=== PATIENT | female | born 1940 | race Caucasian/White ===

== ENCOUNTER → 2018-06-23 15:29 | Outpatient (POV) | payer MEDICARE, OTHER, SELFPAY | PROVIDERS: Visit Provider Dermatology | DX: Z00.00 Encounter for general adult medical examination without abnormal findings (principal) ==

== ENCOUNTER → 2019-01-14 13:49 | Outpatient (CLI) | payer MEDICARE, OTHER, SELFPAY ==
--- NOTE | 2019-01-14 13:57 | XR_ITS ---
PROCEDURE: XR HIP RT 2-3V W/PELVIS CLINICAL INDICATION: RT HIP PAIN COMPARISON: No exams were available for comparison FINDINGS: Mild osteoarthritic change of the right hip and SI joint. No fracture or dislocation. No lytic or blastic change IMPRESSION: Mild osteoarthritis otherwise negative Dictated by: Bethel Marie MD 01/14/2019 17:07 Signed by: <Electronically signed by Bethel Marie MD in [place]> 01/14/2019 17:07
== END ==
PROVIDERS: PCP Family Medicine; Visit Provider Nurse Practitioner Family
DX: M25.551 Pain in right hip (principal)
CPT/HCPCS: 73502

== ENCOUNTER → 2019-01-26 15:15 | Outpatient (CLI) | payer MEDICARE, OTHER, SELFPAY | PROVIDERS: PCP Family Medicine; Visit Provider Nurse Practitioner Family | DX: R10.30 Lower abdominal pain, unspecified (principal) ==

== ENCOUNTER → 2019-01-27 13:04 | Outpatient (CLI) | payer MEDICARE, OTHER, SELFPAY ==
--- NOTE | 2019-01-27 | CT_ITS ---
Procedure: CT ANGIO ABDOMEN CLINICAL HISTORY: Abdominal aortic aneurysm COMPARISON: CT ABDOMEN PELVIS W CON from 01/24/2019 TECHNIQUE: IV Contrast: 100ml Optiray 350 Axial images obtained with sagittal and coronal reformats. All CT scans at the facility use one or more dose reduction, viz: automated exposure control, ma/kV adjustment per patient size (including targeted exams where dose is matched to indication, i.e. head), or iterative reconstruction technique. FINDINGS: There is aneurysmal dilatation of the lower thoracic aorta and upper abdominal aorta measuring up to 3.8 cm transverse and 3.8 cm AP at the aortic hiatus. The aorta tapers to 2.8 by 3 cm at the level of the renal arteries and measures up to 2.2 by 2.4 cm distally proximal to the bifurcation. The proximal common iliac on the right measures up to 1.8 cm. The left common iliac is unremarkable. No significant stenosis of the celiac or SMA. The YOSSI is patent. There is a single renal artery to each kidney with no significant stenosis. The liver, adrenal glands, and pancreas have an unremarkable appearance. There is mild splenomegaly at 14 cm. There is mild cortical scarring of both kidneys slightly greater on the right. No hydronephrosis. No renal or ureteral calculi. There is a duplicated left renal collecting system. The ureters appear to join in the lower aspect. There is diffuse diverticulosis of the sigmoid colon. No evidence of diverticulitis. There has been a prior hysterectomy. The. 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 The rectum has an unremarkable appearance. No acute bony findings are evident. IMPRESSION: 1. There is mild aneurysmal dilatation of the junction of the descending thoracic aorta with the abdominal aorta measuring up to 3.8 x 3.8 cm. The aorta tapers distal to this region. No evidence of aortic dissection 2. Colonic diverticulosis with postsurgical changes. No acute finding. The the Dictated by: Bethel Marie MD 01/27/2019 16:53 Signed by: <Electronically signed by Bethel Marie MD in [place]> 01/27/2019 16:53
--- NOTE | 2019-01-27 13:19 | CT_ITS ---
PROCEDURE: CT ANGIO CHEST CLINCIAL INDICATION: THORACIC ANEURYSM Follow-up thoracic aortic aneurysm COMPARISON: [facility] CT CHEST W/O CONTRAST from 05/03/2014 TECHNIQUE: IV Contrast: 70ML OPTIRAY 350 Axial images obtained with sagittal and coronal reformats. All CT scans at the facility use one or more dose reduction, viz: automated exposure control, ma/kV adjustment per patient size (including targeted exams where dose is matched to indication, i.e. head), or iterative reconstruction technique. FINDINGS: There has been a prior CABG. There are diffuse coronary artery calcifications. Coronary artery stents are also present. There is normal heart size. Atheromatous changes involve the thoracic aorta. There is mild dilatation of the ascending aorta measuring 4 cm in AP dimension. Previously this measured 3.8 cm. The aorta at the level of the subclavian artery on the left measures 2.5 cm. The aorta thin becomes dilated in the descending portion measuring up to 4 cm AP in the proximal descending thoracic aorta, 4.7 cm in the mid descending thoracic aorta and 3.6 cm at the aortic hiatus. There is a moderate amount of mural thrombus along the posterior aspect of the descending thoracic aorta. A definite dissection however is not identified. The aorta has enlarged in caliber. Previously the descending thoracic aorta only measured up to approximately 3.6 cm in the proximal descending thoracic aorta now measuring 4.7 cm. There is a trace right-sided pleural effusion. There are mild atelectatic changes in the left lower lobe and trace left-sided effusion. No mediastinal or hilar mass. No suspicious pulmonary nodules. No infiltrates. No acute bony findings. IMPRESSION: 1. Descending thoracic aortic aneurysm measuring up to 4.7 cm with a moderate amount of intramural thrombus as described above which is increased in size compared to the previous exam 2. Small bilateral pleural effusions. Dictated by: Bethel Marie MD 01/27/2019 16:28 Signed by: <Electronically signed by Bethel Marie MD in [place]> 01/27/2019 16:28
== END ==
PROVIDERS: PCP Nurse Practitioner Family; Visit Provider Nurse Practitioner Family
DX: I71.2 Thoracic aortic aneurysm, without rupture (principal); R10.30 Lower abdominal pain, unspecified; R50.9 Fever, unspecified
CPT/HCPCS: 71275; 74175; Q9967

== ENCOUNTER → 2019-03-16 14:45 | Outpatient (CLI) | payer MEDICARE, OTHER, SELFPAY ==
--- NOTE | 2019-03-16 14:51 | XR_ITS ---
PROCEDURE: XR CHEST 2V CLINICAL HISTORY: right rib pain Right-sided chest pain following injury COMPARISON: CXR1 CHEST-PORTABLE from 01/04/2013 CXR CHEST(2 VIEWS-NOT PORTABLE) from 05/17/2014 CT ANGIO CHEST from 01/27/2019 FINDINGS: Prior median sternotomy. There is tortuosity/ectasia of the descending thoracic aorta which appears more prominent than when compared to 05/17/2014. The patient has a known descending thoracic aortic aneurysm as seen on 01/27/2019. Normal heart size. The lungs are clear without infiltrates, suspicious nodules, or pleural effusions. No acute bony abnormalities. IMPRESSION: Descending thoracic aortic aneurysm probably unchanged since 01/27/2019 otherwise negative Dictated by: Bethel Marie MD 03/16/2019 18:06 Electronically signed by Bethel Marie MD in [place] 03/16/2019 18:06
== END ==
PROVIDERS: PCP Family Medicine; Visit Provider Internal Medicine
DX: R07.81 Pleurodynia (principal); Z91.81 History of falling
CPT/HCPCS: 71046

== ENCOUNTER → 2019-05-18 14:53 | Outpatient (POV) | payer MEDICARE, OTHER, SELFPAY | PROVIDERS: Visit Provider Dermatology | DX: Z00.00 Encounter for general adult medical examination without abnormal findings (principal) ==

== ENCOUNTER → 2019-12-07 14:55 | Outpatient (POV) | payer MEDICARE, OTHER, SELFPAY | PROVIDERS: Visit Provider Dermatology | DX: Z00.00 Encounter for general adult medical examination without abnormal findings (principal) ==

== ENCOUNTER → 2019-12-27 10:30 | Outpatient (CLI) | payer MEDICARE, OTHER, SELFPAY ==
[2019-12-27 11:10] LABS: Basophils # 0.1 K/mm3 (0-0.2); Eosinophils # 0.2 K/mm3 (0.0-0.4); Eosinophils % 3.6 % (0.1-12.0); Hematocrit 43.4 % (37.0-47.0); Hemoglobin 14.9 g/dL (12.2-16.2); Lymphocytes # 1.8 K/mm3 (0.7-4.5); Lymphocytes % 27.5 % (10-50); Mean Corpuscular HGB Conc 34.3 g/dL (31.8-35.4); Mean Corpuscular Hemoglobin 32.1 pg (27.0-31.2); Mean Corpuscular Volume 93.5 fl (81-99); Monocytes # 0.3 K/mm3 (0.1-1.0); Monocytes % 4.7 % (1.7-9.3); Neutrophils # 4.1 K/mm3 (1.8-7.8); Neutrophils % 63.3 % (37.0-80.0); Platelet Count 196 K/mm3 (142-424); Red Blood Count 4.64 M/mm3 (4.20-5.40); Red Cell Distribution Width 13.6 % (11.5-17.5); White Blood Count 6.5 K/mm3 (4.8-10.8)
[2019-12-27 11:30] LABS: Microscopic, Urine URINE MICROSCOPIC (MICROSCOPIC)
[2019-12-27 11:33] LABS: Appearance,Urine SL CLOUDY (Clear); Bilirubin,Urine Negative (Negative); Blood, Urine Negative (Negative); Color,Urine YELLOW (Yellow); Glucose,Urine (UA) Negative (Negative); Ketones,Urine Negative (Negative); Leukocyte Esterase,Urine 2+ (Negative); Nitrate,Urine Negative (Negative); PH,Urine 5.5 (5.0-8.5); Protein,Urine Negative (Negative); Urobilinogen,Urine 0.2 EU/dl (0.2)
[2019-12-27 11:54] LABS: Bacteria,Urine 1+ /lpf
[2019-12-27 11:59] LABS: Chloride 94 mmol/L (98-107); Potassium 3.8 mmoL/L (3.5-5.1); Sodium 136 mmol/L (136-145)
[2019-12-27 12:01] LABS: Bilirubin,Unconjugated 0.5 mg/dL (0.0-1.1); Blood Urea Nitrogen 15 mg/dl (7-17); Estimated Glomerular Filt Rate 39 ml/min (>60); GFR (African American) 48 ML/MIN (>60)
[2019-12-27 12:02] LABS: Alanine Aminotransferase 11 U/L (12-78); Albumin Level 3.7 g/dl (3.5-5.0); Alkaline Phosphatase 80 U/L (38-126); Anion Gap 10.8 mEq/L (5-15); Aspartate Amino Transferase 25 U/L (14-36); Bilirubin,Direct 0.1 mg/dl (0.0-0.4); Bilirubin,Indirect 0.5 mg/dL (0.0-0.9); Bilirubin,Total 0.6 mg/dl (0.2-1.3); Calcium 9.2 mg/dl (8.4-10.2); Carbon Dioxide 35 mmol/L (22.0-30.0); Cholesterol 205 mg/dl (140-200); Glucose 113 mg/dl (74-100); HDL Cholesterol 68 mg/dl (40-60); Total Protein,Serum 6.6 g/dl (6.3-8.2); Triglycerides 184 mg/dl (30-150); VLDL Cholesterol 37 mg/dL (0-40)
[2019-12-27 12:13] LABS: Direct LDL Cholesterol 101.98 mg/dL (100-129)
[2019-12-27 12:19] LABS: Free T4 (Free Thyroxine) 1.19 ng/dl (0.78-2.19)
[2019-12-27 12:33] LABS: Thyroid Stimulating Hormone 0.59 uIU/mL (0.465-4.68)
== END ==
PROVIDERS: Visit Provider Physician Assistant
DX: I11.9 Hypertensive heart disease without heart failure; I25.10 Atherosclerotic heart disease of native coronary artery without angina pectoris; I45.10 Unspecified right bundle-branch block; R42 Dizziness and giddiness; R94.31 Abnormal electrocardiogram [ECG] [EKG]; R53.83 Other fatigue; E78.49 Other hyperlipidemia
CPT/HCPCS: 36415; 80048; 80061; 80076; 81001; 84439; 84443; 85025; 87086

== ENCOUNTER → 2019-12-31 07:06 | Outpatient (CLI) | payer MEDICARE, OTHER, SELFPAY ==
[2019-12-31 07:31] LABS: Blood Urea Nitrogen 15 mg/dl (7-17); Estimated Glomerular Filt Rate 48 ml/min (>60); GFR (African American) 58 ML/MIN (>60)
--- NOTE | 2019-12-31 07:57 | CT_ITS ---
PROCEDURE: CT ANGIO CHEST CLINCIAL INDICATION: thoracic aortic aneurysm Follow-up aortic aneurysm COMPARISON: CT ANGIO CHEST from 01/27/2019 TECHNIQUE: IV Contrast: 70ML OPTIRAY 350 Axial images obtained with sagittal and coronal reformats. All CT scans at the facility use one or more dose reduction, viz: automated exposure control, ma/kV adjustment per patient size (including targeted exams where dose is matched to indication, i.e. head), or iterative reconstruction technique. FINDINGS: Atheromatous changes are present involving the thoracic aorta with mild dilatation the distal ascending thoracic aorta measuring to 3.5 cm. There is ectasia also of the great vessels with diffuse atheromatous changes of the descending thoracic aorta with mural thrombus noted. The descending aorta measures 5 cm transverse and 4.7 cm AP and may be slightly larger compared to the previous exam at 4.7 x 4.6 cm. There is a moderate amount of intramural thrombus along the posterior aspect of the descending thoracic aorta. There is some increased density within the mural thrombus which has developed since the previous exam which could be related to some calcification or some enhancement of the mural thrombus which could be seen with a small dissection. Consider repeat exam without contrast to determine if this is calcification or contrast enhancement. There has been a prior median sternotomy. There is evidence of old granulomatous disease. There is minimal pleural thickening in the right midlung laterally. IMPRESSION: 1. Descending thoracic aortic aneurysm measuring up to 5 x 4.7 cm slightly larger compared to the previous exam with mural thrombus. There is some increased density within the mural thrombus which could be related to calcification or enhancement. Cannot exclude an early dissection. Consider follow-up exam without contrast to determine if the increased density within the thrombus is calcification or enhancement. 2. Prior median sternotomy with atheromatous changes of the thoracic aorta Dictated by: Bethel Marie MD 01/03/2020 09:24 Electronically signed by Bethel Marie MD in [place] 01/03/2020 09:24
== END ==
PROVIDERS: PCP Family Medicine; Visit Provider Physician Assistant
DX: E78.5 Hyperlipidemia, unspecified (principal); I11.9 Hypertensive heart disease without heart failure; I25.10 Atherosclerotic heart disease of native coronary artery without angina pectoris; I45.10 Unspecified right bundle-branch block; I71.2 Thoracic aortic aneurysm, without rupture; R42 Dizziness and giddiness; R53.83 Other fatigue; R94.31 Abnormal electrocardiogram [ECG] [EKG]
CPT/HCPCS: 36415; 71275; 82565; 84520; Q9967

== ENCOUNTER 2020-01-12 19:26 | Observation (INO) | payer MEDICARE, OTHER, SELFPAY ==
[2020-01-12 19:41] VITALS: BP 97/50; PULSE 110; RESP 18; TEMP 36.6; O2SAT 88; BMI 30.4
--- NOTE | 2020-01-12 19:55 | XR_ITS ---
PROCEDURE: XR CHEST 2V CLINICAL HISTORY: SOA Shortness of air weakness fever COMPARISON: CR CXR1 CHEST-PORTABLE from 01/04/2013 CR CXR CHEST(2 VIEWS-NOT PORTABLE) from 05/17/2014 CR XR CHEST 2V from 03/16/[address] ANGIO CHEST from 12/31/2019 FINDINGS: There has been a prior median sternotomy. There is normal heart size. There is prominence of the superior mediastinum unchanged. The lungs are clear without infiltrates, suspicious nodules, or pleural effusions. Surgical clips are present in the left upper quadrant. No acute bony finding. IMPRESSION: No change no acute finding Dictated b Bethel Marie MD 01/13/2020 06:19 Bethel Marie MD in [place] 01/13/2020 06:19
--- NOTE | 2020-01-12 19:55 | CT_ITS ---
PROCEDURE: CT ABDOMEN PELVIS W CON CLINICAL INDICATION: Urine retention Fever, UTI, history of rectal tumor, chills, weakness COMPARISON: CT CT ANGIO ABDOMEN from 01/27/[address] ANGIO CHEST from 12/31/2019 TECHNIQUE: IV Contrast: 75ML OPTIRAY 350 Oral Contrast None Axial images obtained with sagittal and coronal reformats. All CT scans at the facility use one or more dose reduction, viz: automated exposure control, ma/kV adjustment per patient size (including targeted exams where dose is matched to indication, i.e. head), or iterative reconstruction technique. FINDINGS: LOWER THORAX: There is trace bilateral effusions. There is aneurysmal dilatation of the distal descending thoracic aorta and upper abdominal aorta. The distal descending thoracic aorta measures to 4.9 x 4.9 cm not significantly changed. There is a mild amount mural thrombus. Atelectatic changes are present around the aorta in the left lower lobe. ABDOMEN & PELVIS: Prior cholecystectomy. The liver, adrenal glands, and pancreas have an unremarkable appearance. There is mild splenomegaly at 14 cm. No renal or ureteral calculi. There is mild prominence of the renal pelves on both sides. There is questionable minimal enhancement of the left renal pelvis and proximal ureter. No evidence of pyelonephritis or abscess. 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 There are few small nodes in the retroperitoneum anterior to the left psoas muscle.. There is mild dilatation of the abdominal aorta at 2.6 cm. No intestinal obstruction or free air. No evidence of appendicitis or diverticulitis. There is colonic diverticulosis. There is a small umbilical hernia containing fat. No acute bony anomalies. The the IMPRESSION: 1. Mild prominence of the renal pelves bilaterally with questionable minimal enhancement of the proximal left ureter and renal pelvis raising the question of urinary tract infection. 2. Aneurysmal dilatation of the distal descending thoracic aorta not significantly changed from 12/31/2019 with minimal dilatation of the mid abdominal aorta not significantly changed. 3. Trace bilateral effusions 4. Other nonacute findings as detailed above Dictated b Bethel Marie MD 01/13/2020 08:42 Bethel Marie MD in [place] 01/13/2020 08:42
[2020-01-12 20:19] LABS: Microscopic, Urine URINE MICROSCOPIC (MICROSCOPIC)
[2020-01-12 20:25] LABS: Appearance,Urine CLEAR (Clear); Bilirubin,Urine Negative (Negative); Blood, Urine TRACE-I (Negative); Color,Urine YELLOW (Yellow); Glucose,Urine (UA) Negative (Negative); Ketones,Urine Negative (Negative); Leukocyte Esterase,Urine Negative (Negative); Nitrate,Urine Negative (Negative); Protein,Urine TRACE (Negative)
[2020-01-12 20:26] LABS: Chloride 94 mmol/L (98-107)
[2020-01-12 20:27] LABS: Basophils % 0.2 % (0.1-2.0); Eosinophils # 0.1 K/mm3 (0.0-0.4); Eosinophils % 0.5 % (0.1-12.0); Hematocrit 40.8 % (37.0-47.0); Lymphocytes # 0.4 K/mm3 (0.7-4.5); Lymphocytes % 2.5 % (10-50); Mean Corpuscular HGB Conc 34.4 g/dL (31.8-35.4); Mean Corpuscular Hemoglobin 31.2 pg (27.0-31.2); Mean Corpuscular Volume 90.9 fl (81-99); Mean Platelet Volume 7.8 fl (7.4-10.4); Monocytes # 0.4 K/mm3 (0.1-1.0); Monocytes % 2.6 % (1.7-9.3); Neutrophils # 13.3 K/mm3 (1.8-7.8); Neutrophils % 94.2 % (37.0-80.0); Platelet Count 168 K/mm3 (142-424); Potassium 3.6 mmoL/L (3.5-5.1); Red Blood Count 4.49 M/mm3 (4.20-5.40); Sodium 132 mmol/L (136-145); White Blood Count 14.1 K/mm3 (4.8-10.8)
[2020-01-12 20:29] VITALS: BP 100/47; PULSE 102; RESP 18; O2SAT 96
[2020-01-12 20:29] LABS: Alanine Aminotransferase 16 U/L (12-78); Albumin Level 3.6 g/dl (3.5-5.0); Alkaline Phosphatase 74 U/L (38-126); Anion Gap 10.6 mEq/L (5-15); Aspartate Amino Transferase 27 U/L (14-36); Bilirubin,Total 1.2 mg/dl (0.2-1.3); Blood Urea Nitrogen 16 mg/dl (7-17); Carbon Dioxide 31 mmol/L (22.0-30.0); Creatinine Clearance Estimated 46 mL/min (50-200); Estimated Glomerular Filt Rate 36 ml/min (>60); GFR (African American) 44 ML/MIN (>60); Lactic Acid 1.6 mmol/L (0.7-2.1)
[2020-01-12 20:30] LABS: Albumin/Globulin Ratio 1.2 (1.1-1.8); Calcium 8.9 mg/dl (8.4-10.2); Glucose 152 mg/dl (74-100); Total Protein,Serum 6.6 g/dl (6.3-8.2)
[2020-01-12 20:33] LABS: MANUAL DIFFERENTIAL MANUAL DIFFERENTIAL (MANUAL DIFF)
--- NOTE | 2020-01-12 20:38 | HMH.EDUROGF ---
ED Disposition Clinical Impression: SIRS (systemic inflammatory response syndrome), Elevated brain natriuretic peptide (BNP) level, Renal insufficiency UTI (urinary tract infection) Qualifiers: Urinary tract infection type: site unspecified Hematuria presence: without hematuria Qualified Code(s): N39.0 - Urinary tract infection, site not specified Thoracic aortic aneurysm Qualifiers: Presence of rupture: without rupture Qualified Code(s): I71.2 - Thoracic aortic aneurysm, without rupture Disposition: Admitted as Observation Condition on Discharge: Fair Referrals: Dinesh Hernández MD [Primary Care Provider] - - Critical Care Critical Care Time: No Attestation: On 01/12/20, the high probability of a clinically significant, sudden or life threatening deterioration of the following system(s) required my full and direct attention, intervention and personal management. The time I documented below is in addition to time spent performing reported procedures but includes the following listed in this critical care notation. Medical Decision Making - Medical Records Medical records reviewed: Yes: I reviewed the patient's medical records. - Harry Inquiry Pt receiving controlled substance: No Vital Signs: 01/12/20 19:41 01/12/20 20:29 Temperature 97.9 F Temperature Source Oral Pulse Rate [Left] 110 H 102 H Respiratory Rate 18 18 Blood Pressure [Right Arm] 97/50 L 100/47 L Blood Pressure Mean [Right Arm] 65 64 Blood Pressure Source [Right Arm] Automatic Cuff Blood Pressure Position [Right Arm] Supine 02 Sat by Pulse Oximetry 88 L 96 Oxygen Delivery Method Room Air - Lab Data Lab results reviewed: Yes: I reviewed the patient's lab results. Lab Results 01/12/20 20:10: Urine Color Yellow, Urine Appearance Clear, Urine pH 6.0, Ur Specific [place] 1.020, Urine Protein Trace, Urine Glucose (UA) Negative, Urine Ketones Negative, Urine Blood Trace-i, Urine Nitrate Negative, Urine Bilirubin Negative, Urine Urobilinogen 2.0, Ur Leukocyte Esterase Negative, Urine RBC Occasional, Ur Squamous Epith Cells Occasional, Urine Bacteria Trace 01/12/20 20:10: WBC 14.1 H, RBC 4.49, Hgb 14.0, Hct 40.8, MCV 90.9, MCH 31.2, MCHC 34.4, RDW 14.0, Plt Count 168, MPV 7.8, Neut % (Auto) 94.2 H, Lymph % (Auto) 2.5 L, [place] % (Auto) 2.6, Eos % (Auto) 0.5, Baso % (Auto) 0.2, Neut # (Auto) 13.3 H, Lymph # (Auto) 0.4 L, [place] # (Auto) 0.4, Eos # (Auto) 0.1, Baso # (Auto) 0.0, Total Counted 100, Neutrophils % (Manual) 94 H, Lymphocytes % (Manual) 3 L, Monocytes % (Manual) 3, Platelet Estimate Normal, Stomatocytes 1+ 01/12/20 20:10: Sodium 132 L, Potassium 3.6, Chloride 94 L, Carbon Dioxide 31 H, Anion Gap 10.6, BUN 16, Creatinine 1.40 H, Estimated Creat Clear 46, Estimated GFR 36 L, Est GFR ( Amer) 44 L, Glucose 152 H, Calcium 8.9, Total Bilirubin 1.2, AST 27, ALT 16, Alkaline Phosphatase 74, NT-Pro-B Natriuret Pep 1120 H, Total Protein 6.6, Albumin 3.6, Globulin 3.0, Albumin/Globulin Ratio 1.2 01/12/20 20:10: Lactate 1.6 01/12/20 20:10: Troponin I 0.03 Result diagrams: 01/12/20 20:10 01/12/20 20:10 Orders (Tests/Meds): ED MEDICATIONS Generic Name Dose Route Start Last Admin Trade Name Freq PRN Reason Stop Dose Admin Sodium Chloride 1,000 mls @ 999 mls/hr 01/12/20 20:00 01/12/20 20:20 Sod Chlor 0.9% 1000ml Bag IV 01/12/20 21:00 999 mls/hr .[id number] SCOTT Administration Discontinued Medications Generic Name Dose Route Start Last Admin Trade Name Freq PRN Reason Stop Dose Admin Ioversol 75 ml 01/12/20 21:16 01/12/20 21:17 Rad-Optiray 350 100ml Vial IV 01/12/20 21:17 75 ml ONCE ONE Administration Protocol Methylprednisolone Sodium Succinate 125 mg 01/12/20 19:55 01/12/20 20:20 Solu-Medrol 125mg/2ml Vial IV 01/12/20 19:56 125 mg ONCE ONE Administration Sodium Chloride 10 ml 01/12/20 21:16 01/12/20 21:17 Rad-Saline Flush 10ml Syringe IV 01/12/20 21:17 10 ml ONCE ONE Administration ORDERS
[2020-01-12 20:39] LABS: NT Pro Brain Natriuretic Pep. 1120 pg/mL (0-450)
[2020-01-12 20:56] LABS: Adenovirus,PCR Not Detected (NotDetected); Bordetella Pertussis Not Detected (NotDetected); Chlamydophila Pneumoniae, PCR Not Detected (NotDetected); Coronavirus 19, PCR Not Detected (NotDetected); Coronavirus 229E Not Detected (NotDetected); Coronavirus NL63 Not Detected (NotDetected); Coronavirus OC43 Not Detected (NotDetected); Coronovirus HKU1,PCR Not Detected (NotDetected); Human Metapneumovirus Not Detected (NotDetected); Influenza A, PCR Not Detected (NotDetected); Influenza AH1, 2009 Not Detected (NotDetected); Influenza AH1, PCR Not Detected (NotDetected); Influenza AH3,PCR Not Detected (NotDetected); Influenza B, PCR Not Detected (NotDetected); Mycoplasma Pneumoniae, PCR Not Detected (NotDetected); Parainfluenza 1, PCR Not Detected (NotDetected); Parainfluenza 2, PCR Not Detected (NotDetected); Parainfluenza 3, PCR Not Detected (NotDetected); Parainfluenza 4, PCR Not Detected (NotDetected); Respiratory Syncytial Virus Not Detected (NotDetected); Rhinovirus/Enterovirus Not Detected (NotDetected)
--- NOTE | 2020-01-12 20:57 | PC.NURSE ---
to xray via stretcher
[2020-01-12 21:06] LABS: Lymphocytes % 3 % (10-50); Monocytes % 3 % (2-9); Neutrophils % 94 % (42-76); Total Cells Counted 100
[2020-01-12 21:07] LABS: Platelet Estimate Normal; Stomatocytes 1+
[2020-01-12 21:08] LABS: Troponin I 0.03 ng/ml (0.00-0.034)
[2020-01-12 21:24] LABS: Bacteria,Urine Trace /lpf; RBC,Urine Occasional #/hpf (0-3); Squamous Epithelial Cell,Urine Occasional #/hpf (0-5)
[2020-01-12 22:21] LABS: Amylase 67 U/L (30-110); Lipase 68 U/L (23-300)
[2020-01-12 22:59] VITALS: BP 121/63; PULSE 103; RESP 18; TEMP 36.6; O2SAT 97
[2020-01-12 23:15] VITALS: BP 121/63; PULSE 103; RESP 18; O2SAT 97
[2020-01-12 23:43] VITALS: BP 114/67; PULSE 108; RESP 18; TEMP 36.7; O2SAT 90; BMI 33.1
--- NOTE | 2020-01-12 23:43 | PC.NURSE ---
PT ARRIVED TO THE FLOOR VIA W/C FROM ED AT 1351
[2020-01-12 23:47] LABS: Troponin I 0.03 ng/ml (0.00-0.034)
[2020-01-13 00:06] VITALS: PULSE 100
[2020-01-13 03:07] LABS: Troponin I 0.03 ng/ml (0.00-0.034)
--- NOTE | 2020-01-13 03:19 | PC.NURSE ---
Addendum entered by Rhonda Singh RN 01/13/20 03:24: PULSES +2. CAP REFILL < 3 SEC. NSR NOTED PER TAPER MACHINE. Original Note: A&OX3. 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 LUNGS NOTED CLEAR T/O AUSCULTATION. TOLERATED 2LNC WELL. WILL ATTEMPT TO OBTAIN A RA OXYGEN SATURATION ON 0400 VS ROUND. ABDOMEN NONDISTENDED, ACTIVE BOWEL SOUNDS, SOFT AND NOTED WITH MILD TENDERNESS PER PALPATION. NO COMPLAINTS STATED SO FAR SINCE ADMISSION. VSS. WILL CONTINUE TO MONITOR.
[2020-01-13 04:00] VITALS: BP 114/55; PULSE 60; PULSE 62; RESP 18; TEMP 36.4; O2SAT 97
[2020-01-13 05:00] VITALS: O2SAT 97
[2020-01-13 06:06] LABS: Basophils % 0.1 % (0.1-2.0); Eosinophils % 0.4 % (0.1-12.0); Hematocrit 38.4 % (37.0-47.0); Hemoglobin 13.1 g/dL (12.2-16.2); Lymphocytes # 0.5 K/mm3 (0.7-4.5); Lymphocytes % 4.7 % (10-50); Mean Corpuscular HGB Conc 34.2 g/dL (31.8-35.4); Mean Corpuscular Volume 93.6 fl (81-99); Mean Platelet Volume 8.1 fl (7.4-10.4); Monocytes # 0.1 K/mm3 (0.1-1.0); Monocytes % 1.1 % (1.7-9.3); Neutrophils # 10.4 K/mm3 (1.8-7.8); Neutrophils % 93.8 % (37.0-80.0); Platelet Count 140 K/mm3 (142-424); White Blood Count 11.1 K/mm3 (4.8-10.8)
[2020-01-13 06:09] LABS: Chloride 99 mmol/L (98-107); Sodium 135 mmol/L (136-145)
[2020-01-13 06:10] LABS: MANUAL DIFFERENTIAL MANUAL DIFFERENTIAL (MANUAL DIFF); Potassium 4.1 mmoL/L (3.5-5.1)
[2020-01-13 06:13] LABS: Anion Gap 9.1 mEq/L (5-15); Blood Urea Nitrogen 18 mg/dl (7-17); Calcium 8.3 mg/dl (8.4-10.2); Carbon Dioxide 31 mmol/L (22.0-30.0); Creatinine Clearance Estimated 53 mL/min (50-200); Estimated Glomerular Filt Rate 43 ml/min (>60); GFR (African American) 52 ML/MIN (>60); Glucose 172 mg/dl (74-100)
[2020-01-13 06:48] VITALS: BMI 33.5
--- NOTE | 2020-01-13 07:24 | HMH.HP ---
*Admission Date: 01/12/20 *Chief complaint: Fever *History of present illness: 79-year-old female with hypertension, hypothyroidism, known thoracic aortic aneurysm presented to the hospital with complaints of fever, chills, weakness. Patient reports on January 10 she went to her local primary care physician and was diagnosed with a urinary tract infection. Patient symptom at that time was inability to urinate. She denies dysuria, urinary frequency or urgency. She denies back pain. Patient was diagnosed with a UTI and started on an oral antibiotic. Yesterday afternoon she developed a fever to 102 degrees along with associated chills and weakness. She felt so poorly she presented to the emergency department. She denies shortness of breath and cough. She denies chest pain over the last 24 hours. Patient's work-up in the emergency department was significant for an elevated white blood cell count along with mild elevation in her creatinine. Patient was started on IV fluids and IV antibiotics and admitted for observation. This morning she reports feeling better. She feels so well she thinks she can be discharged home. [facility] History I have reviewed the patient's past medical history: Yes Medical History: Reports:: Aneurysm, Coronary Artery Disease, Depression, Gastroesophageal Reflux Disease(GERD), Hiatal Hernia, Hyperlipidemia, Hypertension, Osteoporosis Denies:: Diabetes Mellitus Type 1, Diabetes Mellitus Type 2 *Have you ever received a pneumonia vaccine?: No *Have you received a flu vaccine this season?: Yes Other Medical History: Reports: Hypothyroidism, Osteoporosis, Thyroid Disease Laterality Cases: Bilateral: Other Other Surgeries: Yes: Angioplasty, CABG, Cardiac Catheterization, Cholecystectomy, Hernia Repair (HIATAL HERNIA REPAIR), Hysterectomy-Total, Thyroidectomy, Tubal Ligation, Other - *Social History Last grade of school completed: GED Smoking Status: Never smoker Alcohol Intake: never Alcohol Intake Frequency:: holidays/special occasions only Substance Use Type: denies use *Occupational Status:: retired Household Members: spouse *Travel in the last 8 weeks: None - Psychiatric History Pschychiatric History:: Reports:: Depression Family Hx:: Anemia, Cancer, Coronary Artery Disease, Hyperlipidemia, Thyroid Disorder, Substance abuse, Alcoholism Review of Systems - Constitutional Reports chills, Reports fatigue, Reports fever(s), Denies anorexia, Denies body ache(s), Denies daytime sleepiness, Denies excessive sweating, Denies headache(s), Denies lack of energy, Denies malaise - ENT Denies abnormal hearing - *Cardiovascular Reports shortness of breath with activity (Chronic), Reports lightheadedness, Denies chest pain, Denies chest pain at rest, Denies chest pain with activity - *Respiratory Denies change in phlegm color, Denies chest congestion, Denies cough - *Gastrointestinal Reports abdominal pain (Chronic), Denies belching, Denies bloating, Denies change in bowel habits - *Musculoskeletal Denies abnormal walking, Denies joint pain, Denies decreased muscle mass, Denies limited joint movement - Integumentary/Breasts Denies hair loss, Denies dry skin - *Neurologic Denies localized weakness, Denies seizure-like activity - Psychiatric Reports abnormal sleep pattern (Chronic) Meds Home Medications Medication Instructions Recorded Confirmed Type aspirin 81 mg tablet,delayed 81 mg PO DAILY tab 08/18/17 01/13/20 History release escitalopram oxalate 20 mg tablet 20 mg PO DAILY tab 08/18/17 01/13/20 History nitroglycerin 0.4 mg sublingual 0.4 mg SUBLINGUAL Q5M PRN 08/18/17 01/12/20 History tablet dicyclomine 20 mg tablet 20 mg PO DAILY PRN tab 06/15/19 01/13/20 History zolpidem 5 mg tablet 10 mg PO HS tab 12/14/19 01/13/20 History Ergocalciferol (Vitamin D2) 50,000 unit PO QWEEK 01/12/20 01/13/20 History [Drisdol] Isosorbide Mononitrate [Imdur 30mg 30 mg PO DAILY 01/12/20 01/13/20 History ER tablet
[2020-01-13 07:28] VITALS: BP 109/70; PULSE 67; RESP 20; TEMP 36.6; O2SAT 95
--- NOTE | 2020-01-13 07:37 | P.CONPHA_ITS ---
[facility] Pharmacy VTE Monitoring - Patient Demographics Admission date: 01/13/20 Report Date: 01/13/20 Time: 07:37 Allergies/Adverse Reactions: Patient Allergies codeine [CODEINE] Allergy (Unknown, Verified 12/14/19 13:52) guaifenesin [GUAIFENESIN] Allergy (Unknown, Verified 12/14/19 13:52) penicillin G [PENICILLIN G] Allergy (Unknown, Verified 12/14/19 13:52) ciprofloxacin [From Cipro] Allergy (Verified 12/14/19 13:52) Rash Height: 1.65 m Weight: 91.342 kg Patient Problems: Current Active Problems UTI (urinary tract infection) (Acute) SIRS (systemic inflammatory response syndrome) (Acute) Elevated brain natriuretic peptide (BNP) level (Acute) Renal insufficiency (Acute) Thoracic aortic aneurysm (Chronic) - VTE Risk Labs: VTE Related Lab Results Hgb 13.1 g/dL (12.2-16.2) 01/13/20 05:57 Hct 38.4 % (37.0-47.0) 01/13/20 05:57 Plt Count 140 K/mm3 (142-424) L 01/13/20 05:57 BUN 18 mg/dl (7-17) H 01/13/20 05:57 Creatinine 1.20 mg/dl (0.52-1.04) H 01/13/20 05:57 Estimated Creat Clear 53 mL/min (50-200) 01/13/20 05:57 Was VTE Risk Assessment Performed: Yes VTE Score: 4 VTE Risk Level: Low Risk Clinical Trial Participant: No - Prophylaxis VTE Prophylaxis Ordered?: Yes Types of VTE Prophylaxis: TEDS Knee High
[2020-01-13 08:09] LABS: Lymphocytes % 2 % (10-50); Neutrophils % 98 % (42-76); Total Cells Counted 100
[2020-01-13 08:10] LABS: Platelet Estimate Normal; RBC Morphology Normal
--- NOTE | 2020-01-13 08:59 | HMH.PHAINT ---
HOME MEDICATION RECONCILIATION COMPLETED USING LIST FROM PHARMACY AND CARDIOLOGY OFFICE.
--- NOTE | 2020-01-13 10:41 | PC.NURSE ---
pt weight 202.1. bed scale #[id number]
[2020-01-13 11:05] VITALS: BP 118/54; PULSE 60; RESP 20; TEMP 36.6; O2SAT 95
--- NOTE | 2020-01-13 15:20 | PC.NURSE ---
RN reassessment completed at this time. Pt has remained afebrile this shift and is hopeful that she will be discharged by MD this evening. VSS. Lung sounds CTA. Abd soft and nontender with BS active in all quads. Pt denies any pain/discomfort this shift. Pt denies any difficulty with urination. has been at the bedside throughout the day. Bed locked and in lowest position, side rails up x2, call light within reach, will continue to monitor.
[2020-01-13 15:29] VITALS: BP 122/69; PULSE 68; RESP 20; TEMP 36.6; O2SAT 95
--- NOTE | 2020-01-13 16:45 | HMH.DCSUM ---
General - General Admission date:: 01/12/20 Discharge date: 01/13/20 HPI HPI: 79-year-old female with hypertension, hypothyroidism, known thoracic aortic aneurysm presented to the hospital with complaints of fever, chills, weakness. Patient reports on January 10 she went to her local primary care physician and was diagnosed with a urinary tract infection. Patient symptom at that time was inability to urinate. She denies dysuria, urinary frequency or urgency. She denies back pain. Patient was diagnosed with a UTI and started on an oral antibiotic. Yesterday afternoon she developed a fever to 102 degrees along with associated chills and weakness. She felt so poorly she presented to the emergency department. She denies shortness of breath and cough. She denies chest pain over the last 24 hours. Patient's work-up in the emergency department was significant for an elevated white blood cell count along with mild elevation in her creatinine. Patient was started on IV fluids and IV antibiotics and admitted for observation. This morning she reports feeling better. She feels so well she thinks she can be discharged home. Hospital Course Hospital Course: Patient was admitted for observation. She had no fevers during her hospitalization. By the following morning on January 12 patient felt like she had returned to baseline. She denied any active UTI symptoms. Patient was discharged home. Due to her borderline renal function her home antibiotic of nitrofurantoin will be changed to cefuroxime axetil at discharge. Patient will follow-up in the office next week with Dr. Hernández Objective Vital signs: Temp Pulse Resp BP Pulse Ox 97.8 F 68 20 122/69 95 01/13/20 15:29 01/13/20 15:29 01/13/20 15:29 01/13/20 15:29 01/13/20 15:29 Results Labs on day of discharge: Labs from last 24 hours 01/13/20 01/13/20 01/13/20 05:57 05:57 02:40 WBC 11.1 H RBC 4.10 L Hgb 13.1 Hct 38.4 MCV 93.6 MCH 32.0 H MCHC 34.2 RDW 14.0 Plt Count 140 L MPV 8.1 Neut % (Auto) 93.8 H Lymph % (Auto) 4.7 L Moca % (Auto) 1.1 L Eos % (Auto) 0.4 Baso % (Auto) 0.1 Neut # (Auto) 10.4 H Lymph # (Auto) 0.5 L Moca # (Auto) 0.1 Eos # (Auto) 0.0 Baso # (Auto) 0.0 Total Counted 100 Neutrophils % (Manual) 98 H Lymphocytes % (Manual) 2 L Monocytes % (Manual) Platelet Estimate Normal RBC Morphology Normal Stomatocytes Sodium 135 L Potassium 4.1 Chloride 99 Carbon Dioxide 31 H Anion Gap 9.1 BUN 18 H Creatinine 1.20 H Estimated Creat Clear 53 Estimated GFR 43 L Est GFR ( Amer) 52 L Glucose 172 H Lactate Calcium 8.3 L Total Bilirubin AST ALT Alkaline Phosphatase Troponin I 0.03 NT-Pro-B Natriuret Pep Total Protein Albumin Globulin Albumin/Globulin Ratio Amylase Lipase Urine Color Urine Appearance Urine pH Ur Specific Bo[place] Urine Protein Urine Glucose (UA) Urine Ketones Urine Blood Urine Nitrate Urine Bilirubin Urine Urobilinogen Ur Leukocyte Esterase Urine RBC Ur Squamous Epith Cells Urine Bacteria Chlamy pneumoniae PCR Adenovirus (PCR) B. pertussis DNA (PCR) Coronavirus OC43 (PCR) Coronavirus HKU1 (PCR) Coronavirus 229E (PCR) COVID-19 PCR Coronavirus NL63 (PCR) Human Metapneumovir PCR Influenza A (H1) PCR Influ A (H1N1/09) PCR Influenza A (H3) PCR Influenza Type A (PCR) Influenza Type B (PCR) M. pneumoniae (PCR) Parainfluenza 1 (PCR) Parainfluenza 2 (PCR) Parainfluenza 3 (PCR) Parainfluenza 4 (PCR) RSV (PCR) Entero/Rhino (PCR) 01/12/20 01/12/20 01/12/20 23:21 20:50 20:10 WBC RBC Hgb Hct MCV MCH MCHC RDW Plt Count MPV Neut % (Auto) Lymph % (Auto) Moca % (Auto) Eos % (Auto) Baso
== END 2020-01-13 17:22 | disposition home or self-care (01) ==
LOC: ER 22:04 → 2ND 01-13 00:58
PROVIDERS: Emergency Medicine; Admitting Provider Internal Medicine Adolescent Medicine; Emergency Provider Emergency Medicine; PCP Family Medicine; Visit Provider Family Medicine
DX: N39.0 Urinary tract infection, site not specified (principal); Z95.0 Presence of cardiac pacemaker; I71.2 Thoracic aortic aneurysm, without rupture; I25.10 Atherosclerotic heart disease of native coronary artery without angina pectoris; E03.9 Hypothyroidism, unspecified; I11.9 Hypertensive heart disease without heart failure; Z79.899 Other long term (current) drug therapy; Z88.1 Allergy status to other antibiotic agents; Z88.5 Allergy status to narcotic agent; Z88.8 Allergy status to other drugs, medicaments and biological substances; R06.9 Unspecified abnormalities of breathing
CPT/HCPCS: 36415; 71046; 74177; 80048; 80053; 81001; 82150; 83605; 83690; 83880; 84484; 85007; 85025; 87040; 87581; 87633; 87798; 96365; 96367; 96374; 96375; 99285; G0378; Q9967

== ENCOUNTER 2020-08-05 12:31 | Emergency (ER) | payer MEDICARE, OTHER, SELFPAY ==
[2020-08-05 12:40] VITALS: BP 125/68; PULSE 72; RESP 20; TEMP 36.1; O2SAT 100; BMI 31.1
--- NOTE | 2020-08-05 13:02 | HMH.EDUTC ---
[facility] [place] Impression: URI (upper respiratory infection) Qualifiers: URI type: unspecified URI Qualified Code(s): J06.9 - Acute upper respiratory infection, unspecified Disposition: Home, Self-Care Condition on Discharge: Good Instructions: Sore Throat, DI for Ear Pain-Adult, Cefuroxime Additional Instructions: *Monitor Temp, Over the counter Motrin or Tylenol as directed/as needed Tylenol every 4 hours and Motrin every 6 hours (as long as your family doctor has told you that you can take it) for fever or pain. and straight to ER if unable to lower temp less than 101.0 after medication given *Warm salt water gargles may help to soothe the throat *Throat Lozenges *Warm fluids like tea with honey may help to soothe the throat *Sleep elevated *Humidifier/Vaporizer Your throat swab was sent for culture. Those results are typically sent to your primary care. Be sure to follow up in 2-3 days with your family doctor/primary care physician if no improvement so they can review those result and treat if necessary. If you don?t have a primary care doctor, I recommend you get one but in the mean time, you will have to return to a walk in clinic Follow up IMMEDIATELY for new or worsening symptoms or no Noticeable improvement over the next 48-72 hours. 911 for difficulty breathing or swallowing Prescriptions: cefUROXime axetiL [Ceftin 250mg Tablet] 250 mg PO BID #20 tab Transmission Status: Received by [facility] Referrals: Dinesh Hernández MD [Primary Care Provider] - As needed Time of Disposition: 13:14 Medical Decision Making - Harry Inquiry Pt receiving controlled substance: No Harry was queried for this patient: No Vital Signs: 08/05/20 12:40 08/05/20 13:28 Temperature 97.0 F L 97.0 F L Temperature Source Oral Pulse Rate 72 Pulse Rate [Right Brachial] 72 Respiratory Rate 20 20 Blood Pressure 125/68 Blood Pressure [Right Arm] 125/68 Blood Pressure Mean [Right Arm] 87 Blood Pressure Source [Right Arm] Automatic Cuff Blood Pressure Position [Right Arm] Sitting 02 Sat by Pulse Oximetry 100 Oxygen Delivery Method Room Air - Lab Data Lab results reviewed: Yes: I reviewed the patient's lab results. Lab Results 08/05/20 12:49: Strep Scn Rapid Clinic Negative Orders (Tests/Meds): ORDERS Category Date Time Status Strep Screen Confirmation Stat Micro 08/05/20 12:49 Received Medical Decision Narrative: Patient states that she is allergic to PCN but has taken Ceftin in the past without reactions or complications [facility] [place] - General Stated complaint: Sore Throat ears stopped up Time Seen by Provider: 08/05/20 13:02 Mode of Arrival: Ambulatory Source of Information: Patient Limitations: No Limitations Description of Symptoms (Recalled from Triage Doc. by RN): PATIENT C/O SORE THROAT AND EAR PAIN HEENT Symptoms (Recalled from RN notes): Yes Resp Symptoms (Recalled from RN notes): No Skin Symptoms (Recalled from RN notes): No MS Symptoms (Recalled from RN notes): No Functional Status (Recalled from RN notes): WNL - History of Present Illness Provider Complaint: Patient states that she has been having sore throat for several days and cant hear anything out of her right ear State that she feels like it is stopped up States that her throat irritation and pain has continued to get worse so she came in to get it checked worried that she may have strep throat - Related Data Home Medications Medication Instructions Recorded Confirmed aspirin 81 mg tablet,delayed 81 mg PO DAILY tab 08/18/17 01/13/20 release escitalopram oxalate 20 mg tablet 20 mg PO DAILY tab 08/18/17 01/13/20 nitroglycerin 0.4 mg sublingual 0.4 mg SUBLINGUAL Q5M PRN 08/18/17 01/12/20 tablet dicyclomine 20 mg tablet 20 mg PO DAILY PRN tab 06/15/19 01/13/20 Ergocalciferol (Vitamin D2) 50,000 unit PO WEEKLY 01/12/20 01/13/20 [Drisdol] Isosorbide Mononitrate [Imdur 30mg 30 mg PO DAILY
[2020-08-05 13:15] LABS: UTC Strep Screen (Rapid) Negative (Negative)
[2020-08-05 13:28] VITALS: BP 125/68; PULSE 72; RESP 20; TEMP 36.1; O2SAT 100
== END 2020-08-05 13:30 | disposition home or self-care (01) ==
PROVIDERS: Emergency Provider Nurse Practitioner; PCP Family Medicine
DX: J06.9 Acute upper respiratory infection, unspecified (principal); I10 Essential (primary) hypertension; H61.21 Impacted cerumen, right ear; E78.5 Hyperlipidemia, unspecified; M81.0 Age-related osteoporosis without current pathological fracture; I25.10 Atherosclerotic heart disease of native coronary artery without angina pectoris; K21.9 Gastro-esophageal reflux disease without esophagitis; E03.9 Hypothyroidism, unspecified; Z88.0 Allergy status to penicillin; Z88.5 Allergy status to narcotic agent; Z79.899 Other long term (current) drug therapy
CPT/HCPCS: G0463; 87880; 99202

== ENCOUNTER → 2020-08-31 13:50 | Outpatient (CLI) | payer MEDICARE, OTHER, SELFPAY ==
[2020-08-31 16:32] LABS: Blood Urea Nitrogen 12 mg/dl (7-17); Estimated Glomerular Filt Rate 48 ml/min (>60); GFR (African American) 58 ML/MIN (>60)
== END ==
PROVIDERS: Visit Provider Thoracic Surgery (Cardiothoracic Vascular Surgery)
DX: I71.2 Thoracic aortic aneurysm, without rupture (principal)
CPT/HCPCS: 36415; 82565; 84520

== ENCOUNTER → 2020-09-04 13:23 | Outpatient (CLI) | payer MEDICARE, OTHER, SELFPAY ==
--- NOTE | 2020-09-04 13:28 | CT_ITS ---
PROCEDURE: CT ANGIO CHEST CLINCIAL INDICATION: AAA, follow-up thoracic aortic aneurysm Taa follow up graph See outside study and report Check for patency Extravasation? COMPARISON: CT CT CHEST W WO CONTRAST from 05/12/2020 TECHNIQUE: IV Contrast: 70ML Isovue 370 Axial images obtained with sagittal and coronal reformats. All CT scans at the facility use one or more dose reduction, viz: automated exposure control, ma/kV adjustment per patient size (including targeted exams where dose is matched to indication, i.e. head), or iterative reconstruction technique. FINDINGS: Prior stent graft placement for thoracic aortic aneurysm. The graft is in the aortic arch and descending thoracic aorta. There is mural thrombus within the [place] aorta. Hyperdensity is noted in this thrombus posteriorly in the mid descending thoracic aorta consistent with mural calcification as opposed to extravasation. This was present on a previous unenhanced exam of 05/12/2020 and does not appear significantly changed on today's study. No evidence of endo graft leak. The stent extends to the level just proximal to the celiac artery. There is mild dilatation of the aorta measuring up to 4.7 cm in the lower descending thoracic aorta at the region of the mural thrombus not significantly changed from the previous exam. The ascending aorta has an unremarkable appearance. There has been a prior CABG with coronary artery stents and or calcifications also noted. Surgical clips are present in the upper abdomen to the left of the stomach and medial to the spleen. There is biapical scarring and evidence of old granulomatous disease IMPRESSION: 1. Status post endovascular stent repair of descending thoracic aortic aneurysm. No evidence of endovascular leak. No change in the mural wall thrombus and no change in the size of the [place] aneurysm. 2. Other nonacute findings as described above. Dictated by: Bethel Marie MD 09/05/2020 10:14 Bethel Marie MD in OV 09/05/2020 10:14
== END ==
PROVIDERS: PCP Family Medicine; Visit Provider Thoracic Surgery (Cardiothoracic Vascular Surgery)
DX: I71.2 Thoracic aortic aneurysm, without rupture (principal)
CPT/HCPCS: 71275; Q9967

== ENCOUNTER 2020-10-12 19:21 | Emergency (ER) | payer MEDICARE, OTHER, SELFPAY ==
[2020-10-12 19:25] VITALS: BP 198/80; PULSE 71; RESP 21; TEMP 36.7; O2SAT 99; BMI 31.3
--- NOTE | 2020-10-12 19:56 | HMH.EDUTC ---
[facility] [place] Clinical Impression: Allergic reaction Qualifiers: Encounter type: initial encounter Qualified Code(s): T78.40XA - Allergy, unspecified, initial encounter Disposition: Home, Self-Care Condition on Discharge: Good Instructions: DI for General Allergic Reactions Additional Instructions: Avoid contact with the offending substance. Don't start the oral steroids until tomorrow. Don't put the topical steroids (triamcinolone) on your face or your groin. Follow up with your regular doctor. GO TO THE ER FOR ANY WORSENING SYMPTOMS OR CONCERNS Prescriptions: methylPREDNISolone [Medrol] 4 mg PO DIRECTED 6 Days #21 tab.ds.pk Transmission Status: Received by [facility] Triamcinolone Acetonide 1 applicatio TP TIDP PRN 7 Days #1 tube PRN Reason: Itching Transmission Status: Received by [facility] Referrals: Dinesh Hernández MD [Primary Care Provider] - Time of Disposition: 20:18 Medical Decision Making - Medical Records Medical records reviewed: No: I reviewed the patient's medical records. - Harry Inquiry Pt receiving controlled substance: No Vital Signs: 10/12/20 19:25 10/12/20 20:18 Temperature 98.0 F 98.0 F Temperature Source Oral Pulse Rate 71 Pulse Rate [Right Brachial] 71 Respiratory Rate 21 21 Blood Pressure 198/80 H Blood Pressure [Right Arm] 198/80 H Blood Pressure Mean [Right Arm] 119 Blood Pressure Source [Right Arm] Automatic Cuff Blood Pressure Position [Right Arm] Sitting 02 Sat by Pulse Oximetry 99 Oxygen Delivery Method Room Air Orders (Tests/Meds): ED MEDICATIONS Discontinued Medications Generic Name Dose Route Start Last Admin Trade Name Freq PRN Reason Stop Dose Admin Methylprednisolone Sodium Succinate 125 mg 10/12/20 20:00 10/12/20 20:05 Methylprednisolone Sod Succ 125mg Vial IM 10/12/20 20:01 125 mg ONCE ONE Administration [facility] [place] HPI - General Stated complaint: rash on torso Time Seen by Provider: 10/12/20 19:56 Mode of Arrival: Ambulatory Source of Information: Patient Limitations: No Limitations Description of Symptoms (Recalled from Triage Doc. by RN): PATIENT C/O RED, RAISED RASH UNDER BILATERAL ARMS AND LOWER BACK/ABDOMEN THAT SHE NOTICED THIS MORNING. STATES THE RASH IS ITCHY AND BURNING HEENT Symptoms (Recalled from RN notes): No Resp Symptoms (Recalled from RN notes): No Skin Symptoms (Recalled from RN notes): Yes MS Symptoms (Recalled from RN notes): No Functional Status (Recalled from RN notes): WNL - History of Present Illness Provider Complaint: She states that since this morning, she has had a rash on her right side and her back. She states that the only other time that she has felt like this she was havign a reaction to cipro, but she is not on any new medications at this time. - Related Data Home Medications Medication Instructions Recorded Confirmed aspirin 81 mg tablet,delayed 81 mg PO DAILY tab 08/18/17 01/13/20 release escitalopram oxalate 20 mg tablet 20 mg PO DAILY tab 08/18/17 01/13/20 dicyclomine 20 mg tablet 20 mg PO DAILY PRN tab 06/15/19 01/13/20 Isosorbide Mononitrate [Imdur 30mg 30 mg PO DAILY 01/12/20 01/13/20 ER tablet] Levothyroxine Sodium 112 mcg PO DAILY 01/12/20 01/13/20 [Levothyroxine 112mcg (0.112mg) Tab] Nitrofurantoin Monohyd/M-Cryst 100 mg PO BID 01/12/20 01/13/20 [Macrobid 100 mg Capsule] bisoproloL fumarate [Bisoprolol 2.5 mg PO DAILY 01/12/20 01/13/20 Fumarate] hydroCHLOROthiazide 12.5 mg PO DAILY 01/12/20 01/13/20 [Hydrochlorothiazide 12.5mg Tab] Zolpidem Tartrate [Ambien 10mg 10 mg PO HS 01/13/20 01/13/20 tablet] Previous Rx's Medication Instructions Recorded cefUROXime axetiL [Ceftin 500mg 500 mg PO BID #14 tab 01/13/20 Tab (GEQ)] cefUROXime axetiL [Ceftin 250mg 250 mg PO BID #20 tab 08/05/20 Tablet] nitroglycerin 0.4 mg sublingual 0.4 mg SUBLINGUAL Q5M PRN #20 tab 08/31/20 tablet pravastatin
[2020-10-12 20:18] VITALS: BP 198/80; PULSE 71; RESP 21; TEMP 36.7; O2SAT 99
== END 2020-10-12 20:20 | disposition home or self-care (01) ==
PROVIDERS: Emergency Provider Nurse Practitioner Family; PCP Family Medicine
DX: T78.40XA Allergy, unspecified, initial encounter (principal); I25.10 Atherosclerotic heart disease of native coronary artery without angina pectoris; E03.9 Hypothyroidism, unspecified; K21.9 Gastro-esophageal reflux disease without esophagitis; E78.5 Hyperlipidemia, unspecified; I10 Essential (primary) hypertension; M81.0 Age-related osteoporosis without current pathological fracture; Z79.899 Other long term (current) drug therapy
CPT/HCPCS: G0463; 96372; 99202

== ENCOUNTER → 2020-12-23 10:58 | Outpatient (CLI) | payer MEDICARE, OTHER, SELFPAY ==
[2020-12-23 11:14] LABS: Basophils # 0.1 K/mm3 (0-0.2); Basophils % 1.1 % (0.1-2.0); Eosinophils # 0.2 K/mm3 (0.0-0.4); Eosinophils % 2.5 % (0.1-12.0); Hematocrit 43.4 % (37.0-47.0); Hemoglobin 14.4 g/dL (12.2-16.2); Lymphocytes # 2.3 K/mm3 (0.7-4.5); Lymphocytes % 31.7 % (10-50); Mean Corpuscular HGB Conc 33.1 g/dL (31.8-35.4); Mean Corpuscular Hemoglobin 30.2 pg (27.0-31.2); Mean Corpuscular Volume 91.4 fl (81-99); Monocytes # 0.4 K/mm3 (0.1-1.0); Monocytes % 4.9 % (1.7-9.3); Neutrophils # 4.4 K/mm3 (1.8-7.8); Neutrophils % 59.8 % (37.0-80.0); Platelet Count 196 K/mm3 (142-424); Red Blood Count 4.75 M/mm3 (4.20-5.40); Red Cell Distribution Width 14.5 % (11.5-17.5); White Blood Count 7.3 K/mm3 (4.8-10.8)
[2020-12-23 11:36] LABS: Anion Gap 12.2 mEq/L (5-15); Blood Urea Nitrogen 17 mg/dl (7-17); Calcium 8.7 mg/dl (8.4-10.2); Carbon Dioxide 33 mmol/L (22.0-30.0); Chloride 96 mmol/L (98-107); Estimated Glomerular Filt Rate 43 ml/min (>60); GFR (African American) 52 ML/MIN (>60); Glucose 136 mg/dl (74-100); Potassium 4.2 mmoL/L (3.5-5.1); Sodium 137 mmol/L (136-145)
== END ==
PROVIDERS: Visit Provider Urology
DX: R53.83 Other fatigue (principal); I11.9 Hypertensive heart disease without heart failure; I25.10 Atherosclerotic heart disease of native coronary artery without angina pectoris; R07.89 Other chest pain; R94.31 Abnormal electrocardiogram [ECG] [EKG]; Z01.812 Encounter for preprocedural laboratory examination; Z20.822 Contact with and (suspected) exposure to COVID-19
CPT/HCPCS: 80048; 85025; U0003

== ENCOUNTER 2020-12-26 08:11 | Day surgery (SDC) | payer MEDICARE, OTHER, SELFPAY ==
[2020-12-26] VITALS (11 sets, daily range): BP systolic 101–153; BP diastolic 36–85; PULSE 50–92; RESP 16–18; TEMP 36.6; O2SAT 91–96; BMI 31.6
--- NOTE | 2020-12-26 07:07 | IR_ITS ---
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 COMPLICATIONS None Estimated Blood Loss: Less than 10 mls TECHNIQUE One percent lidocaine used to anesthetize the right groin. The right femoral artery was accessed via the Seldinger technique and a 5 Lao sheath was placed in the right femoral artery. A JL 4, JR4 catheter were used to perform left heart catheterization, left ventriculogram selective coronary angiography as well as selective selective engagement of the left internal mammary artery as well as the saphenous vein graft supplying the left coronary artery. Because of patient's hypertension history of thoracic aortic dissection bilateral renal angiography was performed to make sure there was no damage to the renal arteries or dissection involvement into the renal arteries. The JR4 was used to selectively intubate each renal artery and perform selective angiography. At the end of the procedure the apparatus was moved the groin was reprepped closure changed sheath was removed and hemostasis was achieved using Perclose device patient was transferred to the postop holding area stable condition ANGIOGRAPHIC RESULTS The left main artery Is normal The left anterior descending artery Has a stent in the proximal segment which extends into a large first diagonal artery. The stent is widely patent free of in-stent restenosis with excellent proximal distal transitioning. Distal to the first diagonal artery the LAD is then subtotally occluded The circumflex artery Is nondominant giving rise to large obtuse marginal artery which is widely patent and free of disease The right coronary artery Is a large dominant vessel and has mild proximal mid vessel distal atheromatous plaque nothing greater than 10 to 20% The NUNEZ ventriculogram reveals Normal 65% The left ventricular end-diastolic pressure 10 mmHg The left internal mammary artery is widely patent to the LAD Saphenous vein graft to the circumflex artery is ostially occluded Right renal artery singular normal Left renal artery singular normal IMPRESSION Coronary disease as described above Normal ejection fraction Normal left ventricular end-diastolic pressure Widely patent stent supplying a large first diagonal artery as described above Normal renal arteries Patent GIORDANO to the LAD PLAN 1. Continue medical management 2. Patient has relative tachycardia with hypertension. She would benefit from higher doses of beta-blockers 3. Ongoing risk factor modification goal LDL less than 55 Electronically signed by : Robert Holt, 12/26/2020 13:27:21
--- NOTE | 2020-12-26 08:23 | CA_ITS ---
APPROVED REPORT EXAM: Comprehensive 2D, Doppler, and color-flow Echocardiogram Dry Boss: Jessica Meyers CRT Ht: 5 ft 6 in Wt: 196lbs BSA: 1.98 BP: 128/59 mmHg Indications: Abnormal ECG, CAD, Hypertension/HDD, thoracic AO aneurysm, cabg 2D Dimensions LVOT 1.55 cm (M/F) 1.5-2.5 LA Volume 56.40 mL LA Volume Index 28.50 mL/m2 (M/F) 16-34 M-Mode Dimensions RVDd 3.33 cm (0.9-2.6) LA Diam 4.05 cm (1.9-4.0) LVDd 3.22 cm (3.5-5.7) Ao Diam 3.81 cm (2.0-3.7) LVDs 2.18 cm (3.5-5.7) IVSd 2.29 cm (0.6-1.1) PWd 1.18 cm (0.6-1.1) EF (Teich) 62.00% FS 32.30% EDV (Teich) 41.60 mL TAPSE 0.88 (<1.7) ESV (Teich) 15.80 mL LV Diastology E Decel Time 350.00 (160-240 msec) E/A Ratio 0.54 MED E' 6.90 (< 7 cm/sec) MED A' 7.80 cm/s E'/MED E' Ratio 6.12 (>14) LAT E' 5.60 (<10 cm/sec) LAT A' 8.90 cm/s E/LAT E' Ratio 7.54 (>14) Aortic Valve AI PHT 546.00 ms AO Peak GR. 5.20 mmHg Mitral Valve MV A Velocity 78.00 (40-130 cm/s) E/A Ratio 0.54 MV Decel. Time 350.00 (160-240 ms) Pulmonary Valve PV Peak Velocity 77.00 (50-150 cm/s) Tricuspid Valve TR P. Velocity 231.00 cm/s RAP Estimate 10.00 mmHg RVSP 31.40 mmHg Left Ventricle Left atrium is mildly enlarged, left ventricle is normal size, mild concentric left ventricular hypertrophy, visually estimated ejection fraction 55% with no regional wall motion abnormality, grade 1 diastolic dysfunction seen without tissue Doppler evidence of raise left atrial pressure. Right Ventricle Right atrium and right ventricle moderately enlarged, contractility of right ventricle is mildly reduced. Aortic Valve Aortic valve is minimally thickened and calcified, there is no aortic stenosis, there is mild aortic insufficiency. Mitral Valve Mitral valve leaflets are minimally thickened, there is mild mitral regurgitation. Tricuspid Valve Tricuspid grossly normal, there is mild tricuspid regurgitation, calculated right ventricular systolic pressure is 32 mmHg. Pulmonic Valve Pulmonic valve is poorly visualized. Great Vessels Aortic root is normal size, ascending aorta is not well visualized. Pericardium No significant pericardial effusion noted. Conclusion 1. Biatrial enlargement, normal left ventricular size, mild concentric left ventricular hypertrophy, visually estimated ejection fraction 55% with no regional wall motion abnormality, grade 1 diastolic dysfunction seen without tissue Doppler evidence of raise left atrial pressure. 2. Moderately enlarged right ventricle with mild reduced contractility. 3. Mild aortic, mild mitral and tricuspid regurgitation, calculated right ventricular systolic pressure 32 mmHg. 4. No significant pericardial effusion noted. Electronically signed by : Da Yates, 12/26/2020 19:01:54
== END 2020-12-26 16:04 | disposition home or self-care (01) ==
LOC: CATHLAB 08:15
PROVIDERS: PCP Family Medicine; Visit Provider Internal Medicine
DX: I25.118 Atherosclerotic heart disease of native coronary artery with other forms of angina pectoris; I10 Essential (primary) hypertension; E78.5 Hyperlipidemia, unspecified; I71.2 Thoracic aortic aneurysm, without rupture; Z95.5 Presence of coronary angioplasty implant and graft; Z95.1 Presence of aortocoronary bypass graft
CPT/HCPCS: 93225; 93306; 93459; 99152; C1725; C1760; C1769; C1894; J1644; Q9967

== ENCOUNTER 2021-05-17 14:13 | Emergency (ER) | payer MEDICARE, OTHER, SELFPAY ==
[2021-05-17] VITALS (10 sets, daily range): BP systolic 121–178; BP diastolic 61–78; PULSE 64–103; RESP 15–17; TEMP 36.8–36.9; O2SAT 94–100; BMI 30.7
--- NOTE | 2021-05-17 14:33 | HMH.EDGENADL ---
ED Disposition Clinical Impression: Rectal pain, Rectal inflammation Disposition: Home, Self-Care Condition on Discharge: Fair Additional Instructions: [place] as needed for pain. Docusate/senna 2 every night. MiraLAX twice a day. Call Dr. Vargas tomorrow to make arrangements for colonoscopy. Return to the emergency department if worsening pain, fever, vomiting. Additional instructions for CONTROLLED SUBSTANCES: You have been prescribed a medication that is a controlled substance. Controlled substances include pain medications known as opiates and sedative nerve medications known as benzodiazepines. Tramadol, fioricet, and gabapentin are also controlled substances. Some common opiates include: Codeine (such as Tylenol #3) Hydrocodone (Vicodin, Lortab, Lorcet, [place]) Oxycodone (Percocet, Percodan, Oxycodone, Oxy IR) Some common benzodiazepines include: Diazepam (Valium) Lorazepam (Ativan) Alprazolam (Xanax) Clonazepam (Klonopin) Oxazepam (Serax) All of these controlled substances are highly addictive and frequently abused. Misuse can and frequently does lead to addiction as well as overdose and . Medication should be stored in a locked cabinet or other secure storage unit. Do not store the medication in a motor vehicle. Short term supplies, 3 days or less, are prescribed because of the highly addictive nature of the medication. Any of the controlled substance medication NOT taken should be disposed of properly and NOT SAVED. The recommended method of disposing of unused medications is: Place the medicines in a sealable plastic bag. If the medicine is a solid, crush it or add water to dissolve it. Add something undesirable (cat litter, coffee grounds, etc.) Dispose of sealed bag in household trash Do not flush or pour unused medicines down a sink or drain. Controlled substances should not be shared, given away or sold. Because of the addictive nature and frequent abuse, these medications are sometimes stolen. These medications should be kept in a safe place where they cannot be stolen. Do not keep them in your car or purse. Lost or stolen prescriptions for controlled substances WILL NOT BE REFILLED in this emergency department, regardless of whether a police report was filed. Prescriptions: Hydrocod/Acet 5/325 mg [[place] 5/325mg tablet] 1 tab PO Q6HP PRN #10 tab PRN Reason: Pain Transmission Status: Sent to [facility] Sennosides/Docusate Sodium [Docusate Sodium-Senna Tablet] 2 tab PO HS #12 tab Transmission Status: Pending to [facility] polyethylene glycoL 3350 [Miralax 17gm Packet] 17 gm PO BID #30 packet Transmission Status: Pending to [facility] Referrals: Uriah Vargas MD [Primary Care Provider] - - Critical Care Critical Care Time: No Attestation: On 05/17/21, the high probability of a clinically significant, sudden or life threatening deterioration of the following system(s) required my full and direct attention, intervention and personal management. The time I documented below is in addition to time spent performing reported procedures but includes the following listed in this critical care notation. Medical Decision Making - Harry Inquiry Pt receiving controlled substance: No Vital Signs: 05/17/21 14:14 05/17/21 15:00 05/17/21 15:30 Temperature 98.5 F Temperature Source Oral Pulse Rate 97 H 101 H Pulse Rate [Right] 98 H Respiratory Rate 16 17 Blood Pressure 146/71 H 157/78 H Blood Pressure [Right Arm] 142/74 H Blood Pressure Mean 96 105 Blood Pressure Mean [Right Arm] 96 Blood Pressure Source [Right Arm] Automatic Cuff Blood Pressure Position [Right Arm] Sitting 02 Sat by Pulse Oximetry 100 95 95 Oxygen Delivery Method Room Air 05/17/21 16:00 05/17/21 16:30 Temperature Temperature Source Pulse Rate 103 H 100 H Pulse Rate [Right] Respiratory Rate 16 Blood Pressure 164/76 H 173/70 H Bl
--- NOTE | 2021-05-17 14:35 | CT_ITS ---
PROCEDURE: CT ABDOMEN PELVIS W CON CLINICAL INDICATION: lower abd pain COMPARISON: CT CT ABDOMEN PELVIS W CON from 01/12/2020 TECHNIQUE: IV Contrast: 75ML Isovue 370 Oral Contrast None Axial images obtained with sagittal and coronal reformats. All CT scans at the facility use one or more dose reduction, viz: automated exposure control, ma/kV adjustment per patient size (including targeted exams where dose is matched to indication, i.e. head), or iterative reconstruction technique. FINDINGS: LOWER THORAX: Thickening is noted in the periaortic region along the descending thoracic aorta similar to the previous exam. There has been interval aortic stent placed for the descending thoracic aortic aneurysm. There is a small amount of mural thrombus. The aneurysm measures 4.7 by 4.6 cm. There has been a prior median sternotomy ABDOMEN & PELVIS: The liver has an unremarkable appearance. There has been a prior cholecystectomy. There is mild splenomegaly at 13 cm. The adrenal glands and pancreas are unremarkable. There are few small periportal lymph nodes. There is mild prominence of the right renal pelvis. Prominence also noted of the proximal aspect of the left ureter. 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 No ureteral calculi. There is a moderate amount of retained colonic feces within the colon greater in the cecum and ascending colon. No evidence of small-bowel obstruction. There is concentric thickening of the lower rectum and anal area with minimal haziness of the perirectal and perianal fat. This has developed since 01/12/2020. Neoplasm or proctitis is considered. There has been a prior hysterectomy. There is colonic diverticulosis but no evidence of diverticulitis. There is tortuosity and mild ectasia of the abdominal aorta. The infrarenal abdominal aorta measures 2.8 cm previously 2.6 cm. The lower abdominal aorta measures 2.4 cm. This is not significantly changed. Mild dilatation of the proximal right common iliac at 1.6 cm.. No acute bony findings IMPRESSION: Concentric thickening of the lower rectum and anal area with mild haziness of the perirectal and perianal fat. Differential diagnosis would include neoplasm versus proctitis. Please correlate with clinical parameters and physical exam. Moderate amount of retained colonic feces. Other nonacute findings as described above. Dictated by: Bethel Marie MD 05/17/2021 15:45 Bethel Marie MD in OV 05/17/2021 15:45
--- NOTE | 2021-05-17 14:40 | PC.NURSE ---
at bedside performing rectal exam. Wang at bedside with
[2021-05-17 14:43] LABS: Basophils # 0.1 K/mm3 (0-0.2); Basophils % 0.8 % (0.1-2.0); Eosinophils # 0.2 K/mm3 (0.0-0.4); Eosinophils % 1.8 % (0.1-12.0); Hematocrit 39.8 % (37.0-47.0); Hemoglobin 13.8 g/dL (12.2-16.2); Lymphocytes # 1.4 K/mm3 (0.7-4.5); Lymphocytes % 16.2 % (10-50); Mean Corpuscular HGB Conc 34.7 g/dL (31.8-35.4); Mean Corpuscular Volume 89.3 fl (81-99); Monocytes # 0.4 K/mm3 (0.1-1.0); Monocytes % 4.1 % (1.7-9.3); Neutrophils # 6.7 K/mm3 (1.8-7.8); Neutrophils % 77.1 % (37.0-80.0); Platelet Count 175 K/mm3 (142-424); Red Blood Count 4.46 M/mm3 (4.20-5.40); White Blood Count 8.7 K/mm3 (4.8-10.8)
[2021-05-17 14:50] LABS: Chloride 100 mmol/L (98-107); Sodium 137 mmol/L (136-145)
[2021-05-17 14:51] LABS: Potassium 4.1 mmoL/L (3.5-5.1)
[2021-05-17 14:53] LABS: Alanine Aminotransferase 14 U/L (12-78); Alkaline Phosphatase 80 U/L (38-126); Amylase 89 U/L (30-110); Anion Gap 9.1 mEq/L (5-15); Aspartate Amino Transferase 29 U/L (14-36); Bilirubin,Total 0.5 mg/dl (0.2-1.3); Blood Urea Nitrogen 11 mg/dl (7-17); Calcium 9.2 mg/dl (8.4-10.2); Carbon Dioxide 32 mmol/L (22.0-30.0); Creatinine Clearance Estimated 60 mL/min (50-200); Estimated Glomerular Filt Rate 53 ml/min (>60); GFR (African American) 64 ML/MIN (>60); Glucose 127 mg/dl (74-100); Lipase 145 U/L (23-300)
[2021-05-17 14:54] LABS: Albumin Level 3.9 g/dl (3.5-5.0); Albumin/Globulin Ratio 1.3 (1.1-1.8); Globulin 2.9 g/dL (1.3-3.2); Total Protein,Serum 6.8 g/dl (6.3-8.2)
[2021-05-17 15:08] LABS: Troponin I < 0.01 ng/ml (0.00-0.034)
--- NOTE | 2021-05-17 15:13 | PC.NURSE ---
pt in ct
[2021-05-17 15:16] LABS: Occult Blood,Stool Positive (Negative)
[2021-05-17 15:32] LABS: Microscopic, Urine URINE MICROSCOPIC (MICROSCOPIC)
[2021-05-17 15:39] LABS: Appearance,Urine CLEAR (Clear); Bilirubin,Urine Negative (Negative); Blood, Urine 1+ (Negative); Color,Urine YELLOW (Yellow); Glucose,Urine (UA) Negative (Negative); Ketones,Urine Negative (Negative); Leukocyte Esterase,Urine 1+ (Negative); Nitrate,Urine Negative (Negative); Protein,Urine Negative (Negative); Urobilinogen,Urine 0.2 EU/dl (0.2)
[2021-05-17 15:46] LABS: RBC,Urine Occasional #/hpf (0-3)
--- NOTE | 2021-05-17 16:19 | PC.NURSE ---
MD speaking with pt and daughter
--- NOTE | 2021-05-17 16:21 | PC.NURSE ---
Dr. Davis zazueta
--- NOTE | 2021-05-17 16:56 | PC.NURSE ---
speaking with Dr. Cannon
--- NOTE | 2021-05-17 17:00 | PC.NURSE ---
pt ambulated to the bathroom and had small bowel movement she states her abdominal pain has improved after that
--- NOTE | 2021-05-17 17:12 | PC.NURSE ---
Dr. Justice paged
--- NOTE | 2021-05-17 17:15 | PC.NURSE ---
speaking with Dr. Justice
== END 2021-05-17 19:04 | disposition home or self-care (01) ==
PROVIDERS: Emergency Provider Emergency Medicine; PCP Family Medicine
DX: K62.89 Other specified diseases of anus and rectum (principal); R10.31 Right lower quadrant pain; R10.32 Left lower quadrant pain; E03.9 Hypothyroidism, unspecified; M81.0 Age-related osteoporosis without current pathological fracture; I10 Essential (primary) hypertension; I25.10 Atherosclerotic heart disease of native coronary artery without angina pectoris; K21.9 Gastro-esophageal reflux disease without esophagitis; E78.5 Hyperlipidemia, unspecified; Z79.899 Other long term (current) drug therapy
CPT/HCPCS: 74177; 80053; 81001; 82150; 82272; 83690; 84484; 85025; 87086; 96374; 99283; G0328; Q9967

== ENCOUNTER → 2021-05-21 11:03 | Outpatient (CLI) | payer MEDICARE, OTHER, SELFPAY | PROVIDERS: Visit Provider Internal Medicine Gastroenterology | DX: Z01.812 Encounter for preprocedural laboratory examination (principal); Z11.52 Encounter for screening for COVID-19; Z12.11 Encounter for screening for malignant neoplasm of colon; Z85.038 Personal history of other malignant neoplasm of large intestine | CPT/HCPCS: C9803; U0003; U0005 ==

== ENCOUNTER → 2022-03-11 15:26 | Outpatient (CLI) | payer MEDICARE, OTHER, SELFPAY | PROVIDERS: PCP Family Medicine; Visit Provider Nurse Practitioner Family | DX: K58.2 Mixed irritable bowel syndrome (principal) ==

== ENCOUNTER → 2022-03-12 10:54 | Outpatient (CLI) | payer MEDICARE, OTHER, SELFPAY | PROVIDERS: PCP Family Medicine; Visit Provider Nurse Practitioner Family | DX: K58.2 Mixed irritable bowel syndrome (principal) | CPT/HCPCS: 87045; 87177 ==

== ENCOUNTER → 2022-08-01 11:13 | Outpatient (CLI) | payer MEDICARE, OTHER, SELFPAY ==
[2022-08-01 11:22] LABS: Microscopic, Urine URINE MICROSCOPIC (MICROSCOPIC)
[2022-08-01 12:11] LABS: Basophils # 0.1 K/mm3 (0-0.2); Basophils % 0.7 % (0.1-2.0); Eosinophils # 0.1 K/mm3 (0.0-0.4); Eosinophils % 1.6 % (0.1-12.0); Hematocrit 41.8 % (37.0-47.0); Hemoglobin 13.2 g/dL (12.2-16.2); Lymphocytes # 1.8 K/mm3 (0.7-4.5); Lymphocytes % 24.9 % (10-50); Mean Corpuscular HGB Conc 31.6 g/dL (31.8-35.4); Mean Corpuscular Hemoglobin 29.6 pg (27.0-31.2); Mean Corpuscular Volume 93.6 fl (81-99); Mean Platelet Volume 8.6 fl (7.4-10.4); Monocytes # 0.3 K/mm3 (0.1-1.0); Monocytes % 4.5 % (1.7-9.3); Neutrophils # 4.8 K/mm3 (1.8-7.8); Neutrophils % 68.3 % (37.0-80.0); Platelet Count 198 K/mm3 (142-424); Red Blood Count 4.47 M/mm3 (4.20-5.40); Red Cell Distribution Width 14.2 % (11.5-17.5); White Blood Count 7.1 K/mm3 (4.8-10.8)
[2022-08-01 12:21] LABS: Appearance,Urine CLEAR (Clear); Bilirubin,Urine Negative (Negative); Blood, Urine 1+ (Negative); Color,Urine YELLOW (Yellow); Glucose,Urine (UA) Negative (Negative); Ketones,Urine Negative (Negative); Leukocyte Esterase,Urine 1+ (Negative); Nitrate,Urine Negative (Negative); PH,Urine 5.5 (5.0-8.5); Protein,Urine Negative (Negative); Urobilinogen,Urine 0.2 EU/dl (0.2)
[2022-08-01 12:30] LABS: Bacteria,Urine Trace /lpf; Squamous Epithelial Cell,Urine Occasional #/hpf (0-5)
[2022-08-01 12:35] LABS: Alanine Aminotransferase 11 U/L (12-78); Albumin/Globulin Ratio 1.5 (1.1-1.8); Alkaline Phosphatase 75 U/L (38-126); Anion Gap 6.9 mEq/L (5-15); Aspartate Amino Transferase 24 U/L (14-36); Bilirubin,Total 0.5 mg/dl (0.2-1.3); Blood Urea Nitrogen 10 mg/dl (7-17); Calcium 8.5 mg/dl (8.4-10.2); Carbon Dioxide 33 mmol/L (22.0-30.0); Chloride 101 mmol/L (98-107); Chol/HDL Ratio 3.6 (1-3.5); Cholesterol 172 mg/dl (140-200); Estimated Glomerular Filt Rate 47 ml/min (>60); GFR (African American) 57 ML/MIN (>60); Globulin 2.6 g/dL (1.3-3.2); Glucose 105 mg/dl (74-100); HDL Cholesterol 48 mg/dl (40-60); Potassium 3.9 mmoL/L (3.5-5.1); Sodium 137 mmol/L (136-145); Total Protein,Serum 6.6 g/dl (6.3-8.2); Triglycerides 204 mg/dl (30-150); VLDL Cholesterol 41 mg/dL (0-40)
[2022-08-01 12:50] LABS: 25-OH Vitamin D, Total 91.3 ng/mL (30-100)
[2022-08-01 13:04] LABS: Thyroid Stimulating Hormone 1.07 uIU/mL (0.465-4.68)
== END ==
PROVIDERS: PCP Family Medicine; Visit Provider Family Medicine
DX: E03.9 Hypothyroidism, unspecified (principal); E78.5 Hyperlipidemia, unspecified; I25.10 Atherosclerotic heart disease of native coronary artery without angina pectoris; E55.9 Vitamin D deficiency, unspecified; R82.90 Unspecified abnormal findings in urine
CPT/HCPCS: 36415; 80053; 80061; 81001; 82306; 84443; 85025; 87086

== ENCOUNTER → 2022-10-22 14:20 | Outpatient (POV) | payer MEDICARE, OTHER, SELFPAY | PROVIDERS: Visit Provider Dermatology | DX: Z00.00 Encounter for general adult medical examination without abnormal findings (principal) ==

== ENCOUNTER 2023-05-22 18:15 | Emergency (ER) | payer MEDICARE, OTHER, SELFPAY ==
[2023-05-22 18:20] VITALS: BP 123/74; PULSE 92; RESP 23; TEMP 37.6; O2SAT 92; BMI 29.5
--- NOTE | 2023-05-22 18:23 | EXP.UTC ---
Discharge Plan Disposition Patient Disposition: Home, Self-Care Condition: Good Prescriptions Prescriptions: New benzonatate [benzonatate] 100 mg capsule 100 mg PO TIDP PRN (Reason: Cough) Qty: 30 0RF cefdinir 300 mg capsule 300 mg PO BID Qty: 20 0RF prednisone 10 mg tablet 10 mg PO BID 5 Days Qty: 10 0RF No Action isosorbide mononitrate 30 mg tablet extended release 24 hr 30 mg PO DAILY Patient Comments: TAKE 1/2 (ONE-HALF) TABLET BY MOUTH ONCE DAILY bisoprolol fumarate 5 mg tablet 5 mg PO DAILY Patient Comments: TAKE 1/2 (ONE-HALF) TABLET BY MOUTH ONCE DAILY FOR HIGH BLOOD PRESSURE levothyroxine 100 mcg tablet 100 mcg PO DAILY trazodone 100 mg tablet 100 mg PO DAILY Patient Comments: TAKE 1 TABLET BY MOUTH AT BEDTIME NIGHTLY escitalopram oxalate 20 mg tablet 20 mg PO DAILY Patient Comments: TAKE 1 TABLET BY MOUTH ONCE DAILY rosuvastatin 20 mg tablet 20 mg PO DAILY Patient Comments: TAKE 1 TABLET BY MOUTH ONCE DAILY Referrals Follow up/Referrals: Robert Milner DO [Primary Care Provider] - See instructions Activity Restrictions/Add. Instructions Additional Instructions/Restrictions: Drink plenty of fluids. Take tylenol or ibuprofen for pain or fever. Take the medications as directed. Follow up with your regular doctor. GO TO THE ER FOR ANY WORSENING SYMPTOMS Clinical Impressions Clinical Impression: Sinusitis Discharge ED Provider: Jeremy Vinson [facility] [place] HPI General Stated complaint: cough,david,weak,sore throat Time Seen by Provider: 05/22/23 18:23 History of Present Illness Provider Complaint: She states that for the past 2 days she has had sinus congestion, ear pain, and a cough. She started to run a low grade fever last night. Related Data Home Medications Medication Instructions Recorded Confirmed bisoprolol fumarate 5 mg tablet 5 mg PO DAILY 05/22/23 05/22/23 escitalopram oxalate 20 mg tablet 20 mg PO DAILY 05/22/23 05/22/23 isosorbide mononitrate 30 mg 30 mg PO DAILY 05/22/23 05/22/23 tablet,extended release 24 hr levothyroxine 100 mcg tablet 100 mcg PO DAILY 05/22/23 05/22/23 rosuvastatin 20 mg tablet 20 mg PO DAILY 05/22/23 05/22/23 trazodone 100 mg tablet 100 mg PO DAILY 05/22/23 05/22/23 Previous Rx's Medication Instructions Recorded benzonatate 100 mg capsule 100 mg PO TIDP PRN Cough #30 caps 05/22/23 cefdinir 300 mg capsule 300 mg PO BID #20 caps 05/22/23 prednisone 10 mg tablet 10 mg PO BID 5 days #10 tabs 05/22/23 Allergies Allergy/AdvReac Type Severity Reaction Status Date / Time codeine [CODEINE] Allergy Unknown Verified 02/05/23 13:11 guaifenesin [GUAIFENESIN] Allergy Unknown Verified 02/05/23 13:11 penicillin G [PENICILLIN G] Allergy Unknown Verified 02/05/23 13:11 ciprofloxacin [From Cipro] Allergy Rash Verified 02/05/23 13:11 Sulfa (Sulfonamide Allergy Rash Verified 02/05/23 13:11 Antibiotics) [facility] Disclaimer: The information contained in this section may have been updated after the patient was seen, as this information can be updated by other users. Medical History Aneurysm of descending aorta Ascending aortic aneurysm CAD (coronary artery disease) History of left heart catheterization (LHC) Rectal inflammation Rectal pain Rectal tumor Surgical History H/O heart artery stent H/O tubal ligation History of cholecystectomy History of hysterectomy History of Augusto fundoplication History of repair of hiatal hernia History of thyroid surgery Hx of CABG Hx of cataract removal with insertion of prosthetic lens Family History Son Cancer pancreatic Social History Smoking Status: Never smoker alcohol intake: former
--- NOTE | 2023-05-22 18:24 | XR_ITS ---
PROCEDURE INFORMATION: Exam: XR Chest Exam date and time: 05/22/2023 6:22 PM Age: 82 years old Clinical indication: Cough TECHNIQUE: Imaging protocol: Radiologic exam of the chest. Views: 2 views. COMPARISON: CT ANGIO CHEST 09/04/2020 1:45 PM FINDINGS: Lungs: Unremarkable. No consolidation. Pleural spaces: Unremarkable. No pleural effusion. No pneumothorax. Heart/Mediastinum: Unremarkable. No cardiomegaly. Vasculature: Thoracic aortic stent remains in place. Bones/joints: Sternotomy wires remain in place. IMPRESSION: No acute disease
[2023-05-22 18:41] LABS: UTC Strep Screen (Rapid) Negative (Negative)
[2023-05-22 18:42] LABS: UTC Influenza A Antigen Negative (Negative); UTC Influenza B Antigen Negative (Negative)
[2023-05-22 18:50] VITALS: BP 123/74; PULSE 92; RESP 23; TEMP 37.6; O2SAT 92
[2023-05-22 20:07] LABS: Adenovirus,PCR Not Detected (NotDetected); Coronavirus 19, PCR Not Detected (NotDetected); Coronavirus 229E Not Detected (NotDetected); Coronavirus NL63 Not Detected (NotDetected); Coronovirus HKU1,PCR Not Detected (NotDetected); Human Metapneumovirus Not Detected (NotDetected); Influenza A, PCR Not Detected (NotDetected); Influenza AH1, 2009 Not Detected (NotDetected); Influenza AH1, PCR Not Detected (NotDetected); Influenza AH3,PCR Not Detected (NotDetected); Influenza B, PCR Not Detected (NotDetected); Parainfluenza 1, PCR Not Detected (NotDetected); Parainfluenza 2, PCR Not Detected (NotDetected); Parainfluenza 3, PCR Not Detected (NotDetected); Parainfluenza 4, PCR Not Detected (NotDetected); Respiratory Syncytial Virus Not Detected (NotDetected); Rhinovirus/Enterovirus Not Detected (NotDetected)
[2023-05-22 22:42] LABS: Coronavirus OC43 Detected (NotDetected)
== END 2023-05-22 19:00 | disposition home or self-care (01) ==
PROVIDERS: Emergency Provider Nurse Practitioner Family; PCP Internal Medicine
DX: J01.90 Acute sinusitis, unspecified (principal); B34.2 Coronavirus infection, unspecified; R09.81 Nasal congestion; R05.9 Cough, unspecified; H92.09 Otalgia, unspecified ear; R50.9 Fever, unspecified; R09.89 Other specified symptoms and signs involving the circulatory and respiratory systems; Z95.1 Presence of aortocoronary bypass graft
CPT/HCPCS: 71046; 87632; 87635; 87804; 87880; 99212; 99214; G0463

== ENCOUNTER 2023-07-29 10:21 | Outpatient (CLI) | payer MEDICARE, OTHER, SELFPAY ==
[2023-07-29 11:07] LABS: Basophils % 0.3 % (0.1-2.0); Eosinophils # 0.1 K/mm3 (0.0-0.4); Eosinophils % 1.8 % (0.1-12.0); Hematocrit 42.2 % (37.0-47.0); Hemoglobin 13.6 g/dL (12.2-16.2); Lymphocytes # 1.5 K/mm3 (0.7-4.5); Lymphocytes % 26.2 % (10-50); Mean Corpuscular HGB Conc 32.1 g/dL (31.8-35.4); Mean Corpuscular Hemoglobin 30.6 pg (27.0-31.2); Mean Corpuscular Volume 95.4 fl (81-99); Mean Platelet Volume 8.6 fl (7.4-10.4); Monocytes # 0.3 K/mm3 (0.1-1.0); Monocytes % 5.2 % (1.7-9.3); Neutrophils # 3.9 K/mm3 (1.8-7.8); Neutrophils % 66.6 % (37.0-80.0); Platelet Count 173 K/mm3 (142-424); Red Blood Count 4.43 M/mm3 (4.20-5.40); Red Cell Distribution Width 14.1 % (11.5-17.5); White Blood Count 5.8 K/mm3 (4.8-10.8)
[2023-07-29 11:27] LABS: Alanine Aminotransferase 12 U/L (12-78); Albumin Level 3.9 g/dl (3.5-5.0); Alkaline Phosphatase 66 U/L (38-126); Anion Gap 9.1 mEq/L (5-15); Aspartate Amino Transferase 24 U/L (14-36); Bilirubin,Direct 0.1 mg/dl (0.0-0.4); Bilirubin,Indirect 0.4 mg/dL (0.0-0.9); Bilirubin,Total 0.5 mg/dl (0.2-1.3); Bilirubin,Unconjugated 0.4 mg/dL (0.0-1.1); Blood Urea Nitrogen 10 mg/dl (7-17); Calcium 9.1 mg/dl (8.4-10.2); Carbon Dioxide 32 mmol/L (22.0-30.0); Chloride 102 mmol/L (98-107); Chol/HDL Ratio 3.8 (1-3.5); Cholesterol 183 mg/dl (140-200); Estimated Glomerular Filt Rate 47 ml/min (>60); GFR (African American) 57 ML/MIN (>60); Glucose 97 mg/dl (74-100); HDL Cholesterol 48 mg/dl (40-60); Magnesium 2.2 mg/dl (1.6-2.3); Potassium 4.1 mmoL/L (3.5-5.1); Sodium 139 mmol/L (136-145); Total Protein,Serum 6.2 g/dl (6.3-8.2); Triglycerides 175 mg/dl (30-150); VLDL Cholesterol 35 mg/dL (0-40)
[2023-07-29 11:39] LABS: Direct LDL Cholesterol 84.11 mg/dL (100-129)
[2023-07-29 11:58] LABS: Thyroid Stimulating Hormone 1.29 uIU/mL (0.465-4.68)
== END 2023-07-29 23:59 ==
LOC: LAB 10:22
PROVIDERS: PCP Internal Medicine; Visit Provider Physician Assistant
DX: I25.10 Atherosclerotic heart disease of native coronary artery without angina pectoris; I45.10 Unspecified right bundle-branch block; I71.21 Aneurysm of the ascending aorta, without rupture; I11.9 Hypertensive heart disease without heart failure; E78.5 Hyperlipidemia, unspecified; Z86.79 Personal history of other diseases of the circulatory system; Z98.890 Other specified postprocedural states
CPT/HCPCS: 36415; 80048; 80061; 80076; 83735; 84439; 84443; 85025

== ENCOUNTER 2023-07-30 12:28 | Outpatient (CLI) | payer MEDICARE, OTHER, SELFPAY ==
--- NOTE | 2023-07-30 12:29 | CT_ITS ---
FINAL REPORT CLINICAL HISTORY: hx of aaa repair/right lower back pain. COMPARISON: None FINDINGS: CTA CHEST, ABDOMEN, AND PELVIS: Thin section axial CT images of the chest through the pubic symphysis were obtained with contrast. 3D reformatted images were also obtained. This study was performed with techniques to keep radiation doses as low as reasonably achievable (ALARA). Individualized dose reduction techniques using automated exposure control or adjustment of mA and/or kV according to the patient's size were employed. There is an endoluminal graft within the aortic arch and descending thoracic aorta. Maximum diameter of the [place] descending thoracic aorta is 4.7 cm. The graft is patent. There is no dissection. The greater vessels are patent. The heart is normal in size. At the aortic hiatus the aorta measures 4.6 cm. In the abdomen there is no aortic aneurysm or dissection. Major branch vessels are patent without significant stenosis. The common iliac vessels are patent and the external iliac vessels are patent. The left internal iliac artery may be partially occluded in the pelvis. There is no axillary, mediastinal, or hilar lymphadenopathy. There are no pleural or pericardial effusions. There are no suspicious nodules or masses in the lungs. There are no consolidations. Solid abdominal organs are without acute abnormality. The gallbladder is absent. The GI tract is without acute abnormality. There is diverticulosis without evidence of diverticulitis. The appendix is normal. There is no lymphadenopathy or ascites. IMPRESSION: Endoluminal graft within the thoracic aorta with dimensions as above. No dissection. No abdominal aortic aneurysm or dissection. No acute abnormality in the chest, abdomen, or pelvis. Reviewed, Interpreted and Dictated by Senait Garsia MD Transcribed by Donna Fong Authenticated and . [facility]
--- NOTE | 2023-07-30 12:29 | CT_ITS ---
FINAL REPORT CLINICAL HISTORY: thoracic aortic aneurysm repair COMPARISON: None FINDINGS: CTA CHEST, ABDOMEN, AND PELVIS: Thin section axial CT images of the chest through the pubic symphysis were obtained with contrast. 3D reformatted images were also obtained. This study was performed with techniques to keep radiation doses as low as reasonably achievable (ALARA). Individualized dose reduction techniques using automated exposure control or adjustment of mA and/or kV according to the patient's size were employed. There is an endoluminal graft within the aortic arch and descending thoracic aorta. Maximum diameter of the [place] descending thoracic aorta is 4.7 cm. The graft is patent. There is no dissection. The greater vessels are patent. The heart is normal in size. At the aortic hiatus the aorta measures 4.6 cm. In the abdomen there is no aortic aneurysm or dissection. Major branch vessels are patent without significant stenosis. The common iliac vessels are patent and the external iliac vessels are patent. The left internal iliac artery may be partially occluded in the pelvis. There is no axillary, mediastinal, or hilar lymphadenopathy. There are no pleural or pericardial effusions. There are no suspicious nodules or masses in the lungs. There are no consolidations. Solid abdominal organs are without acute abnormality. The gallbladder is absent. The GI tract is without acute abnormality. There is diverticulosis without evidence of diverticulitis. The appendix is normal. There is no lymphadenopathy or ascites. IMPRESSION: Endoluminal graft within the thoracic aorta with dimensions as above. No dissection. No abdominal aortic aneurysm or dissection. No acute abnormality in the chest, abdomen, or pelvis. Reviewed, Interpreted and Dictated by Senait Garsia MD Transcribed by Donna Fong Authenticated and . [facility]
--- NOTE | 2023-07-30 12:56 | CA_ITS ---
APPROVED REPORT EXAM: Comprehensive 2D, Doppler, and color-flow Echocardiogram [employer] Operations Manager: Jessica Meyers CRT Ht: 5 ft 6 in Wt: 179lbs BSA: 1.91 BP: 165/70 mmHg Indications: Abnormal ECG, Chest Pain, Shortness of Breath, Fatigue, Peripheral Edema, Hyperlipidemia, Hypertension/HDD, CABG, RBBB, AO aneurysm repair 2D Dimensions Left Atrium 2.83 cm LVEF (Vargas's) 54.80 % LVOT 1.96 cm (M/F) 1.5-2.5 LV Volume 66.00 mL LA Volume 32.80 mL LA Volume Index 17.20 mL/m2 (M/F) 16-34 EF AP4 56.50 % EF AP2 41.6 % EF BP 54.8 % GL Strain -10.1 % M-Mode Dimensions RVDd 4.46 cm (0.9-2.6) LVDd 3.96 cm (3.5-5.7) Ao Diam 3.95 cm (2.0-3.7) LVDs 2.53 cm (3.5-5.7) IVSd 1.96 cm (0.6-1.1) PWd 1.07 cm (0.6-1.1) EF (Teich) 66.30% FS 36.10% EDV (Teich) 68.30 mL TAPSE 1.11 (<1.7) ESV (Teich) 23.00 mL LV Diastology MED E' 8.0 (>= 7 cm/sec) MED A' 10.50 cm/s LAT E' 10.0 (>= 10 cm/sec) LAT A' 8.20 cm/s Aortic Valve AoV Peak Fabian. 101.0 (50-130 cm/s) AI PHT 438.00 ms AO Peak GR. 4.10 mmHg Tricuspid Valve TR P. Velocity 273.00 cm/s RAP Estimate 10.00 mmHg RVSP 39.80 mmHg Left Ventricle The left ventricle is normal size. The left ventricular systolic function is normal. The left ventricular ejection fraction is within the normal range. Proximal septal thickening is noted. There is normal LV segmental wall motion. The left ventricular diastolic function is normal. LVEF is 55%. Right Ventricle The right ventricle is mildly dilated. The right ventricular systolic function is normal. Atria The left atrium size is normal. The right atrium size is normal. The interatrial septum is not well-visualized. Aortic Valve Aortic valve is mildly thickened. There is no aortic valvular stenosis. Mild aortic regurgitation. Mitral Valve The mitral valve is normal in structure. No evidence of mitral valve stenosis. There is no mitral valve regurgitation noted. Tricuspid Valve The tricuspid valve leaflets are thin and pliable. Mild tricuspid regurgitation. RVSP is 30-35 mmHg. Pulmonic Valve The pulmonary valve is normal in structure. Mild pulmonic regurgitation. Great Vessels The aortic root is normal in size. The ascending aorta is normal in size. The IVC is not well-visualized. Pericardium There is no pericardial effusion. Other Information Study Quality: Fair Conclusion Normal biventricular systolic function. Mild RV dilation. Mild TR, mild AI, mild MN. RVSP 30-35 mmHg. Electronically signed by : Nelsy Zaidi MD 08/03/2023 23:09:05
[2023-07-30] MEDS: 0.9 % SODIUM CHLORIDE 50 ML VIAL IV (13:10)
[2023-07-30] MEDS: SODIUM CHLORIDE 0.9% 10ML SYR (RAD ONLY) 10 ML IV (13:10)
[2023-07-30] MEDS: IOPAMIDOL-370 (76%);100ML BOTTLE 100 ML IV (13:10)
== END 2023-07-30 23:59 ==
LOC: RAD 12:29
PROVIDERS: PCP Internal Medicine; Visit Provider Physician Assistant
DX: E78.5 Hyperlipidemia, unspecified (principal); I11.9 Hypertensive heart disease without heart failure; I25.10 Atherosclerotic heart disease of native coronary artery without angina pectoris; I45.10 Unspecified right bundle-branch block; Z86.79 Personal history of other diseases of the circulatory system; Z98.890 Other specified postprocedural states; I73.9 Peripheral vascular disease, unspecified; I71.21 Aneurysm of the ascending aorta, without rupture; I71.20 Thoracic aortic aneurysm, without rupture, unspecified; R94.31 Abnormal electrocardiogram [ECG] [EKG]
CPT/HCPCS: 71275; 74174; 93306; Q9967

== ENCOUNTER 2023-08-13 12:56 | Outpatient (CLI) | payer MEDICARE, OTHER, SELFPAY ==
--- NOTE | 2023-08-13 13:01 | XR_ITS ---
FINAL REPORT CLINICAL HISTORY: back pain, MID THORACIC PAIN ON RIGHT SIDE. COMPARISON: None FINDINGS: Two views of the thoracic spine were obtained. Aortic stent graft obscures some of the detail. There is no fracture present. There is no malalignment. There is moderate degenerative change of the thoracic spine. IMPRESSION: Moderate degenerative change without acute process. Reviewed, Interpreted and Dictated by Yoni Younger III, MD Transcribed by Donna Fong Authenticated and [facility]
--- NOTE | 2023-08-13 13:01 | XR_ITS ---
FINAL REPORT CLINICAL HISTORY: back pain, MID THORACIC PAIN ON RIGHT SIDE COMPARISON: None FINDINGS: 2 views of the lumbar spine were obtained. There is no evidence of fracture or dislocation. The vertebral alignment is normal. There is mild and moderate degenerative change. Mild rightward curvature of the lumbar spine is noted. There are vascular calcifications. No paraspinous soft tissue abnormalities identified. IMPRESSION: Mild and moderate degenerative changes without acute bony abnormality. Reviewed, Interpreted and Dictated by Yoni Younger III, MD Transcribed by Donna Fong Authenticated and [facility]
== END 2023-08-13 23:59 ==
LOC: RAD 12:57
PROVIDERS: PCP Internal Medicine; Visit Provider Internal Medicine
DX: M54.9 Dorsalgia, unspecified (principal); M54.6 Pain in thoracic spine; M54.50 Low back pain, unspecified
CPT/HCPCS: 72070; 72100

== ENCOUNTER 2023-11-13 14:00 | Outpatient (RCR) | payer MEDICARE, OTHER, SELFPAY ==
--- NOTE | 2023-10-02 12:33 | HMH.PTOPEV ---
PT Outpatient Evaluation Rehab PT Outpatient Evaluation Start: 10/02/23 11:06 Freq: Status: Active Protocol: Document 10/02/23 11:06 CARROLL (Rec: 10/02/23 12:33 CARROLL [id number]) E-signed By Rupa Robles, PT Outpatient Therapy Subjective History Subjective History Pt is an 83 y/o female who reports gradual onset of neck, mid back and low back pain overtime. Pt reports worsening of symptoms within the last 6 months due to transferring her ill for 2 weeks prior to his passing. Pt had thoracic and lumbar spine radiographs performed on with impressions of Mild and moderate degenerative changes without acute bony abnormality. Pt reports main complaint of right-sided neck and mid back pain. Pt reports low back pain as well although it is not her main concern. Pt denies distal symptoms or paresthesia. Pt denies headaches. No cervical spine radiogarphs were noted for review this date. Pt reports she was prescribed muscle relaxers which she states helps with pain but does not abolish it. Pt reports pain is worse with increased movement and activity. Pt reports pain is aggravated by prolonged sitting/standing/walking, bending, reaching, and lifting . Pt denies swelling, fevers, n/v or night sweats. Medical History: Claudication, History of left heart catheterization (LHC), Aneurysm of descending aorta, Ascending aortic aneurysm, hx of AAA repair, Rectal tumor, CAD (coronary artery disease), hx of CABG, Rectal inflammation, Rectal pain New diagnosis of cancer in past 12 No months? Chief Complaint Pain,Stiff Symptom Type Ache,Dull Symptoms Relieved By Rest/Positioning Symptoms Aggravated By Bending/Stooping,Physical Activity,Walking,Lifting Prior Functional Limitations None Current Functional Limitations Reaching,Lifting,Housework, Sleeping,Standing,Walking, Bending/Stooping Symptom Description Constant but Variable Level of pain today (0-10) 6 Pain scale - at its best (0-10) 2 Pain scale - at its worst (0-10) 8 Cervical Eval Palpation Cervical Muscles R Cervical Paraspinal,L Cervical Paraspinal,R Suboccipital,R CT Junction,L CT Junction,R Upper Trapezius, L Upper Trapezius,R Thoracic Paraspinals,L Thoracic Paraspinals Cervical/Thoracic Palpation Findings Tenderness Posture Head/C-Spine Posture Sitting Position C-Spine Flattened Head/C-Spine Posture Standing Position C-Spine Flattened Flexibility Deficits Upper Trapezius Muscle Length (R) Moderate Tightness,(L) Moderate Tightness Levaetor Scapulae Muscle Length (R) Moderate Tightness,(L) Moderate Tightness Passive Joint Mobility Cervical PIVM Dec: R C4/5 L C4/5 R C5/6 L C5/6 R C6/7 L C6/7 R C7/T1 L C7/T1 AROM Cervical Spine Extension Active Range of 10 Motion (degrees) Cervical Spine Flexion Active Range of 45 Motion (degrees) Cervical Spine Right Lateral Flexion 20 Active Range of Motion (degrees) Cervical Spine Left Lateral Flexion 25 Active Range of Motion (degrees) Cervical Spine Right Rotation Active 45 Range of Motion (degrees) Cervical Spine Left Rotation Active 55 Range of Motion (degrees) Altered Sensation Bilateral Comment equal and intact to light touch sensation bilaterally Special Test C-spine Verterbral Accessory Movements Central P/A [place],Right P/A that Elicit Symptoms [place] Shoulder/Elbow Eval Shoulder Objective Measurements Shoulder MMT Bilateral Lower Trapezius Strength Grade 3 Fair Middle Trapezius Strength Grade 3+ Fair+ Rhomboids Strength Grade 3+ Fair+ Upper Trapezius/Levator Scapulae 4- Good- Elbow Objective Measurements Lumbopelvic Eval Posture Thoracic Spine Posture Standing Position Increased Kyphosis Lumbar Spine Posture Standing Position Decreased Lordosis Palapation tenderness bilateral thoracic spinal tenderness Yes lumbar spinal tenderness Yes paraspinal tenderness Yes buttock tenderness Yes Lumbar/Sacral Palpation Findings Tenderness Lumbar/Sacral Palpation Overall Comment 3/4 TTP, R>L Range of Motion Lumbar Spine Active Flexion Range of 50 Motion (degrees) Lumbar Spine Active Extension Range of 10 Motion (degrees) Left Lumbar Spine Lateral Flexion Active 10 Range of Motion (degrees) Right Lumbar Spine Lateral Flexion 5 Active Range of Motion (degrees) Manual Muscle Test Bilateral Knee Extension Strength Grade 4 Good Knee Flexion Strength Grade 4 Good Hip Flexion Strength Grade 4- Good- Hip Abduction Strength Grade 3+ Fair+ Hip Adduction Strength Grade 4- Good- Hip Extension Strength Grade 3+ Fair+ Ankle Dorsiflexion Strength Grade 5 Normal Altered Sensation Comment equal and intact to light touch sensation bilaterally Oswestry Index Section 1 Pain Intensity The pain comes and goes and is moderate Section 2 Personal Care (Washing,Dresing) my way of washing or dressing even though it causes some pain Section 3 Lifting I can only lift very light weights at most Section 4 Walking I cannot walk at all without increasing pain Section 5 Sitting I can sit in my favorite chair for as long as I like Section 6 Standing I cannot stand more than 1/2 hour without increasing pain Section 7 Sleeping I get pain in bed, but it does not prevent me from sleeping well Section 8 Social Life Pain has restricted my social life to my home Section 9 Traveling Pain restricts all forms of travel Section 10 Changing Degreee of Pain My pain is gradually getting worse Score and Risk Level Oswestry Sc 31 Oswestry Risk Level Severe Disability Neck Disability Index Neck Disability Index Section 1: Pain Intensity The pain is fairly severe at the moment Section 2: Personal Care (washing, I can look after myself dressing, etc.) normally but it causes extra pain Section 3: Lifting I can only lift very light weights Section 4: Reading I can't read as much as I want because of moderate pain in my neck Section 5: Headaches I have no headaches at all Section 6: Concentration I have a fair degree of difficulty in concentrating when I want to Section 7: Work I can hardly do any work at all Section 8: Driving I can drive my car as long as I want with slight pain in my neck Section 9: Sleeping I have no trouble sleeping Section 10: Recreation I can hardly do any recreation activities because of pain in my neck NDI Score 22 Outpatient Therapy Assessment Impairments Problems/Impairmments Palpation Tenderness,Impaired Range of Motion,Impaired Strength,Impaired Walking, Impaired Standing,Impaired Sitting,Impaired Lifting, Impaired Household Care, Impaired Bending,Impaired Desk /Computer Activities, Subjective C/O Pain,Impaired Self Care/Self Management Prognosis Rehab Potential Fair Comment Barriers to progress include chronic pain and limited exercise tolerance with dyspnea on exertion due to extensive cardiac history. Clinical Impression Consistent with Diagnosis Yes Consistent with also cervicalgia Short Term Goals Number of Weeks 3 Improve Ability For Household Care Yes Decrease Subjective C/O Pain Yes: Improve pain at worst to 6/10 to improve overall QOL Improve Self Care/Self Management Yes Patient to be Ind w/ HEP Yes Halfway Goals Number of Weeks 6 Decreased Palpation Tenderness Yes Increase Range of Motion Yes: cerivcal AROM ext to 20, LF to 35-40, rot 50-60 & lumbar AROM flex to 70-80 Increase Strength Yes: scapular & hip strength to 4-4+/5 grossly to assist w posture/function Improve Oswestry Score Yes: Improve score to 25 or less to improve overall QOL Improve Neck Disability Index Score Yes: Improve score to 17 or less to improve overall QOL Decrease Subjective C/O Pain Yes: Improve pain at worst to 4/10 to improve overall QOL Patient to be Ind w/ Advanced HEP Yes Outpatient Therapy Plan of Care Treatment Plan May Include Therapeutic Exercise Including Home Yes Exercise Program Manual Therapy Techniques Yes Neuromuscular Re-education Yes Therapeutic Activities to Return to Yes Previous Functional/Work Level ADL/Self Care Education Yes Mechanical Traction Yes Dry Needling Yes Thermal Modalities Yes Electrical Stimulation Yes Ultrasound/Phonophoresis Yes Iontophoresis Yes Massage Yes Group Therapy for Medicare Yes Eval/Re-Eval Yes Frequency Times per week 2 Duration Number of Weeks 4-6 Addendums This patient is a candidate for social No or vocational rehab? Patient/Guardian verbally acknowledges Yes understanding of treatment program and consents to further treatment? Patient/Guardian verbally acknowledges Yes understanding of diagnosis, prognosis and goals for treatment? Eval Complexity PT Charges 80348 - Moderate Complexity PHYSICIAN CERTIFICATION: I certify the specified therapy services for Dione Zapata are required, authorized, and reviewed every 30 days.
--- NOTE | 2023-10-29 15:35 | HMH.RHREAS ---
Rehab Reassessment Rehab OP Re-assessment Start: 10/02/23 11:06 Freq: Status: Active Protocol: Document 10/29/23 14:40 ANGISHANTELL (Rec: 10/29/23 15:31 CARROLL [id number]) E-signed By Rupa Robles PT Neck Disability Index Neck Disability Index Section 1: Pain Intensity The pain is moderate at the moment Section 2: Personal Care (washing, It is painful to look after dressing, etc.) myself and I am slow and careful Section 3: Lifting I can only lift very light weights Section 4: Reading I can't read as much as I want because of moderate pain in my neck Section 5: Headaches I have no headaches at all Section 6: Concentration I have a fair degree of difficulty in concentrating when I want to Section 7: Work I can only do my usual work, but no more Section 8: Driving I can't drive my car as long as I want because of moderate pain in my Section 9: Sleeping I have no trouble sleeping Section 10: Recreation I can hardly do any recreation activities because of pain in my neck NDI Score 21 Oswestry Index Section 1 Pain Intensity The pain comes and goes and is moderate Section 2 Personal Care (Washing,Dresing) increase the pain and I find it necessary to change my way of doing it Section 3 Lifting I can only lift very light weights at most Section 4 Walking I cannot walk at all without increasing pain Section 5 Sitting I can sit in my favorite chair for as long as I like Section 6 Standing I cannot stand more than 10 minutes without increasing pain Section 7 Sleeping I get pain in bed, but it does not prevent me from sleeping well Section 8 Social Life Pain has restricted my social life and I do not go out often Section 9 Traveling Pain restricts me to short necessary journeys under 30 minutes Section 10 Changing Degreee of Pain My pain seems to be getting better, but improvement is slow Score and Risk Level Oswestry Sc 30 Oswestry Risk Level Severe Disability Rehab Re-assessment Subjective Subjective Pt reports continued neck, mid and low back pain. Pt reports pain at worst as 6/10 on VAS. Pt reports neck pain is aggaravated by prolonged looking down such as with working a puzzle and looking over her shoulder such as with driving. Pt reports mid to low back pain is aggravated by housework, standing and walking. Pt reports she has been unable to attend PT for 2 weeks due to scheduling issues although states she is compliant with her HEP. Objective Objective Notes Observation: increased thoracic kyphosis and forward head posture Palpation: 2/4 TTP of cervical mm Cervical AROM: flex 50, ext 25 , RLF 22, LLF 45, Rrot 50, Lrot 55 Lumbar AROM: flex 55, ext 10, LLF 10, RLF 7 Assessment Assessment Notes Pt has attended only 4 PT visits since her initial evaluation on 10/02/23. Pt demonstrated slight improvement in cervical and lumbar mobility, subjective report of pain and functional outcome measures this date. Pt continues to report moderate neck and back pain with cervical flexion, rotation and household care. Overall, the pt would continue to benefit from skilled PT to further improve subjective report of pain, cervical/lumbar mobility , strength, posture and functional activity tolerance to improve overall QOL. Patient goals met ST/4 Goals Not Met household care, LTG Revised Goals n/a Plan Plan Continue initial POC Frequency of Therapy 2x/week Duration of therapy 4 more weeks Time and Billing Re-Eval Time 12 Re-Eval Billing Units 1 PHYSICIAN CERTIFICATION: I certify the specified therapy services for Dione Zapata are required, authorized, and reviewed every 30 days.
== END 2023-11-13 14:05 | disposition home or self-care (01) ==
LOC: PT 14:00
PROVIDERS: Visit Provider Internal Medicine
DX: M54.9 Dorsalgia, unspecified (principal)
CPT/HCPCS: 97010; 97014; 97110; 97140; 97163; 97164; G0283

== ENCOUNTER 2024-05-14 14:06 | Outpatient (CLI) | payer MEDICARE, OTHER, SELFPAY ==
--- NOTE | 2024-05-14 14:10 | XR_ITS ---
FINAL REPORT CLINICAL HISTORY: Neck Pain, pt states she felt a pop on lt syed of neck COMPARISON: None FINDINGS: CERVICAL SPINE 5 views of the cervical spine were obtained. There is no acute fracture. There is mild retrolisthesis of C4 on C5. Moderate degenerative changes are noted. There is bilateral C4-5 and C5-6 moderate neuroforaminal narrowing. IMPRESSION: Degenerative changes without acute process. Reviewed, Interpreted and Dictated by Yoni Younger III, MD Transcribed by Briseida Luna Authenticated and [facility]
== END 2024-05-14 23:59 | disposition home or self-care (01) ==
LOC: RAD 14:08
PROVIDERS: PCP Internal Medicine; Visit Provider Internal Medicine
DX: M54.2 Cervicalgia (principal)
CPT/HCPCS: 72050

== ENCOUNTER 2024-08-26 16:00 | Outpatient (RCR) | payer MEDICARE, OTHER, SELFPAY ==
--- NOTE | 2024-08-10 18:07 | HMH.PTOPEV ---
PT Outpatient Evaluation Rehab PT Outpatient Evaluation Start: 08/10/24 17:58 Freq: Status: Active Protocol: Document 08/10/24 17:58 GAVINO (Rec: 08/10/24 18:07 GAVINO [id number]) E-signed By Reuben Espinosa, PT Outpatient Therapy Subjective History Subjective History Pt is an 84 yof who is referred to [facility] outpatient PT with complaints of neck pain. She reports that she on May 02, 2024, she felt a pop in her neck and has had pain in the right side of her neck and into her shoulder blade since. She reports that she has tried stretches from her PT in the past but they have not helped. Reports Tylenol takes away the pain somewhat. New diagnosis of cancer in past 12 No months? Chief Complaint Pain,Stiff Symptom Type Ache Symptoms Relieved By Heat,Ice,OTC Meds Symptoms Aggravated By Twisting,Lifting Prior Functional Limitations None Current Functional Limitations Reaching,Lifting,Housework, Dressing,Driving Symptom Description Constant and Continuous Level of pain today (0-10) 3 Pain scale - at its best (0-10) 3 Pain scale - at its worst (0-10) 3 Cervical Eval Palpation Cervical Muscles R Cervical Paraspinal,L Cervical Paraspinal,R Upper Trapezius,L Upper Trapezius,R Thoracic Paraspinals,L Thoracic Paraspinals Cervical/Thoracic Palpation Findings Tenderness Posture Head/C-Spine Posture Sitting Position Flexed Flexibility Deficits Upper Trapezius Muscle Length (R) Moderate Tightness,(L) Moderate Tightness Pectoralis Minor Muscle Length (R) Moderate Tightness,(L) Moderate Tightness Passive Joint Mobility Cervical PIVM Dec: R C5/6 L C5/6 R C6/7 L C6/7 R C7/T1 L C7/T1 AROM Cervical Spine Extension Active Range of 10 Motion (degrees) Cervical Spine Flexion Active Range of 40 Motion (degrees) Cervical Spine Right Lateral Flexion 15 Active Range of Motion (degrees) Cervical Spine Left Lateral Flexion 15 Active Range of Motion (degrees) Cervical Spine Right Rotation Active 10 Range of Motion (degrees) Cervical Spine Left Rotation Active 20 Range of Motion (degrees) MMT Right Deltoid (C5) 2+ Poor+ Biceps Brachii Strength Grade 5 Normal Wrist Extension Strength Grade 5 Normal Triceps Brachii Strength Grade 5 Normal Wrist Flexion Strength Grade 5 Normal Extensor Pollicis Longus Strength Grade 5 Normal Finger Abduction Strength Grade 5 Normal DTR Rt Biceps 2+ Lt Biceps 2+ Rt Brachioradialis 2+ Lt Brachioradialis 2+ Rt Triceps 2+ Lt Triceps 2+ Special Test C-Spine Foraminal Compression ([place]) Negative Left,Negative Right Test C-spine Verterbral Accessory Movements Central P/A [place],Right P/A that Elicit Symptoms [place] C-Spine Foraminal Distraction Test Negative Neck Disability Index Neck Disability Index Section 1: Pain Intensity The pain is moderate at the moment Section 2: Personal Care (washing, It is painful to look after dressing, etc.) myself and I am slow and careful Section 3: Lifting I cannot lift or carry anything Section 4: Reading I can read as much as I want with moderate pain in my neck Section 5: Headaches I have no headaches at all Section 6: Concentration I can concentrate fully when I want to with slight difficulty Section 7: Work I cannot do my usual work Section 8: Driving I can drive my car as long as I want with moderate pain in my neck Section 9: Sleeping My sleep is midly disturbed (1 -2 hrs sleepless) Section 10: Recreation I am able to engage in a few of my usual recreation activities because NDI Score 22 Outpatient Therapy Assessment Impairments Problems/Impairmments Palpation Tenderness,Impaired Range of Motion,Impaired Strength,Impaired Household Care,Subjective C/O Pain Prognosis Rehab Potential Good Clinical Impression Consistent with Diagnosis Yes Consistent with Neck pain with mobility deficits Short Term Goals Number of Weeks 4 Decreased Palpation Tenderness Yes: 0-1/4 to R C spine Increase Range of Motion Yes: 50-75% WNL CROM Increase Strength Yes: 4/5 to R shoulder Improve Ability For Household Care Yes: Light cleaning without increasing pain Improve Neck Disability Index Score Yes: to 17 Decrease Subjective C/O Pain Yes: 2/10 with above assessment Patient to be Ind w/ HEP Yes Social Media Content Manager Goals Number of Weeks 8 Decreased Palpation Tenderness Yes: 0-1/4 to TTP assessemnt Increase Range of Motion Yes: 75-100% CROM Increase Strength Yes: 4+/5 R Shoulder Increase Ability to Drive/Ride in Car Yes: Drive without increasing pain Improve Neck Disability Index Score Yes: to 12 Decrease Subjective C/O Pain Yes: 0/10 with above assessment Patient to be Ind w/ Advanced HEP Yes Outpatient Therapy Plan of Care Treatment Plan May Include Therapeutic Exercise Including Home Yes Exercise Program Manual Therapy Techniques Yes Neuromuscular Re-education Yes Therapeutic Activities to Return to Yes Previous Functional/Work Level ADL/Self Care Education Yes Mechanical Traction Yes Thermal Modalities Yes Electrical Stimulation Yes Manual Lymphatic Drainage Yes Eval/Re-Eval Yes Frequency Times per week 2 Duration Number of Weeks 8 Addendums This patient is a candidate for social No or vocational rehab? Patient/Guardian verbally acknowledges Yes understanding of treatment program and consents to further treatment? Patient/Guardian verbally acknowledges Yes understanding of diagnosis, prognosis and goals for treatment? Eval Complexity PT Charges 45934 - Moderate Complexity Shoulder/Elbow Eval Shoulder Objective Measurements Elbow Objective Measurements PHYSICIAN CERTIFICATION: I certify the specified therapy services for Dione Zapata are required, authorized, and reviewed every 30 days.
== END 2024-08-26 23:59 | disposition home or self-care (01) ==
LOC: PT 16:00
PROVIDERS: PCP Internal Medicine; Visit Provider Internal Medicine
DX: M54.2 Cervicalgia (principal)
CPT/HCPCS: 97014; 97035; 97110; 97140; 97163; G0283

== ENCOUNTER 2024-09-10 16:00 | Outpatient (CLI) | payer MEDICARE, OTHER, SELFPAY ==
[2024-09-10 18:11] LABS: Basophils % 0.4 % (0.1-2.0); Eosinophils # 0.1 K/mm3 (0.0-0.4); Eosinophils % 0.8 % (0.1-12.0); Hematocrit 39.1 % (37.0-47.0); Hemoglobin 12.9 g/dL (12.2-16.2); Lymphocytes # 1.9 K/mm3 (0.7-4.5); Mean Corpuscular Hemoglobin 30.9 pg (27.0-31.2); Mean Corpuscular Volume 93.5 fl (81-99); Mean Platelet Volume 10.6 fl (7.4-10.4); Monocytes # 0.6 K/mm3 (0.1-1.0); Monocytes % 7.7 % (1.7-9.3); Neutrophils # 4.7 K/mm3 (1.8-7.8); Neutrophils % 64.8 % (37.0-80.0); Nucleated Red Blood Cells # 0 10^3/uL; Nucleated Red Blood Cells % 0 %; Platelet Count 168 K/mm3 (142-424); Red Blood Count 4.18 M/mm3 (4.20-5.40); Red Cell Distribution Width 12.6 % (11.5-17.5); Red Cell Distribution Width-SD 43.3 fL; White Blood Count 7.2 K/mm3 (4.8-10.8)
[2024-09-10 19:02] LABS: Alanine Aminotransferase 10 U/L (12-78); Albumin/Globulin Ratio 1.5 (1.1-1.8); Alkaline Phosphatase 68 U/L (38-126); Anion Gap 11.5 mEq/L (5-15); Aspartate Amino Transferase 23 U/L (14-36); Bilirubin,Total 0.5 mg/dl (0.2-1.3); Blood Urea Nitrogen 10 mg/dl (7-17); Carbon Dioxide 31 mmol/L (22.0-30.0); Chloride 99 mmol/L (98-107); Estimated Glomerular Filt Rate 53 ml/min (>60); GFR (African American) 64 ML/MIN (>60); Globulin 2.7 g/dL (1.3-3.2); Glucose 101 mg/dl (74-100); Potassium 3.5 mmoL/L (3.5-5.1); Sodium 138 mmol/L (136-145); Total Protein,Serum 6.7 g/dl (6.3-8.2)
--- OUTSIDE RECORDS SUMMARY | 2024-09-15 09:44 | XMS_ITS ---
Author Organization Unknown TREATMENT PLAN [facility] Start Date Provider Encounter for Check-up [id number] DEONDRE Hernández
== END 2024-09-10 23:59 | disposition home or self-care (01) ==
LOC: LAB.DROPOF 09-15 09:42
PROVIDERS: PCP Family Medicine; Visit Provider Family Medicine
DX: N39.0 Urinary tract infection, site not specified (principal); R10.9 Unspecified abdominal pain; R19.7 Diarrhea, unspecified
CPT/HCPCS: 80053; 85025; 87086

== ENCOUNTER 2024-09-11 00:18 | Outpatient (CLI) | payer MEDICARE, OTHER, SELFPAY | END 2024-09-11 23:59 | disposition home or self-care (01) | LOC: LAB.DROPOF 00:21 | PROVIDERS: PCP Family Medicine; Visit Provider Family Medicine | DX: R19.7 Diarrhea, unspecified (principal); N39.0 Urinary tract infection, site not specified | CPT/HCPCS: 80053; 85025; 87045; 87086 ==

== ENCOUNTER 2024-09-11 23:59 | Observation (INO) | payer MEDICARE, OTHER, SELFPAY ==
[2024-09-12] VITALS (12 sets, daily range): BP systolic 115–142; BP diastolic 56–67; PULSE 80–95; RESP 16–20; TEMP 36.7–37.3; O2SAT 91–95; BMI 25.8; BMI 25.2
--- NOTE | 2024-09-12 00:09 | HMH.EDGENADL ---
Discharge Plan Disposition Patient Disposition: Admitted Clinical Impressions Clinical Impression: Colitis, Acute dehydration, Acute hypokalemia, Hypophosphatemia, Acute UTI Discharge ED Provider: Kiran Mercado General Adult HPI General Chief complaint: Nausea/Vomiting/Diarrhea Stated complaint: diarrhea, weakness, abd pain Time Seen by Provider: 09/12/24 00:00 History of Present Illness HPI narrative: 84-year-old female with history of AAA repair, coronary artery disease, hypothyroidism presents for multiple complaints. She reports she has been having profuse watery diarrhea for the last 8 days and has been getting worse today. She reports she feels weak at home generally ill. She reports lower abdominal pain that is worsening. She was seen yesterday and had a dipstick urine which appeared positive for UTI, she was placed on Macrobid. She submitted a stool sample but the laboratory results are not interpretable. Related Data Home Medications ?Medication ?Instructions ?Recorded ?Confirmed cholecalciferol (vitamin D3) 25 25 mcg PO DAILY 09/10/24 09/10/24 mcg (1,000 unit) capsule melatonin 5 mg capsule mg PO DAILY 09/10/24 09/10/24 Previous Rx's ?Medication ?Instructions ?Recorded diclofenac sodium 1 % topical gel 2 g topical QID #100 grams 08/19/23 (Arthritis Pain (diclofenac)) bisoprolol fumarate 5 mg tablet See Rx Instructions .Route 04/05/24 .COMPLEX #45 tabs isosorbide mononitrate 30 mg See Rx Instructions .Route 04/05/24 tablet,extended release 24 hr .COMPLEX #45 tabs rosuvastatin 20 mg tablet See Rx Instructions .Route 04/05/24 .COMPLEX #90 tabs escitalopram oxalate 20 mg tablet See Rx Instructions .Route 06/22/24 .COMPLEX #90 tabs trazodone 100 mg tablet See Rx Instructions .Route 07/21/24 .COMPLEX #90 tabs dicyclomine 20 mg tablet See Rx Instructions .Route 08/16/24 .COMPLEX #60 tabs levothyroxine 100 mcg tablet See Rx Instructions .Route 09/06/24 .COMPLEX #90 tabs nitrofurantoin 100 mg PO BID 5 days #10 caps 09/10/24 monohydrate/macrocrystals 100 mg capsule (Macrobid) Allergies Allergy/AdvReac Type Severity Reaction Status Date / Time codeine (CODEINE) Allergy Unknown Verified 09/10/24 15:02 guaifenesin (GUAIFENESIN) Allergy Unknown Verified 09/10/24 15:02 penicillin G (PENICILLIN G) Allergy Unknown Verified 09/10/24 15:02 ciprofloxacin (From Cipro) Allergy Rash Verified 09/10/24 15:02 Sulfa (Sulfonamide Allergy Rash Verified 09/10/24 15:02 Antibiotics) [facility] Disclaimer: The information contained in this section may have been updated after the patient was seen, as this information can be updated by other users. Medical History Claudication (~05/21/24) History of left heart catheterization (LHC) Aneurysm of descending aorta Ascending aortic aneurysm Rectal tumor CAD (coronary artery disease) Rectal inflammation Rectal pain Surgical History S/P AAA repair History of thyroid surgery History of Augusto fundoplication History of repair of hiatal hernia Hx of cataract removal with insertion of prosthetic lens History of cholecystectomy History of hysterectomy H/O tubal ligation H/O heart artery stent Hx of CABG Family History Son Cancer pancreatic Social History Smoking Status: Never smoker alcohol intake: former substance use type: denies use current occupational status: retired Travel in the last 8 weeks: Inside the [place] household members: spouse housing: house marital status: current occupational exposures/hazards: No caffeine: Yes Have you lived/traveled outside [place] in past 30 days?: No Contact w/someone who lives/traveled outside [place] past 30 days?: No Exposure to someone with infectious disease in past 14 days?: No Do you have a fever (greater than 100.4 F or 38 C)?: No Have you tested positive for COVID-19: No Exposed to someone with COVID-19 in past 14 days?: No Do you have a sore throat?: No Do you have a cough?: No Do you have any weakness?: Yes Do you have any diarrhea?: Yes Are you experiencing any unusual bleeding?: No Do you have any muscle aches/pain?: No Do you have any abdominal pain?: Yes Are you experiencing loss of taste or smell?: No Other Medical History Have you received the Flu Vaccine for this season: Yes Have you received the Pneumonia Vaccine: No ROS Obtained: Yes All systems reviewed & no additional complaints except as documented Physical Exam General General appearance: alert and in no apparent distress Head Head exam: atraumatic and normocephalic Eye Eye exam: Present normal appearance, PERRL and EOMI ENT ENT exam: Present normal oropharynx and normal external ear exam Neck Neck exam: Present normal inspection and full ROM Chest Chest inspection: Present normal inspection and symmetric chest wall rise; Absent tenderness Respiratory Respiratory exam: Present normal lung sounds bilaterally; Absent respiratory distress Cardiovascular Cardiovascular exam: Present regular rate and normal rhythm Abdominal Exam Abdominal exam: Present soft and tenderness (Mild, bilateral lower quadrant); Absent distention or guarding Extremities Exam Extremities exam: Present normal inspection; Absent edema or joint swelling Back Exam Back exam: Present normal inspection; Absent tenderness Neurological Exam Neurological exam: Present alert and oriented X3; Absent motor sensory deficit Psychiatric Psychiatric exam: Present normal affect and normal mood Skin Skin exam: Present warm, dry and normal color Lymphatic Lymphatic Findings: no adenopathy Medical Decision Making Medical Records Medical records reviewed: Yes I reviewed the patient's medical records. Screening: Per USPSTF and CDC recommendations, given the prevalence of disease in our region, it is our hospital?s policy to screen for HIV and viral Hepatitis for all patients aged 18 and over and those with ongoing risk factors. Harry Inquiry Pt receiving controlled substance: No Harry was queried for this patient: No Vital Signs: 09/12/24 00:10 Temperature 98.8 F Temperature Source Oral Pulse Rate [Radial] 95 H Respiratory Rate 16 Blood Pressure [Right Arm] 118/63 Blood Pressure Mean [Right Arm] 81 Blood Pressure Position [Right Arm] Sitting 02 Sat by Pulse Oximetry 93 L Oxygen Delivery Method Room Air Lab Data Lab results reviewed: Yes I reviewed the patient's lab results. Lab Results 09/12/24 00:14: WBC 9.1 D, RBC 4.14 L, Hgb 12.8, Hct 37.7, MCV 91.1, MCH 30.9, MCHC 34.0, RDW 12.4, Plt Count 174, MPV 10.1, Neut % (Auto) 86.5 H, Lymph % (Auto) 7.2 L, [place] % (Auto) 5.0, Eos % (Auto) 0.7, Baso % (Auto) 0.2, Neut # (Auto) 7.9 H, Lymph # (Auto) 0.7, [place] # (Auto) 0.5, Eos # (Auto) 0.1, Baso # (Auto) 0.0, Sodium 136, Potassium 2.7 L* D, Chloride 99, Carbon Dioxide 30, Anion Gap 9.7, BUN 8, Creatinine 1.00, Estimated Creat Clear 47, Estimated GFR 53 L, Est GFR ( Amer) 64, Glucose 128 H, Calcium 8.5, Phosphorus 1.9 L, Magnesium 1.7, Total Bilirubin 0.6, AST 23, ALT 13 D, Alkaline Phosphatase 74, Total Protein 6.6, Albumin 3.6, Globulin 3.0, Albumin/Globulin Ratio 1.2, Lipase 132 09/12/24 00:23: Urine Color Dark yellow, Urine Appearance Slightly cloudy, Urine pH 5.5, Ur Specific [place] >= 1.030, Urine Protein 1+ A, Urine Glucose (UA) Negative, Urine Ketones Trace, Urine Blood 2+ A, Urine Nitrate Positive A, Urine Bilirubin 2+ A, Urine Urobilinogen 0.2, Ur Leukocyte Esterase 2+ A, Urine RBC 10-20, Urine WBC 10-20, Ur Squamous Epith Cells 3-5, Urine Bacteria 1+, Urine Mucus 1+ 09/12/24 00:14 09/12/24 00:14 Orders (Tests/Meds): ED MEDICATIONS Generic Name Dose Route Start Last Admin Trade Name Dimitryq PRN Reason Stop Dose Admin Potassium Chloride/Water 100 mls @ 100 mls/hr 09/12/24 01:15 09/12/24 01:31 Potassium Chloride 10meq/100ml Ivpb IV 09/12/24 04:14 100 mls/hr Q1H SCOTT Administration Ceftriaxone Sodium 1 gm/ 50 mls @ 100 mls/hr 09/12/24 01:44 09/12/24 01:56 Sodium Chloride IV 09/12/24 02:13 100 mls/hr ONCE ONE Administration Sodium Chloride 10 ml 09/12/24 00:42 09/12/24 00:42 Sodium Chloride 0.9% 10ml Syr (Rad Only) IV 10/12/24 00:41 10 ml NEEDED PRN Administration Maintain IV Site Discontinued Medications Generic Name Dose Route Start Last Admin Trade Name Khoi PRN Reason Stop Dose Admin Acetaminophen 1,000 mg 09/12/24 01:44 09/12/24 01:50 Acetaminophen 500mg Tab PO 09/12/24 01:45 Not Given ONCE ONE Azithromycin 500 mg 09/12/24 01:44 09/12/24 01:57 Azithromycin 250mg Tablet PO 09/12/24 01:45 500 mg ONCE ONE Administration Lactated Ringer's 1,000 mls @ 999 mls/hr 09/12/24 00:15 09/12/24 00:17 Lactated Ringer's 1000 Ml Bag IV 09/12/24 01:15 999 mls/hr .Q1H1M SCOTT Administration Magnesium Sulfate 2 gm in 50 mls @ 150 mls/hr 09/12/24 01:13 09/12/24 01:30 Magnesium Sulfate 2gm/50ml Premix IV 09/12/24 01:32 150 mls/hr ONCE ONE Administration Iopamidol 75 ml 09/12/24 00:42 09/12/24 00:42 Iopamidol-370 (76%);100ml Bottle IV 09/12/24 00:43 75 ml ONCE ONE Administration Ketorolac Tromethamine 15 mg 09/12/24 01:44 09/12/24 01:57 Ketorolac 30mg/Ml Vial IV 09/12/24 01:45 15 mg ONCE ONE Administration Potassium Chloride 40 meq 09/12/24 01:13 09/12/24 01:31 Potassium Chloride 20meq Tab PO 09/12/24 01:14 40 meq ONCE ONE Administration Potassium Phosphate 250 mg 09/12/24 01:42 09/12/24 01:57 K-Phos Neutral 250mg Tablet PO 09/12/24 01:43 250 mg ONCE ONE Administration ORDERS Category Date Time Status CT abdomen pelvis w con Stat Cat Scan 09/12/24 00:11 Completed CBC w/Auto Diff [Complete Blood Count Auto Diff] Stat Lab 09/12/24 00:14 Completed CMP [Comprehensive Metabolic Panel] Stat Lab 09/12/24 00:14 Completed Diarrhea 23 Panel, PCR Stat Lab 09/12/24 00:10 Ordered HIV Combo Stat Lab 09/12/24 00:14 Received Hepatitis C Ab Qual. W/ RFX Stat Lab 09/12/24 00:14 Received Lipase Stat Lab 09/12/24 00:14 Completed Magnesium Stat Lab 09/12/24 00:14 Completed Phosphorous Stat Lab 09/12/24 00:14 Completed UA [Urinalysis and Microscopic] Stat Lab 09/12/24 00:23 Completed Blood Culture Stat Micro 09/12/24 01:40 Received Ova + Parasite Exam Stat Micro 09/12/24 00:10 Ordered Urine Culture Stat Micro 09/12/24 00:23 Received Medical Decision Narrative: 84-year-old female with history of AAA, hypothyroidism presents for 8 days of diarrhea, today had worsening including lower abdominal pain and generalized weakness. History was obtained via interactive discussion with patient, family, chart review. On arrival, patient is [afebrile, hemodynamically stable, satting appropriately, alert, oriented x4, GCS 15], moving all extremities spontaneously. Full physical exam performed and significant for mild lower abdominal pain Differential includes but is not limited to colitis, diverticulitis, dehydration, UTI, electrolyte derangement, appendicitis, cholecystitis. Patient was given Tylenol, Toradol, IV fluids for symptomatic management and correction of underlying abnormalities. Workup initiated including CBC CMP mag Phos CT abdomen pelvis with IV contrast urinalysis stool PCR On re-evaluation, patient [remains afebrile, HD stable.] Laboratory workup independently interpreted by me and significant for hypokalemia with potassium 2.7, borderline low magnesium, hypophosphatemia, no significant leukocytosis. Urinalysis is consistent with urinary tract infection. Stool results not yet back Imaging independently interpreted by me and significant for pancolitis. There is an abnormality noted within the stomach, it is likely from her surgical repair of hiatal hernia. See radiology read for full review of final results. Given patient history, exam and workup, patient's presentation most likely represents urinary tract infection, colitis, profuse diarrhea producing dehydration and multiple significant electrolyte derangements. Patient was initiated on ceftriaxone for UTI, azithromycin for colitis, magnesium, potassium and phosphorus repletion. After discussion was had with the hospitalist on-call for admission. Procedures Risk/Benefits of Procedure(s) Were Explained: Yes Critical Care Critical Care Time Critical Care Time: Yes Attestation: On 09/11/24, the high probability of a clinically significant, sudden or life threatening deterioration of the following system(s) required my full and direct attention, intervention and personal management. The time I documented below is in addition to time spent performing reported procedures but includes the following listed in this critical care notation. Total Time Total Critical Care Time: 35
--- NOTE | 2024-09-12 00:11 | CT_ITS ---
PROCEDURE INFORMATION: Exam: CT Abdomen And Pelvis With Contrast Exam date and time: 09/12/2024 12:34 AM Age: 84 years old Clinical indication: Other: Diarrhea; Abdominal pain; Additional info: Diarrhea, abd pain TECHNIQUE: Imaging protocol: Computed tomography of the abdomen and pelvis with contrast. Total images: 306 Radiation optimization: All CT scans at this facility use at least one of these dose optimization techniques: automated exposure control; mA and/or kV adjustment per patient size (includes targeted exams where dose is matched to clinical indication); or iterative reconstruction. Contrast material: ISOVUE; Contrast volume: 75 ml; Contrast route: IV; COMPARISON: CT ANGIO ABDOMEN PELVIS 07/30/2023 12:34 PM FINDINGS: Tubes, catheters and devices: Dilated descending thoracic aorta containing stable endograft. Lungs: Left lower lobe scarring. No airspace consolidation. Heart: Normal heart size. Coronary arteries: Coronary artery calcifications. Diaphragm: Tiny hiatal hernia. Liver: Slight decreased liver attenuation from phase of contrast versus steatosis. Otherwise, unremarkable liver. Gallbladder and biliary ducts: Status post cholecystectomy. No bile duct dilatation. Pancreas: Normal. No ductal dilation. Spleen: Normal. No splenomegaly. Adrenal glands: Normal. No mass. Kidneys and ureters: No hydronephrosis, nephrolithiasis, or renal mass. Lower pole right renal cortical thinning/scarring. No ureteral stones. Stomach and bowel: Mass versus ingested material in the gastric fundus, axial image 22. Unremarkable duodenum. No ileus or bowel obstruction. Small bowel appears within normal limits. Unremarkable terminal ileum. Generalized mild colonic wall thickening implying acute pancolitis. Sigmoid diverticulosis without focal diverticulitis. Mild rectal wall thickening. No pericolonic abscess or extraluminal free air. Appendix: Normal appendix. Intraperitoneal space: No ascites. No free air. Vasculature: Moderate atherosclerotic vascular disease. Diffusely ectatic abdominal aorta without focal aneurysm or dissection. Major abdominal vessels enhance appropriately. Numerous pelvic phleboliths. Lymph nodes: Unremarkable. No enlarged lymph nodes. Urinary bladder: Collapsed bladder. Reproductive: Status post hysterectomy. No pelvic mass. Bones/joints: Status post median sternotomy. Osteopenia. Mild degenerative changes of the thoracolumbar spine. Mild degenerative changes bilateral hips and SI joints. Soft tissues: Small fat containing umbilical hernia. IMPRESSION: 1. Mild acute pancolitis. No complicating features. 2. Gastric fundal mass versus ingested content. Follow-up nonemergent direct visualization or upper GI. 3. Stable chronic abnormalities of the thoracoabdominal aorta. 4. Additional chronic and incidental findings.
[2024-09-12] MEDS: LACTATED RINGERS 1000ML 1,000 ML 999 ML IV (00:17)
[2024-09-12 00:28] LABS: Microscopic, Urine URINE MICROSCOPIC (MICROSCOPIC)
[2024-09-12 00:30] LABS: Alanine Aminotransferase 13 U/L (12-78); Albumin Level 3.6 g/dl (3.5-5.0); Albumin/Globulin Ratio 1.2 (1.1-1.8); Alkaline Phosphatase 74 U/L (38-126); Anion Gap 9.7 mEq/L (5-15); Aspartate Amino Transferase 23 U/L (14-36); Bilirubin,Total 0.6 mg/dl (0.2-1.3); Blood Urea Nitrogen 8 mg/dl (7-17); Calcium 8.5 mg/dl (8.4-10.2); Carbon Dioxide 30 mmol/L (22.0-30.0); Chloride 99 mmol/L (98-107); Creatinine Clearance Estimated 47 mL/min (50-200); Estimated Glomerular Filt Rate 53 ml/min (>60); GFR (African American) 64 ML/MIN (>60); Glucose 128 mg/dl (74-100); Lipase 132 U/L (23-300); Magnesium 1.7 mg/dl (1.6-2.3); Sodium 136 mmol/L (136-145); Total Protein,Serum 6.6 g/dl (6.3-8.2)
[2024-09-12 00:31] LABS: Phosphorous 1.9 mg/dl (2.5-4.5)
--- NOTE | 2024-09-12 00:31 | PC.NURSE ---
notified Dr Mercado of critial K+ 2.7 and phos 1.9
[2024-09-12 00:32] LABS: Potassium 2.7 mmoL/L (3.5-5.1)
[2024-09-12 00:34] LABS: Basophils % 0.2 % (0.1-2.0); Eosinophils # 0.1 K/mm3 (0.0-0.4); Eosinophils % 0.7 % (0.1-12.0); Hematocrit 37.7 % (37.0-47.0); Hemoglobin 12.8 g/dL (12.2-16.2); Lymphocytes # 0.7 K/mm3 (0.7-4.5); Lymphocytes % 7.2 % (10-50); Mean Corpuscular Hemoglobin 30.9 pg (27.0-31.2); Mean Corpuscular Volume 91.1 fl (81-99); Mean Platelet Volume 10.1 fl (7.4-10.4); Monocytes # 0.5 K/mm3 (0.1-1.0); Neutrophils # 7.9 K/mm3 (1.8-7.8); Neutrophils % 86.5 % (37.0-80.0); Nucleated Red Blood Cells # 0 10^3/uL; Nucleated Red Blood Cells % 0 %; Platelet Count 174 K/mm3 (142-424); Red Blood Count 4.14 M/mm3 (4.20-5.40); Red Cell Distribution Width 12.4 % (11.5-17.5); Red Cell Distribution Width-SD 41.2 fL; White Blood Count 9.1 K/mm3 (4.8-10.8)
[2024-09-12 00:35] LABS: Appearance,Urine Slightly Cloudy (Clear); Blood, Urine 2+ (Negative); Color,Urine Dark Yellow (Yellow); Glucose,Urine (UA) Negative (Negative); Ketones,Urine TRACE (Negative); Leukocyte Esterase,Urine 2+ (Negative); Nitrate,Urine POSITIVE (Negative); PH,Urine 5.5 (5.0-8.5); Protein,Urine 1+ (Negative); Specific Gravity, Urine >= 1.030 (1.005-1.030); Urobilinogen,Urine 0.2 EU/dl (0.2)
[2024-09-12 00:41] LABS: Bilirubin,Urine 2+ (Negative)
[2024-09-12] MEDS: IOPAMIDOL-370 (76%);100ML BOTTLE 75 ML IV (00:42)
[2024-09-12] MEDS: SODIUM CHLORIDE 0.9% 10ML SYR (RAD ONLY) 10 ML IV (00:42)
[2024-09-12 00:48] LABS: Bacteria,Urine 1+ /lpf; Mucus,Urine 1+ /lpf
[2024-09-12] MEDS: MAGNESIUM SULFATE IN WATER 2 GM/50 ML PIGGYBACK IV (01:30)
[2024-09-12] MEDS: KCl 10mEq/100ml 100 ML 100 MEQ IV ×3 (01:31→05:21)
[2024-09-12] MEDS: POTASSIUM CHLORIDE 20MEQ TAB 40 MEQ PO (01:31)
--- NOTE | 2024-09-12 01:38 | PC.NURSE ---
pt ambulated to bathroom at this time. pt attempted to have BM but was unable.
--- NOTE | 2024-09-12 01:49 | PC.NURSE ---
MD Mercado spoke with hospitalist at this time. pt being admitted for colitis, UTI, and dehydration
[2024-09-12] MEDS: CEFTRIAXONE 1 GM 1 GM in 0.9 % SODIUM CHLORIDE 50 ML IV (01:56)
[2024-09-12] MEDS: AZITHROMYCIN 250MG TABLET 500 MG PO ×2 (01:57→09:14)
[2024-09-12] MEDS: KETOROLAC 30MG/ML VIAL 15 MG IV ×3 (01:57→10:08)
[2024-09-12] MEDS: K-PHOS NEUTRAL 250MG TABLET 250 MG PO (01:57)
--- NOTE | 2024-09-12 02:18 | PC.NURSE ---
report called to Mee BARRAZA at this time
--- NOTE | 2024-09-12 02:31 | PC.NURSE ---
Patient arrived to floor via wheelchair from ED at 02:29.
[2024-09-12] MEDS: 0.9 % SODIUM CHLORIDE 1000ML 1,000 ML 50 ML IV (02:51)
--- NOTE | 2024-09-12 04:08 | PC.NURSE ---
Pt recently arrived to unit. Pt c/o abdominal pain, rating it at 4. Administered IV toradol as ordered by provider. 20g LAC with NS running at 50mL/hr and K+ replacement at 10mEq/hr. Pt is AOx4, standby assist to bathroom. Respirations even and unlabored, resting in low, locked bed with call light in reach.
--- NOTE | 2024-09-12 04:57 | P.HP_ITS ---
<Statement entered by Monty Ornelas MD - 09/13/24 11:42> Personally evaluated patient and agree with the plan of care outlined by the [facility]PER[facility]. History of Present Illness *Admission Date: 09/12/24 *Reason for visit:: Diarrhea, weakness *History of present illness: An 84-year-old female with a history of abdominal aortic aneurysm (AAA) repair, coronary artery disease, hypothyroidism, and recent urinary tract infection (UTI) presents to the emergency department with multiple complaints, including profuse watery diarrhea for 8 days, worsening today, along with lower abdominal pain and generalized weakness. She reports feeling generally ill and weak at home. She was seen yesterday at an outpatient visit, where a dipstick urinalysis suggested a UTI, and she was started on nitrofurantoin (Macrobid). A stool sample was submitted, but results are not interpretable. The history was obtained through interactive discussion with the patient, family, and chart review, and the patient is deemed reliable. On examination, the patient is afebrile, hemodynamically stable, with appropriate oxygen saturation, alert, oriented x4, and has a [place] Coma Scale of 15. She is moving all extremities spontaneously. Physical exam is significant for mild lower abdominal tenderness, with no rebound, guarding, or distension. Lungs are clear, cardiac exam shows no murmurs, and there is no lower extremity edema. Diagnostic workup includes labs showing hypokalemia (potassium 2.7 mmol/L), borderline low magnesium (1.7 mg/dL), hypophosphatemia (phosphorus 1.9 mg/dL), and mildly elevated glucose (128 mg/dL). Complete blood count reveals no significant leukocytosis (WBC 9.1 x10?/?L) but shows neutrophilia (86.5%, absolute 7.9 x10?/?L) and mild anemia (RBC 4.14 x10?/?L). Renal function is stable (creatinine 1.00 mg/dL, GFR 53 mL/min/1.73m?). Urinalysis is consistent with UTI, showing positive nitrates, leukocyte esterase 2+, 10?20 WBCs, and 10?[address] abdomen/pelvis with IV contrast, independently interpreted, reveals pancolitis and a gastric abnormality likely related to prior hiatal hernia repair, with no evidence of appendicitis or cholecystitis. Stool PCR results are pending. Treatments implemented in the emergency department include acetaminophen (Tylen ol) and ketorolac (Toradol) for pain, intravenous fluids for dehydration, ceftriaxone for UTI, azithromycin for suspected colitis, and repletion of potassium, magnesium, and phosphorus for electrolyte derangements. On reevaluation, the patient remains afebrile and hemodynamically stable. The patient was accepted for admission by the hospitalist for further management of colitis, UTI, and electrolyte abnormalities. [facility] Disclaimer: The information contained in this section may have been updated after the patient was seen, as this information can be updated by other users. Medical History (Updated 09/12/24 @ 03:21 by Courtney Rivero RN) Atrial fibrillation Skin cancer Claudication (~05/21/24) History of left heart catheterization (LHC) Aneurysm of descending aorta Ascending aortic aneurysm Rectal tumor CAD (coronary artery disease) Rectal inflammation Rectal pain Surgical History S/P AAA repair History of thyroid surgery History of Augusto fundoplication History of repair of hiatal hernia Hx of cataract removal with insertion of prosthetic lens History of cholecystectomy History of hysterectomy H/O tubal ligation H/O heart artery stent Hx of CABG Family History Son Cancer pancreatic Social History (Updated 09/12/24 @ 03:21 by Courtney Rivero RN) Smoking Status: Never smoker alcohol intake: never substance use type: denies use current occupational status: retired Travel in the last 8 weeks: Inside the [place] household members: spouse housing: house marital status: current occupational exposures/hazards: No caffeine: Yes Have you lived/traveled outside [place] in past 30 days?: No Contact w/someone who lives/traveled outside [place] past 30 days?: No Exposure to someone with infectious disease in past 14 days?: No Do you have a fever (greater than 100.4 F or 38 C)?: No Have you tested positive for COVID-19: No Exposed to someone with COVID-19 in past 14 days?: No Do you have a sore throat?: No Do you have a cough?: No Do you have any weakness?: Yes Are you experiencing any nausea/vomitting?: Yes Do you have any diarrhea?: Yes Are you experiencing any unusual bleeding?: No Do you have any muscle aches/pain?: No Do you have any abdominal pain?: Yes Are you experiencing loss of taste or smell?: No Other Medical History Have you received the Flu Vaccine for this season: No Have you received the Pneumonia Vaccine: Yes Review of Systems Review of Systems Review of systems (narrative): 13 point review of systems negative except as listed in HPI Meds Home Medications and Allergies Home Medications ?Medication ?Instructions ?Recorded ?Confirmed ?Type diclofenac sodium 1 % topical gel 2 g topical QID #100 grams 08/19/23 09/12/24 Rx (Arthritis Pain (diclofenac)) cholecalciferol (vitamin D3) 25 25 mcg PO DAILY 09/10/24 09/12/24 History mcg (1,000 unit) capsule melatonin 5 mg capsule 10 mg PO DAILY 09/10/24 09/12/24 History nitrofurantoin 100 mg PO BID 5 days #10 caps 09/10/24 09/12/24 Rx monohydrate/macrocrystals 100 mg capsule (Macrobid) aspirin 81 mg tablet 81 mg PO DAILY 09/12/24 09/12/24 History bisoprolol fumarate 5 mg tablet 2.5 mg PO DAILY 09/12/24 09/12/24 History dicyclomine 20 mg tablet 20 mg PO BID 09/12/24 09/12/24 History escitalopram oxalate 20 mg tablet 20 mg PO DAILY 09/12/24 09/12/24 History isosorbide mononitrate 30 mg 15 mg PO DAILY 09/12/24 09/12/24 History tablet,extended release 24 hr levothyroxine 100 mcg tablet 100 mcg PO DAILY 09/12/24 09/12/24 History rosuvastatin 20 mg tablet 20 mg PO DAILY 09/12/24 09/12/24 History trazodone 100 mg tablet 100 mg PO HS 09/12/24 09/12/24 History New Prescriptions to Start Prescriptions: Allergies Allergy/AdvReac Type Severity Reaction Status Date / Time codeine (CODEINE) Allergy Unknown Verified 09/10/24 15:02 guaifenesin (GUAIFENESIN) Allergy Unknown Verified 09/10/24 15:02 penicillin G (PENICILLIN G) Allergy Unknown Verified 09/10/24 15:02 ciprofloxacin (From Cipro) Allergy Rash Verified 09/10/24 15:02 Sulfa (Sulfonamide Allergy Rash Verified 09/10/24 15:02 Antibiotics) Exam Data for Last 24 hours Vital signs and Labs for Last 24 Hours: Temp Pulse Resp BP Pulse Ox O2 Del Method 98.5 F 85 16 137/63 92 L Room Air 09/12/24 04:00 09/12/24 04:28 09/12/24 04:00 09/12/24 04:00 09/12/24 04:00 09/12/24 04:00 Laboratory Results - last 24 hr 09/12/24 00:14: WBC 9.1 D, RBC 4.14 L, Hgb 12.8, Hct 37.7, MCV 91.1, MCH 30.9, MCHC 34.0, RDW 12.4, Plt Count 174, MPV 10.1, Neut % (Auto) 86.5 H, Lymph % (Auto) 7.2 L, [place] % (Auto) 5.0, Eos % (Auto) 0.7, Baso % (Auto) 0.2, Neut # (Auto) 7.9 H, Lymph # (Auto) 0.7, Bound[place] # (Auto) 0.5, Eos # (Auto) 0.1, Baso # (Auto) 0.0, Sodium 136, Potassium 2.7 L* D, Chloride 99, Carbon Dioxide 30, Anion Gap 9.7, BUN 8, Creatinine 1.00, Estimated Creat Clear 47, Estimated GFR 53 L, Est GFR ( Amer) 64, Glucose 128 H, Calcium 8.5, Phosphorus 1.9 L, Magnesium 1.7, Total Bilirubin 0.6, AST 23, ALT 13 D, Alkaline Phosphatase 74, Total Protein 6.6, Albumin 3.6, Globulin 3.0, Albumin/Globulin Ratio 1.2, Lipase 132 09/12/24 00:23: Urine Color Dark yellow, Urine Appearance Slightly cloudy, Urine pH 5.5, Ur Specific [place] >= 1.030, Urine Protein 1+ A, Urine Glucose (UA) Negative, Urine Ketones Trace, Urine Blood 2+ A, Urine Nitrate Positive A, Urine Bilirubin 2+ A, Urine Urobilinogen 0.2, Ur Leukocyte Esterase 2+ A, Urine RBC 10-20, Urine WBC 10-20, Ur Squamous Epith Cells 3-5, Urine Bacteria 1+, Urine Mucus 1+ I & O for Last 24 hours: Intake & Output 09/09/24 09/10/24 09/11/24 09/12/24 23:59 23:59 23:59 23:59 Output Total 0 / 0 Balance 0 / 0 Weight 71.305 kg Constitutional Constitutional: no acute distress *Routine HEENT Exam Head: Present normocephalic Eye: Present EOMI and PERRL ENT: Present mucous membranes moist *Routine Neck Exam Neck: Present supple; Absent lymphadenopathy *Routine Respiratory Exam Respiratory: Present CTA bilaterally *Routine Cardiovascular Exam Cardiovascular: Present RRR *Routine Abdominal Exam Abdominal: Present soft, normoactive bowel sounds and tenderness *Routine Rectal Exam Rectal:: deferred *Routine Genitalia Exam Genitalia:: deferred *Routine Extremities Exam Extremities: Absent cyanosis, clubbing or edema *Routine Skin Exam Skin: Present warm; Absent rash *Routine Neurological Exam Neurological: Present alert and oriented X3 Assessment and Plan *Assessment and plan (1) Acute UTI: Status: Acute Category: Medical Code(s): N39.0 - Urinary tract infection, site not specified (2) Hypophosphatemia: Status: Acute Category: Medical Code(s): E83.39 - Other disorders of phosphorus metabolism (3) Acute hypokalemia: Status: Acute Category: Medical Code(s): E87.6 - Hypokalemia (4) Acute dehydration: Status: Acute Category: Medical Code(s): E86.0 - Dehydration (5) Colitis: Status: Acute Category: Medical Code(s): K52.9 - Noninfective gastroenteritis and colitis, unspecified Plan * Colitis (Likely Infectious): Profuse watery diarrhea for 8 days with worsening lower abdominal pain and CT abdomen/pelvis showing pancolitis, in an 84-year-old female with recent UTI, suggesting possible infectious etiology such as Clostridioides difficile or other pathogens. * Continue azithromycin 500 mg IV daily for empiric coverage of infectious colitis, pending stool PCR results. * Order stool Clostridioides difficile toxin assay and repeat stool PCR to identify specific pathogens. * Hold nitrofurantoin (Macrobid) to reduce risk of exacerbating diarrhea, as it may contribute to gastrointestinal upset. * Monitor stool frequency and consistency every 8 hours; consider loperamide 2 mg oral after each loose stool (maximum 8 mg/day) if diarrhea persists and C. difficile is ruled out. * Consult gastroenterology for inpatient evaluation and possible colonoscopy if no improvement within 48 hours. * Maintain contact precautions until infectious etiology is clarified. * Urinary Tract Infection (UTI): Urinalysis with positive nitrates, leukocyte esterase 2+, 10?20 WBCs, and 10?20 RBCs, consistent with UTI, started on nitrofurantoin yesterday but with ongoing symptoms. * Continue ceftriaxone 1 g IV daily for broader coverage, given age and comorbidities, pending urine culture results. * Obtain urine culture to guide antibiotic therapy; adjust based on sensitivities. * Monitor for fever, dysuria, or worsening pain every 8 hours. * Recheck urinalysis in 48 hours to confirm resolution. * Consult infectious disease if no improvement or if multidrug-resistant organism is identified. * Dehydration Secondary to Diarrhea: Generalized weakness and profuse diarrhea for 8 days, likely causing volume depletion, with stable renal function (creatinine 1.00 mg/dL) but electrolyte derangements. * Continue intravenous normal saline at 75 mL/hour, targeting 1?2 L over 24 hours, monitoring for signs of fluid overload given coronary artery disease history. * Encourage oral rehydration solution (500 mL twice daily) as tolerated to support volume status. * Monitor urine output every 4 hours, targeting >0.5 mL/kg/hour. * Recheck comprehensive metabolic panel in 12 hours to assess hydration and electrolyte trends. * Hypokalemia (Potassium 2.7 mmol/L): Critically low potassium, likely due to diarrhea, contributing to weakness and arrhythmia risk in a patient with coronary artery disease. * Initiate electrolyte replacement * Monitor EKG for hypokalemia changes (e.g., U waves, QT prolongation); obtain stat EKG if potassium remains <3.0 mmol/L. * Administer magnesium sulfate to support potassium repletion, given borderline low magnesium (1.7 mg/dL). * Hypomagnesemia (Magnesium 1.7 mg/dL): Borderline low magnesium, likely from diarrhea, potentially exacerbating hypokalemia and weakness. * Initiate hospital electrolyte replacement protocol * Recheck magnesium in 12 hours. * Hypophosphatemia (Phosphorus 1.9 mg/dL): Low phosphorus, likely due to malnutrition and diarrhea, contributing to weakness. * Electrolyte replacement protocol * Recheck phosphorus in 12 hours until >2.5 mg/dL. * Monitor for muscle weakness or respiratory compromise related to hypophosphatemia. * Lower Abdominal Pain: Mild tenderness on exam, likely related to colitis, with CT ruling out appendicitis, cholecystitis, or diverticulitis. * Continue acetaminophen 650 mg oral every 6 hours as needed for pain. * Monitor pain severity and location every 8 hours; repeat CT if pain worsens or localizes. * Administer ondansetron 4 mg IV every 8 hours as needed for nausea associated with pain or antibiotics. * Hypothyroidism: Known history, no acute symptoms reported, but at risk for exacerbation with systemic illness. * Verify home levothyroxine dose (not provided) and continue at same dose, ensuring administration with adequate time before meals. * Order TSH and free T4 to assess control, given recent illness and weakness. * Recheck thyroid function in 24?48 hours if clinically indicated. * Consult endocrinology if TSH is significantly elevated. * Coronary Artery Disease with Prior AAA Repair: No acute chest pain or ischemic changes, but at risk for cardiovascular stress from dehydration and electrolyte abnormalities. * Continue home anti-ischemic medications (e.g., aspirin, statin, beta- radu; verify with patient or records) unless contraindicated. * Monitor for chest pain or shortness of breath; repeat EKG if symptoms arise. * Avoid excessive fluid resuscitation to prevent heart failure exacerbation. * Consult cardiology if cardiovascular symptoms develop or hypokalemia persists. Additional Orders: * Admit to hospital medicine service for management of colitis, UTI, dehydration, and electrolyte derangements. * Initiate telemetry to monitor for arrhythmias given hypokalemia and coronary artery disease.
[2024-09-12] MEDS: ACETAMINOPHEN 325MG TAB 650 MG PO (05:25)
[2024-09-12 05:48] LABS: HIV Combo NEGATIVE (Negative)
[2024-09-12 05:56] LABS: Hepatitis C Ab Qual. W/ RFX NEGATIVE (Negative)
--- NOTE | 2024-09-12 07:39 | PC.NURSE ---
Pt did have a BM this am but was incontinent and a sample could not be obtained.
[2024-09-12 08:02] LABS: Basophils % 0.3 % (0.1-2.0); Eosinophils # 0.1 K/mm3 (0.0-0.4); Eosinophils % 0.8 % (0.1-12.0); Hematocrit 32.7 % (37.0-47.0); Lymphocytes # 0.2 K/mm3 (0.7-4.5); Mean Corpuscular HGB Conc 33.6 g/dL (31.8-35.4); Mean Corpuscular Hemoglobin 31.1 pg (27.0-31.2); Mean Corpuscular Volume 92.4 fl (81-99); Mean Platelet Volume 10.5 fl (7.4-10.4); Monocytes # 0.4 K/mm3 (0.1-1.0); Monocytes % 4.6 % (1.7-9.3); Neutrophils # 7.2 K/mm3 (1.8-7.8); Neutrophils % 90.9 % (37.0-80.0); Nucleated Red Blood Cells # 0 10^3/uL; Nucleated Red Blood Cells % 0 %; Platelet Count 124 K/mm3 (142-424); Red Blood Count 3.54 M/mm3 (4.20-5.40); Red Cell Distribution Width 12.4 % (11.5-17.5); Red Cell Distribution Width-SD 42.3 fL; White Blood Count 7.9 K/mm3 (4.8-10.8)
[2024-09-12 08:04] LABS: Chloride 102 mmol/L (98-107)
[2024-09-12 08:05] LABS: Potassium 3.8 mmoL/L (3.5-5.1); Sodium 136 mmol/L (136-145)
[2024-09-12 08:06] LABS: MANUAL DIFFERENTIAL MANUAL DIFFERENTIAL (MANUAL DIFF)
[2024-09-12 08:07] LABS: Blood Urea Nitrogen 7 mg/dl (7-17); Creatinine Clearance Estimated 46 mL/min (50-200); Estimated Glomerular Filt Rate 60 ml/min (>60); GFR (African American) 72 ML/MIN (>60)
[2024-09-12 08:08] LABS: Anion Gap 7.8 mEq/L (5-15); Calcium 7.8 mg/dl (8.4-10.2); Carbon Dioxide 30 mmol/L (22.0-30.0); Glucose 107 mg/dl (74-100); Magnesium 2.2 mg/dl (1.6-2.3)
--- NOTE | 2024-09-12 08:28 | [facility].PHAINT1 ---
Pharmacy Intervention Comments: MEDICATION RECONCILIATION COMPLETED ON PATIENT USING EXTERNAL FILL HISTORY FROM PHARMACY AND LIST FROM PCP OFFICE. -SHAWNEE COOK, DAD
[2024-09-12] MEDS: DICYCLOMINE 10MG CAPSULE 20 MG PO (09:14)
[2024-09-12] MEDS: ASPIRIN EC 81MG TABLET 81 MG PO (09:14)
[2024-09-12] MEDS: ONDANSETRON 4MG/2ML VIAL 4 MG IV (10:06)
[2024-09-12 10:36] LABS: Lymphocytes % 8 % (10-50); Monocytes % 2 % (2-9); Neutrophils % 86 % (42-76); Total Cells Counted 100
[2024-09-12 10:37] LABS: Platelet Estimate Normal; RBC Morphology Normal
[2024-09-12 11:42] LABS: Adenovirus F 40/41, stool Not Detected (NotDetected); Astrovirus Not Detected (NotDetected); Campylobacter Not Detected (NotDetected); Clostridium Difficile A/B, PCR Not Detected (NotDetected); Cryptosporidium Not Detected (NotDetected); Cyclospora Cayetanesis Not Detected (NotDetected); Entamoeba histolytica Not Detected (NotDetected); Enteroaggregative E coli Not Detected (NotDetected); Enteropathogenic E coli Not Detected (NotDetected); Enterotoxigenic E coli Not Detected (NotDetected); Giardia lamblia Not Detected (NotDetected); Norovirus Not Detected (NotDetected); Plesimonas Shigalloides, PCR Not Detected (NotDetected); Rotavirus A Not Detected (NotDetected); Salmonella, PCR Not Detected (NotDetected); Sapovirus Not Detected (NotDetected); Shiga-like toxin E coli Not Detected (NotDetected); Shigella Enterovasive E coli Not Detected (NotDetected); Vibrio Cholerae Not Detected (NotDetected); Vibrio, PCR Not Detected (NotDetected); Yersinia Entercolitica, PCR Not Detected (NotDetected)
[2024-09-12] MEDS: METRONIDAZ/SOD CHL 500 MG/100 ML PIGGYBACK 100 MG IV (12:24)
--- NOTE | 2024-09-12 13:39 | EXP.DC.SUM ---
General Admission date:: 09/12/24 HPI HPI HPI: An 84-year-old female with a history of abdominal aortic aneurysm (AAA) repair, coronary artery disease, hypothyroidism, and recent urinary tract infection (UTI) presents to the emergency department with multiple complaints, including profuse watery diarrhea for 8 days, worsening today, along with lower abdominal pain and generalized weakness. She reports feeling generally ill and weak at home. She was seen yesterday at an outpatient visit, where a dipstick urinalysis suggested a UTI, and she was started on nitrofurantoin (Macrobid). A stool sample was submitted, but results are not interpretable. The history was obtained through interactive discussion with the patient, family, and chart review, and the patient is deemed reliable. On examination, the patient is afebrile, hemodynamically stable, with appropriate oxygen saturation, alert, oriented x4, and has a [place] Coma Scale of 15. She is moving all extremities spontaneously. Physical exam is significant for mild lower abdominal tenderness, with no rebound, guarding, or distension. Lungs are clear, cardiac exam shows no murmurs, and there is no lower extremity edema. Diagnostic workup includes labs showing hypokalemia (potassium 2.7 mmol/L), borderline low magnesium (1.7 mg/dL), hypophosphatemia (phosphorus 1.9 mg/dL), and mildly elevated glucose (128 mg/dL). Complete blood count reveals no significant leukocytosis (WBC 9.1 x10?/?L) but shows neutrophilia (86.5%, absolute 7.9 x10?/?L) and mild anemia (RBC 4.14 x10?/?L). Renal function is stable (creatinine 1.00 mg/dL, GFR 53 mL/min/1.73m?). Urinalysis is consistent with UTI, showing positive nitrates, leukocyte esterase 2+, 10?20 WBCs, and 10?[address] abdomen/pelvis with IV contrast, independently interpreted, reveals pancolitis and a gastric abnormality likely related to prior hiatal hernia repair, with no evidence of appendicitis or cholecystitis. Stool PCR results are pending. Treatments implemented in the emergency department include acetaminophen (Tylenol) and ketorolac (Toradol) for pain, intravenous fluids for dehydration, ceftriaxone for UTI, azithromycin for suspected colitis, and repletion of potassium, magnesium, and phosphorus for electrolyte derangements. On reevaluation, the patient remains afebrile and hemodynamically stable. The patient was accepted for admission by the hospitalist for further management of colitis, UTI, and electrolyte abnormalities. Hospital Course Hospital Course Hospital Course: Dione Zapata is a 84-year-old female who presented with abdominal pain and was admitted for UTI, gastroenteritis/colitis. #UTI #Gastroenteritis/colitis ? Patient predominantly has lower abdominal pain, suspect acute cystitis. Also has mild pancolitis on CT, has had 8 days of diarrhea. ? Diarrhea panel normal, including C. difficile. UA grossly abnormal, urine culture pending. ? WBC normal, no signs of sepsis. ? Improved with ceftriaxone, metronidazole. No significant diarrhea during admission. ? Discharged with cefdinir for 5 more days. Will follow-up on urine culture. #Gastric fundal mass versus ingested food ? CT abdomen/pelvis revealed above. Recommend following up with the PCP for either repeat CT or referral to GI. #Hypertension ? Hold home bisoprolol in the setting of gastroenteritis, normal pressures. Continue Imdur. #Hypothyroidism ? TSH low 0.28. Reduced home levothyroxine from 100 mcg to 50 mcg. ? Advised patient and daughter to follow-up with her PCP within 2 weeks for further discussion. Needs repeat TFTs in 6 weeks. #Hyperlipidemia #PAD #AAA ? Continue aspirin, statin. Resume bisoprolol after diarrhea is resolved. Total time spent on discharge: 35 minutes on chart review, counseling, documentation, and direct care with patient. Exam Data for Last 24 hours Vital signs and Labs for Last 24 Hours: Temp Pulse Resp BP Pulse Ox O2 Del Method 98.1 F 90 16 128/67 93 L Room Air 09/12/24 08:00 09/12/24 12:00 09/12/24 08:00 09/12/24 08:00 09/12/24 08:00 09/12/24 11:00 Laboratory Results - last 24 hr 09/12/24 00:14: WBC 9.1 D, RBC 4.14 L, Hgb 12.8, Hct 37.7, MCV 91.1, MCH 30.9, MCHC 34.0, RDW 12.4, Plt Count 174, MPV 10.1, Neut % (Auto) 86.5 H, Lymph % (Auto) 7.2 L, Lamar % (Auto) 5.0, Eos % (Auto) 0.7, Baso % (Auto) 0.2, Neut # (Auto) 7.9 H, Lymph # (Auto) 0.7, Lamar # (Auto) 0.5, Eos # (Auto) 0.1, Baso # (Auto) 0.0, Sodium 136, Potassium 2.7 L* D, Chloride 99, Carbon Dioxide 30, Anion Gap 9.7, BUN 8, Creatinine 1.00, Estimated Creat Clear 47, Estimated GFR 53 L, Est GFR ( Amer) 64, Glucose 128 H, Calcium 8.5, Phosphorus 1.9 L, Magnesium 1.7, Total Bilirubin 0.6, AST 23, ALT 13 D, Alkaline Phosphatase 74, Total Protein 6.6, Albumin 3.6, Globulin 3.0, Albumin/Globulin Ratio 1.2, Lipase 132, HCV Ab FADY w/Rflx PCR Qn Negative, HIV Ag/Ab Combo Qual Negative 09/12/24 00:23: Urine Color Dark yellow, Urine Appearance Slightly cloudy, Urine pH 5.5, Ur Specific [place] >= 1.030, Urine Protein 1+ A, Urine Glucose (UA) Negative, Urine Ketones Trace, Urine Blood 2+ A, Urine Nitrate Positive A, Urine Bilirubin 2+ A, Urine Urobilinogen 0.2, Ur Leukocyte Esterase 2+ A, Urine RBC 10-20, Urine WBC 10-20, Ur Squamous Epith Cells 3-5, Urine Bacteria 1+, Urine Mucus 1+ 09/12/24 07:10: WBC 7.9, RBC 3.54 L, Hgb 11.0 L D, Hct 32.7 L, MCV 92.4, MCH 31.1, MCHC 33.6, RDW 12.4, Plt Count 124 L D, MPV 10.5 H, Neut % (Auto) 90.9 H, Lymph % (Auto) 3.0 L, Lamar % (Auto) 4.6, Eos % (Auto) 0.8, Baso % (Auto) 0.3, Neut # (Auto) 7.2, Lymph # (Auto) 0.2 L, Lamar # (Auto) 0.4, Eos # (Auto) 0.1, Baso # (Auto) 0.0, Total Counted 100, Neutrophils % (Manual) 86 H, Band Neutrophils % 4.0, Lymphocytes % (Manual) 8 L, Monocytes % (Manual) 2, Platelet Estimate Normal, RBC Morphology Normal, Sodium 136, Potassium 3.8 D, Chloride 102, Carbon Dioxide 30, Anion Gap 7.8, BUN 7, Creatinine 0.90, Estimated Creat Clear 46, Estimated GFR 60, Est GFR ( Amer) 72, Glucose 107 H, Calcium 7.8 L, Magnesium 2.2 D 09/12/24 09:23: Stl Aeromonas (PCR) Not detected, Stl C. cayetanensis PCR Not detected, Stool Rotavirus (PCR) Not detected, Stl Adenov F 40/41 PCR Not detected, Stool Astrovirus (PCR) Not detected, Stool Campylobacter PCR Not detected, Stl C.difficile Tox PCR Not detected, Stool Cryptosporidium PCR Not detected, Stl E.coli Shiga Tox PCR Not detected, Stool E coli O157 PCR Not detected, Stl Enterotoxigenic E PCR Not detected, Stool EPEC (PCR) Not detected, Stool EAEC (PCR) Not detected, Stl E. histolytica PCR Not detected, Stool Giardia Lamblia PCR Not detected, Stool Salmonella PCR Not detected, Stool Sapovirus (PCR) Not detected, Stl P. shigelloides PCR Not detected, Stl Shigella/EIEC PCR Not detected, St Y.enterocolitica PCR Not detected, Stool Vibrio (PCR) Not detected, Stl Vibrio cholerae PCR Not detected, Stl Norovirus GI/GII PCR Not detected I & O for Last 24 hours: Intake & Output 09/09/24 09/10/24 09/11/24 09/12/24 23:59 23:59 23:59 23:59 Intake Total 832 / 832 Output Total 600 / 600 Balance 232 / 232 Weight 71.305 kg Constitutional Constitutional: no acute distress *Routine HEENT Exam Head: Present normocephalic Eye: Present EOMI and PERRL ENT: Present mucous membranes moist *Routine Neck Exam Neck: Present supple; Absent lymphadenopathy *Routine Respiratory Exam Respiratory: Present CTA bilaterally *Routine Cardiovascular Exam Cardiovascular: Present RRR *Routine Abdominal Exam Abdominal: Present soft, normoactive bowel sounds and tenderness Comments: Lower mild abdominal tenderness to palpation. No peritoneal signs. *Routine Extremities Exam Extremities: Absent cyanosis, clubbing or edema *Routine Skin Exam Skin: Present warm; Absent rash *Routine Neurological Exam Neurological: Present alert and oriented X3 Results Data Completed and Pending Labs on day of discharge: Labs from last 24 hours 09/12/24 09/12/24 09/12/24 09:23 07:10 00:23 WBC 7.9 RBC 3.54 L Hgb 11.0 L D Hct 32.7 L MCV 92.4 MCH 31.1 MCHC 33.6 RDW 12.4 Plt Count 124 L D MPV 10.5 H Neut % (Auto) 90.9 H Lymph % (Auto) 3.0 L Lamar % (Auto) 4.6 Eos % (Auto) 0.8 Baso % (Auto) 0.3 Neut # (Auto) 7.2 Lymph # (Auto) 0.2 L Lamar # (Auto) 0.4 Eos # (Auto) 0.1 Baso # (Auto) 0.0 Total Counted 100 Neutrophils % (Manual) 86 H Band Neutrophils % 4.0 Lymphocytes % (Manual) 8 L Monocytes % (Manual) 2 Platelet Estimate Normal RBC Morphology Normal Sodium 136 Potassium 3.8 D Chloride 102 Carbon Dioxide 30 Anion Gap 7.8 BUN 7 Creatinine 0.90 Estimated Creat Clear 46 Estimated GFR 60 Est GFR ( Amer) 72 Glucose 107 H Calcium 7.8 L Phosphorus Magnesium 2.2 D Total Bilirubin AST ALT Alkaline Phosphatase Total Protein Albumin Globulin Albumin/Globulin Ratio Lipase Urine Color Dark yellow Urine Appearance Slightly cloudy Urine pH 5.5 Ur Specific [place] >= 1.030 Urine Protein 1+ A Urine Glucose (UA) Negative Urine Ketones Trace Urine Blood 2+ A Urine Nitrate Positive A Urine Bilirubin 2+ A Urine Urobilinogen 0.2 Ur Leukocyte Esterase 2+ A Urine RBC 10-20 Urine WBC 10-20 Ur Squamous Epith Cells 3-5 Urine Bacteria 1+ Urine Mucus 1+ Stl Aeromonas (PCR) Not detected Stl C. cayetanensis PCR Not detected Stool Rotavirus (PCR) Not detected Stl Adenov F 40/41 PCR Not detected Stool Astrovirus (PCR) Not detected Stool Campylobacter PCR Not detected Stl C.difficile Tox PCR Not detected Stool Cryptosporidium PCR Not detected Stl E.coli Shiga Tox PCR Not detected Stool E coli O157 PCR Not detected Stl Enterotoxigenic E PCR Not detected Stool EPEC (PCR) Not detected Stool EAEC (PCR) Not detected Stl E. histolytica PCR Not detected Stool Giardia Lamblia PCR Not detected Stool Salmonella PCR Not detected Stool Sapovirus (PCR) Not detected Stl P. shigelloides PCR Not detected Stl Shigella/EIEC PCR Not detected St Y.enterocolitica PCR Not detected Stool Vibrio (PCR) Not detected Stl Vibrio cholerae PCR Not detected Stl Norovirus GI/GII PCR Not detected HCV Ab FADY w/Rflx PCR Qn HIV Ag/Ab Combo Qual 09/12/24 00:14 WBC 9.1 D RBC 4.14 L Hgb 12.8 Hct 37.7 MCV 91.1 MCH 30.9 MCHC 34.0 RDW 12.4 Plt Count 174 MPV 10.1 Neut % (Auto) 86.5 H Lymph % (Auto) 7.2 L Lamar % (Auto) 5.0 Eos % (Auto) 0.7 Baso % (Auto) 0.2 Neut # (Auto) 7.9 H Lymph # (Auto) 0.7 Lamar # (Auto) 0.5 Eos # (Auto) 0.1 Baso # (Auto) 0.0 Total Counted Neutrophils % (Manual) Band Neutrophils % Lymphocytes % (Manual) Monocytes % (Manual) Platelet Estimate RBC Morphology Sodium 136 Potassium 2.7 L* D Chloride 99 Carbon Dioxide 30 Anion Gap 9.7 BUN 8 Creatinine 1.00 Estimated Creat Clear 47 Estimated GFR 53 L Est GFR ( Amer) 64 Glucose 128 H Calcium 8.5 Phosphorus 1.9 L Magnesium 1.7 Total Bilirubin 0.6 AST 23 ALT 13 D Alkaline Phosphatase 74 Total Protein 6.6 Albumin 3.6 Globulin 3.0 Albumin/Globulin Ratio 1.2 Lipase 132 Urine Color Urine Appearance Urine pH Ur Specific [place] Urine Protein Urine Glucose (UA) Urine Ketones Urine Blood Urine Nitrate Urine Bilirubin Urine Urobilinogen Ur Leukocyte Esterase Urine RBC Urine WBC Ur Squamous Epith Cells Urine Bacteria Urine Mucus Stl Aeromonas (PCR) Stl C. cayetanensis PCR Stool Rotavirus (PCR) Stl Adenov F 40/41 PCR Stool Astrovirus (PCR) Stool Campylobacter PCR Stl C.difficile Tox PCR Stool Cryptosporidium PCR Stl E.coli Shiga Tox PCR Stool E coli O157 PCR Stl Enterotoxigenic E PCR Stool EPEC (PCR) Stool EAEC (PCR) Stl E. histolytica PCR Stool Giardia Lamblia PCR Stool Salmonella PCR Stool Sapovirus (PCR) Stl P. shigelloides PCR Stl Shigella/EIEC PCR St Y.enterocolitica PCR Stool Vibrio (PCR) Stl Vibrio cholerae PCR Stl Norovirus GI/GII PCR HCV Ab FADY w/Rflx PCR Qn Negative HIV Ag/Ab Combo Qual Negative DS: Diagnosis Discharge Diagnosis (1) Acute UTI: Status: Acute Code(s): N39.0 - Urinary tract infection, site not specified (2) Hypophosphatemia: Status: Acute Code(s): E83.39 - Other disorders of phosphorus metabolism (3) Acute hypokalemia: Status: Acute Code(s): E87.6 - Hypokalemia (4) Acute dehydration: Status: Acute Code(s): E86.0 - Dehydration (5) Colitis: Status: Acute Code(s): K52.9 - Noninfective gastroenteritis and colitis, unspecified Meds Home Medications and Allergies Home Medications ?Medication ?Instructions ?Recorded ?Confirmed ?Type cholecalciferol (vitamin D3) 25 25 mcg PO DAILY 09/10/24 09/12/24 History mcg (1,000 unit) capsule melatonin 5 mg capsule 10 mg PO HS 09/10/24 09/12/24 History nitrofurantoin 100 mg PO BID 5 days #10 [facility] 09/10/24 09/12/24 Rx monohydrate/macrocrystals 100 mg capsule (Macrobid) aspirin 81 mg tablet,delayed 81 mg PO DAILY 09/12/24 09/12/24 History release bisoprolol fumarate 5 mg tablet 2.5 mg PO DAILY 09/12/24 09/12/24 History cefdinir 300 mg capsule 300 mg PO BID 5 days #10 [facility] 09/12/24 Rx dicyclomine 20 mg tablet 20 mg PO BID 09/12/24 09/12/24 History escitalopram oxalate 20 mg tablet 20 mg PO DAILY 09/12/24 09/12/24 History isosorbide mononitrate 30 mg 15 mg PO DAILY 09/12/24 09/12/24 History tablet,extended release 24 hr levothyroxine 100 mcg tablet 100 mcg PO DAILY 09/12/24 09/12/24 History levothyroxine 50 mcg capsule 50 mcg PO DAILY #30 [facility] 09/12/24 Rx rosuvastatin 20 mg tablet 20 mg PO DAILY 09/12/24 09/12/24 History trazodone 100 mg tablet 100 mg PO HS 09/12/24 09/12/24 History New Prescriptions to Start Prescriptions: cefdinir ChristianoMonty martinez levothyroxine Monty Ornelas Allergies Allergy/AdvReac Type Severity Reaction Status Date / Time codeine (CODEINE) Allergy Unknown Verified 09/10/24 15:02 guaifenesin (GUAIFENESIN) Allergy Unknown Verified 09/10/24 15:02 penicillin G (PENICILLIN G) Allergy Unknown Verified 09/10/24 15:02 ciprofloxacin (From Cipro) Allergy Rash Verified 09/10/24 15:02 Sulfa (Sulfonamide Allergy Rash Verified 09/10/24 15:02 Antibiotics) Discharge Plan Disposition Patient Disposition: Home, Self-Care Condition: Fair Follow up Plan Follow up with: Eliz Sandra APRN [Primary Care Provider] - Enter time for follow up (please call for appointment) Prescriptions/Medication Reconciliation: New cefdinir 300 mg capsule 300 mg PO BID 5 Days Qty: 10 0RF levothyroxine 50 mcg capsule 50 mcg PO DAILY Qty: 30 0RF Continued cholecalciferol (vitamin D3) 25 mcg (1,000 unit) capsule 25 mcg PO DAILY melatonin 5 mg capsule 10 mg PO HS nitrofurantoin monohyd/m-cryst [Macrobid] 100 mg capsule 100 mg PO BID 5 Days Qty: 10 0RF Rx Instructions: must administer with a meal/food isosorbide mononitrate 30 mg tablet extended release 24 hr 15 mg PO DAILY Rx Instructions: Take 1/2 (one-half) tablet by mouth once daily levothyroxine 100 mcg tablet 100 mcg PO DAILY trazodone 100 mg tablet 100 mg PO HS escitalopram oxalate 20 mg tablet 20 mg PO DAILY rosuvastatin 20 mg tablet 20 mg PO DAILY aspirin 81 mg Tablet,Delayed Release (Dr/Ec) 81 mg PO DAILY Held bisoprolol fumarate 5 mg tablet 2.5 mg PO DAILY Hold Instructions: Resume on 09/26/24. Your blood pressure was stable without this medication. Hold this medication until you follow-up with your PCP. dicyclomine 20 mg tablet 20 mg PO BID Hold Instructions: Resume on 09/19/24. Hold this medication until your diarrhea subsides. Problem Reconciliation Problems Reviewed?: Yes Patient Discharge Instructions Patient Instructions: Diarrhea, DI for Urinary Tract Infection (UTI), DI for Hypokalemia, DI for Colitis Print Language: Australian Providers Primary Care Provider: Eliz Sandra Admit Provider: Monty Ornelas Attending Provider: Monty Ornelas
[2024-09-12 14:24] LABS: Thyroid Stimulating Hormone 0.28 uIU/mL (0.465-4.68)
--- NOTE | 2024-09-13 10:15 | SW/DCPLANNER ---
Spoke with patient on the phone. Patient stated that she is aware of her upcoming appointment and that she hasnt called to schedule it yet but plans on it today. patient stated that she is doing well. Patient stated that she was able to get her new medicine picked up from [facility]. Patient stated that she has no concerns or questions at this time. Sheryl Everett
--- NOTE | 2024-09-15 08:27 | PC.NURSE ---
Urine micro results electronically forwarded to the hospitalist. Pt d/c home with an antibiotic that is susceptible to the bacteria found in her urine.
== END 2024-09-12 14:38 | disposition home or self-care (01) ==
LOC: ER 09-12 01:49 → 2ND 09-12 01:59
PROVIDERS: Nurse Practitioner Family; Admitting Provider Student in an Organized Health Care Education/Training Program; Emergency Provider Emergency Medicine; PCP Family Medicine; Visit Provider Student in an Organized Health Care Education/Training Program
DX: E86.0 Dehydration (principal); N39.0 Urinary tract infection, site not specified; K52.9 Noninfective gastroenteritis and colitis, unspecified; I25.10 Atherosclerotic heart disease of native coronary artery without angina pectoris; E83.39 Other disorders of phosphorus metabolism; E03.9 Hypothyroidism, unspecified; E87.6 Hypokalemia; Z95.5 Presence of coronary angioplasty implant and graft; Z88.0 Allergy status to penicillin; Z88.2 Allergy status to sulfonamides; Z88.1 Allergy status to other antibiotic agents; Z98.890 Other specified postprocedural states
CPT/HCPCS: 36415; 74177; 80048; 80053; 81001; 83690; 83735; 84100; 84443; 85007; 85025; 85027; 86803; 87040; 87045; 87086; 87088; 87177; 87186; 87389; 87507; 99291; G0378; J0696; J1885; J2405; J3475; J3480; J7030; J7120; Q9967

== ENCOUNTER 2024-09-23 13:28 | Outpatient (CLI) | payer MEDICARE, OTHER, SELFPAY ==
--- OUTSIDE RECORDS SUMMARY | 2024-09-23 13:31 | XMS_ITS ---
Laboratory report Created on: September 18, 2024 DAE IVAN : 1940 Sex: Female Author Organization Unknown PROBLEMS Problems List Code Description RESULTS Laboratory Orders Date Order Code Test 2024-09-12 [id number] OVA + PARASITE E XAM Laboratory Results Date LOINC Test Value Unit Reference Range Interpre tation 2024-09-12 673-4 OVA + PARASITE EXAM FINAL 2024-09-12 [id number] RESULT 1 NOCP1
--- OUTSIDE RECORDS SUMMARY | 2024-09-23 13:31 | XMS_ITS ---
Laboratory report Created on: September 17, 2024 DAE IVAN : 1940 Sex: Female Author Organization Unknown PROBLEMS Problems List Code Description RESULTS Laboratory Orders Date Order Code Test 2024-09-11 [id number] STOOL CULTURE Laboratory Results Date LOINC Test Value Unit Reference Range Interpre tation 2024-09-11 [id number] SALMONELLA/SHIGE LLA SCREEN FINAL 2024-09-11 6463-4 RESULT 1 NSS 2024-09-11 6331-3 CAMPYLOBACTER CULTURE FINAL 2024-09-11 6463-4 RESULT 1 NCI 2024-09-11 07407-0 E COLI SHIGA TOXIN EIA N NEGATI VE
--- OUTSIDE RECORDS SUMMARY | 2024-09-23 13:31 | XMS_ITS ---
Laboratory report Created on: September 21, 2024 DAE IVAN : 1940 Sex: Female Author Organization Unknown PROBLEMS Problems List Code Description RESULTS Laboratory Orders Date Order Code Test 2024-09-12 [id number] STOOL CULTURE Laboratory Results Date LOINC Test Value Unit Reference Range Interpre tation 2024-09-12 [id number] SALMONELLA/SHIGE LLA SCREEN FINAL 2024-09-12 6463-4 RESULT 1 NSS 2024-09-12 6331-3 CAMPYLOBACTER CULTURE FINAL 2024-09-12 6463-4 RESULT 1 NCI 2024-09-12 74866-3 E COLI SHIGA TOXIN EIA N NEGATI VE
[2024-09-23 13:52] LABS: Anion Gap 10.2 mEq/L (5-15); Blood Urea Nitrogen 4 mg/dl (7-17); Calcium 8.7 mg/dl (8.4-10.2); Carbon Dioxide 34 mmol/L (22.0-30.0); Chloride 98 mmol/L (98-107); Estimated Glomerular Filt Rate 60 ml/min (>60); GFR (African American) 72 ML/MIN (>60); Glucose 124 mg/dl (74-100); Potassium 3.2 mmoL/L (3.5-5.1); Sodium 139 mmol/L (136-145)
--- NOTE | 2024-09-23 14:15 | CT_ITS ---
FINAL REPORT TECHNIQUE: Pre-and postcontrast axial imaging of the abdomen and pelvis was obtained. Oral contrast was given. This study was performed with techniques to keep radiation doses as low as reasonably achievable, (ALARA). Individualized dose reduction technique using automated exposure control or adjustment of mA and/or kV according to the patient's size were employed. CLINICAL HISTORY: gastric fundal mass COMPARISON: 09/12/2024 FINDINGS: There is a new trace right pleural effusion. The liver is homogeneous. The gallbladder is absent. The spleen, adrenal glands, and pancreas are unremarkable. There is no hydronephrosis or solid renal mass. Again identified is an endoluminal graft within the aorta. On precontrast imaging, no renal stones are identified. No discrete mass is seen in the fundus of the stomach however there is incomplete distention. Wall thickening is likely related to incomplete distention. There is no evidence of small bowel obstruction. There is no lymphadenopathy or ascites. The appendix is not identified but there are no secondary findings to suggest appendicitis. The previously seen colitis has improved. There continues to be wall thickening of the distal colon. There is diverticulosis without evidence of diverticulitis. The uterus is absent. There is no lymphadenopathy or ascites. No acute osseous abnormalities identified. IMPRESSION: No discrete mass is seen in the fundus of the stomach with incomplete distention. As stated on prior report, recommend direct visualization with EGD as a better tool to evaluate for intraluminal gastric lesion. Reviewed, Interpreted and Dictated by Senait Garsia MD Transcribed by Radha Bryson Authenticated and [facility]
[2024-09-23] MEDS: SODIUM CHLORIDE 0.9% 10ML SYR (RAD ONLY) 10 ML IV (14:28)
[2024-09-23] MEDS: IOPAMIDOL-370 (76%);100ML BOTTLE 75 ML IV (14:28)
[2024-09-23] MEDS: BARIUM SULFATE(READI-CAT2);450ML BOTTLE 450 ML PO (14:28)
== END 2024-09-23 23:59 | disposition home or self-care (01) ==
LOC: RAD 13:29
PROVIDERS: PCP Nurse Practitioner Family; Visit Provider Nurse Practitioner Family
DX: K31.89 Other diseases of stomach and duodenum (principal); R19.7 Diarrhea, unspecified
CPT/HCPCS: 36415; 74178; 80048; Q9967

== ENCOUNTER 2024-09-29 14:44 | Outpatient (CLI) | payer MEDICARE, OTHER, SELFPAY ==
[2024-10-02 00:15] LABS: Pancreatic Elastase, Fecal 461 (>200)
== END 2024-09-29 23:59 | disposition home or self-care (01) ==
LOC: LAB 14:45
PROVIDERS: PCP Internal Medicine; Visit Provider Internal Medicine Gastroenterology
DX: R14.0 Abdominal distension (gaseous) (principal); R19.7 Diarrhea, unspecified
CPT/HCPCS: 82656

== ENCOUNTER 2024-10-28 14:15 | Outpatient (CLI) | payer MEDICARE, OTHER, SELFPAY ==
[2024-10-28 16:01] LABS: Free T4 (Free Thyroxine) 1.39 ng/dl (0.78-2.19)
[2024-10-28 16:17] LABS: Thyroid Stimulating Hormone 0.97 uIU/mL (0.465-4.68)
== END 2024-10-28 23:59 | disposition home or self-care (01) ==
LOC: LAB 14:16
PROVIDERS: PCP Internal Medicine; Visit Provider Internal Medicine
DX: E03.9 Hypothyroidism, unspecified (principal)
CPT/HCPCS: 36415; 84439; 84443

== ENCOUNTER 2024-11-03 10:14 | Day surgery (SDC) | payer MEDICARE, OTHER, SELFPAY ==
[2024-11-01 16:36] VITALS: BMI 24.2
[2024-11-03 10:39] VITALS: BP 155/83; PULSE 84; RESP 16; TEMP 36.3; O2SAT 98
--- NOTE | 2024-11-03 11:30 | P.PNANES_ITS ---
[facility] Disclaimer: The information contained in this section may have been updated after the patient was seen, as this information can be updated by other users. Medical History Preop cardiovascular exam Bloating Hospital discharge follow-up Acute UTI Atrial fibrillation Skin cancer Claudication (~05/21/24) History of left heart catheterization (LHC) Aneurysm of descending aorta Ascending aortic aneurysm Rectal tumor CAD (coronary artery disease) Rectal inflammation Rectal pain Surgical History S/P AAA repair History of thyroid surgery History of Augusto fundoplication History of repair of hiatal hernia Hx of cataract removal with insertion of prosthetic lens History of cholecystectomy History of hysterectomy H/O tubal ligation H/O heart artery stent Hx of CABG Family History Son Cancer pancreatic Social History Smoking Status: Never smoker alcohol intake: never substance use type: denies use current occupational status: retired Travel in the last 8 weeks?: Inside the [place] household members: spouse housing: house marital status: current occupational exposures/hazards: No caffeine: Yes Have you lived/traveled outside [place] in past 30 days?: No Contact w/someone who lives/traveled outside US past 30 days?: No Exposure to someone with infectious disease in past 14 days?: No Do you have a fever (greater than 100.4 F or 38 C)?: No Have you tested positive for COVID-19?: No Exposed to someone with COVID-19 in past 14 days?: No Do you have a sore throat?: No Do you have a cough?: No Do you have any weakness?: No Do you have any diarrhea?: No Are you experiencing any unusual bleeding?: No Do you have any muscle aches/pain?: No Do you have any abdominal pain?: No Are you experiencing loss of taste or smell?: No [facility] Anesthesia Checklist Patient Identification Patient Identification: Arm Band and Verbal (Name & ) Structural Data Admitted From: Home Planned Operative Procedure/s: EGD Consent for Planned Operative Procedure(s) Verified: Yes Verified Documents: Surgical Consent NPO Status Verified Time NPO: 00:00 Chart Verification Results Verified: ECG Additional verifications Patient : No Anesthesia Reactions: No Airway Assessment Mallampati Score:: Class II C-Spine Mobility Assessed: Yes TMJ Mobility Assessed: Yes Dentition: Partials Neurological Assessment Level of Consciousness: Awake, Alert and Appropriate Hx Seizures: No Numbness or tingling in extremities: No Anesthesia Plan Anesthesia Risk discussed: Yes Anesthesia Plan: Verified ASA Class: III Anesthesia Type: MAC
--- NOTE | 2024-11-03 11:33 | EXP.HP ---
History of Present Illness *Admission Date: 11/03/24 *History of present illness: Mrs. Zapata is an 84-year-old female with longstanding digestive difficulties. She had cholecystectomy more than 20 years ago. She did have hiatal hernia repair in 2012 (Robert Ventura MD?[facility]). More recently, the patient has had abdominal pain, bloating, gassiness and diarrhea. She usually has constipation but more recently has had darker and then bile yellow diarrhea with urgency and some frequency. She does state that foods move right through her. She did go to the ED on 09/12/2024. At that time she did have imaging and this did show a normal-appearing pancreas, liver (mild steatosis) and biliary tree. Within the stomach there was a mass versus ingested material in the gastric fundus. She had a repeat scan on 09/24 that showed no discrete mass seen in the fundus with incomplete distention. Her PCR panel was negative. She does report nausea at that time as well. She continues to have yellow diarrhea, gassiness, bloating and epigastric abdominal discomfort. She has had the new onset of some reflux and belching that she has not had since her hiatal hernia repair/fundoplication. She reports no incomplete defecation or excessive wiping. She has been on dicyclomine 20 mg twice daily without improvement of symptoms. [facility] Disclaimer: The information contained in this section may have been updated after the patient was seen, as this information can be updated by other users. Medical History Preop cardiovascular exam Bloating Hospital discharge follow-up Acute UTI Atrial fibrillation Skin cancer Claudication (~05/21/24) History of left heart catheterization (LHC) Aneurysm of descending aorta Ascending aortic aneurysm Rectal tumor CAD (coronary artery disease) Rectal inflammation Rectal pain Surgical History S/P AAA repair History of thyroid surgery History of Augusto fundoplication History of repair of hiatal hernia Hx of cataract removal with insertion of prosthetic lens History of cholecystectomy History of hysterectomy H/O tubal ligation H/O heart artery stent Hx of CABG Family History Son Cancer pancreatic Social History Smoking Status: Never smoker alcohol intake: never substance use type: denies use current occupational status: retired Travel in the last 8 weeks?: Inside the [place] household members: spouse housing: house marital status: current occupational exposures/hazards: No caffeine: Yes Have you lived/traveled outside [place] in past 30 days?: No Contact w/someone who lives/traveled outside US past 30 days?: No Exposure to someone with infectious disease in past 14 days?: No Do you have a fever (greater than 100.4 F or 38 C)?: No Have you tested positive for COVID-19?: No Exposed to someone with COVID-19 in past 14 days?: No Do you have a sore throat?: No Do you have a cough?: No Do you have any weakness?: No Do you have any diarrhea?: No Are you experiencing any unusual bleeding?: No Do you have any muscle aches/pain?: No Do you have any abdominal pain?: No Are you experiencing loss of taste or smell?: No Other Medical History Have you received the Flu Vaccine for this season: No Have you received the Pneumonia Vaccine: Yes Review of Systems Review of Systems Review of systems (narrative): Negative *Cardiovascular Comments: Negative *Gastrointestinal Comments: Negative *Genitourinary Comments: Negative *Musculoskeletal Comments: Negative *Neurologic Comments: Negative Meds Home Medications and Allergies Home Medications ?Medication ?Instructions ?Recorded ?Confirmed ?Type cholecalciferol (vitamin D3) 25 25 mcg PO DAILY 09/10/24 11/01/24 History mcg (1,000 unit) capsule melatonin 5 mg capsule 10 mg PO HS 09/10/24 11/01/24 History aspirin 81 mg tablet,delayed 81 mg PO DAILY 09/12/24 11/01/24 History release bisoprolol fumarate 5 mg tablet 2.5 mg PO DAILY 09/12/24 11/01/24 History Held on 09/12/24. Instructions: Resume on 09/26/24. Your blood pressure was stable without this medication. Hold this medication until you follow-up with your PCP. rosuvastatin 20 mg tablet 20 mg PO DAILY 09/12/24 11/01/24 History escitalopram oxalate 20 mg tablet 20 mg PO DAILY 09/29/24 11/01/24 History levothyroxine 100 mcg capsule 100 mcg PO DAILY #30 caps 10/14/24 11/01/24 Rx isosorbide mononitrate 30 mg 30 mg PO DAILY 11/01/24 11/01/24 History tablet,extended release 24 hr trazodone 100 mg tablet 100 mg PO HS #30 tabs 11/02/24 Rx New Prescriptions to Start Prescriptions: Allergies Allergy/AdvReac Type Severity Reaction Status Date / Time codeine (CODEINE) Allergy Unknown Verified 10/07/24 11:08 guaifenesin (GUAIFENESIN) Allergy Unknown Verified 10/07/24 11:08 penicillin G (PENICILLIN G) Allergy Unknown Verified 10/07/24 11:08 ciprofloxacin (From Cipro) Allergy Rash Verified 10/07/24 11:08 Sulfa (Sulfonamide Allergy Rash Verified 10/07/24 11:08 Antibiotics) Exam Data for Last 24 hours Vital signs and Labs for Last 24 Hours: Temp Pulse Resp BP Pulse Ox O2 Del Method 97.3 F L 84 16 155/83 H 98 Room Air 11/03/24 10:39 11/03/24 10:39 11/03/24 10:39 11/03/24 10:39 11/03/24 10:39 11/03/24 10:39 I & O for Last 24 hours: Intake & Output 10/31/24 11/01/24 11/02/24 11/03/24 23:59 23:59 23:59 23:59 Weight 150 lb *Routine HEENT Exam Head: Present normocephalic Eye: Present EOMI and PERRL ENT: Present mucous membranes moist *Routine Neck Exam Neck: Present supple *Routine Respiratory Exam Respiratory: Present CTA bilaterally *Routine Cardiovascular Exam Cardiovascular: Present RRR *Routine Abdominal Exam Abdominal: Present soft and normoactive bowel sounds; Absent tenderness *Routine Rectal Exam Rectal:: deferred *Routine Genitalia Exam Genitalia:: deferred *Routine Extremities Exam Extremities: Absent cyanosis, clubbing or edema *Routine Skin Exam Skin: Present warm; Absent rash *Routine Neurological Exam Neurological: Present alert and oriented X3 Assessment and Plan *Assessment and plan (1) Epigastric abdominal pain: Status: Acute Category: Medical Code(s): R10.13 - Epigastric pain (2) Dyspepsia: Status: Acute Category: Medical Code(s): R10.13 - Epigastric pain (3) Abnormal CT scan, stomach: Status: Acute Category: Medical Code(s): R93.3 - Abnormal findings on diagnostic imaging of other parts of digestive tract (4) GERD (gastroesophageal reflux disease): Status: Acute Category: Medical Code(s): K21.9 - Gastro-esophageal reflux disease without esophagitis (5) Bloating: Status: Acute Category: Medical Code(s): R14.0 - Abdominal distension (gaseous) (6) Gassiness: Status: Acute Category: Medical Code(s): R14.0 - Abdominal distension (gaseous) (7) Bile salt-induced diarrhea: Status: Acute Category: Medical Code(s): K90.89 - Other intestinal malabsorption Plan A/P: 1. Epigastric abdominal pain/dyspepsia with CAT scan showing a mass in the fundus of the stomach is the preprocedural diagnosis. She has had prior fundoplication. She does have a history of GERD, bloating, gassiness and bile acid diarrhea. The patient will be anesthetized/sedated using MAC sedation. The patient has been seen and examined. Cardiac and lung assessment prior to the examination is stable. Proceed with planned diagnostic EGD.
--- NOTE | 2024-11-03 11:45 | HMH.PROCNOTE ---
[facility] Procedure Note Date: 11/03/24 Time: 11:58 Procedure Note:: Upper Endoscopy Procedure Report: Esophagogastroduodenoscopy with cold biopsies Endoscopost: Lalito Weinberg II, MD Referring Physician: Robert Milner DO Date of Procedure: November 03, 2024 Equipment: Olympus GIF 190 standard upper endoscope Sedation: MAC sedation Indications: Mrs. Zapata is an 84-year-old female who is here for diagnostic upper endoscopy. She has had longstanding digestive difficulties. She had cholecystectomy more than 20 years ago. She did have hiatal hernia repair in 2012 (Robert Ventura MD?[facility]). More recently, the patient has had abdominal pain, bloating, gassiness and diarrhea. She usually has constipation but more recently has had darker and then bile yellow diarrhea with urgency and some frequency. She does state that foods move right through her. She did go to the ED on 09/12/2024. At that time she did have imaging and this did show a normal-appearing pancreas, liver (mild steatosis) and biliary tree. Within the stomach there was a mass versus ingested material in the gastric fundus. She had a repeat scan on 09/24 that showed no discrete mass seen in the fundus with incomplete distention. Her PCR panel was negative. She does report nausea at that time as well. She continues to have yellow diarrhea, gassiness, bloating and epigastric abdominal discomfort. She has had the new onset of some reflux and belching that she has not had since her hiatal hernia repair/fundoplication. She reports no incomplete defecation or excessive wiping. She has been on dicyclomine 20 mg twice daily without improvement of symptoms. Procedure: Prior to the procedure, a history and physical exam was performed, and patient's medications and allergies were reviewed. The risks, benefits and alternatives of the sedation and procedure were discussed with the patient. All questions were answered and informed consent was obtained. The patient was brought to the procedure room. Patient identification and proposed procedure were verified by the physician and the nurse. The patient was placed in a left lateral decubitus position and the scope was passed under direct vision. Throughout the procedure, the patient's blood pressure, pulse, and oxygen saturations were monitored continuously. The upper GI endoscopy was accomplished without difficulty. The patient tolerated the procedure well. Findings: The scope was passed directly into the upper esophagus and advanced to the fourth portion of duodenum and proximal jejunum. Cold biopsies were taken from the proximal jejunum x 2 for disaccharidase assay. The proximal jejunum, post bulbar duodenum and duodenal bulb were normal with normal mucosa and conniventes. The ampulla is mildly prominent. The scope was withdrawn through a normal duodenal bulb and pylorus into the stomach. There was bile reflux with mild antral gastropathy. There was mild atrophy of the body and fundus. A single cold biopsy was taken from the fundus. Upon retroflexion there was prominent redundant folds in the cardia related to the prior Augusto fundoplication wrap. The scope was then withdrawn into the esophagus. The squamocolumnar junction was 1 to 2 cm above the top of the gastric folds and biopsies were taken from this distal esophagus to rule out short segment Kemp's esophagus. There was no evidence of reflux esophagitis and the remainder of the esophageal mucosa was normal. Impression: 1. Prior Augusto fundoplication with prominent wrap and redundant folds in the cardia/fundus 2. Bile reflux with mild antral gastropathy and mild proximal gastric atrophy Plan: I will follow-up the biopsies and disaccharidase assay. I would recommend that she continue herbal Iberogast and diaphragmatic breathing. We will discuss additional treatment options.
[2024-11-03 11:58] VITALS: BP 163/76; PULSE 83; RESP 17; TEMP 36.4; O2SAT 92
[2024-11-03 12:08] VITALS: BP 128/62; PULSE 62; RESP 17; O2SAT 95
[2024-11-03 12:18] VITALS: BP 145/61; PULSE 62; RESP 17; O2SAT 95
[2024-11-03 12:28] VITALS: BP 143/66; PULSE 62; RESP 18; O2SAT 99
[2024-11-08 15:10] LABS: Disclaimer Notes (.); Interpretation Notes (.); Lactase 87.13 (>/= 14.0); Maltase 320.14 (>/= 110.0); Palatinase 27.77 (>/= 8.5); Reference Notes (.); Sucrase 120.96 (>/= 25.0)
== END 2024-11-03 12:40 | disposition home or self-care (01) ==
PROVIDERS: PCP Internal Medicine; Visit Provider Internal Medicine Gastroenterology
PROC: 0DJ08ZZ Inspection of Upper Intestinal Tract, Via Natural or Artificial Opening Endoscopic (ICD-10-PCS; CPT 43239; principal; 2024-11-03 12:00)
DX: K29.40 Chronic atrophic gastritis without bleeding (principal); K31.9 Disease of stomach and duodenum, unspecified; R10.13 Epigastric pain; R93.3 Abnormal findings on diagnostic imaging of other parts of digestive tract; K21.9 Gastro-esophageal reflux disease without esophagitis; R14.0 Abdominal distension (gaseous); K90.89 Other intestinal malabsorption; R19.7 Diarrhea, unspecified; Z90.49 Acquired absence of other specified parts of digestive tract; Z79.899 Other long term (current) drug therapy; Z79.82 Long term (current) use of aspirin; Z79.890 Hormone replacement therapy; Z88.5 Allergy status to narcotic agent; Z88.0 Allergy status to penicillin; Z88.1 Allergy status to other antibiotic agents; Z88.2 Allergy status to sulfonamides; Z88.8 Allergy status to other drugs, medicaments and biological substances; Z85.828 Personal history of other malignant neoplasm of skin
CPT/HCPCS: 43239; 82657; 88305

== ENCOUNTER 2025-03-31 09:18 | Outpatient (CLI) | payer MEDICARE, OTHER, SELFPAY ==
--- OUTSIDE RECORDS SUMMARY | 2025-04-04 09:23 | XMS_ITS | Encounter Summary ---
[facility] Address [address] [place] [address] Care Team Providers Care Set Designer Name Role Phone Goran Hernández MD Primary Care Provider [phone] Encounter Details Date Type Department Care Team (Late st Contact Info) Description 07/22/2013 Conversion Encounter [facility] [address] [place] [address] Interface, See Report Social History Tobacco Use Types Packs/Day Years Used Date Smoking Tobacco: Never Assessed Comments Unknown Sex and Gender Information Value Date Recorded Sex Assigned at Not on file Legal Sex Female 10:39 AM EDT Gender Identity Not on file Sexual Orientation Not on file documented as of this encounter Discharge Summaries * Interface, See Report - 07/22/2013 6:22 AM EST [place] [address] DISCHARGE SUMMARY PATIENT NAME: DIONE IVAN [address] [facility] NO: [id number] DATE OF : 1940 DATE OF ADMISSION: 07/22/2013 DATE OF DISCHARGE: 07/24/2013 ATTENDING PHYSICIAN: Genna Tristan MD VERMIN EXTERMINATOR: Jeremy Chand MD, Cardiology FINAL DIAGNOSES: 1. [...] Subsequent cardiac enzymes demonstrated no evidence of SD, and a cardiology consult was obtained with the patient's usual make up man, Dr. Chand, who concurred that this was likely sinus tachycardia reactive to recent operation. A Gastrografin swallow also confirmed no leak and she remained otherwise well. Her heart rate was controlled and she was transferred to the telemetry floor. Her pain was initially controlled on intravenous paced DIRECTOR OF FINANCIAL PLANNING and then transitioned to oral pain medication. She was begun on a postfundoplication diet and was instructed on dietary teaching by the digital media analyst. She continued to improve. [employer] was weaned off. Her heart rate remained [...] follow up with Dr. Chand in the [place] office in approximately 6 weeks. 6. She is to continue on her Bystolic 5 mg p.o. daily as well. 7. She understands and is willing to proceed. Genna Tristan MD* MDS/rxdrs Voice Rec. ID #[id number] Voice Original ID #[id number] Doc ID #[id number] Genna Tristan MD* Jeremy Chand MD* DO NOT TEXT EDIT THIS LINE :CDS:[id number]: Authenticated by GENNA TRISTAN MD On 07/29/2013 07:52:57 AM documented in this encounter OR Notes * Op Note - Interface, See Report - 07/22/2013 6:22 AM EST [place] [address] OPERATIVE REPORT PATIENT NAME: DIONE IVAN 8 HOSPITAL NO: [id number] DATE OF : 1940 DATE OF OPERATION: 07/22/2013 ADMITTING PHYSICIAN: Genna Tristan MD PREOPERATIVE DIAGNOSIS: Paraesophageal hernia. POSTOPERATIVE DIAGNOSIS: Same. PROCEDURE PERFORMED: Upper endoscopy with percutaneous gastrostomy tube placement. SURGEON: Betina Griffith MD SOCIAL WORK SUPERVISOR: Genna Tristan MD. Dr. Tristan also performed [...] Betina Griffith MD* RDB/rxcbp Voice Rec. ID #[id number] Original Voice Rec. ID #[id number] Doc ID #[id number] Revision Count: 0 cc: Betina Griffith MD* <start header> [place] [address] OPERATIVE REPORT PATIENT NAME: DIONE IVAN [address] [place] [address] NO: [id number] DATE OF : 1940 <end header> DO NOT TEXT EDIT THIS LINE :CHEMICAL DEPENDENCY NURSE:[id number]: Authenticated by Marbin GRIFFITH MD On 07/29/2013 12:12:33 PM * Op Note - Interface, See Report - 07/22/2013 6:22 AM EST [place] [address] OPERATIVE REPORT PATIENT NAME: DIONE IVAN [address] [place] [address] NO: [id number] DATE OF : 1940 DATE OF OPERATION: 07/22/2013 ADMITTING PHYSICIAN/SURGEON: Genna Tristan MD SOCIAL WORK SUPERVISOR: Juan Griffith MD PREOPERATIVE DIAGNOSIS: Type III paraesophageal hernia. POSTOPERATIVE DIAGNOSIS: Type III paraesophageal hernia. PROCEDURES PERFORMED: 1. Laparoscopic paraesophageal hernia repair with mesh, Augusto fundoplication. 2. Esophagogastroduodenoscopy with percutaneous endoscopic gastrostomy placement. SPECIMENS: Hernia sac. ANESTHESIA: General. SOCIAL WORK SUPERVISOR SURGEON'S RESPONSIBILITIES: Dr. Griffith assisted in retraction and visualization of structures, as well as performing the EGD/PEG. FINDINGS: 1. Type III paraesophageal hernia completely repaired and reduced. 2. Posterior hiatal cruraplasty was performed using interrupted pledgeted silk sutures and reinforced with Union BIO-A mesh cut in a U-shaped fashion and placed posteriorly. 3. 360' Augusto fundoplication around a 56 [place] bougie, performed with silk sutures. 4. A 20 [place] PEG tube was placed with the skin [...] carried over to the left side. A [place] was placed within it and used to [...] hiatus around the esophagus. A piece of Union BIO-A mesh was then cut in a U-shaped fashion and placed posteriorly and tacked to the diaphragm using silk sutures. The waitstaff advanced an orogastric tube into the mouth and through the esophagus and into the stomach. The inflatable bougie was inflated with saline to a 56-[place] size. A 360' Augusto fundoplication was performed [...] point, using the Ponsky pull technique, a 20-[place] PEG tube was brought through abdominal wall [...] Genna Tristan MD* TYSON/christiano Voice Rec. ID #[id number] Original Voice Rec. ID #[id number] Doc ID #[id number] Revision Count: 0 cc: Genna Tristan MD* <start header> [address] [address] OPERATIVE REPORT PATIENT NAME: DIONE IVAN0 8 [facility] NO: [id number] DATE OF : 1940 <end header> DO NOT TEXT EDIT THIS LINE :CHEMICAL DEPENDENCY NURSE:[id number]: Authenticated by GENNA TRITSAN MD On 07/29/2013 07:52:56 AM documented in [...] EST) Glucose 89 70 - 100 mg/dL [facility] BUN 9 6 - 20 mg/dL [facility] Creatinine 0.9 0.6 - 1.3 mg/dL [facility] Sodium 145 136 - 145 mmol/L [facility] Potassium 4.0 3.4 - 5.4 mmol/L [facility] Chloride 102 98 - 107 mmol/L [facility] CO2 34(H) 20 - 31 mmol/L [facility] Calcium 8.8 8.7 - 10.4 mg/dL [facility] eGFR Unable to Calculate ml/min/1. 732 [facility] Comment: DF by IF @ 07/24/2013 04:26 National Kidney Foundation Guidelines Stage Description GFR 1 Normal or High 90+ 2 Mild decrease 60-89 3 Moderate decrease 30-59 4 Severe decrease 15-29 5 Kidney failure <15 Anion Gap 9 3 - 11 mmol/L [facility] Blood specimen (specimen) 07/24/2013 3:00 AM EST [facility] - 07/24/2013 4:26 AM EST Specimen Type: Blood us Genna Tristan MD LAB BLOOD ORDERABLES Final Re sult Performing Organization Address [facility] de Phone Number [facility] [address] [place] [address], * CK (07/24/2013 3:00 AM EST) Creatine Kinase 88 26 - 174 Units/L [facility] Blood specimen (specimen) 07/24/2013 3:00 AM EST [facility] - 07/24/2013 4:26 AM EST Specimen Type: Blood us Genna Tristan MD LAB BLOOD ORDERABLES Final Re sult Performing Organization Address [facility] Co de Phone Number [facility] [address] [place] [address], * Troponin (07/24/2013 3:00 AM EST) Troponin I 0.06 0.00 - 0.60 ng/mL [facility] Blood specimen (specimen) 07/24/2013 3:00 AM EST [facility] - 07/24/2013 4:26 AM EST Specimen Type: Blood us Genna Tristan MD LAB BLOOD ORDERABLES Final Re sult Performing Organization Address City/[facility]/ZIP Co de Phone Number [facility] [address] [place] [address], * CK MB (07/24/2013 3:00 AM EST) CKMB 1.8 0.0 - 4.9 ng/mL [facility] Blood specimen (specimen) 07/24/2013 3:00 AM EST [facility] - 07/24/2013 4:26 AM EST Specimen Type: Blood Genna Tristan MD LAB BLOOD ORDERABLES Final Re sult Performing Organization Address City/[facility] [place] [address], * (ABNORMAL) CBC (No diff) (07/24/2013 3:00 AM EST) WBC 7.74 3.50 - 10.80 K/[facility] RBC 4.04 3.89 - 5.14 M/[facility] Hemoglobin 11.1(L) 11.5 - 15.5 g/dL [facility] Hematocrit 36.3 34.5 - 44.0 % [facility] MCV 89.9 80.0 - 99.0 fL [facility] MCH 27.5 27.0 - 31.0 pg [facility] MCHC 30.6(L) 32.0 - 36.0 g/dL [facility] RDW-CV 14.7(H) 11.3 - 14.5 % [facility] Platelets 244 150 - 450 K/[facility] Blood specimen (specimen) 07/24/2013 3:00 AM EST [facility] - 07/24/2013 3:51 AM EST Specimen Type: Blood Genna Tristan MD LAB BLOOD ORDERABLES Final Re sult Performing Organization Address [facility]/ZIP Co de Phone Number [facility] [address] [place] [address], * CK (07/23/2013 5:56 PM EST) Creatine Kinase 109 26 - 174 Units/L [facility] Blood specimen (specimen) 07/23/2013 5:56 PM EST [facility] - 07/23/2013 6:29 PM EST Specimen Type: Blood Genna Tristan MD LAB BLOOD ORDERABLES Final Re sult Performing Organization Address [facility] Co de Phone Number [facility] [address] [place] [address], * Troponin (07/23/2013 5:56 PM EST) Troponin I 0.06 0.00 - 0.60 ng/mL [facility] Blood specimen (specimen) 07/23/2013 5:56 PM EST [facility] - 07/23/2013 6:29 PM EST Specimen Type: Blood Genna Tristan MD LAB BLOOD ORDERABLES Final Re sult Performing Organization Address [facility] Co de Phone Number [facility] [address] [place] [address], * CK MB (07/23/2013 5:56 PM EST) CKMB 2.6 0.0 - 4.9 ng/mL [facility] Blood specimen (specimen) 07/23/2013 5:56 PM EST [facility] - 07/23/2013 6:29 PM EST Specimen Type: Blood Genna Tristan MD LAB BLOOD ORDERABLES Final Re sult Performing Organization Address [facility] Co de Phone Number [facility] [address] [place] [address], * CK (07/23/2013 9:40 AM EST) Creatine Kinase 101 26 - 174 Units/L [facility] Blood specimen (specimen) 07/23/2013 9:40 AM EST [facility] - 07/23/2013 10:36 AM EST Specimen Type: Blood Genna Tristan MD LAB BLOOD ORDERABLES Final Re sult Performing Organization Address [facility] de Phone Number [facility] [address] [place] [address], * Troponin (07/23/2013 9:40 AM EST) Troponin I 0.09 0.00 - 0.60 ng/mL [facility] Blood specimen (specimen) 07/23/2013 9:40 AM EST [facility] - 07/23/2013 10:36 AM EST Specimen Type: Blood Genna Tristan MD LAB BLOOD ORDERABLES Final Re sult Performing Organization Address [facility] de Phone Number [facility] [address] [place] [address], * CK MB (07/23/2013 9:40 AM EST) CKMB 3.1 0.0 - 4.9 ng/mL [facility] Blood specimen (specimen) 07/23/2013 9:40 AM EST [facility] - 07/23/2013 10:36 AM EST Specimen Type: Blood Genna Tristan MD LAB BLOOD ORDERABLES Final Re sult Performing Organization Address [facility]/ZIP Co de Phone Number [facility] [address] [place] [address], * (ABNORMAL) T3, uptake (07/23/2013 1:52 AM EST) T3 Uptake 44.1(H) 23.0 - 37.0 % [facility] Free Thyroxine Index 3.0 1.4 - 5.2 [facility] Blood specimen (specimen) 07/23/2013 1:52 AM EST [facility] - 07/23/2013 9:10 AM EST Specimen Type: Blood Historical Provider MD LAB BLOOD ORDERABLES Nancy l Result Performing Organization Address [facility]/[place] [address], * T4 (07/23/2013 1:52 AM EST) Pathologist [facility] T4, Total 6.9 4.7 - 11.4 mcg/dL [facility] Blood specimen (specimen) 07/23/2013 1:52 AM EST [facility] - 07/23/2013 9:10 AM EST Specimen Type: Blood Historical Provider MD LAB BLOOD ORDERABLES Nancy l Result Performing Organization Address City/[facility]/ZIP Co de Phone Number [facility] [address] [place] [address], * (ABNORMAL) TSH (07/23/2013 1:52 AM EST) TSH, High Sensitivity 0.124(L) 0.350 - 5.350 UIU/mL [facility] Blood specimen (specimen) 07/23/2013 1:52 AM EST [facility] - 07/23/2013 9:10 AM EST Specimen Type: Blood us Historical Provider LAB BLOOD ORDERABLES Nancy l Result [facility] [address] [place] [address], * (ABNORMAL) Basic metabolic panel (07/23/2013 1:52 AM EST) Glucose 110(H) 70 - 100 mg/dL [facility] BUN 10 6 - 20 mg/dL [facility] Creatinine 0.8 0.6 - 1.3 mg/dL [facility] Sodium 136 136 - 145 mmol/L [facility] Potassium 3.9 3.4 - 5.4 mmol/L [facility] Chloride 100 98 - 107 mmol/L [facility] CO2 28 20 - 31 mmol/L [facility] Calcium 8.6(L) 8.7 - 10.4 mg/dL [facility] eGFR Unable to Calculate ml/min/1. 732 [facility] Comment: DF by IF @ 07/23/2013 02:45 National Kidney Foundation Guidelines Stage Description GFR 1 Normal or High 90+ 2 Mild decrease 60-89 3 Moderate decrease 30-59 4 Severe decrease 15-29 5 Kidney failure <15 Anion Gap 8 3 - 11 mmol/L [facility] Blood specimen (specimen) 07/23/2013 1:52 AM EST Narrative [facility] - 07/23/2013 2:45 AM EST Specimen Type: Blood us Historical Provider LAB BLOOD ORDERABLES Nancy l Result [facility] [address] [place] [address], * (ABNORMAL) CBC (No diff) (07/23/2013 1:49 AM EST) WBC 9.74 3.50 - 10.80 K/[facility] RBC 3.81(L) 3.89 - 5.14 M/[facility] Hemoglobin 10.8(L) 11.5 - 15.5 g/dL [facility] Hematocrit 32.9(L) 34.5 - 44.0 % [facility] MCV 86.4 80.0 - 99.0 fL [facility] MCH 28.3 27.0 - 31.0 pg [facility] MCHC 32.8 32.0 - 36.0 g/dL [facility] RDW-CV 14.2 11.3 - 14.5 % [facility] Platelets 220 150 - 450 K/[facility] Blood specimen (specimen) 07/23/2013 1:49 AM EST [facility] - 07/23/2013 1:59 AM EST Specimen Type: Blood Collected Changed From 07/23/2013 06:00 To 07/23/2013 01:49 Genna Tristan MD LAB BLOOD ORDERABLES Final Re sult Performing Organization Address [facility] [place] [address], * CK (07/23/2013 1:40 AM EST) Creatine Kinase 106 26 - 174 Units/L [facility] Blood specimen (specimen) 07/23/2013 1:40 AM EST [facility] - 07/23/2013 2:45 AM EST Specimen Type: Blood Genna Tristan MD LAB BLOOD ORDERABLES Final Re sult Performing Organization Address [facility] [place] [address], * Troponin (07/23/2013 1:40 AM EST) Troponin I 0.07 0.00 - 0.60 ng/mL [facility] Blood specimen (specimen) 07/23/2013 1:40 AM EST [facility] - 07/23/2013 2:45 AM EST Specimen Type: Blood Genna Tristan MD LAB BLOOD ORDERABLES Final Re sult Performing Organization Address [facility]/ZIP Co de Phone Number [facility] [address] [place] [address], * CK MB (07/23/2013 1:40 AM EST) CKMB 3.3 0.0 - 4.9 ng/mL [facility] Blood specimen (specimen) 07/23/2013 1:40 AM EST [facility] - 07/23/2013 2:45 AM EST Specimen Type: Blood Genna Tristan MD LAB BLOOD ORDERABLES Final Re sult Performing Organization Address [facility] Co de Phone Number [facility] [address] [place] [address], [place] [phone] * CK (07/22/2013 6:23 PM EST) Creatine Kinase 101 26 - 174 Units/L [facility] Blood specimen (specimen) 07/22/2013 6:23 PM EST [facility] - 07/22/2013 7:30 PM EST Specimen Type: Blood Genna Tristan MD LAB BLOOD ORDERABLES Final Re sult Performing Organization Address [facility] Co de Phone Number [facility] [address] [place] [address], * Troponin (07/22/2013 6:23 PM EST) Troponin I <0.01 0.00 - 0.60 ng/mL [facility] Blood specimen (specimen) 07/22/2013 6:23 PM EST Narrative [facility] - 07/22/2013 7:30 PM EST Specimen Type: Blood us Genna Tristan MD LAB BLOOD ORDERABLES Final Re sult Performing Organization Address [facility] Co de Phone Number [facility] [address] [place] [address], * (ABNORMAL) CK MB (07/22/2013 6:23 PM EST) CKMB 4.0 0.0 - 4.9 ng/mL [facility] CK-MB Index 4.0(H) 0.0 - 2.5 [facility] Blood specimen (specimen) 07/22/2013 6:23 PM EST Narrative [facility] - 07/22/2013 7:30 PM EST Specimen Type: Blood Genna Tristan MD LAB BLOOD ORDERABLES Final Re sult Performing Organization Address [facility] de Phone Number [facility] [address] [place] [address], [place] [phone] * [place] ESOPHAGRAM COMPLETE (07/22/2013 3:49 PM EST) Anatomical Region Laterality Modality Head and Neck N/A Radiographic Sanjuana ging 07/22/2013 3:49 PM EST Narrative 07/22/2013 7:29 PM EST HISTORY: Para esophageal hernia repair, evaluate for leak. GASTROGRAFIN SWALLOW FINDINGS: Preliminary floor scrubber film shows multiple clips in the upper [...] evaluate for leak. GASTROGRAFIN SWALLOW FINDINGS: Preliminary floor scrubber film shows multiple clips in the upper [...] AM EST) 07/22/2013 6:22 AM EST Narrative [facility] - 07/23/2013 2:56 PM EST [facility] [address] [place] [address] SURGICAL PATHOLOGY REPORT Patient Name: DIONE IVAN MR#: [id number] : 1940 Gender: F Ordering Physician: GENNA TRISTAN Copy To: Location: [address] [place] [address] Collected: 07/22/2013 Received: 07/22/2013 Reported: 07/23/2013 Clinical Diagnosis and History The working history is GERD. Final Diagnosis SOFT TISSUE FROM PARAESOPHAGEAL REGION: Hernia sac. [facility] Amendments: Electronically Signed Out By Monty Del Real M.D. Specimen(s) Received: Hernia sac Gross Description Received in formalin labeled hernia sac consists of a 3.0x3.0x2.8 cm portion of ferreira/pink fibrofatty soft tissue from which a sales representative marine supplies section is submitted in one cassette. [facility] Microscopic Description Sections show focally mesothelium lined fibrovascular connective tissue with a benign lymphoid nodule. There is no evidence of neoplasm. J/mbc Procedures/Addenda us See Report Interface PATHOLOGY/CYTOLOGY ORDERABL ES Final Result [facility] [address] [place] [address], * SCANNED EKG (07/22/2013) [facility] Onbase ECG ORDERABLES Final Result [...] EST) Protime 11.4 9.6 - 11.5 Seconds [facility] INR 1.06 [facility] Comment: US by IF @ 07/21/2013 14:05 Therapeutic Ranges for INR: 2.0-3.0 (PT 20-30) 2.5-3.5 (PT 25-34) Blood specimen (specimen) 07/21/2013 1:44 PM EST Narrative [facility] - 07/21/2013 2:05 PM EST Specimen Type: Blood Genna Tristan MD LAB BLOOD ORDERABLES Final Re sult Performing Organization Address [facility] Co de Phone Number [facility] [address] [place] [address], * (ABNORMAL) Basic metabolic panel (07/21/2013 1:44 PM EST) Glucose 96 70 - 100 mg/dL [facility] BUN 12 6 - 20 mg/dL [facility] Creatinine 1.2 0.6 - 1.3 mg/dL [facility] Sodium 140 136 - 145 mmol/L [facility] Potassium 4.3 3.4 - 5.4 mmol/L [facility] Chloride 104 98 - 107 mmol/L [facility] CO2 30 20 - 31 mmol/L [facility] Calcium 8.6(L) 8.7 - 10.4 mg/dL [facility] eGFR Unable to Calculate ml/min/1. 732 [facility] Comment: DF by IF @ 07/21/2013 14:09 National Kidney Foundation Guidelines Stage Description GFR 1 Normal or High 90+ 2 Mild decrease 60-89 3 Moderate decrease 30-59 4 Severe decrease 15-29 5 Kidney failure <15 Anion Gap 6 3 - 11 mmol/L [facility] Blood specimen (specimen) 07/21/2013 1:44 PM EST Narrative [facility] - 07/21/2013 2:09 PM EST Specimen Type: Blood Genna Tristan MD LAB BLOOD ORDERABLES Final Re sult Performing Organization Address [facility]/ZIP Co de Phone Number [facility] [address] [place] [address], * (ABNORMAL) CBC (No diff) (07/21/2013 1:44 PM EST) WBC 6.48 3.50 - 10.80 K/[facility] RBC 4.37 3.89 - 5.14 M/[facility] Hemoglobin 12.2 11.5 - 15.5 g/dL [facility] Hematocrit 38.3 34.5 - 44.0 % [facility] MCV 87.6 80.0 - 99.0 fL [facility] MCH 27.9 27.0 - 31.0 pg [facility] MCHC 31.9(L) 32.0 - 36.0 g/dL [facility] RDW-CV 14.3 11.3 - 14.5 % [facility] Platelets 260 150 - 450 K/[facility] Blood specimen (specimen) 07/21/2013 1:44 PM EST Narrative [facility] - 07/21/2013 2:01 PM EST Specimen Type: Blood us Genna Tristan MD LAB BLOOD ORDERABLES Final Re sult Performing Organization Address City/State/[facility] [place] [address], documented in this encounter Visit Diagnoses Not on filedocumented in this encounter Additional Health Concerns Infection Onset Date Last Indicated Resolved Time COVID Screen (preop/placement) 03/19/2020 03/19/2020 03/20/2020 11:33 AM EDT documented as of this encounter Care Teams Set Designer Relationship Specialty Start Date End Date Goran Hernández MD [address] [place] [address] PCP - General 01/12/15 documented as of this encounter
--- OUTSIDE RECORDS SUMMARY | 2025-04-04 09:23 | XMS_ITS | Clinical Summary ---
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 Not on file Not on file Not [...] 07/14/2020, 06/14/2020 Medical Devices Implanted Type Area Manifest/Order Organizer Print Orders Device Identifier Shelf Expiration Date Model / Serial / Lot Stentgr Confrm Thor Goretag 22f [id number] 20cm - [id number] Implanted:Qty: 1 on 03/21/2020 by Dariel Toro MD at [facility] Implant [employer] [id number] 20 / / [id number] Stentgr Endoprsth Tag Confrm 22f [id number] 20cm - [id number] Implanted:Qty: 1 on 03/21/2020 by Dariel Toro MD at [facility] Implant [employer] 07/01/2022 [id number] / / [id number] Implant Description:bilat cataract, x3 stents, H/o cabg so sternal wire and possible clips Insurance [employer] MEDICARE A & B Advance Directives Documents on File Type Date Recorded Patient Bath Steward/Stewardess Expl anation POWER OF INFORMATION SERVICES ASSISTANT - SCAN 03/19/2020 1:16 PM LIVING WILL [...] Agents on File Name Relationship Healthcare Agent [facility] In[facility] J Marbin Zapata Spouse Power of Attorne y for Healthcare Care Teams Drug Enforcement Agent Relationship Specialty Start Date End Date Goran Hernández MD [address] [place] [address] PCP - General 01/12/15
--- OUTSIDE RECORDS SUMMARY | 2025-04-04 09:23 | XMS_ITS ---
Author Organization Unknown ENCOUNTERS Encounter Performer Location Date Diagnosis Diagnosis Status Inpatient [place] [id number] [facility] [address] [place] [address] [id number] [facility] [address] [facility] [address] [id number] Pre Admit [place] [id number] [facility] [address] [place] [address] [id number] Emergency [address] [place] [address] [id number] A Outpatient [address] [place] [address] [id number] [facility] Emergency [address] [place] [address] [id number] A Pre Admit [facility] [address] [facility] [address] [place] [address] [id number] Emergency [address] [place] [address] [id number] [facility] Pre Admit [address] [place] [address] [id number] Emergency Jeevan Stallworth [address] [place] [address] [id number] [facility] Emergency [place] [id number] [facility] [address] [place] [address] [id number] [facility] Emergency Cyndi Archer [address] [place] [address] [id number] [facility] *Note: Encounters from your own facility or health system may be excluded. Allergies, Adverse Reactions, Alerts Allergen Type Severity Identification Date Sulfa (Sulfonamide Antibiotics) drug allergy 1 [id number] codeine drug allergy 0 [id number] guaifenesin drug allergy 0 [id number] ciprofloxacin drug allergy 0 [id number] penicillin G drug allergy 0 [id number] Medications Name Date Quantity Days Supplied GPI Number
== END 2025-03-31 23:59 ==
LOC: LAB.DROPOF 04-04 09:19
PROVIDERS: PCP Internal Medicine; Visit Provider Internal Medicine
DX: N39.0 Urinary tract infection, site not specified (principal)
CPT/HCPCS: 87086

== ENCOUNTER 2025-04-01 15:08 | Inpatient (IN) | payer MEDICARE, OTHER, SELFPAY ==
[2025-04-01] VITALS (16 sets, daily range): BP systolic 73–144; BP diastolic 45–74; PULSE 90–113; RESP 12–20; TEMP 36.6–38.8; O2SAT 87–98; BMI 23.8
--- OUTSIDE RECORDS SUMMARY | 2025-04-01 15:25 | XMS_ITS ---
Author Organization Unknown ENCOUNTERS Encounter Performer Location Date Diagnosis Diagnosis Status Pre Admit Mee Mcnair [address] [place] [address] [id number] Emergency Mee Mcnair [address] [place] [address] [id number] Outpatient Monty Ornelas [address] [place] [address] [id number] [facility] [address] [place] [address] [id number] A Pre Admit [address] [place] [address] [id number] Emergency [address] [place] [address] [id number] [facility] Pre Admit [address] [place] [address] [id number] Emergency Jeevan Stallworth [address] [place] [address] [id number] [facility] [address] [place] [address] [id number] [facility] Cyndi Archer [address] [place] [address] [id number] [facility] *Note: Encounters from your own facility or health system may be excluded. Allergies, Adverse Reactions, Alerts Allergen Type Severity Identification Date Sulfa (Sulfonamide Antibiotics) drug allergy 1 [id number] codeine drug allergy 0 [id number] guaifenesin drug allergy 0 [id number] ciprofloxacin drug allergy 0 [id number] penicillin G drug allergy 0 [id number] Medications Name Date Quantity Days Supplied [facility] Number
--- OUTSIDE RECORDS SUMMARY | 2025-04-01 15:26 | XMS_ITS | Encounter Summary ---
Author Organization [employer] ([place], [place], [place], [place], [place]) Address [address] [place] [address] Care Team Providers Care Chiropractic Care Name Role Phone Unavailable Primary Care Provider Unavailabl e Encounter Details Date Type Department Care Team (Late st Contact Info) Description 05/22/2021 Transcribed Document [facility] Family Medicine [facility] [place] [address] ProviderRobert MD [address] [place] [address] Social History Tobacco Use Types Packs/Day Years Used Date Smoking Tobacco: Never Assessed Comments Unknown Sex and Gender Information Value Date Recorded Sex Assigned at Female 11/27/2021 9:00 PM CDT Legal Sex Female 9:00 PM CDT Gender Identity Female 11/27/2021 9:00 PM CDT Sexual Orientation Not on file documented as of this encounter Miscellaneous Notes * Cerner Conversion Note - Historical ProviderMD - 05/22/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 The colon is where water is absorbed and stool (feces) is formed. The pouches form when the inside layer of the colon pushes through weak spots in the outer layers of the colon. You may have a few pouches or many of them. The pouches usually do not cause problems unless they become inflamed or infected. When this happens, the condition is called diverticulitis. What are the causes? The cause of this condition is not known. What increases the risk? The following factors may make you more likely to develop this condition: ??? Being older than age 60. Your risk for this condition increases with age. Diverticulosis is rare among people younger than age 30. By age 80, many people have it. ??? Eating a low-fiber diet. ??? Having frequent constipation. ??? Being overweight. ??? Not getting enough exercise. ??? Smoking. ??? Taking abus-ftu-tckdtup pain medicines, like aspirin and ibuprofen. ??? Having a family history of diverticulosis. What are the signs or symptoms? In most people, there are no symptoms of this condition. If you do have symptoms, they may include: ??? Bloating. ??? Cramps in the abdomen. ??? Constipation or diarrhea. ??? Pain in the lower left side of the abdomen. How is this diagnosed? Because diverticulosis usually has no symptoms, it is most often diagnosed during an exam for other colon problems. The condition may be diagnosed by: ??? Using a flexible scope to examine the colon (colonoscopy). ??? Taking an X-ray of the colon after dye has been put into the colon (barium enema). ??? Having a CT scan. How is this treated? You may not need treatment for this condition. Your health care provider may recommend treatment to prevent problems. You may need treatment if you have symptoms or if you previously had diverticulitis. Treatment may include: ??? Eating a high-fiber diet. ??? Taking a fiber supplement. ??? Taking a live bacteria supplement (probiotic). ??? Taking medicine to relax your colon. Follow these instructions at home: Medicines ??? Take kmit-ewb-vjycbyg and prescription medicines only as told by your health care provider. ??? If told by your health care provider, take a fiber supplement or probiotic. Constipation prevention Your condition may cause constipation. To prevent or treat constipation, you may need to: ??? Drink enough fluid to keep your urine pale yellow. ??? Take tuvd-sng-ppynrmr or prescription medicines. ??? Eat foods that are high in fiber, such as beans, whole grains, and fresh fruits and vegetables. ??? Limit foods that are high in fat and processed sugars, such as fried or sweet foods. General instructions ??? Try not to strain when you have a bowel movement. ??? Keep all follow-up visits as told by your health care provider. This is important. Contact a health care provider if you: ??? Have pain in your abdomen. ??? Have bloating. ??? Have cramps. ??? Have not had a bowel movement in 3 days. Get help right away if: ??? Your pain gets worse. ??? Your bloating becomes very bad. ??? You have a fever or chills, and your symptoms suddenly get worse. ??? You vomit. ??? You have bowel movements that are bloody or black. ??? You have bleeding from your rectum. Summary ??? Diverticulosis is a condition that develops when small pouches (diverticula) form in the wall of the large intestine (colon). ??? You may have a few pouches or many of them. ??? This condition is most often diagnosed during an exam for other colon problems. ??? Treatment may include increasing the fiber in your diet, taking supplements, or taking medicines. This information is not intended to replace advice given to you by your health care provider. Make sure you discuss any questions you have with your health care provider. Document Revised: 12/16/2019 Document Reviewed: 12/16/2019 [employer] Patient Education ? 2020 [employer]. Oncology Colon Polyps Polyps are tissue growths inside the body. Polyps can grow in many places, including the large intestine (colon). A polyp may be a round bump or a mushroom-shaped growth. You could have one polyp or several. Most colon polyps are noncancerous (benign). However, some colon polyps can become cancerous over time. Finding and removing the polyps early can help prevent this. What are the causes? The exact cause of colon polyps is not known. What increases the risk? You are more likely to develop this condition if you: ??? Have a family history of colon cancer or colon polyps. ??? Are older than 50 or older than 45 if you are . ??? Have inflammatory bowel disease, such as ulcerative colitis or Crohn's disease. ??? Have certain hereditary conditions, such as: ? Familial adenomatous polyposis. ? Jaeger syndrome. ? Turcot syndrome. ? Peutz?Jeghers syndrome. ??? Are overweight. ??? Smoke cigarettes. ??? Do not get enough exercise. ??? Drink too much alcohol. ??? Eat a diet that is high in fat and red meat and low in fiber. ??? Had childhood cancer that was treated with abdominal radiation. What are the signs or symptoms? Most polyps do not cause symptoms. If you have symptoms, they may include: ??? Blood coming from your rectum when having a bowel movement. ??? Blood in your stool. The stool may look dark red or black. ??? Abdominal pain. ??? A change in bowel habits, such as constipation or diarrhea. How is this diagnosed? This condition is diagnosed with a colonoscopy. This is a procedure in which a lighted, flexible scope is inserted into the anus and then passed into the colon to examine the area. Polyps are sometimes found when a colonoscopy is done as part of routine cancer screening tests. How is this treated? Treatment for this condition involves removing any polyps that are found. Most polyps can be removed during a colonoscopy. Those polyps will then be tested for cancer. Additional treatment may be needed depending on the results of testing. Follow these instructions at home: Lifestyle ??? Maintain a healthy weight, or lose weight if recommended by your health care provider. ??? Exercise every day or as told by your health care provider. ??? Do not use any products that contain nicotine or tobacco, such as cigarettes and e-cigarettes. If you need help quitting, ask your health care provider. ??? If you drink alcohol, limit how much you have: ? 0?1 drink a day for women. ? 0?2 drinks a day for men. ??? Be aware of how much alcohol is in your drink. In the [place] one drink equals one 12 oz bottle of beer (355 mL), one 5 oz glass of wine (148 mL), or one 1? oz shot of hard liquor (44 mL). Eating and drinking ??? Eat foods that are high in fiber, such as fruits, vegetables, and whole grains. ??? Eat foods that are high in calcium and vitamin D, such as milk, cheese, yogurt, eggs, liver, fish, and broccoli. ??? Limit foods that are high in fat, such as fried foods and desserts. ??? Limit the amount of red meat and processed meat you eat, such as hot dogs, sausage, paulino, and lunch meats. General instructions ??? Keep all follow-up visits as told by your health care provider. This is important. ? This includes having regularly scheduled colonoscopies. ? Talk to your health care provider about when you need a colonoscopy. Contact a health care provider if: ??? You have new or worsening bleeding during a bowel movement. ??? You have new or increased blood in your stool. ??? You have a change in bowel habits. ??? You lose weight for no known reason. Summary ??? Polyps are tissue growths inside the body. Polyps can grow in many places, including the colon. ??? Most colon polyps are noncancerous (benign), but some can become cancerous over time. ??? This condition is diagnosed with a colonoscopy. ??? Treatment for this condition involves removing any polyps that are found. Most polyps can be removed during a colonoscopy. This information is not intended to replace advice given to you by your health care provider. Make sure you discuss any questions you have with your health care provider. Document Revised: 09/03/2018 Document Reviewed: 09/03/2018 [employer] Patient Education ? 2020 [employer]. Radiology Colonoscopy, Adult, Care After This sheet gives you information about how to care for yourself after your procedure. Your health care provider may also give you more specific instructions. If you have problems or questions, contact your health care provider. What can I expect after the procedure? After the procedure, it is common to have: ??? A small amount of blood in your stool for 24 hours after the procedure. ??? Some gas. ??? Mild cramping or bloating of your abdomen. Follow these instructions at home: Eating and drinking ??? Drink enough fluid to keep your urine pale yellow. ??? Follow instructions from your health care provider about eating or drinking restrictions. ??? Resume your normal diet as instructed by your health care provider. Avoid heavy or fried foods that are hard to digest. Activity ??? Rest as told by your health care provider. ??? Avoid sitting for a long time without moving. Get up to take short walks every 1?2 hours. This is important to improve blood flow and breathing. Ask for help if you feel weak or unsteady. ??? Return to your normal activities as told by your health care provider. Ask your health care provider what activities are safe for you. Managing cramping and bloating ??? Try walking around when you have cramps or feel bloated. ??? Apply heat to your abdomen as told by your health care provider. Use the heat source that your health care provider recommends, such as a moist heat pack or a heating pad. ? Place a towel between your skin and the heat source. ? Leave the heat on for 20?30 minutes. ? Remove the heat if your skin turns bright red. This is especially important if you are unable to feel pain, heat, or cold. You may have a greater risk of getting burned. General instructions ??? If you were given a sedative during the procedure, it can affect you for several hours. Do not drive or operate machinery until your health care provider says that it is safe. ??? For the first 24 hours after the procedure: ? Do not sign important documents. ? Do not drink alcohol. ? Do your regular daily activities at a slower pace than normal. ? Eat soft foods that are easy to digest. ??? Take lyax-srt-vxkskoe and prescription medicines only as told by your health care provider. ??? Keep all follow-up visits as told by your health care provider. This is important. Contact a health care provider if: ??? You have blood in your stool 2?3 days after the procedure. Get help right away if you have: ??? More than a small spotting of blood in your stool. ??? Large blood clots in your stool. ??? Swelling of your abdomen. ??? Nausea or vomiting. ??? A fever. ??? Increasing pain in your abdomen that is not relieved with medicine. Summary ??? After the procedure, it is common to have a small amount of blood in your stool. You may also have mild cramping and bloating of your abdomen. ??? If you were given a sedative during the procedure, it can affect you for several hours. Do not drive or operate machinery until your health care provider says that it is safe. ??? Get help right away if you have a lot of blood in your stool, nausea or vomiting, a fever, or increased pain in your abdomen. This information is not intended to replace advice given to you by your health care provider. Make sure you discuss any questions you have with your health care provider. Document Revised: 05/12/2020 Document Reviewed: 12/13/2019 [employer] Patient Education ? 2020 [employer] documented in this encounter Plan of Treatment Not on file documented as of this encounter Visit Diagnoses Not on filedocumented in this encounter
--- OUTSIDE RECORDS SUMMARY | 2025-04-01 15:26 | XMS_ITS | Encounter Summary ---
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 Adult Entered On: 05/22/2021 13:43 EST Performed On: 05/22/2021 13:39 EST by Amber Briscoe Rn Height and Weight, Clinical Dosing Height Source : Stated Height Entry Format : Evangeline Height, Feet : 5 ft(Converted to: 152 cm, 60 Inch) Height, Inches : 6 Inch(Converted to: 0 ft 6 Inch, 15.24 cm) Clinical Height : 167.64 cm Weight Source : Standing scale Weight Entry Format : Evangeline Clinical Dosing Weight : 86.82 kg Weight, Pounds : 191 lb Body Surface Area (BSA) : 1.96 m2 Body Mass Index : 30.9 kg/m2 (HI) [place] Body Weight : 59 kg Amber Briscoe Rn - 05/22/2021 13:39 EST Health Histories Smoking Status : Never (less than 100 in lifetime; none in last 30 days) Smokeless Tobacco Status : Never Amber Briscoe Rn - 05/22/2021 13:39 EST Social History (As Of: 05/22/2021 13:43:54 EST) Tobacco: Never (less than 100 in lifetime) Smoking Status. Never Smokeless Tobacco Status. (Last Updated: 05/22/2021 13:39:37 EST by Amber Briscoe Rn) Alcohol: Alcohol Use History No. (Last Updated: 05/22/2021 13:39:43 EST by Amber Briscoe Rn) Substance Abuse: Drug Use Hx: No. (Last Updated: 05/22/2021 13:39:48 EST by Amber Briscoe Rn) Infectious Disease History Does patient have symptoms of COVID-19? : No Has the Patient Been Tested for COVID-19 in the last 14 days? : Yes, Patient stated results Negative Does the Patient state known exposure to a COVID-19 positive case in the last 14 days? : No Patient Vaccinated for COVID-19 : Fully vaccinated Amber Briscoe Rn - 05/22/2021 13:39 EST Infectious Disease Risk Screening Grid Cough < 2 wks of unknown origin : NO Cough > 2 weeks : NO Blood in Sputum : NO Fever or self-reported Fever : NO Rash of unknown origin : NO Headache : NO Stiff neck : NO Night Sweats : NO Unexplained Weight Loss : NO Diarrhea (3 episode per day) : NO Amber Briscoe Rn - 05/22/2021 13:39 EST Physical contact outside [place] in the last 30 days : No Hospitalized in Foreign Country : No Infectious Disease History : Chicken pox/Shingles INF Disease TB Screening Calc : 0 INF Disease Recent Travel Calc : 0 Amber Briscoe Rn - 05/22/2021 13:39 EST COVID19 PreProcedure Screening Is this an Emergent or Add on Procedure? : No Date PreProcedure COVID-19 test known? : Yes Date of PreProcedure COVID-19 : 05/21/2021 EST Has patient been isolated since the test : Yes Exposed to COVID19 symptoms since test? : No Amber Briscoe Rn - 05/22/2021 13:39 EST Anesthesia/Transfusion History Family History of Anesthesia Reaction : No prior transfusion(s) Transfusion History : Prior anesthesia reaction Type of Anesthesia Reaction : Excessive somnolence Family History of Anesthesia Reaction : None Amber Briscoe Rn - 05/22/2021 13:39 EST Functional Assessment Living Situation : Home Current Home Treatments : None Amber Briscoe Rn - 05/22/2021 13:39 EST [place] Suicide Severity Rating Scale (C-SSRS) CSSRS Past Month Wish to be : No CSSRS Past Month Suicidal Thoughts : No CSSRS Lifetime Suicide Behavior : No Suicide Severity Rating Score : 0 Suicide Severity Rating : No Additional Care Required at this time Amebr Briscoe Rn - 05/22/2021 13:39 EST Psychosocial History Currently in Unsafe Situation : No Amber Briscoe Rn - 05/22/2021 13:39 EST Advance Directive Patient has Advance Directive *Q : Yes, Advance Directive with the patient Advance Directive Type : Living will Copy Advance Directive Verified/on Chart : Yes Amber Briscoe Rn - 05/22/2021 13:39 EST General Info Want Family/Rep/Phys Notified of Admit : Yes Name/Contact Info Fam/Rep Notified Adm : na Name/Contact Info Physician Notified Adm : Goran Hernández Emergency Contact #1 : Lizette Emergency Contact #1 Emergency Contact #1 Relationship : daughter Emergency Contact #2 : na Emergency Contact #2 Phone Number : na Emergency Contact #2 Relationship : na Primary Language : Turkmen Communication Barrier : None 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 Needed : No Amber Briscoe Rn - 05/22/2021 13:39 EST Sleep Apnea Risk Assmt Hx of Obstructive Sleep Apnea Diagnosis : No Snore Loudly : No Tired, Fatigued, or Sleepy During Day : No Observed Stopping Breathing During Sleep : No Have/Are Being Treated for Hypertension : Yes BMI Greater Than 35 kg/m2 : No Age over 50 Years Old : Yes Neck Circumference Greater Than 40 cm : No Gender Male : No STOP-BANG Sleep Apnea Risk Level Score : 2 Amber Briscoe Rn - 05/22/2021 13:39 EST Jah Scale Jah Sensory Perception : No impairment Jah Moisture : Rarely moist Jah Activity : Walks frequently Jah Mobility : No limitation Jah Nutrition : Adequate Jah Friction and Shear : No apparent problem Jah Score : 22 Amber Briscoe Rn - 05/22/2021 13:39 EST Fall Risk Scales ABCs Fall Injury Risk Identification : None CLARK Hx Falls Immediate/Within 3 Months : No Clark Secondary Diagnosis : No CLARK Use of Ambulatory Aid : None CLARK IV Therapy or IV Access : Yes Clark Gait/Transferring : Normal, bedrest, immobile Clark Mental Status : Oriented to own ability Clark Fall Risk Score : 20 CLARK Fall Scale Risk Level : 0-24 Low Risk Fertile Fall Interventions : Adequate lighting, Bed in low position, Call device within reach, Hourly comfort/safety rounds, Non-slip footwear, Personal items within reach, Room free of clutter/spills, Upper side-rails up, Wheels locked, Wires/Cords secured Amber Briscoe Rn - 05/22/2021 13:39 EST Valuables and Belongings Valuables and Belongings : Clothing, Personal devices Clothing : Common streetwear Clothing Disposition : Bedside Personal Device Disposition : Bedside Personal Devices : Dentures, partial plate Amber Briscoe Rn - 05/22/2021 13:39 EST documented in this encounter Plan of Treatment Not on file documented as of this encounter Visit Diagnoses Not on filedocumented in this encounter
--- OUTSIDE RECORDS SUMMARY | 2025-04-01 15:26 | XMS_ITS | Clinical Summary ---
[facility] Organization [facility] Address [address] [place] [address] Care Team Providers Care Biometric Screener Name Role Phone Goran Hernández MD Primary Care Provider [phone] Allergies Active Allergy Reactions Criticality Noted Date Comments Ciprofloxacin Hives,Rash Low 03/01/2019 Codeine Hallucinations 03/15/2016 Atorvastatin Myalgia 03/15/2016 Other Other (See Comments) 03/15/2016 Cardiolite stress testing-inaccurate; didn't work, had to reverse it real quick or something - lexiscan Penicillins Hives,Rash Low 03/15/2016 Medications isosorbide mononitrate (IMDUR) 30 MG 24 hr tablet Take 30 mg by mouth Every Night. 5 Active nebivolol (BYSTOLIC) 5 MG tablet Take 2.5 mg by mouth Every Night. 4 Active pravastatin (PRAVACHOL) 80 MG tablet Take 80 mg by mouth Daily. 5 Active zolpidem (AMBIEN) 10 MG tablet Take 10 mg by mouth At Night As Needed. 4 Active escitalopram (LEXAPRO) 20 MG tablet Take 20 mg by mouth Daily. Active nitroglycerin (NITROSTAT) 0.[address] 0.4 mg under the tongue Every 5 (Five) Minutes As Needed for Chest Pain. Take no more than 3 doses in 15 minutes. Active bisoprolol (ZEBeta) 5 MG tablet Take 2.5 mg by mouth Daily. Take 1/2 tablet once a day at night Active vitamin D (ERGOCALCIFEROL) 31061 units capsule capsule Take 50,000 Units by mouth 1 (One) Time Per Week. Friday Active aspirin 81 MG EC tablet Take 81 mg by mouth Daily. Active levothyroxine (SYNTHROID, LEVOTHROID) 112 MCG tablet Take 112 mcg by mouth Daily. Active dicyclomine (BENTYL) 20 MG tablet Take 20 mg by mouth Every 6 (Six) Hours. BEFORE MEALS Active Active Problems Problem Noted Date Diagnosed Date Thoracic aortic aneurysm without rupture 020 Abdominal aortic aneurysm (AAA) without rupture 02/28/2020 Thoracic aortic aneurysm, without rupture 2018 Overview (03/04/2022): 03/02 REGULATORY IMPORT REPLACEMENT Coronary artery disease Overview (03/15/2016): a. On 09/16/2012, ascending aortic repair with coronary artery bypass graft surgery x2 per Enrique Martinez MD, with GIORDANO to LAD, saphenous vein graft to diagonal. b. CT scan, April 2014, unchanged from August 2012; ascending aortic aneurysm of 3.7 cm. c. Recurrent angina, 12/21/2014. d. Cardiac catheterization, 01/05/2015, Kong Hammond MD, revealing a 90% diagonal stenosis, treated with a 2.5 x 20 mm Promus drug-eluting stent, left ventricular ejection fraction of 65%. Small vessel disease. e. Initiation of Imdur therapy at 30 mg daily. Ascending aortic aneurysm Paraesophageal hernia Overview (03/15/2016): July 2013, status post lap paraesophageal herniorrhaphy with Augusto fundoplication per Dr. Willi Ventura. Dyslipidemia Overview (03/15/2016): a. August 2012, total 195, triglycerides 179, HDL 51, LDL 128. b. Lipid profile, 01/05/2015, revealing cholesterol of 194, triglycerides of 189, HDL of 41, and LDL cholesterol of 133 with increase of pravastatin from 40 to 80 mg. Hypertension Hypothyroidism Madelyn's thyroiditis Overview (03/15/2016): Thyroidectomy per Dr. Diane, 2011 Chronic kidney disease Overview (03/15/2016): Serum creatinine 1.3. Family History Medical History Relation Name Comments Aneurysm Father Thoracic Aortic Aneurysm Colon cancer Mother Heart failure Mother Relation Name Status Comments Father Mother Social History Tobacco Use Types Packs/Day Years Used Date Smoking Tobacco: Never Smokeless Tobacco: Never Alcohol Use Standard Drinks/Week Comments No 0 (1 standard drink = 0.6 oz pur e alcohol) Abuse Screen Answer Date Recorded Unsafe at Home or Work/School Not on file Feels Threatened by Someone? Not on file 01/2023 Does Anyone Keep You from Co ntacting Others or Doint Things Outside the Home? Not on file 03/10/2023 Physical Sign of Abuse Present Not on file 1 Housing Stability Answer Date Recorded Current Living Arrangements Not on file 01/2023 Potentially Unsafe Housing Conditions Not on liza e 03/10/2023 Family and Community Support Answer Geo e Recorded Help with Day-to-Day Activities Not on file 03/10/2023 Lonely or Isolated Not on file 03/10/2023 Employment Answer Date Recorded Do you want help finding or keeping work or a fermín b? Not on file 03/10/2023 Disabilities Answer Date Recorded Concentrating, Remembering, or Making Decisions Difficulty Not on file 03/10/2023 Doing Errands Independently Difficulty Not on fi le 03/10/2023 Education Answer Date Recorded Help with school or training? 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 Not on file Not on file Not o n file Last Filed Vital Signs Vital Sign Reading Time Taken Comments Blood Pressure 110/51 05/29/2020 11:54 AM EST Pulse 92 05/29/2020 11:54 AM EST Temperature 36.5 C (97.7 F) 05/29/2020 11:54 AM EST Respiratory Rate 16 03/23/2020 8:00 AM EDT Oxygen Saturation 98% 05/29/2020 11:54 AM EST Inhaled Oxygen Concentration - - Weight 89.4 kg (197 lb 3.2 oz) 05/29/2020 11:54 AM EST Height 167.6 cm (5' 6 ) 05/29/2020 11:54 AM EST Body Mass Index 31.83 05/29/2020 11:54 AM EST Plan of Treatment Health Maintenance Due Date Last Done Comments DXA SCAN 1940 TDAP/TD VACCINES (1 - Tdap) 1958 Pneumococcal Vaccine 50+ (1 of 1 - PCV) 1989 ZOSTER VACCINE (1 of 2) 1989 RSV Vaccine - Adults (1 - 1- dose 75+ series) 2014 ANNUAL PHYSICAL 02/10/2019 INFLUENZA VACCINE 12/31/2024 05/14/2019, , 03/10/2017, Additional history exists COVID-19 Vaccine (2024-2 6 season) 2025 07/14/2020, 06/14/2020 Medical Devices Implanted Type Area Biomedical Specialist Device Identifier Shelf Expiration Date Model / Serial / Lot Stentgr Confrm Thor Goretag 22f [id number] 20cm - [id number] Implanted:Qty: 1 on 03/21/2020 by Dariel Toro MD at [facility] Implant [employer] [id number] 20 / / [id number] Stentgr Endoprsth Tag Confrm [id number] [id number] 20cm - [id number] Implanted:Qty: 1 on 03/21/2020 by Dariel Toro MD at [facility] Implant [employer] 07/01/2022 [id number] / / [id number] Implant Description:bilat cataract, x3 stents, H/o cabg so sternal wire and possible clips Insurance [employer] MEDICARE A & B Advance Directives Documents on File Type Date Recorded Patient Gas Dispatcher Expl anation POWER OF LABEL REMOVER - SCAN 03/19/2020 1:16 PM LIVING WILL - SCAN 03/19/2020 1:15 PM * CPR (Attempt to Resuscitate) (Latest Code Status on File) Date Activated Date Inactivated Comments 03/21/2020 4:21 PM 03/23/2020 2:25 PM Question Answer Comments Code Status (Patient has no pulse and is not breathing): CPR (Attempt to Resuscitate) Medical Interventions (Patie nt has pulse or is breathing): Full Healthcare Agents on File Name Relationship Healthcare [facility] J Marbin Zapata Spouse Power of Attorne y for Healthcare Care Teams Biometric Screener Relationship Specialty Start Date End Date Goran Hernández MD [address] [place] [address] PCP - General 01/12/15
--- OUTSIDE RECORDS SUMMARY | 2025-04-01 15:26 | XMS_ITS | Encounter Summary ---
Author Organization [employer] ([place], [place], [place], [place], [place]) Address [address] [place] [address] Care Team Providers Care Tandem Operator Name Role Phone Unavailable Primary Care Provider Unavailabl e Encounter Details Date Type Department Care Team (Late st Contact Info) Description 05/22/2021 Transcribed Document [facility] [place] Family Medicine [facility] [place] [address] ProviderRobert MD [facility] [place] [address] Social History Tobacco Use Types Packs/Day Years Used Date Smoking Tobacco: Never Assessed Comments Unknown Sex and Gender Information Value Date Recorded Sex Assigned at Female 11/27/2021 9:00 PM CDT Legal Sex Female 9:00 PM CDT Gender Identity Female 11/27/2021 9:00 PM CDT Sexual Orientation Not on file documented as of this encounter Miscellaneous Notes * Cerner Conversion Note - Robert ProviderMD - 05/22/2021 2:24 PM CASINO ASSISTANT MANAGER [facility] IntraOp Summary Primary Physician: CHUCHO JHA MD-GAE Finalized Date/Time: 05/22/21 14:40:16 Pt. Name: MONCHO DIONE C /Sex: 1940 Female Med Rec #: [id number] Physician: CHUCHO JHA MD-GAE Financial #: [id number] Pt. Type: E Room/Bed: [facility]/ Admit/Disch: 05/22/21 12:59:00 - Institution: [facility] Endo - Case Attendance Entry 1 Entry 2 Entry 3 Case Attendee CHUCHO JHA FLEMING, SCOTT, -ANS GILBERT, AL M, WALKING DRAGLINE OPERATOR, MD-GAE JAIL KEEPER-ANS Role Performed Surgeon/Proceduralist, Anesthesiologist of JAIL KEEPER/Nurse Casino Assistant Manager First Record Time In 05/22/21 14:14:00 05/22/21 14:16:00 05/22/21 14:16:00 Time Out 05/22/21 14:40:00 05/22/21 14:40:00 05/22/21 14:40:00 Procedure Colonoscopy, Colon Colonoscopy, Colon Colonoscopy, Colon Polypectomy, Colon Polypectomy, Colon Polypectomy, Colon Biopsy, Colonoscopy w Biopsy, Colonoscopy w Biopsy, Colonoscopy w Control Bleeding Control Bleeding Control Bleeding Other Attendee Superficial Wound Closed By: Last Modified By: Ashley Baeza Edmundson, Stephanie, Edmundson, Stephanie, RN 05/22/21 14:39:17 RN 05/22/21 14:39:17 RN 05/22/21 14:39:17 Entry 4 Entry 5 Case Attendee Ashley Baeza, Brian Childress, Mold Car Pusher Role Performed Field Examiner, First Scrub, First Time In 05/22/21 14:16:00 05/22/21 14:16:00 Time Out 05/22/21 14:40:00 05/22/21 14:40:00 Procedure Colonoscopy, Colon Colonoscopy, Colon Polypectomy, Colon Polypectomy, Colon Biopsy, Colonoscopy w Biopsy, Colonoscopy w Control Bleeding Control Bleeding Other Attendee Superficial Wound Closed By: Last Modified By: Ashley Baeza Edmundson, Stephanie, RN 05/22/21 14:39:17 RN 05/22/21 14:39:17 E Endo - Case Attendance Audit 05/22/21 14:39:17 Supportability Engineer: [id number] Modifier: [id number] 1 <+> Time Out 1 <*> Procedure Colonoscopy, Colon Polypectomy, Colon Biopsy, Colonoscopy w Control Bleeding 2 <+> Time Out 2 <*> Procedure Colonoscopy, Colon Polypectomy, Colon Biopsy, Colonoscopy w Control Bleeding 3 <+> Time Out 3 <*> Procedure Colonoscopy, Colon Polypectomy, Colon Biopsy, Colonoscopy w Control Bleeding 4 <+> Time Out 4 <*> Procedure Colonoscopy, Colon Polypectomy, Colon Biopsy, Colonoscopy w Control Bleeding 5 <+> Time Out 5 <*> Procedure Colonoscopy, Colon Polypectomy, Colon Biopsy, Colonoscopy w Control Bleeding 05/22/21 14:36:59 Supportability Engineer: [id number] Modifier: [id number] 1 <*> Procedure Colonoscopy, Colon Polypectomy, Colon Biopsy 2 <*> Procedure Colonoscopy, Colon Polypectomy, Colon Biopsy 3 <*> Procedure Colonoscopy, Colon Polypectomy, Colon Biopsy 4 <*> Procedure Colonoscopy, Colon Polypectomy, Colon Biopsy 5 <*> Procedure Colonoscopy, Colon Polypectomy, Colon Biopsy 05/22/21 14:36:04 Supportability Engineer: [id number] Modifier: [id number] 1 <*> Procedure Colonoscopy, Colon Polypectomy 2 <*> Procedure Colonoscopy, Colon Polypectomy 3 <*> Procedure Colonoscopy, Colon Polypectomy 4 <*> Procedure Colonoscopy, Colon Polypectomy 5 <*> Procedure Colonoscopy, Colon Polypectomy 05/22/21 14:33:35 Supportability Engineer: [id number] Modifier: [id number] 1 <*> Procedure Colonoscopy 2 <*> Procedure Colonoscopy 3 <*> Procedure Colonoscopy 4 <*> Procedure Colonoscopy 5 <*> Procedure Colonoscopy 05/22/21 14:32:43 Supportability Engineer: [id number] Modifier: [id number] 1 <*> Procedure Colonoscopy 2 <*> Procedure Colonoscopy 3 <*> Procedure Colonoscopy 4 <*> Procedure Colonoscopy 5 <*> Procedure Colonoscopy [facility] - Case Times Entry 1 Patient In Room Time 05/22/21 14:16:00 Out Room Time 05/22/21 14:40:00 Anesthesia Start Time 05/22/21 14:16:00 Stop Time 05/22/21 14:38:00 Anesthesia Ready 05/22/21 14:16:00 Surgery / Procedure Times Start Time 05/22/21 14:24:00 Stop Time 05/22/21 14:38:00 Last Modified By: Ashley Baeza RN 05/22/21 14:38:58 [facility] - Case Times Audit 05/22/21 14:38:58 Supportability Engineer: [id number] Modifier: [id number] <+> 1 Out Room Time <+> 1 Stop Time <+> 1 Stop Time 05/22/21 14:24:42 Supportability Engineer: [id number] Modifier: [id number] <+> 1 Start Time [facility] - Cautery Entry 1 ESU Identification Cautery Type Heater Probe ID Number Room 1 ID Type Hospital Number Cautery Settings ESU Grounding Pad Ground Pad Type Adult Grounding Pad Site Right thigh Grounding Pad Harpal, , Applied By Mold Car Pusher Grounding Pad Site Unchanged Skin Condition After Cautery Last Modified By: Ashley Baeza RN 05/22/21 14:37:25 [facility] - Cultures and Spec Summary Entry 1 Cultrures and Specimens Specimen Ordered: Yes Test(s) Routine/Path-Lab Requested/Final Disposition Last Modified By: Ashley Baeza RN 05/22/21 14:36:12 [facility] - Delays Entry 1 Delay Reason Other Duration 0 Minute(s) Comment NO DELAY Last Modified By: Ashley Baeza RN 05/22/21 14:18:41 [facility] - Departure from OR Entry 1 Integumentary Assessment Integumentary WDL Assessment WDL Transfer/Handoff Transfer to PACU Phase I Handoff Method Bedside/Face to face Post-op Transport Stretcher/Gurney Via Patient Transport Ashley Baeza, Accompanied by RN, AL MURO, WALKING DRAGLINE OPERATOR, JAIL KEEPER-ANS Last Modified By: Ashley Baeza RN 05/22/21 14:19:57 [facility] - Endoscopy Details Entry 1 Abdomen Procedure Soft, Non-Tender Assessment Procedure Abdomen 05/22/21 14:16:00 Assessment D/T Radio Frequency Ablation Abdominal Pressure Last Modified By: Ashley Baeza RN 05/22/21 14:20:08 [facility] - Fire Risk Assessment Entry 1 Fire Info Surgical Site or 0- No Incision Above the Xyphoid Open O2 Source 1- Yes (Mask or Cannula) Available Ignition 1- Yes (ESU, Laser, Light Source) Fire Risk 2 Assessment Score Fire Score Fire Risk Yes Assessment Complete Fire Risk Ashley Baeza RN Assessment Verified By Fire Risk 05/22/21 14:16:00 Assessment Verified Date/Time Fire Risk High Risk Protocol Yes Implemented Standard Fire Yes Safety Precautions Followed Last Modified By: Ashley Baeza RN 05/22/21 14:20:17 [facility] - General Case Manager Operations Research 1 Case Information OR Endo 01 [facility] Case Level 1 Room Verified Yes Wound Class 2 - Clean-Contaminated Specialty Gastroenterology Anesthesia Type MAC ASA Class 4 Diagnosis Preop Diagnosis Change in bowel habits Postop Diagnosis Descending colon polyp. Rectal lesion. Diverticulosis. Wound Class Definitions Last Modified By: Ashley Baeza RN 05/22/21 14:38:52 [facility] - General Case Data Audit 05/22/21 14:38:52 Supportability Engineer: [id number] Modifier: [id number] 1 <*> Postop Diagnosis Descending colon polyp. Rectal biopsy. 05/22/21 14:38:19 Supportability Engineer: [id number] Modifier: [id number] <+> 1 Postop Diagnosis [facility] - Intraoperative Assessment Entry 1 Handoff Method Bedside/Face to face Valid History / Yes Physical in Chart Preoperative Yes Checklist Reviewed/Evaluated Patient is Latex No Sensitive Isolation Not applicable Precautions Noted Level of WDL Consciousness (WDL = Alert, Oriented to Person, Place, and Time) Present Upon IVs, ECG monitored Arrival to OR Last Modified By: Ashley Baeza RN 05/22/21 14:21:11 [facility] - Intraoperative Equipment Entry 1 Type Scope Equipment Intraop Monitoring Antiembolic Devices Scopes Flexible Endoscopes Colonoscope, Peds Used Scope Serial [id number] Number/Identificatio n Number Photo/Video Documentation Last Modified By: Ashley Baeza RN 05/22/21 14:20:59 [facility] - Patient Positioning Entry 1 Procedure Colonoscopy, Colon Polypectomy, Colon Biopsy, Colonoscopy w Control Bleeding Body Position Lateral, right side up Left Arm Position Resting at side Right Arm Position Resting at side Left Leg Position Other Right Leg Position Other Position Comments Right leg over Left leg uncrossed Feet Uncrossed Yes Pressure Points Yes Checked Positioned By Ashley Baeza RN, Brian Rowan, Mold Car Pusher, AL MURO, WALKING DRAGLINE OPERATOR, JAIL KEEPER-ANS Position Verified Positioning Yes Verified by Surgeon Last Modified By: Ashley Baeza RN 05/22/21 14:37:01 [facility] - Patient Positioning Audit 05/22/21 14:37:01 Supportability Engineer: [id number] Modifier: [id number] 1 <*> Procedure Colonoscopy, Colon Polypectomy, Colon Biopsy 05/22/21 14:36:05 Supportability Engineer: [id number] Modifier: [id number] 1 <*> Procedure Colonoscopy, Colon Polypectomy 05/22/21 14:33:37 Supportability Engineer: [id number] Modifier: [id number] 1 <*> Procedure Colonoscopy 05/22/21 14:32:45 Supportability Engineer: [id number] Modifier: [id number] 1 <*> Procedure Colonoscopy [facility] - Sign In Entry 1 Patient, Site, Yes Procedure Identified Surgical Consent Yes Confirmed Relevant Surgical Yes Documents Available Surgical Site N/A Marked by person performing procedure Airway Hypothermia Risk No Warming Measures Yes Taken Last Modified By: Ashley Baeza RN 05/22/21 14:19:30 [facility] - Sign Out Entry 1 RN Confirmation Surgical Yes Procedure(s) Identified Instrument, Sponge N/A and Sharps Counts Correct/Documented Equipment Problems N/A Documented Specimen Labeled Yes Correctly Urinary Catheter N/A Documented in IView Wound Yes classification reviewed, verified and updated post case in both the General Case Data and Procedure segments Safety Checklist Yes Elements Complete? RN Sign Out Ashley Baeza RN Signature RN Sign Out 05/22/21 14:40:00 Signature Date/Time Plan of Care Outcome - Fire Risk OUTCOME STATEMENT: Goal met Patient is free from injury related to surgical fire Plan of Care Outcome - Pt Positioning OUTCOME STATEMENT: Goal met Absence of signs and symptoms of positioning injury. Plan of Care Outcome - Skin Prep OUTCOME STATEMENT: Goal met Intraoperative care is consistent with measures to prevent infection Plan of Care Outcome - Xray/Images OUTCOME STATEMENT: N/A Absence of observable signs or symptoms of radiation injury Plan of Care Outcome - Counts OUTCOME STATEMENT: N/A Absence of signs and symptoms of injury related to extraneous objects Last Modified By: Ashley Baeza RN 05/22/21 14:39:13 [facility] - Surgical Procedures Entry 1 Entry 2 Entry 3 Procedure Colonoscopy Colon Polypectomy Colon Biopsy Modifiers Additional descending rectal tissue Procedure Description Primary Procedure Yes No No Primary Surgeon CHUCHO JHA, CHUCHO JHA, CHUCHO JHA MD-GAE MD-GAE MD-GAE Start 05/22/21 14:24:00 05/22/21 14:24:00 05/22/21 14:24:00 Stop 05/22/21 14:38:00 05/22/21 14:38:00 05/22/21 14:38:00 Physician States 05/22/21 14:26:00 05/22/21 14:26:00 05/22/21 14:26:00 Cecum Reached Anesthesia Type MAC MAC MAC Specialty Gastroenterology Gastroenterology Gastroenterology Wound Class 2 - Clean-Contaminated 2 - Clean-Contaminated 2 - Clean-Contaminated Last Modified By: Ashley Baeza Edmundson, Stephanie, Edmundson, Stephanie, RN 05/22/21 14:39:22 RN 05/22/21 14:39:22 RN 05/22/21 14:39:22 Entry 4 Procedure Colonoscopy w Control Bleeding Modifiers Additional rectal Procedure Description Primary Procedure No Primary Surgeon CHUCHO JHA MD-GAE Start 05/22/21 14:24:00 Stop 05/22/21 14:38:00 Physician States 05/22/21 14:26:00 Cecum Reached Anesthesia Type MAC Specialty Gastroenterology Wound Class 2 - Clean-Contaminated Last Modified By: Ashley Baeza RN 05/22/21 14:39:22 [facility] - Surgical Procedures Audit 05/22/21 14:39:22 Supportability Engineer: [id number] Modifier: [id number] <+> 1 Stop <+> 2 Stop <+> 3 Stop <+> 4 Stop 05/22/21 14:36:56 Supportability Engineer: [id number] Modifier: [id number] <+> 4 Procedure <+> 4 Primary Procedure <+> 4 Primary Surgeon <+> 4 Specialty <+> 4 Start <+> 4 Wound Class <+> 4 Anesthesia Type <+> 4 Additional Procedure Description <+> 4 Physician States Cecum Reached 05/22/21 14:35:57 Supportability Engineer: [id number] Modifier: [id number] <+> 3 Procedure <+> 3 Primary Procedure <+> 3 Primary Surgeon <+> 3 Specialty <+> 3 Start <+> 3 Wound Class <+> 3 Anesthesia Type <+> 3 Additional Procedure Description <+> 3 Physician States Cecum Reached 05/22/21 14:33:32 Supportability Engineer: [id number] Modifier: [id number] 2 <*> Procedure Colon Biopsy 05/22/21 14:32:39 Supportability Engineer: [id number] Modifier: [id number] <+> 2 Procedure <+> 2 Primary Procedure <+> 2 Primary Surgeon <+> 2 Specialty <+> 2 Start <+> 2 Wound Class <+> 2 Anesthesia Type <+> 2 Additional Procedure Description <+> 2 Physician States Cecum Reached 05/22/21 14:27:13 Supportability Engineer: [id number] Modifier: [id number] 1 <*> Procedure Colonoscopy 1 <+> Specialty 1 <+> Start 1 <+> Wound Class 1 <+> Physician States Cecum Reached [facility] - Time Out Entry 1 Procedure to be Colonoscopy, Colon Performed Polypectomy, Colon Biopsy, Colonoscopy w Control Bleeding Time Out Time Out Pause Time 05/22/21 14:19:00 All activity Yes suspended (unless life threatening emergency) Team Verbally Correct patient Confirms Information identity, Consent form is present and accurate, Agreement on the procedure to be done, Correct patient position Antibiotic N/A Prophylaxis Administered Or In Progress Within the Last 60 Minutes Beta Jameson N/A Administered Venous N/A Thromboembolism Prophylaxis Required Anticipated Critical Events Surgeon None expected Last Modified By: Ashley Baeza RN 05/22/21 14:37:01 [facility] - Time Out Audit 05/22/21 14:37:01 Supportability Engineer: [id number] Modifier: [id number] 1 <*> Procedure to be Performed Colonoscopy, Colon Polypectomy, Colon Biopsy 05/22/21 14:36:05 Supportability Engineer: [id number] Modifier: [id number] 1 <*> Procedure to be Performed Colonoscopy, Colon Polypectomy 05/22/21 14:33:37 Supportability Engineer: [id number] Modifier: [id number] 1 <*> Procedure to be Performed Colonoscopy 05/22/21 14:32:46 Supportability Engineer: [id number] Modifier: [id number] 1 <*> Procedure to be Performed Colonoscopy Case Comments <None> Finalized By: Ashley Baeza RN Document Signatures Signed By: Ashley Baeza RN 05/22/21 14:40 documented in this encounter Plan of Treatment Not on file documented as of this encounter Visit Diagnoses Not on filedocumented in this encounter
--- OUTSIDE RECORDS SUMMARY | 2025-04-01 15:26 | XMS_ITS | Encounter Summary ---
Author Organization [employer] ([place], [place], [place], [place], [place]) Address [address] [place] [address] Care Team Providers Care Edge Burnisher Uppers Name Role Phone Unavailable Primary Care Provider Unavailabl e Encounter Details Date Type Department Care Team (Late st Contact Info) Description 05/22/2021 Transcribed Document [facility] Family Medicine [facility] [place] [address] ProviderRobert MD [address] [place] [address] Social History Tobacco Use Types [...] Conversion Note - Robert ProviderMD - 05/22/2021 2:00 PM WAX BALL MOLDER [facility] PreOp Summary Primary Physician: CHUCHO JHA MD-GAE Finalized Date/Time: 05/22/21 13:50:15 Pt. Name: DIONE IVAN D.O.B./Sex: 1940 Female Med Rec #: [id number] Physician: CHUCHO JHA MD-GAE Financial #: [id number] Pt. Type: E Room/Bed: N/3 Admit/Disch: 05/22/21 12:59:00 - Institution: [facility] PreOp Case Times Entry 1 In Preop 05/22/21 13:15:00 Ready for Holding 05/22/21 13:47:00 Room Patient Ready for 05/22/21 13:47:00 Surgery Patient Out of Preop 05/22/21 13:47:00 Patient Out of n/a Holding Room [facility] PreOp Case Times Audit 05/22/21 13:47:44 Air Sealing Technician: [id number] Modifier: [id number] <+> 1 Patient Out of Preop <+> 1 Patient Ready for Surgery <+> 1 Ready for Holding Room Finalized By: Amber Briscoe Rn Document Signatures Signed By: Amber Briscoe Rn 05/22/21 13:50 documented in this encounter Plan of Treatment Not on file documented as of this encounter Visit Diagnoses Not on filedocumented in this encounter
--- OUTSIDE RECORDS SUMMARY | 2025-04-01 15:26 | XMS_ITS | Encounter Summary ---
Author Organization [facility] Address [address] [place] [address] Care Team Providers Care Track Superintendent Name Role Phone Goran Hernández MD Primary Care Provider [phone] Encounter Details Date Type Department Care Team (Late st Contact Info) Description 07/22/2013 Conversion Encounter [facility] HISTORICAL CONV [address] [place] [address] Interface, See Report Social History Tobacco Use Types Packs/Day Years Used Date Smoking Tobacco: Never Assessed Comments Unknown Sex and Gender Information Value Date Recorded Sex Assigned at Not on file Legal Sex Female 10:39 AM EDT Gender Identity Not on file Sexual Orientation Not on file documented as of this encounter Discharge Summaries * Interface, See Report - 07/22/2013 6:22 AM EST [place] [address] DISCHARGE SUMMARY PATIENT NAME: DIONE IVAN [address] [facility] NO: [id number] DATE OF : 1940 DATE OF ADMISSION: 07/22/2013 DATE OF DISCHARGE: 07/24/2013 ATTENDING PHYSICIAN: Genna Tristan MD STORE ASSISTANT: Jeremy Chand MD, Cardiology FINAL DIAGNOSES: 1. Type III paraesophageal hernia. 2. 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 3. Hypertension. 4. Madelyn thyroiditis. OPERATIVE PROCEDURES: 1. Laparoscopic paraesophageal hernia repair with mesh. 2. Augusto fundoplication. 3. EGD with PEG placement. BRIEF HISTORY: The patient is well known to our service. She is a 73-year-old female with a history of a large type III paraesophageal hernia. With complete preoperative work up she was deemed an operative candidate. The risks and benefits of the operation were discussed at length with the patient and her family and they agreed to proceed. HOSPITAL COURSE: The patient came in as an outpatient and underwent the operative procedure, and was transferred to the floor postoperatively. She initially did well but had development of sinus tachycardia in the 120s to 130s. This was controlled with beta blockade. Subsequent cardiac enzymes demonstrated no evidence of VT, and a cardiology consult was obtained with the patient's usual women's health care nurse practitioner, Dr. Chand, who concurred that this was likely sinus tachycardia reactive to recent operation. A Gastrografin swallow also confirmed no leak and she remained otherwise well. Her heart rate was controlled and she was transferred to the telemetry floor. Her pain was initially controlled on intravenous paced WELL LOGGING OPERATOR MUD ANALYSIS and then transitioned to oral pain medication. She was begun on a postfundoplication diet and was instructed on dietary teaching by the dehydrogenation converter operator. She continued to improve. WELL LOGGING OPERATOR MUD ANALYSIS was weaned off. Her heart rate remained normal. She was ready for discharge home on 07/24/2013. At the time of discharge, the patient was tolerating a postfundoplication liquid diet without difficulty. She is having normal bowel and bladder function. Her incisions as well as her PEG tube remains clean, dry and intact. She is saturating approximately 87% on room air and so she has been started on home oxygen with 2 liters nasal cannula at all times. We anticipate this to be weaned off within the next month and is likely postoperative and expected. She is ambulating under her own power and otherwise doing well. Her laboratory exam was stable and normal. Her hemoglobin is normal as is the white count. She is no evidence of significant complication. DISCHARGE MEDICATIONS: 1. Roxicet elixir 5 to 10 mg p.o. q.4-6 h. as needed for pain. 2. Colace elixir 100 mg p.o. b.i.d. 3. Phenergan elixir 12.5 mg p.o. q.6 h. need for nausea. DISCHARGE INSTRUCTIONS: 1. Patient instructed to follow-up with Dr. Tristan in 4 weeks' time. 2. She is to refrain from lifting more than 15 or 20 pounds until return to clinic. 3. She is to flush her PEG twice daily with 16 mL of water to keep it patent. 4. If she has worsening nausea or vomiting uncontrolled with medication, she is to place her PEG tube to gravity for 30 minutes then reclamp it. She has been instructed on these factors both by the physician of record as well as the nursing staff. She and her voiced understanding of these instructions. 5. She is to follow up with Dr. Chand in the [place] office in approximately 6 weeks. 6. She is to continue on her Bystolic 5 mg p.o. daily as well. 7. She understands and is willing to proceed. Genna Tristan MD* MDS/rxdrs Voice Rec. ID #[id number] Voice Original ID #[id number] Doc ID #[id number] Genna Tristan MD* Jeremy Chand MD* DO NOT TEXT EDIT THIS LINE :CDS:[id number]: Authenticated by GENNA TRISTAN MD On 07/29/2013 07:52:57 AM documented in this encounter OR Notes * Op Note - Interface, See Report - 07/22/2013 6:22 AM EST [place] [address] OPERATIVE REPORT PATIENT NAME: DIONE IVAN 8 [facility] NO: [id number] DATE OF : 1940 DATE OF OPERATION: 07/22/2013 ADMITTING PHYSICIAN: Genna Tristan MD PREOPERATIVE DIAGNOSIS: Paraesophageal hernia. POSTOPERATIVE DIAGNOSIS: Same. PROCEDURE PERFORMED: Upper endoscopy with percutaneous gastrostomy tube placement. SURGEON: Betina Griffith MD ROLL EXAMINER: Genna Tristan MD. Dr. Tristan also performed a laparoscopic paraesophageal hernia repair with Augusto fundoplication. FLUIDS: Ongoing. ESTIMATED BLOOD LOSS: Minimal. INDICATIONS FOR PROCEDURE: The patient is a 73-year-old lady with a symptomatic paraesophageal hernia requiring repair and percutaneous gastrostomy tube placement. DESCRIPTION OF PROCEDURE: The patient was in the supine position asleep. I introduced our Olympus endoscope through the oropharynx into the esophagus under direct visualization. We traversed the esophagus down to the GE junction. The GE junction appeared intraluminally to be intact. The Z line appeared to be located within the Augusto fundoplication. This blew open nicely. We advanced the scope into the gastric lumen and retroflexed this. The wrap had a good intragastric appearance. At this point, the stomach was maximally insufflated. The snare was placed through the endoscope. The introducer needle was seen intragastrically and snared. Through this sheath, we placed our wire in order to place a pull PEG. The wire was then ensnared and brought out the patient's mouth. We attached our PEG in a pull fashion and this was placed intragastrically. We reintroduced the scope. There was no evidence of bleeding from an intragastric standpoint around the PEG. The gastric lumen was desufflated and the scope was withdrawn. The patient tolerated this portion of the procedure well. Betina Griffith MD* RDB/rxcbp Voice Rec. ID #[id number] Original Voice Rec. ID #[id number] Doc ID #[id number] Revision Count: 0 cc: Betina Griffith MD* <start header> [place] [address] OPERATIVE REPORT PATIENT NAME: DIONE IVAN [address] [place] [address] NO: [id number] DATE OF : 1940 <end header> DO NOT TEXT EDIT THIS LINE :MAINTENANCE DATA ANALYST:[id number]: Authenticated by Marbin GRIFFITH MD On 07/29/2013 12:12:33 PM * Op Note - Interface, See Report - 07/22/2013 6:22 AM EST [place] [address] OPERATIVE REPORT PATIENT NAME: DIONE IVAN [address] [place] [address] NO: [id number] DATE OF : 1940 DATE OF OPERATION: 07/22/2013 ADMITTING PHYSICIAN/SURGEON: Genna Tristan MD ROLL EXAMINER: Juan Griffith MD PREOPERATIVE DIAGNOSIS: Type III paraesophageal hernia. POSTOPERATIVE DIAGNOSIS: Type III paraesophageal hernia. PROCEDURES PERFORMED: 1. Laparoscopic paraesophageal hernia repair with mesh, Augusto fundoplication. 2. Esophagogastroduodenoscopy with percutaneous endoscopic gastrostomy placement. SPECIMENS: Hernia sac. ANESTHESIA: General. ROLL EXAMINER SURGEON'S RESPONSIBILITIES: Dr. Griffith assisted in retraction and visualization of structures, as well as performing the EGD/PEG. FINDINGS: 1. Type III paraesophageal hernia completely repaired and reduced. 2. Posterior hiatal cruraplasty was performed using interrupted pledgeted silk sutures and reinforced with Lily BIO-A mesh cut in a U-shaped fashion and placed posteriorly. 3. 360' Augusto fundoplication around a 56 Solomon Islander bougie, performed with silk sutures. 4. A 20 [place] Islander PEG tube was placed with the skin at the 5 cm level. INDICATIONS FOR PROCEDURE: The patient is a 73-year-old female with a history of type III paraesophageal hernia that is quite symptomatic. The risks and benefits of the operation were discussed at length with the patient and her family and, after an appropriate preoperative work-up, she agreed to proceed. DESCRIPTION OF PROCEDURE: After obtaining informed consent, the patient was taken to the operating room and placed in the supine position. After appropriate DVT and antibiotic prophylaxis, general anesthesia was induced. The abdomen was prepped and draped in standard sterile fashion. After infiltrating the skin with local anesthetic, a transverse 12 mm skin incision was made approximately 10 cm from the xiphoid process along the left costal margin. An optically-guided trocar was advanced without difficulty into the abdominal cavity. The abdomen was insufflated with carbon dioxide gas to a pressure of 15 mmHg. At this point, the laparoscope was advanced through the trocar and the abdominal contents inspected. There was no evidence of bowel, bladder, or visceral injury with entrance of the trocar. At this point, after infiltrating the appropriate areas with local anesthetic, a standard laparoscopic Augusto fundoplication port schema was followed. There were some adhesions of omentum to the falciform ligament taken down using ultrasonic dissection only. A liver retractor was brought into the field to retract the liver anteriorly. The greater curvature of the stomach was then mobilized using ultrasonic dissection, up to and including the left dre. The left dre was scored and from the 6 o'clock to the 12 o'clock position, blunt dissection was carried into the mediastinum. The left pleural space was identified and spared. The pars flaccida was then divided superior and inferior to the hepatic branch of the vagus nerve, which was spared throughout the procedure. The anterior surface of the right dre was then scored using blunt dissection and a retroesophageal window was carried over to the left side. A [place] was placed within it and used to encircle the GE junction. At this point, a 360' mobilization of the GE junction from the hiatus was performed using blunt, ultrasonic, and electrocautery dissection. It was carried into the mediastinum circumferentially. The anterior, posterior, and vagus nerves were identified and spared. The right and left pleural spaces were identified and spared. The dissection was carried up to the level of the aortic arch. The hernia sac was then completely reduced. The hernia sac was divided off of the stomach using ultrasonic dissection. A small injury to the serosa was made during this. It was clearly identified at the level of the GE junction. It was not full-thickness, and it was oversewn in Lembert fashion using a silk suture. The hernia sac was then passed off as specimen. A posterior hiatal crura plasty was performed using interrupted pledgeted 0 silk suture. This produced a snug, but not overly tight closure of the hiatus around the esophagus. A piece of Lily BIO-A mesh was then cut in a U-shaped fashion and placed posteriorly and tacked to the diaphragm using silk sutures. The humidifier maintenance worker advanced an orogastric tube into the mouth and through the esophagus and into the stomach. The inflatable bougie was inflated with saline to a 56-Sol[place] Islander size. A 360' Augusto fundoplication was performed posteriorly around the bougie at the level of the GE junction. This completely enveloped, incidentally, the previous serosal repair to add additional buttress. At the completion of the fundoplication, the bougie was deflated and removed from the patient's mouth, it was complete and discarded. The Arabella drain was then removed. Dr. Griffith advanced the endoscope through the mouth and through the esophagus without difficulty. It was advanced to the level of the GE junction. This was intact with no evidence of full thickness injury and the fundoplication was at the level of the GE junction. The scope was passed into the stomach and under maximal insufflation, a retroflexed view of the GE junction was obtained. This demonstrated an excellent stack of coins appearance with good apposition of the GE junction to the scope. There was no full thickness injury, no bleeding, and there was no air leak noted laparoscopically. At this point, an appropriate site for PEG placement was determined and, after infiltrating the skin with local anesthetic, a transverse 7 mm skin incision was made. A needle was advanced through this incision into the stomach under endoscopic guidance. A guidewire was placed through needle, grasped with the endoscope, and brought out through the mouth. At this point, using the Ponsky pull technique, a 20-Sol[place] Islander PEG tube was brought through abdominal wall in this location. The endoscope was then advanced back through the mouth and through the esophagus without difficulty. It was advanced to the stomach, where the PEG bumper could be seen abutting the anterior gastric wall in standard fashion without evidence of bleeding. The scope was used to desufflate the stomach and was removed from the patient's mouth without difficulty. The liver retractor was then removed and all trocars were removed under direct and laparoscopic visualization. The abdomen was desufflated. The wound was copiously irrigated with normal saline until clear and closed in each area using running subcuticular sutures. The PEG tube was secured with the skin at the 4.5 cm level and the bumper at the 5 cm level. It was sutured to the skin and dressed in standard sterile fashion and placed to gravity drainage. The incisions were dressed in standard sterile fashion and covered with a dry, sterile dressing. The patient recovered from anesthesia well, was extubated in the Operating Room, and transported to the PACU in stable condition. All sponge and needle counts were correct x2 at the completion of the case. Genna Tristan MD* TYSON/christiano Voice Rec. ID #[id number] Original Voice Rec. ID #[id number] Doc ID #[id number] Revision Count: 0 cc: Genna Tristan MD* <start header> [address] [address] OPERATIVE REPORT PATIENT NAME: DIONE IVAN0 [address] [facility] NO: [id number] DATE OF : 1940 <end header> DO NOT TEXT EDIT THIS LINE :MAINTENANCE DATA ANALYST:[id number]: Authenticated by GENNA TRISTAN MD On 07/29/2013 07:52:56 AM documented in this encounter Plan of Treatment Not on file documented as of this encounter Procedures Procedure Name Priority Date/Time Associated Diagnosis Comments CK MB Routine 07/24/2013 3:00 AM EST TROPONIN Routine 07/24/2013 3:00 AM EST CBC (NO DIFF) Routine 07/24/2013 3:00 AM EST CK Routine 07/24/2013 3:00 AM EST BASIC METABOLIC PANEL Routine 07/24/2013 3:00 AM EST CK MB Routine 07/23/2013 5:56 PM EST TROPONIN Routine 07/23/2013 5:56 PM EST CK Routine 07/23/2013 5:56 PM EST CK MB Routine 07/23/2013 9:40 AM EST TROPONIN Routine 07/23/2013 9:40 AM EST CK Routine 07/23/2013 9:40 AM EST T3, UPTAKE Routine 07/23/2013 1:52 AM EST TSH Routine 07/23/2013 1:52 AM EST T4 Routine 07/23/2013 1:52 AM EST BASIC METABOLIC PANEL Routine 07/23/2013 1:52 AM EST CBC (NO DIFF) Routine 07/23/2013 1:49 AM EST CK MB Routine 07/23/2013 1:40 AM EST TROPONIN Routine 07/23/2013 1:40 AM EST CK Routine 07/23/2013 1:40 AM EST CK MB Routine 07/22/2013 6:23 PM EST TROPONIN Routine 07/22/2013 6:23 PM EST CK Routine 07/22/2013 6:23 PM EST FL ESOPHAGRAM SINGLE CONTRAST Routine 07/22/2013 3:49 PM EST CONVERTED (HISTORICAL) SURGICAL PATHOLOGY Routine 07/22/2013 6:22 AM EST SCANNED EKG 07/22/2013 XR CHEST PA AND LATERAL Routine 07/21/2013 2:54 PM EST PROTIME-INR Routine 07/21/2013 1:44 PM EST CBC (NO DIFF) Routine 07/21/2013 1:44 PM EST BASIC METABOLIC PANEL Routine 07/21/2013 1:44 PM EST documented in this encounter Results * (ABNORMAL) Basic metabolic panel (07/24/2013 3:00 AM EST) Glucose 89 70 - 100 mg/dL [facility] BUN 9 6 - 20 mg/dL [facility] Creatinine 0.9 0.6 - 1.3 mg/dL [facility] Sodium 145 136 - 145 mmol/L [facility] Potassium 4.0 3.4 - 5.4 mmol/L [facility] Chloride 102 98 - 107 mmol/L [facility] CO2 34(H) 20 - 31 mmol/L [facility] Calcium 8.8 8.7 - 10.4 mg/dL [facility] eGFR Unable to Calculate ml/min/1. 732 [facility] Comment: DF by IF @ 07/24/2013 04:26 [employer] Guidelines Stage Description GFR 1 Normal or High 90+ 2 Mild decrease 60-89 3 Moderate decrease 30-59 4 Severe decrease 15-29 5 Kidney failure <15 Anion Gap 9 3 - 11 mmol/L [facility] Blood specimen (specimen) 07/24/2013 3:00 AM EST [facility] - 07/24/2013 4:26 AM EST Specimen Type: Blood us Genna Tristan MD LAB BLOOD ORDERABLES Final Re sult Performing Organization Address [facility] de Phone Number [facility] [address] [place] [address], * CK (07/24/2013 3:00 AM EST) Creatine Kinase 88 26 - 174 Units/L [facility] Blood specimen (specimen) 07/24/2013 3:00 AM EST [facility] - 07/24/2013 4:26 AM EST Specimen Type: Blood us Genna Tristan MD LAB BLOOD ORDERABLES Final Re sult Performing Organization Address [facility] Co de Phone Number [facility] [address] [place] [address], * Troponin (07/24/2013 3:00 AM EST) Troponin I 0.06 0.00 - 0.60 ng/mL [facility] Blood specimen (specimen) 07/24/2013 3:00 AM EST [facility] - 07/24/2013 4:26 AM EST Specimen Type: Blood us Genna Tristan MD LAB BLOOD ORDERABLES Final Re sult Performing Organization Address City/[facility]/ZIP Co de Phone Number [facility] [address] [place] [address], * CK MB (07/24/2013 3:00 AM EST) CKMB 1.8 0.0 - 4.9 ng/mL [facility] Blood specimen (specimen) 07/24/2013 3:00 AM EST [facility] - 07/24/2013 4:26 AM EST Specimen Type: Blood Genna Tristan MD LAB BLOOD ORDERABLES Final Re sult Performing Organization Address City/[facility] [place] [address], * (ABNORMAL) CBC (No diff) (07/24/2013 3:00 AM EST) WBC 7.74 3.50 - 10.80 K[facility] RBC 4.04 3.89 - 5.14 M/[facility] Hemoglobin 11.1(L) 11.5 - 15.5 g/dL [facility] Hematocrit 36.3 34.5 - 44.0 % [facility] MCV 89.9 80.0 - 99.0 fL [facility] MCH 27.5 27.0 - 31.0 pg [facility] MCHC 30.6(L) 32.0 - 36.0 g/dL [facility] RDW-CV 14.7(H) 11.3 - 14.5 % [facility] Platelets 244 150 - 450 [facility] Blood specimen (specimen) 07/24/2013 3:00 AM EST [facility] - 07/24/2013 3:51 AM EST Specimen Type: Blood Genna Tristan MD LAB BLOOD ORDERABLES Final Re sult Performing Organization Address [facility]/ZIP Co de Phone Number [facility] [address] [place] [address], * CK (07/23/2013 5:56 PM EST) Creatine Kinase 109 26 - 174 Units/L [facility] Blood specimen (specimen) 07/23/2013 5:56 PM EST [facility] - 07/23/2013 6:29 PM EST Specimen Type: Blood Genna Tristan MD LAB BLOOD ORDERABLES Final Re sult Performing Organization Address [facility] Co de Phone Number [facility] [address] [place] [address], * Troponin (07/23/2013 5:56 PM EST) Troponin I 0.06 0.00 - 0.60 ng/mL [facility] Blood specimen (specimen) 07/23/2013 5:56 PM EST [facility] - 07/23/2013 6:29 PM EST Specimen Type: Blood Genna Tristan MD LAB BLOOD ORDERABLES Final Re sult Performing Organization Address [facility] Co de Phone Number [facility] [address] [place] [address], * CK MB (07/23/2013 5:56 PM EST) CKMB 2.6 0.0 - 4.9 ng/mL [facility] Blood specimen (specimen) 07/23/2013 5:56 PM EST [facility] - 07/23/2013 6:29 PM EST Specimen Type: Blood Genna Tristan MD LAB BLOOD ORDERABLES Final Re sult Performing Organization Address [facility] Co de Phone Number [facility] [address] [place] [address], * CK (07/23/2013 9:40 AM EST) Creatine Kinase 101 26 - 174 Units/L [facility] Blood specimen (specimen) 07/23/2013 9:40 AM EST [facility] - 07/23/2013 10:36 AM EST Specimen Type: Blood Genna Tristan MD LAB BLOOD ORDERABLES Final Re sult Performing Organization Address [facility] de Phone Number [facility] [address] [place] [address], * Troponin (07/23/2013 9:40 AM EST) Troponin I 0.09 0.00 - 0.60 ng/mL [facility] Blood specimen (specimen) 07/23/2013 9:40 AM EST [facility] - 07/23/2013 10:36 AM EST Specimen Type: Blood Genna Tristan MD LAB BLOOD ORDERABLES Final Re sult Performing Organization Address [facility] de Phone Number [facility] [address] [place] [address], * CK MB (07/23/2013 9:40 AM EST) CKMB 3.1 0.0 - 4.9 ng/mL [facility] Blood specimen (specimen) 07/23/2013 9:40 AM EST [facility] - 07/23/2013 10:36 AM EST Specimen Type: Blood Genna Tristan MD LAB BLOOD ORDERABLES Final Re sult Performing Organization Address [facility]/ZIP Co de Phone Number [facility] [address] [place] [address], * (ABNORMAL) T3, uptake (07/23/2013 1:52 AM EST) T3 Uptake 44.1(H) 23.0 - 37.0 % [facility] Free Thyroxine Index 3.0 1.4 - 5.2 [facility] Blood specimen (specimen) 07/23/2013 1:52 AM EST [facility] - 07/23/2013 9:10 AM EST Specimen Type: Blood Historical Provider MD LAB BLOOD ORDERABLES Nancy l Result Performing Organization Address [facility]/[place] [address], * T4 (07/23/2013 1:52 AM EST) Pathologist [facility] T4, Total 6.9 4.7 - 11.4 mcg/dL [facility] Blood specimen (specimen) 07/23/2013 1:52 AM EST [facility] - 07/23/2013 9:10 AM EST Specimen Type: Blood Historical Provider MD LAB BLOOD ORDERABLES Nancy l Result Performing Organization Address City/[facility]/ZIP Co de Phone Number [facility] [address] [place] [address], * (ABNORMAL) TSH (07/23/2013 1:52 AM EST) TSH, High Sensitivity 0.124(L) 0.350 - 5.350 UIU/mL [facility] Blood specimen (specimen) 07/23/2013 1:52 AM EST [facility] LABORATORY - 07/23/2013 9:10 AM EST Specimen Type: Blood us Historical Provider LAB BLOOD ORDERABLES Nancy l Result [facility] [address] [place] [address], * (ABNORMAL) Basic metabolic panel (07/23/2013 1:52 AM EST) Glucose 110(H) 70 - 100 mg/dL [facility] BUN 10 6 - 20 mg/dL [facility] Creatinine 0.8 0.6 - 1.3 mg/dL [facility] Sodium 136 136 - 145 mmol/L [facility] Potassium 3.9 3.4 - 5.4 mmol/L [facility] Chloride 100 98 - 107 mmol/L [facility] CO2 28 20 - 31 mmol/L [facility] Calcium 8.6(L) 8.7 - 10.4 mg/dL [facility] eGFR Unable to Calculate ml/min/1. 732 [facility] Comment: DF by IF @ 07/23/2013 02:45 [employer] Guidelines Stage Description GFR 1 Normal or High 90+ 2 Mild decrease 60-89 3 Moderate decrease 30-59 4 Severe decrease 15-29 5 Kidney failure <15 Anion Gap 8 3 - 11 mmol/L [facility] Blood specimen (specimen) 07/23/2013 1:52 AM EST Narrative [facility] - 07/23/2013 2:45 AM EST Specimen Type: Blood us Historical Provider LAB BLOOD ORDERABLES Nancy l Result [facility] [address] [place] [address], * (ABNORMAL) CBC (No diff) (07/23/2013 1:49 AM EST) WBC 9.74 3.50 - 10.80 K/[facility] RBC 3.81(L) 3.89 - 5.14 M/[facility] Hemoglobin 10.8(L) 11.5 - 15.5 g/dL [facility] Hematocrit 32.9(L) 34.5 - 44.0 % [facility] MCV 86.4 80.0 - 99.0 fL [facility] MCH 28.3 27.0 - 31.0 pg [facility] MCHC 32.8 32.0 - 36.0 g/dL [facility] RDW-CV 14.2 11.3 - 14.5 % [facility] Platelets 220 150 - 450 K/[facility] Blood specimen (specimen) 07/23/2013 1:49 AM EST [facility] LABORATORY - 07/23/2013 1:59 AM EST Specimen Type: Blood Collected Changed From 07/23/2013 06:00 To 07/23/2013 01:49 Genna Tristan MD LAB BLOOD ORDERABLES Final Re sult Performing Organization Address [facility] [place] [address], * CK (07/23/2013 1:40 AM EST) Creatine Kinase 106 26 - 174 Units/L [facility] Blood specimen (specimen) 07/23/2013 1:40 AM EST [facility] LABORATORY - 07/23/2013 2:45 AM EST Specimen Type: Blood Genna Tristan MD LAB BLOOD ORDERABLES Final Re sult Performing Organization Address [facility] [place] [address], * Troponin (07/23/2013 1:40 AM EST) Troponin I 0.07 0.00 - 0.60 ng/mL [facility] Blood specimen (specimen) 07/23/2013 1:40 AM EST [facility]OR[facility] - 07/23/2013 2:45 AM EST Specimen Type: Blood Genna Tristan MD LAB BLOOD ORDERABLES Final Re sult Performing Organization Address [facility]/ZIP Co de Phone Number [facility] [address] [place] [address], * CK MB (07/23/2013 1:40 AM EST) CKMB 3.3 0.0 - 4.9 ng/mL [facility] Blood specimen (specimen) 07/23/2013 1:40 AM EST [facility] - 07/23/2013 2:45 AM EST Specimen Type: Blood Genna Tristan MD LAB BLOOD ORDERABLES Final Re sult Performing Organization Address [facility] Co de Phone Number [facility] [address] [place] [address], [place] [phone] * CK (07/22/2013 6:23 PM EST) Creatine Kinase 101 26 - 174 Units/L [facility] Blood specimen (specimen) 07/22/2013 6:23 PM EST [facility] - 07/22/2013 7:30 PM EST Specimen Type: Blood Genna Tristan MD LAB BLOOD ORDERABLES Final Re sult Performing Organization Address [facility] Co de Phone Number [facility] [address] [place] [address], * Troponin (07/22/2013 6:23 PM EST) Troponin I <0.01 0.00 - 0.60 ng/mL [facility] Blood specimen (specimen) 07/22/2013 6:23 PM EST Narrative [facility] - 07/22/2013 7:30 PM EST Specimen Type: Blood us Genna Tristan MD LAB BLOOD ORDERABLES Final Re sult Performing Organization Address [facility] Co de Phone Number [facility] [address] [place] [address], * (ABNORMAL) CK MB (07/22/2013 6:23 PM EST) CKMB 4.0 0.0 - 4.9 ng/mL [facility] CK-MB Index 4.0(H) 0.0 - 2.5 [facility] Blood specimen (specimen) 07/22/2013 6:23 PM EST Narrative [facility] - 07/22/2013 7:30 PM EST Specimen Type: Blood Genna Tristan MD LAB BLOOD ORDERABLES Final Re sult Performing Organization Address [facility] de Phone Number [facility] [address] [place] [address], [place] [phone] * FL ESOPHAGRAM COMPLETE (07/22/2013 3:49 PM EST) Anatomical Region Laterality Modality Head and Neck N/A Radiographic Sanjuana ging 07/22/2013 3:49 PM EST Narrative 07/22/2013 7:29 PM EST HISTORY: Para esophageal hernia repair, evaluate for leak. GASTROGRAFIN SWALLOW FINDINGS: Preliminary attendant coin operated laundry film shows multiple clips in the upper abdomen, and a percutaneous feeding tube. The bowel gas pattern is considered within normal limits. The patient is able to swallow a normal volume of contrast. The esophagus appears normal along its length. No mucosal irregularity is identified. There is expected smooth narrowing at the level of the esophageal repair. Minimal diameter of the channel is approximately 5 mm, margins of the repair are all smooth. No extravasation of contrast is seen. No significant delay in passage of contrast from the esophagus into the stomach is seen. The stomach is seen to empty normally into normal-appearing duodenum. 2 minutes and 33 seconds of fluoroscopy time was used for the study. IMPRESSION- Normal post-op Gastrografin swallow. No evidence of leak or significant obstruction. DICTATED: 07/22/13 EDITED: 07/22/13 Elva MCRAE Releasing Monse MCRAE Released Date Time07/22/132299 Procedure Note Mikael Jorge MD - 02/21/2015 HISTORY: Para esophageal hernia repair, evaluate for leak. GASTROGRAFIN SWALLOW FINDINGS: Preliminary attendant coin operated laundry film shows multiple clips in the upper abdomen, and a percutaneous feeding tube. The bowel gas pattern is considered within normal limits. The patient is able to swallow a normal volume of contrast. The esophagus appears normal along its length. No mucosal irregularity is identified. There is expected smooth narrowing at the level of the esophageal repair. Minimal diameter of the channel is approximately 5 mm, margins of the repair are all smooth. No extravasation of contrast is seen. No significant delay in passage of contrast from the esophagus into the stomach is seen. The stomach is seen to empty normally into normal-appearing duodenum. 2 minutes and 33 seconds of fluoroscopy time was used for the study. IMPRESSION- Normal post-op Gastrografin swallow. No evidence of leak or significant obstruction. DICTATED: 07/22/13 EDITED: 07/22/13 Elva MCRAE Releasing Monse MCRAE Released Date Time07/22/132299 Genna Tristan MD IMG FLUOROSCOPY ORDERABLES Fi nal Result * Converted Surgical Pathology (07/22/2013 6:22 AM EST) 07/22/2013 6:22 AM EST Narrative [facility] - 07/23/2013 2:56 PM EST [facility] [address] [place] [address] SURGICAL PATHOLOGY REPORT Patient Name: DIONE IVAN MR#: [id number] : 1940 Gender: F Ordering Physician: GENNA TRISTAN Copy To: Location: [address] [place] [address] Collected: 07/22/2013 Received: 07/22/2013 Reported: 07/23/2013 Clinical Diagnosis and History The working history is GERD. Final Diagnosis SOFT TISSUE FROM PARAESOPHAGEAL REGION: Hernia sac. [facility] [place] Amendments: Electronically Signed Out By Monty Del Real M.D. Specimen(s) Received: Hernia sac Gross Description Received in formalin labeled hernia sac consists of a 3.0x3.0x2.8 cm portion of ferreira/pink fibrofatty soft tissue from which a indirect sales representative section is submitted in one cassette. [facility] [place] Microscopic Description Sections show focally mesothelium lined fibrovascular connective tissue with a benign lymphoid nodule. There is no evidence of neoplasm. J/mbc Procedures/Addenda us See Report Interface PATHOLOGY/CYTOLOGY ORDERABL ES Final Result [facility] [address] [place] [address], * SCANNED EKG (07/22/2013) [facility] Onbase ECG ORDERABLES Final Result * X-RAY CHEST PA AND LATERAL (07/21/2013 2:54 PM EST) Anatomical Region Laterality Modality Body, Chest N/A Radiographic Sanjuana ging 07/21/2013 2:54 PM EST Narrative 07/21/2013 9:36 PM EST PA AND LATERAL CHEST INDICATION: Shortness of air, esophageal . FINDINGS: Wire sternal sutures are manifestations of bypass surgery. The heart size is normal. There is no pneumothorax or effusion. The osseous structures are normal. IMPRESSION- No acute cardiopulmonary disease. DICTATED: 07/21/13 EDITED: 07/21/13 Elva GOMEZ Releasing Monse GOMEZ Released Date Time- 07/22/13 0746 Procedure Note Cam Rojo MD - 02/21/2015 PA AND LATERAL CHEST INDICATION: Shortness of air, esophageal . FINDINGS: Wire sternal sutures are manifestations of bypass surgery. The heart size is normal. There is no pneumothorax or effusion. The osseous structures are normal. IMPRESSION- No acute cardiopulmonary disease. DICTATED: 07/21/13 EDITED: 07/21/13 Elva GOMEZ Releasing Monse GOMEZ Released Date Time- 07/22/13 0746 us Genna Tristan MD IMG DIAGNOSTIC IMAGING ORDERA BLES Final Result * Protime-INR (07/21/2013 1:44 PM EST) Protime 11.4 9.6 - 11.5 Seconds [facility] INR 1.06 [facility] Comment: US by IF @ 07/21/2013 14:05 Therapeutic Ranges for INR: 2.0-3.0 (PT 20-30) 2.5-3.5 (PT 25-34) Blood specimen (specimen) 07/21/2013 1:44 PM EST Narrative [facility] - 07/21/2013 2:05 PM EST Specimen Type: Blood Genna Tristan MD LAB BLOOD ORDERABLES Final Re sult Performing Organization Address [facility] Co de Phone Number [facility] [address] [place] [address], * (ABNORMAL) Basic metabolic panel (07/21/2013 1:44 PM EST) Glucose 96 70 - 100 mg/dL [facility] BUN 12 6 - 20 mg/dL [facility] Creatinine 1.2 0.6 - 1.3 mg/dL [facility] Sodium 140 136 - 145 mmol/L [facility] Potassium 4.3 3.4 - 5.4 mmol/L [facility] Chloride 104 98 - 107 mmol/L [facility] CO2 30 20 - 31 mmol/L [facility] Calcium 8.6(L) 8.7 - 10.4 mg/dL [facility] eGFR Unable to Calculate ml/min/1. 732 [facility] Comment: DF by IF @ 07/21/2013 14:09 National Kid[employer] Guidelines Stage Description GFR 1 Normal or High 90+ 2 Mild decrease 60-89 3 Moderate decrease 30-59 4 Severe decrease 15-29 5 Kidney failure <15 Anion Gap 6 3 - 11 mmol/L [facility] Blood specimen (specimen) 07/21/2013 1:44 PM EST Narrative [facility] - 07/21/2013 2:09 PM EST Specimen Type: Blood Genna Tristan MD LAB BLOOD ORDERABLES Final Re sult Performing Organization Address [facility]/ZIP Co de Phone Number [facility] [address] [place] [address], * (ABNORMAL) CBC (No diff) (07/21/2013 1:44 PM EST) WBC 6.48 3.50 - 10.80 K/[facility] RBC 4.37 3.89 - 5.14 M/[facility] Hemoglobin 12.2 11.5 - 15.5 g/dL [facility] Hematocrit 38.3 34.5 - 44.0 % [facility] MCV 87.6 80.0 - 99.0 fL [facility] MCH 27.9 27.0 - 31.0 pg [facility] MCHC 31.9(L) 32.0 - 36.0 g/dL [facility] RDW-CV 14.3 11.3 - 14.5 % [facility] Platelets 260 150 - 450 K/[facility] Blood specimen (specimen) 07/21/2013 1:44 PM EST Narrative [facility] - 07/21/2013 2:01 PM EST Specimen Type: Blood us Genna Tristan MD LAB BLOOD ORDERABLES Final Re sult Performing Organization Address City/State/[facility] [place] [address], documented in this encounter Visit Diagnoses Not on filedocumented in this encounter Additional Health Concerns Infection Onset Date Last Indicated Resolved Time COVID Screen (preop/placement) 03/19/2020 03/19/2020 03/20/2020 11:33 AM EDT documented as of this encounter Care Teams Track Superintendent Relationship Specialty Start Date End Date Goran Hernández MD [address] [place] [address] PCP - General 01/12/15 documented as of this encounter
--- OUTSIDE RECORDS SUMMARY | 2025-04-01 15:26 | XMS_ITS | Encounter Summary ---
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 Colonoscopy Procedure Report: Colonoscopy with cold snare polypectomy and APC ablation Endoscopist: Chucho Weinberg II, MD Referring physician: Brandin Hernández MD Date of Procedure: May 22, 2021 Equipment: Olympus PCF 190 variable stiffness pediatric colonoscope Sedation: MAC sedation Indication: Mrs. Ivan is an 80-year-old female with a recent change in bowel habits. The patient also was having some lower abdominal discomfort. She reported thin, small caliber stools. She also reported some rectal discomfort but no rectal bleeding. She was having incomplete bowel evacuation. The patient did have a CT scan of the abdomen and pelvis that showed concentric thickening of the lower rectum and anal area with mild haziness. There was a moderate amount of retained stool. The patient does state that her mother had colon cancer at the age of 68. The patient did have routine colonoscopies. She did have a more advanced larger rectal polyp in the past that was removed in piecemeal and over several colonoscopies by Dr. Monty Lee. Her last colonoscopy was in 2013 (Dr. Tao Love) at the time of her hiatal hernia repair (Dr. Robert Ventura) at [facility]. She reports no rectal bleeding or weight loss. Procedure: Prior to the procedure a history and physical examination was performed. The patient's medications and allergies were reviewed. The risks, benefits and alternatives of the sedation and procedure were discussed with the patient. All questions were answered and informed consent was obtained. The patient was brought to the procedure room. Patient identification and proposed procedure were verified by the physician and the nurse. The patient was placed in a left lateral decubitus position endoscope was passed under direct vision. Throughout the procedure the patient's blood pressure, pulse and oxygen saturation were monitored continually. The colonoscopy was accomplished without difficulty. The patient tolerated the procedure well and remained hemodynamically stable postprocedure. Findings: On digital rectal examination there was normal rectal tone. There were no external hemorrhoids. The colonoscope was then introduced through the anal canal into the rectum and advanced to the cecum. The ileocecal valve and appendiceal orifice were identified. The scope was advanced a short distance into the terminal ileum which appeared grossly normal. The scope was then withdrawn into the colon. The cecum, ascending and transverse colon were normal. There was a diminutive 3 to 4 mm polyp in the descending colon removed via cold snare polypectomy. There were scattered diverticuli throughout the distal descending and sigmoid colon. Within the rectum, the scope was retroflexed and there were grade 2 internal hemorrhoids. There was also some granulation tissue and NBI did not show significant adenomatous change. The snare was utilized to remove a section of the granulation tissue to rule out adenomatous change. The APC argon plasma wood calker was utilized to coagulate the site of removal. The preparation was excellent throughout and the Mansfield preparation score was Impression: 1. Diminutive descending colon polyp 2. Left-sided diverticulosis 3. Grade 2 internal hemorrhoids with rectal granulation tissue (from prior polyp removal) Plan: I will follow up the biopsies and polyp histology and I do not feel that the patient will require further surveillance. I do feel that she has obstipation/incomplete defecation and I will encourage her to initiate a gel forming fiber supplement (Metamucil (with or without MiraLAX)) on a long-term daily maintenance basis. I will discuss the findings with patient and family. Electronically signed by Lilliana Lopez Conversion Printing Sales Representative Cerner at 09/20/2022 8:04 PM CDT documented in this encounter Plan of Treatment Not on file documented as of this encounter Visit Diagnoses Not on filedocumented in this encounter
--- OUTSIDE RECORDS SUMMARY | 2025-04-01 15:26 | XMS_ITS | Encounter Summary ---
Author Organization [employer] ([place], [place], [place], [place], [place]) Address [address] [place] [address] Care Team Providers Care Mix Chemist Name Role Phone Unavailable Primary Care Provider Unavailabl e Encounter Details Date Type Department Care Team (Late st Contact Info) Description 05/22/2021 Transcribed Document [facility] [place] [facility] [place] [address] ProviderRobert MD [address] [place] [address] Social History Tobacco Use Types [...] Conversion Note - Robert ProviderMD - 05/22/2021 2:45 PM [facility] [address] [address] DIONE IVAN :1940 Visit Time:05/22/2021 What to do next Follow-Up Appointments Follow Up with CHUCHO JHA MD-OLEG When Comments Please call the office if you have any questions or concerns. Where: [facility] [address]- Medications What How Much When Instructions Next Dose aspirin 81 Milligram(s) bisoprolol (bisoprolol 5 mg oral tablet) 0.5 Tablet(s) Oral Every Day dicyclomine 20 Milligram(s) Oral Every Day escitalopram 20 Milligram(s) Oral Every Day isosorbide dinitrate (isosorbide dinitrate 10 mg oral tablet) 1.5 Tablet(s) Oral Two Times A Day levothyroxine 112 Microgram(s) Oral Every Day nitroglycerin (nitroglycerin 400 mcg sublingual powder) 1 Packet(s) SubLINgual One Time Order as needed for as needed for chest pain not to exceed 3 pkts/ 15 min- if pain persists, seek medical attention PRAVAstatin 80 Milligram(s) Oral Every Day Take your medications faithfully. Do NOT skip medication. Do NOT stop taking medications without the direction of a physician. Carry a list of your medications with you at all times, and take this medication list with you to your first follow up visit. Report any side effects. Avoid herbal remedies unless discussed with your physician. As part of your treatment plan, your physician may have prescribed a limited course of a controlled substance. This medication may be given to help people with moderate or severe pain or for other medical conditions, but there are risks involved with treatment. Common side effects may include nausea, constipation, drowsiness, sweating, itching, dry mouth, and rash. More serious side effects may include cognitive and motor impairment, like problems with thinking, concentrating, alertness, and movement (e.g. slowed reflexes), and driving and operating heavy machinery can be dangerous. It is important for you to talk to your physician if you have these side effects or questions. These controlled substances can produce physical dependence and be habit-forming if taken for an extended period of time, which means that the body has gotten used to them and may experience withdrawal symptoms if they are abruptly stopped. Withdrawal symptoms can include runny nose, sweating, goose bumps, diarrhea, abdominal cramping, rapid heartbeat, difficulty sleeping, and nervousness. Please dispose of unused and medications per pharmacy guidance. Education Materials Diverticulosis Diverticulosis is a condition that develops [...] getting enough exercise. ??? Smoking. ??? Taking megg-xxs-tljcvyg pain medicines, like aspirin and ibuprofen. ??? [...] these instructions at home: Medicines ??? Take zfna-sun-utcmopj and prescription medicines only as told by your health care provider. ??? If told by your health care provider, take a fiber supplement or probiotic. Constipation prevention Your condition may cause constipation. To prevent or treat constipation, you may need to: ??? Drink enough fluid to keep your urine pale yellow. ??? Take opbl-rjt-qqstdgb or prescription medicines. ??? Eat foods that [...] provider. Document Revised: 12/16/2019 Document Reviewed: 12/16/2019 [employer] Patient Education ?? 2020 [employer] Colon Polyps Polyps are tissue growths inside [...] ? Jaeger syndrome. ? Turcot syndrome. ? Peutz???Jeghers syndrome. ??? Are overweight. ??? Smoke cigarettes. [...] alcohol, limit how much you have: ? 0???1 drink a day for women. ? 0???2 drinks a day for men. ??? Be aware of how much alcohol is in your drink. In the [place] one drink equals one 12 oz bottle of beer (355 mL), one 5 oz glass of wine (148 mL), or one 1?? oz shot of hard liquor (44 mL). [...] provider. Document Revised: 09/03/2018 Document Reviewed: 09/03/2018 [employer] Patient Education ?? 202 [employer]. Colonoscopy, Adult, Care After This sheet gives [...] Get up to take short walks every 1???2 hours. This is important to improve blood [...] source. ? Leave the heat on for 20???30 minutes. ? Remove the heat if your [...] that are easy to digest. ??? Take ipnk-lrj-qwjzfbh and prescription medicines only as told by your health care provider. ??? Keep all follow-up visits as told by your health care provider. This is important. Contact a health care provider if: ??? You have blood in your stool 2???3 days after the procedure. Get help right [...] provider. Document Revised: 05/12/2020 Document Reviewed: 12/13/2019 [employer] Patient Education ?? 2020 [employer]. Emergency Awareness and Preventative Care STROKE is an EMERGENCY Every Minute Counts Act FAST and Check for these signs: FACE Does the face look uneven? ARM Does one arm drift down? SPEECH Does their speech sound strange? TIME Call at any sign of stroke Stroke Risk Factors Atrial Fibrillation (irregular heartbeat) Diabetes Family history of stroke Heart Disease Heavy alcohol use High Blood Pressure High Cholesterol Physical inactivity and obesity Smoking Cigarette Smoking The facts are clear, cigarette smoking will shorten your life. Smoking can cause many illnesses along the way. As a healthcare provider, we recommend that you stop smoking. Assistance with quitting is available by contacting 9-470-BDZPCiviQNOW. This is a free resource providing counseling, support, and referral. Or you may contact your personal physician. National Suicide Prevention Lifeline: The National Suicide Prevention Lifeline is a national network of local crisis centers that provides free and confidential emotional support to people in suicidal crisis or emotional distress 24 hours a day, 7 days a week. Don't Wait! Stop a Heart Attack Before it Starts What is a heart attack? A heart attack is damage or to a part of the heart from severely decreased or lack of blood flow to the heart. Over time, arteries can become narrow from the buildup of fat and cholesterol, which is called plaque. The plaque can rupture causing a blood clot to form. When the blood clot forms, the artery can become severely narrowed or completely blocked, causing a heart attack. Heart attack is the leading cause of in the [place]. 85% of muscle damage occurs within the first 2 hours. Delay in the recognition of heart attack symptoms increases the chances of . Know the early symptoms of a heart attack: Nausea Feeling of fullness in chest Jaw Pain Pain that travels down one or both arms Fatigue/being tired Anxiety Back Pain Chest pressure, squeezing, or discomfort Shortness of breath Sweating, or a cold sweat Feeling of impending doom There are unusual signs of a heart attack, too! Women, the elderly, and diabetics may present with atypical symptoms: Fainting/dizziness Weakness Confusion Risk Factors for a Heart Attack Some heart disease risk factors, such as age and family history, cannot be changed. Others, like smoking and lack of exercise, can be changed. Smoking High Cholesterol High Blood Pressure Family History Obesity Age Gender (Males are at higher risk) Lack of Exercise Diabetes Diet Stress Excessive Alcohol Intake If you or someone you know is experiencing the signs and symptoms of a heart attack, DON???T DELAY. Call immediately and seek help. If someone collapses, perform CPR! Do not attempt to drive if you are having symptoms of heart attack. Hands-Only CPR Why Hands-Only CPR? Hands-Only CPR has been shown to be as effective as conventional CPR for cardiac arrests that occur outside of a hospital. Survival depends on immediately receiving CPR from someone nearby. How do you perform Hands-Only CPR? There are two easy steps: Call if you see a teen or adult collapse Push hard and fast in the center of the chest at a beat of 100 beats per minute. Save a life! 4 WAYS TO GET AHEAD OF SEPSIS SEPSIS is a MEDICAL EMERGENCY. Time matters! Infections put you and your family at risk for a life-threatening condition called sepsis. Sepsis is the body's extreme response to an infection. It is life-threatening, and without timely treatment, sepsis can rapidly lead to tissue damage, organ failure, and . Sepsis happens when an infection you already have-in your skin, lungs, urinary tract or somewhere else-triggers a chain reaction throughout your body. 1 PREVENT INFECTIONS Take good care of chronic conditions. Talk to your doctor about getting the recommended vaccines. 2 PRACTICE GOOD HYGIENE Wash your hands frequently. Keep cuts or open sores clean and covered until they are healed. 3 KNOW THE SYMPTOMS Confusion or disorientation Shortness of breath High heart rate Fever, shivering, or feeling very cold Extreme pain or discomfort Clammy or sweaty skin 4 ACT FAST Get medical care IMMEDIATELY if you suspect sepsis or if you have an infection that is not getting better or is getting worse. To learn more about sepsis and how to prevent infections, visit www.cdc.gov/sepsis. Test Results Laboratory or Other Results This Visit (last charted value for your 05/22/2021 visit) No Laboratory or Other Results This Visit Patient Name:DIONE IVAN I have received this information and was given the opportunity to ask questions. Patient/Cherry Sorter Name: Patient/Cherry Sorter Signature: Relationship to Patient: Clinician/Hospital Cherry Sorter Signature: Date: documented in this encounter Plan of Treatment Not on file documented as of this encounter Visit Diagnoses Not on filedocumented in this encounter
--- OUTSIDE RECORDS SUMMARY | 2025-04-01 15:26 | XMS_ITS | Encounter Summary ---
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 Name: DIONE IVAN D.O.B./Sex: 1940 Female Med Rec #: [id number] Physician: CHUCHO JHA MD-GAE Financial #: [id number] Pt. Type: E [place] [facility] [place] Admit/Disch: 05/22/21 12:59:00 - Institution: [facility] PACU Case Times Entry 1 In PACU I 05/22/21 14:41:00 Ready for PACU 05/22/21 15:00:00 Discharge Discharge from PACU 05/22/21 15:04:00 Perla Flores PACU Case Times Audit 05/22/21 15:04:17 Mall Manager: [id number] Modifier: [id number] <+> 1 Ready for PACU Discharge <+> 1 Discharge from PACU I Finalized By: Sharri Spicer RN-PATIENT CARE BEDSIDE NON-EXEMPT Document Signatures Signed By: Sharri Spicer RN-PATIENT CARE BEDSIDE NON-EXEMPT 05/22/21 15:04 documented in this encounter Plan of Treatment Not on file documented as of this encounter Visit Diagnoses Not on filedocumented in this encounter
--- OUTSIDE RECORDS SUMMARY | 2025-04-01 15:26 | XMS_ITS | Referral Summary ---
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
--- OUTSIDE RECORDS SUMMARY | 2025-04-01 15:26 | XMS_ITS | Clinical Summary ---
Author Organization [employer] ([place], [place], [place], [place], [place]) Address [address] [place] [address] Care Team Providers Care Mediator Name Role Phone Unavailable Primary Care Provider [...]
--- NOTE | 2025-04-01 15:27 | HMH.EDGENADL ---
Discharge Plan Disposition Patient Disposition: Admitted Condition: Good Clinical Impressions Clinical Impression: Acute hypoxic respiratory failure, Sepsis Discharge ED Provider: Mee Mcnair General Adult HPI General Chief complaint: Abdominal Pain Stated complaint: fever, rt lower pelvic pain Time Seen by Provider: 04/01/25 15:24 Mode of Arrival: Ambulatory Source of Information: Patient Description of Symptoms (Recalled from ER Triage Doc. by RN): patient presents for right lower quardant pain that started last night. patient has been very nauseated but due to a recent hiatal hernia surgery, she cannot actual vomit. she stated she had a fever this morning of 101 and took some tylenol to reduce it which worked. She was also recently prescribed an antibiotic for a kidney infectiona and isoborbide for her heart, both prescribed by Dr Milner. History of Present Illness HPI narrative: Patient is an 84-year-old female with a past medical history of Niesen fundoplication, coronary artery disease presents to the emergency department with abdominal pain nausea and fevers as well as urinary symptoms. Patient states that she was seen yesterday by her primary care provider Dr. Milner and was prescribed an antibiotic for her urinary tract infection and given isosorbide for her heart. She states she took both of these medications last night and then at 4 AM she woke up with severe right lower quadrant abdominal pain. Patient is also reporting pain in her left flank. Patient has nausea but is unable to vomit secondary to her Niesen fundoplication. Patient is still having bowel movements. Patient reports fevers this morning it was 101. Patient states that she was unable to get out of bed today because she felt so weak. Patient also reports some pressure-like lower chest pain that is nonradiating and intermittent in nature but present since this morning. Related Data Home Medications ?Medication ?Instructions ?Recorded ?Confirmed cholecalciferol (vitamin D3) 25 25 mcg PO DAILY 09/10/24 03/31/25 mcg (1,000 unit) capsule melatonin 5 mg capsule 10 mg PO HS 09/10/24 03/31/25 aspirin 81 mg tablet,delayed 81 mg PO DAILY 09/12/24 03/31/25 release Previous Rx's ?Medication ?Instructions ?Recorded levothyroxine 100 mcg capsule 100 mcg PO DAILY #30 caps 10/14/24 rosuvastatin 20 mg tablet 20 mg PO DAILY #30 tabs 02/02/25 trazodone 100 mg tablet 100 mg PO HS #30 tabs 02/02/25 escitalopram oxalate 20 mg tablet See Rx Instructions .Route 02/09/25 .COMPLEX #90 tabs isosorbide dinitrate 10 mg tablet 10 mg PO BID #20 tabs 03/31/25 nitrofurantoin 100 mg PO Q12H 7 days #14 caps 03/31/25 monohydrate/macrocrystals 100 mg capsule (Macrobid) bisoprolol fumarate 5 mg tablet 2.5 mg (1/2 x 5 mg) PO DAILY #30 04/01/25 tabs Allergies Allergy/AdvReac Type Severity Reaction Status Date / Time codeine (CODEINE) Allergy Unknown Hives Verified 03/31/25 14:44 guaifenesin (GUAIFENESIN) Allergy Unknown stomach Verified 03/31/25 14:44 ache penicillin G (PENICILLIN G) Allergy Unknown Hives Verified 03/31/25 14:44 ciprofloxacin (From Cipro) Allergy Rash Verified 03/31/25 14:44 Sulfa (Sulfonamide Allergy Rash Verified 03/31/25 14:44 Antibiotics) [facility] Disclaimer: The information contained in this section may have been updated after the patient was seen, as this information can be updated by other users. Medical History Preop cardiovascular exam Bloating Hospital discharge follow-up Acute UTI Atrial fibrillation Skin cancer Claudication (~05/21/24) History of left heart catheterization (LHC) Aneurysm of descending aorta Ascending aortic aneurysm Rectal tumor CAD (coronary artery disease) Rectal inflammation Rectal pain Surgical History S/P AAA repair History of thyroid surgery History of Augusto fundoplication History of repair of hiatal hernia Hx of cataract removal with insertion of prosthetic lens History of cholecystectomy History of hysterectomy H/O tubal ligation H/O heart artery stent Hx of CABG Family History Son Cancer pancreatic Social History Smoking Status: Never smoker alcohol intake: never substance use type: denies use current occupational status: retired Travel in the last 8 weeks?: Inside the [place] household members: spouse housing: house marital status: current occupational exposures/hazards: No caffeine: Yes Have you lived/traveled outside [place] in past 30 days?: No Contact w/someone who lives/traveled outside [place] past 30 days?: No Exposure to someone with infectious disease in past 14 days?: No Do you have a fever (greater than 100.4 F or 38 C)?: No Have you tested positive for COVID-19?: No Exposed to someone with COVID-19 in past 14 days?: No Do you have a sore throat?: No Do you have a cough?: No Do you have any weakness?: No Do you have any diarrhea?: No Are you experiencing any unusual bleeding?: No Do you have any muscle aches/pain?: No Do you have any abdominal pain?: No Are you experiencing loss of taste or smell?: No Other Medical History Have you received the Flu Vaccine for this season: No Have you received the Pneumonia Vaccine: No ROS Obtained: Yes All systems reviewed & no additional complaints except as documented and Yes Systems reviewed as appropriate & no additional complaints except as documented Physical Exam General General appearance: alert and in no apparent distress Head Head exam: atraumatic, normocephalic and normal inspection Eye Eye exam: Present normal appearance, PERRL and EOMI; Absent scleral icterus ENT ENT exam: Present normal exam and normal external ear exam Neck Neck exam: Present normal inspection and full ROM Chest Chest inspection: Present normal inspection and symmetric chest wall rise Respiratory Respiratory exam: Present normal lung sounds bilaterally; Absent respiratory distress or wheezes Cardiovascular Cardiovascular exam: Present regular rate, normal rhythm and normal heart sounds Abdominal Exam Abdominal exam: Present soft, distention and tenderness (RLQ tenderness, L CVA tenderness); Absent guarding or rebound Extremities Exam Extremities exam: Present normal inspection and full ROM Back Exam Back exam: Present normal inspection and full ROM Neurological Exam Neurological exam: Present alert and oriented X3 Psychiatric Psychiatric exam: Present normal affect and normal mood Skin Skin exam: Present warm and dry Medical Decision Making Medical Records Medical records reviewed: Yes I reviewed the patient's medical records. Screening: Per USPSTF and CDC recommendations, given the prevalence of disease in our region, it is our hospital?s policy to screen for HIV and viral Hepatitis for all patients aged 18 and over and those with ongoing risk factors. Harry Inquiry Pt receiving controlled substance: No Vital Signs: 04/01/25 15:12 04/01/25 15:28 04/01/25 15:30 Temperature 98.5 F Temperature Source Oral Pulse Rate 113 H 111 H Pulse Rate [Right Radial] 112 H Respiratory Rate 20 19 20 Blood Pressure 133/74 137/66 Blood Pressure [Right Arm] 114/61 Blood Pressure Mean [Right Arm] 78 Blood Pressure Source [Right Arm] Automatic Cuff Blood Pressure Position [Right Arm] Sitting 02 Sat by Pulse Oximetry 98 90 L 91 L Oxygen Delivery Method Room Air Room Air Oxygen Flow Rate (LPM) 04/01/25 16:00 04/01/25 16:00 04/01/25 16:15 Temperature 101.8 F H Temperature Source Oral Pulse Rate 103 H 102 H Pulse Rate [Right Radial] Respiratory Rate 18 Blood Pressure 144/66 H Blood Pressure [Right Arm] Blood Pressure Mean [Right Arm] Blood Pressure Source [Right Arm] Blood Pressure Position [Right Arm] 02 Sat by Pulse Oximetry 87 L 98 Oxygen Delivery Method Nasal Cannula Oxygen Flow Rate (LPM) 2 04/01/25 16:55 04/01/25 17:00 04/01/25 17:30 Temperature Temperature Source Pulse Rate 101 H 101 H 99 H Pulse Rate [Right Radial] Respiratory Rate 18 Blood Pressure 119/56 L 123/58 L 115/54 L Blood Pressure [Right Arm] Blood Pressure Mean [Right Arm] Blood Pressure Source [Right Arm] Blood Pressure Position [Right Arm] 02 Sat by Pulse Oximetry 97 96 96 Oxygen Delivery Method Room Air Room Air Nasal Cannula Oxygen Flow Rate (LPM) 2 04/01/25 17:45 04/01/25 18:00 04/01/25 18:15 Temperature Temperature Source Pulse Rate 100 H 98 H 98 H Pulse Rate [Right Radial] Respiratory Rate 19 20 Blood Pressure 120/59 L Blood Pressure [Right Arm] Blood Pressure Mean [Right Arm] Blood Pressure Source [Right Arm] Blood Pressure Position [Right Arm] 02 Sat by Pulse Oximetry 92 L 92 L 90 L Oxygen Delivery Method Room Air Room Air Room Air Oxygen Flow Rate (LPM) Lab Data Lab results reviewed: Yes I reviewed the patient's lab results. Lab Results 04/01/25 15:41: WBC 14.5 H, RBC 4.31, Hgb 13.0, Hct 39.3, MCV 91.2, MCH 30.2, MCHC 33.1, RDW 12.9, Plt Count 125 L, MPV 10.7 H, Neut % (Auto) 93.8 H, Lymph % (Auto) 1.2 L, [place] % (Auto) 4.1, Eos % (Auto) 0.0 L, Baso % (Auto) 0.2, Neut # (Auto) 13.6 H, Lymph # (Auto) 0.2 L, [place] # (Auto) 0.6, Eos # (Auto) 0.0, Baso # (Auto) 0.0, Total Counted 100, Neutrophils % (Manual) 95 H, Lymphocytes % (Manual) 2 L, Monocytes % (Manual) 2, Basophils % (Manual) 1.0, Platelet Estimate Normal, Polychromasia 1+, Poikilocytosis 1+, Anisocytosis 1+, Microcytosis 1+, Macrocytosis 1+, Target Cells 1+, Tear Drop Cells 1+, Ovalocytes 1+, D-Dimer > 8.10 H, Sodium 134 L, Potassium 3.7, Chloride 99, Carbon Dioxide 29, Anion Gap 9.7, BUN 15, Creatinine 1.10 H, Estimated Creat Clear 38, Estimated GFR 47 L, Est GFR ( Amer) 57 L, Glucose 147 H, Calcium 9.0, Magnesium 1.6, Total Bilirubin 1.0, AST 100 H, ALT 56, Alkaline Phosphatase 82, Troponin I < 0.01, NT-Pro-B Natriuret Pep 1100 H, Total Protein 7.3, Albumin 3.5, Globulin 3.8 H, Albumin/Globulin Ratio 0.9 L, Lipase 97 04/01/25 16:15: Urine Color Yellow, Urine Appearance Clear, Urine pH 6.0, Ur Specific [place] 1.015, Urine Protein Trace, Urine Glucose (UA) Negative, Urine Ketones Negative, Urine Blood 2+ A, Urine Nitrate Negative, Urine Bilirubin Negative, Urine Urobilinogen 0.2, Ur Leukocyte Esterase Trace, Urine RBC 5-10, Urine WBC None, Ur Squamous Epith Cells 5-10, Urine Bacteria None 04/01/25 17:36: Lactate 0.9 04/01/25 18:28: Troponin I < 0.01 04/01/25 15:41 04/01/25 15:41 Orders (Tests/Meds): ED MEDICATIONS Generic Name Dose Route Start Last Admin Trade Name Freq PRN Reason Stop Dose Admin Vancomycin/PEG/NADA/Lysine/Water 1.25 gm in 250 mls @ 125 mls/hr 04/01/25 17:45 04/01/25 18:04 Vancomycin 1.25gm/250ml (Peg) Premix IV 04/01/25 19:44 125 mls/hr ONCE ONE Administration Miscellaneous 1 each 04/01/25 17:30 Vancomycin Consult Request NOTAPPLIC 05/01/25 17:29 CONSULT PHARMACY [facility] Sodium Chloride 10 ml 04/01/25 16:30 04/01/25 16:32 Sodium Chloride 0.9% 10ml Syr (Rad Only) IV 05/01/25 16:29 10 ml NEEDED PRN Administration Maintain IV Site Discontinued Medications Generic Name Dose Route Start Last Admin Trade Name Freq PRN Reason Stop Dose Admin Acetaminophen 1,000 mg 04/01/25 16:04 04/01/25 16:14 Acetaminophen 500mg Tab PO 04/01/25 16:05 1,000 mg ONCE ONE Administration Lactated Ringer's 1,000 mls @ 999 mls/hr 04/01/25 15:40 04/01/25 18:49 Lactated Ringer's 1000 Ml Bag IV 04/01/25 16:40 Infused .Q1H1M ONE Infusion Cefepime HCl 2 gm/ Sodium 100 mls @ 200 mls/hr 04/01/25 17:26 04/01/25 18:22 Chloride IV 04/01/25 17:55 Infused ONCE ONE Infusion Iopamidol 70 ml 04/01/25 16:30 04/01/25 16:31 Iopamidol-370 (76%);100ml Bottle IV 04/01/25 16:31 70 ml ONCE ONE Administration Ketorolac Tromethamine 30 mg 04/01/25 16:04 04/01/25 16:15 Ketorolac 30mg/Ml Vial IV 04/01/25 16:05 30 mg ONCE ONE Administration Ondansetron HCl 4 mg 04/01/25 15:40 04/01/25 16:12 Ondansetron 4mg/2ml Vial IV 04/01/25 15:41 4 mg ONCE ONE Administration Sodium Chloride 50 ml 04/01/25 16:30 04/01/25 16:31 0.9 % Sodium Chloride 50 Ml Vial IV 04/01/25 16:31 50 ml ONCE ONE Administration ORDERS Category Date Time Status CT abdomen pelvis w con Stat Cat Scan 04/01/25 15:[address] angio chest PE protocol Stat Cat Scan 04/01/25 16:04 Completed CXR --portable [XR chest portable] Stat Exams 04/01/25 15:40 Completed BNP [NT Pro Brain Natriuretic Pep.] Stat Lab 04/01/25 15:41 Completed CBC w/Auto Diff [Complete Blood Count Auto Diff] Stat Lab 04/01/25 15:41 Completed CMP [Comprehensive Metabolic Panel] Stat Lab 04/01/25 15:41 Completed D-Dimer Stat Lab 04/01/25 15:41 Completed Lactic Acid Stat Lab 04/01/25 17:36 Completed Lipase Stat Lab 04/01/25 15:41 Completed MAG [Magnesium] Stat Lab 04/01/25 15:41 Completed Mini Respiratory Panel Routine Lab 04/01/25 18:18 Received Trop I [Troponin I] Stat Lab 04/01/25 15:41 Completed Troponin I Q3H Lab 04/01/25 18:28 Completed Troponin I Q3H Lab 04/01/25 21:45 Ordered UA [Urinalysis and Microscopic] Stat Lab 04/01/25 16:15 Completed Blood Culture Stat Micro 04/01/25 15:56 Received Urine Culture Stat Micro 04/01/25 16:14 Received Medical Decision Narrative: Patient is an 84-year-old female with a past medical history of Niesen fundoplication and previous coronary artery disease who presented to the emergency department with acute onset abdominal pain nausea and chest pain. On arrival, patient was hemodynamically stable but tachycardic. Differential includes but not limited to: ACS/NC, pneumothorax, pleural effusion, appendicitis, intra-abdominal abscess, pyelonephritis, urinary tract infection, dehydration, amongst others. Patient's labs were reviewed and interpreted by myself: CBC showed mild leukocytosis of 14, D-dimer greater than 8, CMP with mild hyponatremia of 134, mildly elevated creatinine at 1.1 BNP elevated at 1100, initial troponin less than 0.01. Lipase normal. UA without bacteria no white blood cells trace leuk esterase. Second troponin less than 0.01. EKG was reviewed and interpreted by myself and showed sinus tachycardia without acute ST or T wave changes concerning for ischemia Chest x-ray was reviewed and interpreted by myself and showed no acute focal consolidation, pneumothorax, pleural effusion or other acute cardiopulmonary process CT chest and CT abdomen pelvis showed no acute intrathoracic or intra-abdominal pathology Patient was given Tylenol and ibuprofen as well as IV fluids in addition to Toradol for her symptoms on arrival. Patient did have significant improvement and patient did appear much better however patient was tachycardic febrile and with her leukocytosis, patient met sepsis criteria. Patient was initiated on broad-spectrum antibiotics with vancomycin and cefepime. Patient was saturating 89% on room air was placed on 2 L nasal cannula and when attempted to ambulate, patient dropped to 86-87%. Respiratory panel still pending. Blood cultures were obtained prior to antibiotics being started. At this time, I discussed the case with hospital medicine and patient was ultimately admitted to their service for further evaluation workup. Critical Care Critical Care Time Critical Care Time: No
--- NOTE | 2025-04-01 15:40 | CT_ITS ---
PROCEDURE INFORMATION: Exam: CT Abdomen And Pelvis With Contrast Exam date and time: 04/01/2025 4:33 PM Age: 84 years old Clinical indication: Abdominal pain; Additional info: L flank pain and rlq pain TECHNIQUE: Imaging protocol: Computed tomography of the abdomen and pelvis with contrast. 3D rendering (Not supervised by radiologist): MIP and/or 3D reconstructed images were created by the technologist. Radiation optimization: All CT scans at this facility use at least one of these dose optimization techniques: automated exposure control; mA and/or kV adjustment per patient size (includes targeted exams where dose is matched to clinical indication); or iterative reconstruction. Contrast material: ISOVUE; Contrast volume: 70 ml; Contrast route: IV; COMPARISON: CT ABD/PEL WO/W IV ORAL CON 09/23/2024 2:10 PM FINDINGS: Liver: Normal. No mass. Gallbladder and biliary ducts: Normal. No calcified stones. No ductal dilation. Pancreas: Normal. No ductal dilation. Spleen: Normal. No splenomegaly. Adrenal glands: Normal. No mass. Kidneys and ureters: Punctate right renal stone. No hydronephrosis. Stomach and bowel: Colonic diverticulosis. No bowel dilatation. Appendix: No evidence of appendicitis. Intraperitoneal space: Unremarkable. No free air. No significant fluid collection. Vasculature: The lower aspect of the thoracic aortic stent is visualized in the suprarenal region. There is persistent borderline aneurysmal dilatation of the suprarenal abdominal aorta just caudal to the stent. Considerable atherosclerotic changes seen within the aorta and branch vasculature. Circumaortic left renal vein. Lymph nodes: Unremarkable. No enlarged lymph nodes. Urinary bladder: Unremarkable as visualized. Reproductive: Hysterectomy. Bones/joints: Unremarkable. No acute fracture. Soft tissues: Unremarkable. IMPRESSION: 1. Punctate right renal stone. 2. Diverticulosis. 3. Incidental/nonacute findings as described.
--- NOTE | 2025-04-01 15:40 | XR_ITS ---
PROCEDURE INFORMATION: Exam: XR Chest Exam date and time: 04/01/2025 4:37 PM Age: 84 years old Clinical indication: Pain; Chest pressure; Additional info: Chest pain TECHNIQUE: Imaging protocol: Radiologic exam of the chest. Views: 1 view. COMPARISON: CT ANGIO CHEST PE PROTOCOL 04/01/2025 4:33 PM FINDINGS: Lungs: Unremarkable. No consolidation. Pleural spaces: Unremarkable. No pleural effusion. No pneumothorax. Heart/Mediastinum: Unremarkable. No cardiomegaly. Vasculature: Aortic stent is unchanged in position. Bones/joints: Median sternotomy. IMPRESSION: No acute findings.
--- NOTE | 2025-04-01 15:43 | ECG_ITS ---
APPROVED REPORT Exam: Resting ECG HR:106 bpm ECG Measurements Heart Rate 106 AXES IL 136 P 91 QRSd 133 QRS -40 QT 347 T 5 QTc 409 Conclusion Sinus tachycardia without acute ST or T wave changes concerning for ischemia Electronically signed by : Mee Mcnair, 04/01/2025 23:09:41
--- NOTE | 2025-04-01 16:04 | CT_ITS ---
PROCEDURE INFORMATION: Exam: CTA Chest With Contrast Exam date and time: 04/01/2025 4:33 PM Age: 84 years old Clinical indication: Shortness of breath TECHNIQUE: Imaging protocol: Computed tomographic angiography of the chest with contrast. Exam focused on the arteries. 3D rendering (Not supervised by radiologist): MIP and/or 3D reconstructed images were created by the technologist. Radiation optimization: All CT scans at this facility use at least one of these dose optimization techniques: automated exposure control; mA and/or kV adjustment per patient size (includes targeted exams where dose is matched to clinical indication); or iterative reconstruction. Contrast material: ISOVUE 370; Contrast volume: 70 ml; Contrast route: INTRAVENOUS (IV); COMPARISON: CT ANGIO CHEST 07/30/2023 12:34 PM FINDINGS: Pulmonary arteries: Normal. No pulmonary emboli. Aorta: Aortic graft is stable in appearance. No evidence of graft occlusion or leakage. No dissection. Lungs: Minor bibasilar atelectasis. 5 mm right upper lobe calcified granuloma. No airspace consolidation. Pleural spaces: Unremarkable. No pneumothorax. No pleural effusion. Heart: Unremarkable. No cardiomegaly. No pericardial effusion. Coronary arteries: Mild coronary artery calcification. Lymph nodes: Unremarkable. No enlarged lymph nodes. Bones/joints: Median sternotomy. Soft tissues: Unremarkable. IMPRESSION: No acute findings.
[2025-04-01 16:07] LABS: Hematocrit 39.3 % (37.0-47.0); Hemoglobin 13.0 g/dL (12.2-16.2); Immature Granulocytes % 0.7 %; Mean Corpuscular HGB Conc 33.1 g/dL (31.8-35.4); Mean Corpuscular Hemoglobin 30.2 pg (27.0-31.2); Mean Corpuscular Volume 91.2 fl (81-99); Nucleated Red Blood Cells % 0 %; Platelet Count 125 K/mm3 (142-424); Red Blood Count 4.31 M/mm3 (4.20-5.40); Red Cell Distribution Width-SD 43.2 fL; White Blood Count 14.5 K/mm3 (4.8-10.8)
[2025-04-01] MEDS: LACTATED RINGERS 1000ML 1,000 ML 999 ML IV (16:10)
[2025-04-01] MEDS: ONDANSETRON 4MG/2ML VIAL 4 MG IV (16:12)
[2025-04-01 16:14] LABS: Alanine Aminotransferase 56 U/L (12-78); Albumin Level 3.5 g/dl (3.5-5.0); Albumin/Globulin Ratio 0.9 (1.1-1.8); Alkaline Phosphatase 82 U/L (38-126); Anion Gap 9.7 mEq/L (5-15); Aspartate Amino Transferase 100 U/L (14-36); Bilirubin,Total 1.0 mg/dl (0.2-1.3); Blood Urea Nitrogen 15 mg/dl (7-17); Calcium 9.0 mg/dl (8.4-10.2); Carbon Dioxide 29 mmol/L (22.0-30.0); Chloride 99 mmol/L (98-107); Creatinine Clearance Estimated 38 mL/min (50-200); Creatinine,Serum 1.10 mg/dl (0.52-1.04); Estimated Glomerular Filt Rate 47 ml/min (>60); GFR (African American) 57 ML/MIN (>60); Globulin 3.8 g/dL (1.3-3.2); Glucose 147 mg/dl (74-100); Lipase 97 U/L (23-300); Magnesium 1.6 mg/dl (1.6-2.3); Potassium 3.7 mmoL/L (3.5-5.1); Sodium 134 mmol/L (136-145); Total Protein,Serum 7.3 g/dl (6.3-8.2)
[2025-04-01] MEDS: ACETAMINOPHEN 500MG TAB 1000 MG PO (16:14)
[2025-04-01] MEDS: KETOROLAC 30MG/ML VIAL 30 MG IV (16:15)
[2025-04-01 16:17] LABS: Microscopic, Urine URINE MICROSCOPIC (MICROSCOPIC)
[2025-04-01 16:18] LABS: D-Dimer > 8.10 ug/mL (0.0-0.5)
[2025-04-01 16:20] LABS: Bilirubin,Urine Negative (Negative); Color,Urine YELLOW (Yellow); Glucose,Urine (UA) Negative (Negative); Ketones,Urine Negative (Negative); Leukocyte Esterase,Urine TRACE (Negative); PH,Urine 6.0 (5.0-8.5); Protein,Urine TRACE (Negative); Specific Gravity, Urine 1.015 (1.005-1.030); Urobilinogen,Urine 0.2 EU/dl (0.2)
[2025-04-01 16:22] LABS: NT Pro Brain Natriuretic Pep. 1100 pg/mL (0-450)
[2025-04-01 16:27] LABS: Troponin I < 0.01 ng/ml (0.00-0.034)
[2025-04-01] MEDS: IOPAMIDOL-370 (76%);100ML BOTTLE 70 ML IV (16:31)
[2025-04-01] MEDS: 0.9 % SODIUM CHLORIDE 50 ML VIAL IV (16:31)
[2025-04-01] MEDS: SODIUM CHLORIDE 0.9% 10ML SYR (RAD ONLY) 10 ML IV (16:32)
[2025-04-01 17:08] LABS: Anisocytosis 1+; Total Cells Counted 100
[2025-04-01 17:09] LABS: Microcytosis 1+; Ovalocytes 1+; Poikilocytosis 1+; Tear Drop Cells 1+
[2025-04-01 17:10] LABS: Polychromasia 1+; Target Cells 1+
[2025-04-01 17:11] LABS: Macrocytosis 1+
--- NOTE | 2025-04-01 17:45 | INFXCTL.NOTE ---
provider took patient off oxygen at this time
[2025-04-01] MEDS: CEFEPIME HCL 2 GM in 0.9 % SODIUM CHLORIDE 100 ML IV (17:47)
[2025-04-01] MEDS: VANCOMYCIN/WATER FOR INJ (PEG) 1.25 GM/250 ML PIGGYBACK IV (18:04)
[2025-04-01 18:23] LABS: Coronavirus 19, PCR Not Detected (NotDetected); Influenza A, PCR Not Detected (NotDetected); Influenza B, PCR Not Detected (NotDetected)
--- NOTE | 2025-04-01 18:47 | PC.NURSE ---
patient ambulated o2 sat dropped to 87% provider notified
[2025-04-01 18:55] LABS: Troponin I < 0.01 ng/ml (0.00-0.034)
[2025-04-01] MEDS: VANCOMYCIN CONSULT REQUEST 1 EACH NOTAPPLIC (19:23)
--- NOTE | 2025-04-01 19:40 | PC.NURSE ---
assisted patient with changing her brief. Pt urinated x1
--- NOTE | 2025-04-01 20:29 | P.HP_ITS ---
<Statement entered by Jeremy Cannon MD - 04/02/25 09:05> Rounded on patient after nurse practitioner. Personally examined and interviewed patient. Agree with exam findings and care plan as documented. History of Present Illness *Admission Date: 04/01/25 *Reason for visit:: Fever and right flank pain *History of present illness: Patient is a 84-year-old female with a past medical history significant for Niesen fundoplication, hypertension, hyperlipidemia, coronary arteriosclerosis, arthrosclerosis of bypass, RBBB, thoracic aortic aneurysm, AAA repair, claudication, GERD, cardiac stent placement. Presents to the emergency department due to lower right suprapubic pain, urinary symptoms, nausea and fever. Evaluated by her PCP yesterday Dr. Valladares and was prescribed Macrobid for UTI. During this appointment she had complained of intermittent chest pain on exertion, pain radiating towards her back with associated shortness of breath. She also reported dizziness/lightheadedness. During her office visit she was found to have orthostatic hypotension. Dr. Valladares made note of discontinuing bisoprolol a few days prior. He also decreased isosorbide mononitrate ER from 15 mg to 10 mg twice a day d/t orthostatic hypotension in office. Noted he would like cardiology to evaluate prior to any further cardiac medication changes. Patient states she is an established patient of Dr. Holt with cardiology. On arrival to our emergency department she noted feeling weak with some pressure in her lower chest region, nonradiating intermittent that began in the morning. Patient was also noted to drop her oxygen saturations to 89% on room air, she was placed on 2 L nasal cannula in the emergency department. Noted when she attempted to ambulate her oxygen dropped to 86-87%. During my evaluation patient was without acute distress, denied chest pain or shortness of breath. Resting in bed comfortably on room air. Patient's daughter who works in the hospital accompanies her at bedside. Patient reports right lower suprapubic pain with urinary symptoms. Noted frequency and dysuria. Currently states pain has improved, 2 out of 10. Reports symptoms have been ongoing for about a week. Described as sharp stabbing pain early this morning (04/01). States taking her prescribed antibiotic (macrobid) per Dr. Valladares along with the new decreased dose of isoborbide, woke up early in the morning with severe right lower pain in her right lower abdominal/suprapubic region. Reported fever of 101 ?F with chills and fatigue. Denied vomiting as she is unable to d/t Niesen fundoplication. Patient states she was worried about recurrent episode of colitis, her abdominal pain was similar in nature. Denies any known alleviating or aggravating factors. Denies shortness of breath, contact with sick individuals, diarrhea. Initial ED workup included laboratory studies and imaging. Significant laboratory findings WBC 14.5, platelet count, D-dimer greater than 8.10, 134, creatinine 1.10, GFR 47, AST 100, BNP 1100, UA with 2+ blood. Imaging studies obtained and I personally reviewed; chest CTA and chest x-ray, without acute findings. CT abdomen and pelvis showing punctate right renal stone and diverticulosis. [facility] Disclaimer: The information contained in this section may have been updated after the patient was seen, as this information can be updated by other users. Medical History Preop cardiovascular exam [facility] discharge follow-up Acute UTI Atrial fibrillation Skin cancer Claudication (~05/21/24) History of left heart catheterization (LHC) Aneurysm of descending aorta Ascending aortic aneurysm Rectal tumor CAD (coronary artery disease) Rectal inflammation Rectal pain Surgical History S/P AAA repair History of thyroid surgery History of Augusto fundoplication History of repair of hiatal hernia Hx of cataract removal with insertion of prosthetic lens History of cholecystectomy History of hysterectomy H/O tubal ligation H/O heart artery stent Hx of CABG Family History Son Cancer Social History Smoking Status: Never smoker alcohol intake: never substance use type: denies use current occupational status: retired Travel in the last 8 weeks?: Inside the [place] household members: spouse housing: house marital status: current occupational exposures/hazards: No caffeine: Yes Have you lived/traveled outside [place] in past 30 days?: No Contact w/someone who lives/traveled outside [place] past 30 days?: No Exposure to someone with infectious disease in past 14 days?: No Do you have a fever (greater than 100.4 F or 38 C)?: No Have you tested positive for COVID-19?: No Exposed to someone with COVID-19 in past 14 days?: No Do you have a sore throat?: No Do you have a cough?: No Do you have any weakness?: No Do you have any diarrhea?: No Are you experiencing any unusual bleeding?: No Do you have any muscle aches/pain?: No Do you have any abdominal pain?: No Are you experiencing loss of taste or smell?: No Other Medical History Have you received the Flu Vaccine for this season: No Have you received the Pneumonia Vaccine: No Review of Systems Review of Systems Review of systems:: pertinent systems reviewed and negative unless documented below Constitutional Constitutional: Reports system reviewed and no additional complaints, except as documented, Reports as per HPI, Reports chills, Reports fatigue and Reports fever(s) Eyes Eyes: Reports system reviewed and no additional complaints, except as documented and Reports as per HPI ENT Ears, Nose, Mouth, and Throat: Reports system reviewed and no additional complaints, except as documented and Reports as per HPI *Cardiovascular Cardiovascular: Reports as per HPI, Reports chest pain with activity and Reports lightheadedness *Respiratory Respiratory: Reports as per HPI *Gastrointestinal Gastrointestinal: Reports as per HPI, Reports abdominal pain and Reports nausea *Genitourinary Genitourinary: Reports as per HPI, Reports dysuria and Reports urinary urgency *Musculoskeletal Musculoskeletal: Reports as per HPI Integumentary/Breasts Skin/Breast: Reports system reviewed and no additional complaints, except as documented *Neurologic Neurologic: Reports system reviewed and no additional complaints, except as documented Psychiatric Psychiatric: Reports system reviewed and no additional complaints, except as documented Endocrine Endocrine: Reports system reviewed and no additional complaints, except as documented and Reports fatigue Hematologic/Lymphatic Hematologic/Lymphatic: Reports system reviewed and no additional complaints, except as documented Allergic/Immunologic Allergic/Immunologic: Reports system reviewed and no additional complaints, except as documented Meds Home Medications and Allergies Home Medications ?Medication ?Instructions ?Recorded ?Confirmed ?Type cholecalciferol (vitamin D3) 25 25 mcg PO DAILY 04/01/25 History mcg (1,000 unit) capsule melatonin 5 mg capsule 10 mg PO HS 09/10/24 5 History aspirin 81 mg tablet,delayed 81 mg PO DAILY 09/12/24 1 History release levothyroxine 100 mcg capsule 100 mcg PO DAILY #30 cap s 10/14/24 04/01/25 Rx rosuvastatin 20 mg tablet 20 mg PO DAILY #30 tabs 08/2404/01/25 Rx trazodone 100 mg tablet 100 mg PO HS #30 tabs 04/01/25 Rx isosorbide dinitrate 10 mg tablet 10 mg PO BID #20 tab s 03/31/25 04/01/25 Rx nitrofurantoin 100 mg PO Q12H 7 days #14 ca ps 03/31/25 04/01/25 Rx monohydrate/macrocrystals 100 mg capsule (Macrobid) escitalopram oxalate 20 mg tablet 20 mg PO DAILY 04/0104/01/25 History New Prescriptions to Start Prescriptions: Allergies Allergy/AdvReac Type Severity Reaction Status Date / Time codeine (CODEINE) Allergy Unknown Hives Verified 03/31/25 14:44 guaifenesin (GUAIFENESIN) Allergy Unknown stomach Verified 03/31/25 14:44 ache penicillin G (PENICILLIN G) Allergy Unknown Hives Verified 03/31/25 14:44 ciprofloxacin (From Cipro) Allergy Rash Verified 03/31/25 14:44 Sulfa (Sulfonamide Allergy Rash Verified 03/31/25 14:44 Antibiotics) Exam Data for Last 24 hours Vital signs and Labs for Last 24 Hours: Temp Pulse Resp BP Pulse Ox O2 Del Method O2 Flow Rate 97.9 F 95 H 16 104/47 L 90 L Room Air 2 04/01/25 20:15 04/01/25 20:15 04/01/25 20:15 04/01/25 20:15 04/01/25 18:15 04/01/25 20:15 04/01/25 17:30 Laboratory Results - last 24 hr 04/01/25 15:41: WBC 14.5 H, RBC 4.31, Hgb 13.0, Hct 39.3, MCV 91.2, MCH 30.2, MCHC 33.1, RDW 12.9, Plt Count 125 L, MPV 10.7 H, Neut % (Auto) 93.8 H, Lymph % (Auto) 1.2 L, [place] % (Auto) 4.1, Eos % (Auto) 0.0 L, Baso % (Auto) 0.2, Neut # (Auto) 13.6 H, Lymph # (Auto) 0.2 L, [place] # (Auto) 0.6, Eos # (Auto) 0.0, Baso # (Auto) 0.0, Total Counted 100, Neutrophils % (Manual) 95 H, Lymphocytes % (Manual) 2 L, Monocytes % (Manual) 2, Basophils % (Manual) 1.0, Platelet Estimate Normal, Polychromasia 1+, Poikilocytosis 1+, Anisocytosis 1+, Microcytosis 1+, Macrocytosis 1+, Target Cells 1+, Tear Drop Cells 1+, Ovalocytes 1+, D-Dimer > 8.10 H, Sodium 134 L, Potassium 3.7, Chloride 99, Carbon Dioxide 29, Anion Gap 9.7, BUN 15, Creatinine 1.10 H, Estimated Creat Clear 38, Estimated GFR 47 L, Est GFR ( Amer) 57 L, Glucose 147 H, Calcium 9.0, Magnesium 1.6, Total Bilirubin 1.0, AST 100 H, ALT 56, Alkaline Phosphatase 82, Troponin I < 0.01, NT-Pro-B Natriuret Pep 1100 H, Total Protein 7.3, Albumin 3.5, Globulin 3.8 H, Albumin/Globulin Ratio 0.9 L, Lipase 97 04/01/25 16:15: Urine Color Yellow, Urine Appearance Clear, Urine pH 6.0, Ur Specific Campbell 1.015, Urine Protein Trace, Urine Glucose (UA) Negative, Urine Ketones Negative, Urine Blood 2+ A, Urine Nitrate Negative, Urine Bilirubin Negative, Urine Urobilinogen 0.2, Ur Leukocyte Esterase Trace, Urine RBC 5-10, Urine WBC None, Ur Squamous Epith Cells 5-10, Urine Bacteria None 04/01/25 17:36: Lactate 0.9 04/01/25 18:28: Troponin I < 0.01 I & O for Last 24 hours: Intake & Output 03/29/25 03/30/25 03/31/25 04/01/25 23:59 23:59 23:59 23:59 Intake Total 1350 / 1350 Balance 1350 / 1350 Weight 64.864 kg Constitutional Constitutional: no acute distress *Routine HEENT Exam Head: Present normocephalic Eye: Present EOMI, PERRL and normal accommodation ENT: Present mucous membranes moist *Routine Neck Exam Neck: Present supple and full ROM Routine Chest/Breast/Axilla Exam Chest wall: Present tenderness Breast: Present tenderness Comments: left lateral breast tenderness *Routine Respiratory Exam Respiratory: Present normal respiratory effort *Routine Cardiovascular Exam Cardiovascular: Present RRR, Normal S1 and Normal S2 *Routine Abdominal Exam Abdominal: Present soft, normoactive bowel sounds and tenderness Comments: Right lower abdominal/superapubic pain *Routine Rectal Exam Rectal:: deferred *Routine Genitalia Exam Genitalia:: deferred *Routine Extremities Exam Extremities: Present full ROM and pulses intact Routine Back/Spine/Pelvis Exam Back/Spine: Present full ROM *Routine Skin Exam Skin: Present intact *Routine Neurological Exam Neurological: Present alert, oriented X3 and CN II-XII intact Routine Psychiatric Exam Psychiatric: Present normal affect and normal thought process Assessment and Plan *Assessment and plan (1) Sepsis: Status: Acute Qualifiers: Acute respiratory failure type: with hypoxia Sepsis type: sepsis due to unspecified organism Severe sepsis acute organ dysfunction type: acute respiratory failure Severe sepsis shock status: without septic shock Category: Medical Code(s): A41.9 - Sepsis, unspecified organism (2) Right lower quadrant abdominal tenderness: Status: Acute Category: Medical Code(s): R10.813 - Right lower quadrant abdominal tenderness (3) Leucocytosis: Status: Acute Qualifiers: Leukocytosis type: unspecified Qualified Code(s): D72.829 - Elevated white blood cell count, unspecified Category: Medical Code(s): D72.829 - Elevated white blood cell count, unspecified (4) Fever and chills: Status: Acute Category: Medical Code(s): R50.9 - Fever, unspecified (5) FEDERICO (acute kidney injury): Status: Acute Category: Medical Code(s): N17.9 - Acute kidney failure, unspecified (6) Orthostatic hypotension: Status: Acute Category: Medical Code(s): I95.1 - Orthostatic hypotension (7) Chest pain: Status: Acute Qualifiers: Chest pain type: unspecified Qualified Code(s): R07.9 - Chest pain, unspecified Category: Medical Code(s): R07.9 - Chest pain, unspecified (8) Hypoxia: Status: Acute Category: Medical Code(s): R09.02 - Hypoxemia (9) GERD (gastroesophageal reflux disease): Status: Acute Qualifiers: Esophagitis bleeding: without hemorrhage Category: Medical Code(s): K21.9 - Gastro-esophageal reflux disease without esophagitis (10) Hypertensive heart disease without heart failure: Status: Chronic Category: Medical Code(s): I11.9 - Hypertensive heart disease without heart failure (11) Hyperlipidemia: Status: Chronic Qualifiers: Hyperlipidemia type: other hyperlipidemia Qualified Code(s): E78.4 - Other hyperlipidemia Category: Medical Code(s): E78.5 - Hyperlipidemia, unspecified (12) Hypothyroid: Status: Resolved Qualifiers: Hypothyroidism type: unspecified Qualified Code(s): E03.9 - Hypothyroidism, unspecified Category: Medical Code(s): E03.9 - Hypothyroidism, unspecified (13) Nausea: Status: Acute Category: Medical Code(s): R11.0 - Nausea Plan 1. Sepsis/suspected urinary tract infection/right lower quadrant abdominal tenderness/right renal stone: Fever of 101.8 ?F, sinus tachycardia, 14.5. Unclear etiology-prescribed Macrobid on 03/31 for urinary tract infection-UA obtained on the and today are unremarkable, with the exception of 2+ blood in urine today, remaining findings negative. Despite unremarkable UA findings patient has had symptoms for approximately 1 week with urgency and dysuria. CT abdomen pelvis revealing diverticulosis and puntate right renal stone. Patient's pain is in the right lower quadrant suprapubic region. Possible contributing factors/culprit of underlying infection. Blood cultures obtained, urine cultures obtained-pending. Broad-spectrum IV antibiotics initiated in the emergency department, received sepsis fluids-remarkable. Resume gentle IV fluids with IV antibiotic therapy, as needed Tylenol for fever. As noted above patient with RLQ abd/suprapubic pain-> CT abdomen and pelvis showing right renal stone and diverticulosis. Pain may be associated with the noted stone. Although considerably small, can cause ureteral spasms and inflammation when migrating. This may also be contributing to her urinary symptoms and unerlying infection as stones can harbor bacteria. Resume IV fluids, broad-spectrum antibiotics. Urine culture and blood cultures pending, as noted. Follow and adjust antibiotics as appropriate. Received 30 g IV Toradol in the emergency department, currently pain controlled. IV Zofran for nausea management. 2. FEDERICO: Very mild bump with creatinine baseline approximately 0.09, laboratory findings within the emergency department noted creatinine of 1.01-> resume IV fluids for hydration, avoid nephrotoxic medication. Follow-up with morning labs. 3. Orthostatic hypotension: Follow-up visit with PCP Dr. Valladares noted orthostatic hypotension, adjustment was made with blood pressure medications which included discontinuing bisoprolol a few days ago and decresed isosorbide mononitrate ER from 15 mg to 10 mg twice a day d/t orthostatic hypotension in office. Noted he would like cardiology to evaluate prior to any further cardiac medication changes. Orthostatics repeated today and noted to be positive. Of note patient is also on tramadol-> patient requested to resume. Holding medication as this can also contribute to orthostatic hypotension. Monitoring BP closely. High risk for fall, will need an initial assist when ambulating. 4. Chest pain: Patient reported chest pain described as, lower chest pain with pressure nonradiating, began early in the morning. Troponins obtained from the emergency department which were unremarkable. EKG reviewed, showed sinus tachycardia without acute ST or T wave changes concerning for ischemia. Upon evaluation patient denied any current chest pain. Continue to monitor on telemetry, trend troponin level. Established patient of Dr. Holt, consult for evaluation and input notable orthostatic and chest pain. 5. Hypoxia: It was noted while in the emergency department patient oxygen s aturations dropped to 89% on room air. Was placed on 2 L nasal cannula and noted while ambulating oxygen dropped once again. Patient is currently on room air with adequate saturations, no respiratory distress or discomfort/complaint of shortness of breath. Unsure if incidental isolated incidence continue to monitor resume with supplemental O2 if oxygen saturations drop below 92%. 6. GERD: Patient without complaint or symptoms, resume home PPI. 7. HTN/HLD: As above adjustments have been made to patient antihypertensive medication-will defer any further changes to daytime team/cardiology. 8. Hypothyroid: Receiving levothyroxine, resume home medication. TSH with morning labs. 9. DVT prophylaxis: SCDs DNR and DNI Healthy heart diet I personally discussed the management of this patient with the emergency department provider Dr. Mcnair. Patient will be admitted for further treatment of underlying sepsis, evaluation and treatment static hypotension and chest pain. Treatment w/ IV antibiotics, IV fluid, dose cardiac monitoring patient, cardiology evaluation.
[2025-04-01] MEDS: 0.9 % SODIUM CHLORIDE 1000ML 1,000 ML 75 ML IV (22:13)
[2025-04-01] MEDS: MAGNESIUM SULFATE IN WATER 2 GM/50 ML PIGGYBACK IV (23:48)
[2025-04-02] VITALS (7 sets, daily range): BP systolic 118–143; BP diastolic 54–64; PULSE 72–110; RESP 12–16; TEMP 36.7–37.1; O2SAT 91–95; BMI 23.8
[2025-04-02] MEDS: MAGNESIUM SULFATE IN WATER 2 GM/50 ML PIGGYBACK IV (01:28)
--- NOTE | 2025-04-02 01:41 | PC.NURSE ---
Patient arrived by stretcher at 08:25
--- NOTE | 2025-04-02 01:48 | PC.NURSE ---
Patient arrived at to the floor 07.55 by bobo
[2025-04-02] MEDS: ACETAMINOPHEN 325MG TAB 650 MG PO (04:03)
--- NOTE | 2025-04-02 05:18 | PC.NURSE ---
Pt. was admitted to med/surg from the ED last night. Pt. presented to the ED with c/o RLQ pain, suprapubic pain, fever, chills, fatigue and ,fever Pt. is alert and orientated x 4, Pt. is on room air. Pt. getting IV fluids and IV antibiotics. Per CT scan pt. has a kidney stone. Pt. states the pain is always there 3-4/10 but can be 7-8/10 on the pain scale. Pt. not sleeping well this shift. Pt. had othostatic VS when she arrived on the floor and they were positive. see VS documentation. Pt. states she has been getting dizzy and light headed the last week or so. She denies any syncope episodes. Pt. voiding per [facility]. Personal items and call corbin in reach. Bed in low and locked position. safety measures in place.
[2025-04-02] MEDS: CEFEPIME HCL 2 GM in 0.9 % SODIUM CHLORIDE 100 ML IV ×2 (05:55→19:20)
[2025-04-02 06:47] LABS: Hematocrit 31.8 % (37.0-47.0); Immature Granulocytes % 0.3 %; Mean Corpuscular HGB Conc 32.4 g/dL (31.8-35.4); Mean Corpuscular Hemoglobin 29.7 pg (27.0-31.2); Mean Corpuscular Volume 91.6 fl (81-99); Nucleated Red Blood Cells % 0 %; Platelet Count 100 K/mm3 (142-424); Red Blood Count 3.47 M/mm3 (4.20-5.40); Red Cell Distribution Width-SD 43.3 fL; White Blood Count 6.3 K/mm3 (4.8-10.8)
[2025-04-02 07:05] LABS: Alanine Aminotransferase 43 U/L (12-78); Albumin Level 2.5 g/dl (3.5-5.0); Albumin/Globulin Ratio 0.8 (1.1-1.8); Alkaline Phosphatase 64 U/L (38-126); Anion Gap 4.7 mEq/L (5-15); Aspartate Amino Transferase 62 U/L (14-36); Bilirubin,Total 0.6 mg/dl (0.2-1.3); Blood Urea Nitrogen 18 mg/dl (7-17); Calcium 7.8 mg/dl (8.4-10.2); Carbon Dioxide 27 mmol/L (22.0-30.0); Chloride 102 mmol/L (98-107); Creatinine Clearance Estimated 38 mL/min (50-200); Creatinine,Serum 1.10 mg/dl (0.52-1.04); Estimated Glomerular Filt Rate 47 ml/min (>60); GFR (African American) 57 ML/MIN (>60); Globulin 3.1 g/dL (1.3-3.2); Glucose 106 mg/dl (74-100); Potassium 3.7 mmoL/L (3.5-5.1); Sodium 130 mmol/L (136-145); Total Protein,Serum 5.6 g/dl (6.3-8.2)
[2025-04-02 07:24] LABS: Hemoglobin 10.5 g/dL (12.2-16.2)
--- NOTE | 2025-04-02 07:39 | EXP.ACUTE.PN ---
Subjective *Date: 04/02/25 *Time: 09:54 Interval history: Reports feeling little bit better today. Still having some suprapubic pain. No nausea or vomiting. No fever morning rounds. Medical Exam Vital signs and Labs for Last 24 Hours: Vital Signs Temp Pulse Pulse Pulse Pulse Pulse Resp 04/02/25 07:23 98.5 F 89 16 04/02/25 07:00 04/02/25 05:00 04/02/25 04:00 98.8 F 88 12 04/02/25 04:00 80 04/02/25 03:00 04/02/25 01:00 04/02/25 00:00 90 04/02/25 00:00 98.3 F 82 12 04/01/25 23:00 04/01/25 22:27 90 93 H 97 H 04/01/25 22:27 04/01/25 21:00 04/01/25 21:00 16 04/01/25 20:31 90 04/01/25 20:15 97.9 F 95 H 16 04/01/25 20:00 98.4 F 95 H 12 04/01/25 18:15 98 H 20 04/01/25 18:00 98 H 19 04/01/25 17:45 100 H 04/01/25 17:30 99 H 18 04/01/25 17:00 101 H 04/01/25 16:55 101 H 04/01/25 16:15 102 H 18 04/01/25 16:00 103 H 04/01/25 16:00 101.8 F H 04/01/25 15:30 111 H 20 04/01/25 15:28 113 H 19 04/01/25 15:12 98.5 F 112 H 20 BP BP BP BP BP Pulse Ox O2 Del Method 04/02/25 07:23 130/64 92 L Room Air 04/02/25 07:00 Room Air 04/02/25 05:00 Room Air 04/02/25 04:00 122/58 L 91 L Room Air 04/02/25 04:00 04/02/25 03:00 Room Air 04/02/25 01:00 Room Air 04/02/25 00:00 04/02/25 00:00 118/58 L 92 L Room Air 04/01/25 23:00 Room Air 04/01/25 22:27 04/01/25 22:27 127/56 L 100/53 L 73/45 L 04/01/25 21:00 Room Air 04/01/25 21:00 92 L Room Air 04/01/25 20:31 04/01/25 20:15 104/47 L Room Air 04/01/25 20:00 113/53 L 93 L Room Air 04/01/25 18:15 90 L Room Air 04/01/25 18:00 120/59 L 92 L Room Air 04/01/25 17:45 92 L Room Air 04/01/25 17:30 115/54 L 96 Nasal Cannula 04/01/25 17:00 123/58 L 96 Room Air 04/01/25 16:55 119/56 L 97 Room Air 04/01/25 16:15 144/66 H 98 Nasal Cannula 04/01/25 16:00 87 L 04/01/25 16:00 04/01/25 15:30 137/66 91 L Room Air 04/01/25 15:28 133/74 90 L 04/01/25 15:12 114/61 98 Room Air O2 Flow Rate 04/02/25 07:23 04/02/25 07:00 04/02/25 05:00 04/02/25 04:00 04/02/25 04:00 04/02/25 03:00 04/02/25 01:00 04/02/25 00:00 04/02/25 00:00 04/01/25 23:00 04/01/25 22:27 04/01/25 22:27 04/01/25 21:00 04/01/25 21:00 04/01/25 20:31 04/01/25 20:15 04/01/25 20:00 04/01/25 18:15 04/01/25 18:00 04/01/25 17:45 04/01/25 17:30 2 04/01/25 17:00 04/01/25 16:55 04/01/25 16:15 2 04/01/25 16:00 04/01/25 16:00 04/01/25 15:30 04/01/25 15:28 04/01/25 15:12 Intake and Output 04/01/25 04/01/25 04/02/25 15:59 23:59 07:59 Intake Total 1350 / 1590 290 / 290 Output Total 0 / 0 0 / 0 Balance 1350 / 1590 290 / 290 Intake: Intake, Oral Amount 240 / 240 Intake, Total IV Amount 1350 / 1350 50 / 50 Cefepime HCl 2 gm In 0.9 % 100 / 100 Sodium Chloride 100 ml @ 200 mls/hr IV ONCE ONE Rx#:[id number] Lactated Ringers 1000ML 1,000 1000 / 1000 ml @ 999 mls/hr IV .Q1H1M ONE Rx#:[id number] Magnesium Sulfate in Water 2 gm 50 / 50 In 50 ml @ 50 mls/hr IV Q1H SCOTT Rx#:[id number] Vancomycin/Water For Inj (Peg) 250 / 250 1.25 gm In 250 ml @ 125 mls/hr IV ONCE ONE Rx#:[id number] Output: Output, Urine Amount 0 / 0 0 / 0 Other: Number of Unmeasured Voids 1 1 Weight 64.864 kg 64.864 kg Patient Weight 04/02/25 23:59 Weight 64.864 kg Laboratory Results - last 24 hr 04/01/25 15:41: WBC 14.5 H, RBC 4.31, Hgb 13.0, Hct 39.3, MCV 91.2, MCH 30.2, MCHC 33.1, RDW 12.9, Plt Count 125 L, MPV 10.7 H, Neut % (Auto) 93.8 H, Lymph % (Auto) 1.2 L, [place] % (Auto) 4.1, Eos % (Auto) 0.0 L, Baso % (Auto) 0.2, Neut # (Auto) 13.6 H, Lymph # (Auto) 0.2 L, [place] # (Auto) 0.6, Eos # (Auto) 0.0, Baso # (Auto) 0.0, Total Counted 100, Neutrophils % (Manual) 95 H, Lymphocytes % (Manual) 2 L, Monocytes % (Manual) 2, Basophils % (Manual) 1.0, Platelet Estimate Normal, Polychromasia 1+, Poikilocytosis 1+, Anisocytosis 1+, Microcytosis 1+, Macrocytosis 1+, Target Cells 1+, Tear Drop Cells 1+, Ovalocytes 1+, D-Dimer > 8.10 H, Sodium 134 L, Potassium 3.7, Chloride 99, Carbon Dioxide 29, Anion Gap 9.7, BUN 15, Creatinine 1.10 H, Estimated Creat Clear 38, Estimated GFR 47 L, Est GFR ( Amer) 57 L, Glucose 147 H, Calcium 9.0, Magnesium 1.6, Total Bilirubin 1.0, AST 100 H, ALT 56, Alkaline Phosphatase 82, Troponin I < 0.01, NT-Pro-B Natriuret Pep 1100 H, Total Protein 7.3, Albumin 3.5, Globulin 3.8 H, Albumin/Globulin Ratio 0.9 L, Lipase 97 04/01/25 16:15: Urine Color Yellow, Urine Appearance Clear, Urine pH 6.0, Ur Specific Volin 1.015, Urine Protein Trace, Urine Glucose (UA) Negative, Urine Ketones Negative, Urine Blood 2+ A, Urine Nitrate Negative, Urine Bilirubin Negative, Urine Urobilinogen 0.2, Ur Leukocyte Esterase Trace, Urine RBC 5-10, Urine WBC None, Ur Squamous Epith Cells 5-10, Urine Bacteria None 04/01/25 17:36: Lactate 0.9 04/01/25 18:18: SARS-CoV-2 (PCR) Not detected, Influenza Type A (PCR) Not detected, Influenza Type B (PCR) Not detected, RSV (PCR) Not detected, Rhinovirus (PCR) Not detected 04/01/25 18:28: Troponin I < 0.01 04/02/25 06:25: WBC 6.3 D, RBC 3.47 L, Hgb 10.5 L D, Hct 31.8 L, MCV 91.6, MCH 29.7, MCHC 32.4, RDW 13.1, Plt Count 100 L, MPV 10.7 H, Neut % (Auto) 88.0 H, Lymph % (Auto) 4.1 L, [place] % (Auto) 5.7, Eos % (Auto) 1.6, Baso % (Auto) 0.3, Neut # (Auto) 5.6, Lymph # (Auto) 0.3 L, [place] # (Auto) 0.4, Eos # (Auto) 0.1, Baso # (Auto) 0.0, Sodium 130 L, Potassium 3.7, Chloride 102, Carbon Dioxide 27, Anion Gap 4.7 L, BUN 18 H, Creatinine 1.10 H, Estimated Creat Clear 38, Estimated GFR 47 L, Est GFR ( Amer) 57 L, Glucose 106 H D, Calcium 7.8 L, Total Bilirubin 0.6, AST 62 H D, ALT 43, Alkaline Phosphatase 64, Total Protein 5.6 L, Albumin 2.5 L D, Globulin 3.1, Albumin/Globulin Ratio 0.8 L I & O for Labs for Last 24 Hours: Intake & Output 03/30/25 03/31/25 04/01/25 04/02/25 23:59 23:59 23:59 23:59 Intake Total 1350 / 1590 290 / 290 Output Total 0 / 0 0 / 0 Balance 1350 / 1590 290 / 290 Weight 64.864 kg 64.864 kg Constitutional: Present no acute distress, average body habitus and chronically ill appearing Respiratory: Present normal respiratory effort; Absent respiratory distress, stridor, wheezes or crackles Cardiac: Present Reg Rate and Rhythm GI: Present soft, tenderness (Mild suprapubic tenderness) and normal bowel sounds; Absent distention Extremities: Present normal inspection and full ROM Skin: Present intact; Absent erythema Neuro: Present Grossly Intact, alert, awake and moves all extremities Assessment and Plan *Assessment and plan (1) Sepsis: Status: Acute Qualifiers: Acute respiratory failure type: with hypoxia Sepsis type: sepsis due to unspecified organism Severe sepsis acute organ dysfunction type: acute respiratory failure Severe sepsis shock status: without septic shock Category: Medical Code(s): A41.9 - Sepsis, unspecified organism (2) Right lower quadrant abdominal tenderness: Status: Acute Category: Medical Code(s): R10.813 - Right lower quadrant abdominal tenderness (3) Leucocytosis: Status: Acute Qualifiers: Leukocytosis type: unspecified Qualified Code(s): D72.829 - Elevated white blood cell count, unspecified Category: Medical Code(s): D72.829 - Elevated white blood cell count, unspecified (4) Fever and chills: Status: Acute Category: Medical Code(s): R50.9 - Fever, unspecified (5) FEDERICO (acute kidney injury): Status: Acute Category: Medical Code(s): N17.9 - Acute kidney failure, unspecified (6) Orthostatic hypotension: Status: Acute Category: Medical Code(s): I95.1 - Orthostatic hypotension (7) Chest pain: Status: Acute Qualifiers: Chest pain type: unspecified Qualified Code(s): R07.9 - Chest pain, unspecified Category: Medical Code(s): R07.9 - Chest pain, unspecified (8) Hypoxia: Status: Acute Category: Medical Code(s): R09.02 - Hypoxemia (9) GERD (gastroesophageal reflux disease): Status: Acute Qualifiers: Esophagitis bleeding: without hemorrhage Category: Medical Code(s): K21.9 - Gastro-esophageal reflux disease without esophagitis (10) Hypertensive heart disease without heart failure: Status: Chronic Category: Medical Code(s): I11.9 - Hypertensive heart disease without heart failure (11) Hyperlipidemia: Status: Chronic Qualifiers: Hyperlipidemia type: other hyperlipidemia Qualified Code(s): E78.4 - Other hyperlipidemia Category: Medical Code(s): E78.5 - Hyperlipidemia, unspecified (12) Hypothyroid: Status: Resolved Qualifiers: Hypothyroidism type: unspecified Qualified Code(s): E03.9 - Hypothyroidism, unspecified Category: Medical Code(s): E03.9 - Hypothyroidism, unspecified (13) Nausea: Status: Acute Category: Medical Code(s): R11.0 - Nausea Plan 84-year-old female who presented with criteria meeting sepsis, suspicious for UTI. Cannot rule out potentially passing a stone either as she had a small punctate stone identified on CT. Urine noted to have significant hematuria. This would fit with potential passage of a stone. Feeling better today. White count improved. Continues to require patient management. Anticipate discharge tomorrow. Problems addressed as follows: Sepsis, present on admission Urinary tract infection Hematuria right lower quadrant abdominal tenderness/right renal stone: - Tmax at 4 PM of 101.8; was febrile, tachycardic above 90, white count of 14.5, UTI on admission. Meeting sepsis criteria. - Continue cefepime 2 g IV every 12 hours -White count improved to 6.3 this morning. Repeat CBC, CMP, magnesium ordered for the morning. BUN 18, creatinine 1.1 - Urine and blood cultures pending -Continue Tylenol for fever -No obstruction from stone, FEDER[place]: Very mild bump with creatinine baseline approximately 0.09, improving. Creatinine 1.1 this morning. - Tolerating p.o. intake. Discontinue IV fluids Orthostatic hypotension: Holding isosorbide. Will obtain repeat orthostatic blood pressures today. Chest pain: Patient reported chest pain described as, lower chest pain with pressure nonradiating, began early in the morning. Troponins obtained from the emergency department which were unremarkable. EKG reviewed, showed sinus tachycardia without acute ST or T wave changes concerning for ischemia. Upon evaluation patient denied any current chest pain. Continue to monitor on telemetry, trend troponin level. Established patient of Dr. Holt, consider consult Friday if patient still admitted. GERD: Patient without complaint or symptoms, resume home PPI. HTN/HLD: As above adjustments have been made to patient antihypertensive medication Hypothyroid: TSH well-controlled at 0.02. Continue home regimen of levothyroxine 100 mcg daily SCDs DNR and DNI Healthy heart diet
[2025-04-02 08:58] LABS: Free T4 (Free Thyroxine) 1.55 ng/dl (0.78-2.19)
[2025-04-02 09:13] LABS: Thyroid Stimulating Hormone 0.02 uIU/mL (0.465-4.68)
[2025-04-02 09:39] LABS: RBC Morphology Normal; Total Cells Counted 100
[2025-04-02] MEDS: ASPIRIN EC 81MG TABLET 81 MG PO (09:57)
[2025-04-02] MEDS: POLYETHYLENE GLYCOL 3350 17 GM PACKET PO (09:58)
[2025-04-02] MEDS: LEVOTHYROXINE 100MCG (0.1MG) TAB 100 MCG PO (09:58)
[2025-04-02] MEDS: ESCITALOPRAM 20MG TABLET 20 MG PO (09:58)
--- NOTE | 2025-04-02 10:12 | HMH.PHAINT1 ---
Pharmacy Intervention Comments: MEDICATION RECONCILIATION COMPLETE USING EXTERNAL PHARMACY FILL HISTORY, RECENT MD OFFICE VISIT NOTE.
[2025-04-02 11:37] LABS: Magnesium 3.3 mg/dl (1.6-2.3)
--- OUTSIDE RECORDS SUMMARY | 2025-04-02 14:24 | XMS_ITS | Encounter Summary ---
Author Organization [employer] ([place], [place], [place], [place], [place]) Address [address] [place] [id number] Care Team Providers Care Terminal Superintendent Name Role Phone Unavailable Primary Care Provider Unavailabl e Encounter Details Date Type Department Care Team (Late st Contact Info) Description 05/22/2021 Transcribed Document [facility] [place] Pending sale [place] [facility] [address] ProviderRobert MD [place]ending [place] [address] Social History Tobacco Use Types [...] - Robert ProviderMD - 05/22/2021 2:24 PM KARDEX CLERK [facility] End[facility] IntraOp Summary Primary Physician: CHUCHO JHA MD-GAE Finalized Date/Time: 05/22/21 14:40:16 Pt. Name: MONCHO DIONE C /Sex: 1940 Female Med Rec #: [id number] Physician: CHUCHO JHA MD-GAE Financial #: [id number] Pt. Type: E [place] [facility] [place] Admit/Disch: 05/22/21 12:59:00 - Institution: [facility] - Case Attendance Entry 1 Entry 2 Entry 3 Case Attendee CHUCHO JHA FLEMING, SCOTT, -ANS GILBERT, AL M, NEWS SPECIALIST, MD-GAE [employer]-ANS Role Performed Surgeon/Proceduralist, Anesthesiologist of JAVA SOFTWARE/Nurse Inside Phone Sales First Record Time In 05/22/21 14:14:00 05/22/21 [...] 5 Case Attendee Ashley Baeza, Brian Childress, Custodial Foreman Role Performed Volunteer Services Coordinator, First Scrub, First Time In 05/22/21 14:16:00 05/22/21 14:16:00 Time Out 05/22/21 14:40:00 05/22/21 14:40:00 Procedure Colonoscopy, Colon Colonoscopy, Colon Polypectomy, Colon Polypectomy, Colon Biopsy, Colonoscopy w Biopsy, Colonoscopy w Control Bleeding Control Bleeding Other Attendee Superficial Wound Closed By: Last Modified By: Ashley Baeza Edmundson, Stephanie, RN 05/22/21 14:39:17 RN 05/22/21 14:39:17 E Endo - Case Attendance Audit 05/22/21 14:39:17 Payroll Consultant: [id number] Modifier: [id number] 1 <+> Time Out 1 <*> Procedure [...] Biopsy, Colonoscopy w Control Bleeding 05/22/21 14:36:59 Payroll Consultant: [id number] Modifier: [id number] 1 <*> Procedure Colonoscopy, Colon Polypectomy, Colon Biopsy 2 <*> Procedure Colonoscopy, Colon Polypectomy, Colon Biopsy 3 <*> Procedure Colonoscopy, Colon Polypectomy, Colon Biopsy 4 <*> Procedure Colonoscopy, Colon Polypectomy, Colon Biopsy 5 <*> Procedure Colonoscopy, Colon Polypectomy, Colon Biopsy 05/22/21 14:36:04 Payroll Consultant: [id number] Modifier: [id number] 1 <*> Procedure Colonoscopy, Colon Polypectomy 2 <*> Procedure Colonoscopy, Colon Polypectomy 3 <*> Procedure Colonoscopy, Colon Polypectomy 4 <*> Procedure Colonoscopy, Colon Polypectomy 5 <*> Procedure Colonoscopy, Colon Polypectomy 05/22/21 14:33:35 Payroll Consultant: [id number] Modifier: [id number] 1 <*> Procedure Colonoscopy 2 <*> Procedure Colonoscopy 3 <*> Procedure Colonoscopy 4 <*> Procedure Colonoscopy 5 <*> Procedure Colonoscopy 05/22/21 14:32:43 Payroll Consultant: [id number] Modifier: [id number] 1 <*> Procedure Colonoscopy 2 <*> Procedure [...] Endo - Case Times Audit 05/22/21 14:38:58 Payroll Consultant: [id number] Modifier: [id number] <+> 1 Out Room Time <+> 1 Stop Time <+> 1 Stop Time 05/22/21 14:24:42 Payroll Consultant: [id number] Modifier: [id number] <+> 1 Start Time [facility] - Cautery Entry 1 ESU Identification Cautery Type Heater Probe ID Number Room 1 ID Type Hospital Number Cautery Settings ESU Grounding Pad Ground Pad Type Adult Grounding Pad Site Right thigh Grounding Pad Harpal, , Applied By Custodial Foreman Grounding Pad Site Unchanged Skin Condition After [...] Ashley Baeza, Accompanied by RN, AL MURO, NEWS SPECIALIST, JAVA SOFTWARE-ANS Last Modified By: Ashley Baeza RN 05/22/21 [...] 05/22/21 14:20:17 [facility] - General Case Geophysical Party Chief 1 Case Information OR Endo 01 [facility] Case Level 1 Room Verified Yes Wound Class 2 - Clean-Contaminated Specialty Gastroenterology Anesthesia Type MAC ASA Class 4 Diagnosis Preop Diagnosis Change in bowel habits Postop Diagnosis Descending colon polyp. Rectal lesion. Diverticulosis. Wound Class Definitions Last Modified By: Ashley Baeza RN 05/22/21 14:38:52 [facility] - General Case Data Audit 05/22/21 14:38:52 Payroll Consultant: [id number] Modifier: [id number] 1 <*> Postop Diagnosis Descending colon polyp. Rectal biopsy. 05/22/21 14:38:19 Payroll Consultant: [id number] Modifier: [id number] <+> 1 Postop Diagnosis [facility] - [...] Positioned By Ashley Baeza RN, Brian Rowan, Custodial Foreman, AL MURO, NEWS SPECIALIST, [employer] SOFTWARE-ANS Position Verified Positioning Yes Verified by Surgeon Last Modified By: Ashley Baeza RN 05/22/21 14:37:01 [facility] - Patient Positioning Audit 05/22/21 14:37:01 Payroll Consultant: [id number] Modifier: [id number] 1 <*> Procedure Colonoscopy, Colon Polypectomy, Colon Biopsy 05/22/21 14:36:05 Payroll Consultant: [id number] Modifier: [id number] 1 <*> Procedure Colonoscopy, Colon Polypectomy 05/22/21 14:33:37 Payroll Consultant: [id number] Modifier: [id number] 1 <*> Procedure Colonoscopy 05/22/21 14:32:45 Payroll Consultant: [id number] Modifier: [id number] 1 <*> Procedure Colonoscopy [facility] - [...] Endo - Surgical Procedures Audit 05/22/21 14:39:22 Payroll Consultant: [id number] Modifier: [id number] <+> 1 Stop <+> 2 Stop <+> 3 Stop <+> 4 Stop 05/22/21 14:36:56 Payroll Consultant: [id number] Modifier: [id number] <+> 4 Procedure <+> 4 Primary Procedure <+> 4 Primary Surgeon <+> 4 Specialty <+> 4 Start <+> 4 Wound Class <+> 4 Anesthesia Type <+> 4 Additional Procedure Description <+> 4 Physician States Cecum Reached 05/22/21 14:35:57 Payroll Consultant: [id number] Modifier: [id number] <+> 3 Procedure <+> 3 Primary Procedure <+> 3 Primary Surgeon <+> 3 Specialty <+> 3 Start <+> 3 Wound Class <+> 3 Anesthesia Type <+> 3 Additional Procedure Description <+> 3 Physician States Cecum Reached 05/22/21 14:33:32 Payroll Consultant: [id number] Modifier: [id number] 2 <*> Procedure Colon Biopsy 05/22/21 14:32:39 Payroll Consultant: [id number] Modifier: [id number] <+> 2 Procedure <+> 2 Primary Procedure <+> 2 Primary Surgeon <+> 2 Specialty <+> 2 Start <+> 2 Wound Class <+> 2 Anesthesia Type <+> 2 Additional Procedure Description <+> 2 Physician States Cecum Reached 05/22/21 14:27:13 Payroll Consultant: [id number] Modifier: [id number] 1 <*> Procedure Colonoscopy 1 <+> Specialty [...] Endo - Time Out Audit 05/22/21 14:37:01 Payroll Consultant: [id number] Modifier: [id number] 1 <*> Procedure to be Performed Colonoscopy, Colon Polypectomy, Colon Biopsy 05/22/21 14:36:05 Payroll Consultant: [id number] Modifier: [id number] 1 <*> Procedure to be Performed Colonoscopy, Colon Polypectomy 05/22/21 14:33:37 Payroll Consultant: [id number] Modifier: [id number] 1 <*> Procedure to be Performed Colonoscopy 05/22/21 14:32:46 Payroll Consultant: [id number] Modifier: [id number] 1 <*> Procedure to be Performed Colonoscopy Case Comments <None> Finalized By: Ashley Baeza RN Document Signatures Signed By: Ashley Baeza RN 05/22/21 14:40 documented in this encounter Plan of Treatment Not on file documented as of this encounter Visit Diagnoses Not on filedocumented in this encounter
--- OUTSIDE RECORDS SUMMARY | 2025-04-02 14:24 | XMS_ITS | Encounter Summary ---
Author Organization [employer] ([place], [place], [place], [place], [place]) Address [address] [place] [address] Care Team Providers Care Battery Assembler Plastic Name Role Phone Unavailable Primary Care Provider Unavailabl e Encounter Details Date Type Department Care Team (Late st Contact Info) Description 05/22/2021 Transcribed Document [facility] [place] [facility] [place] [address] ProviderRobert MD [address] [place] [address] Social History Tobacco Use Types [...] - Robert ProviderMD - 05/22/2021 2:24 PM FACILITIES ASSISTANT KLEBER [facility] PACU Summary Primary Physician: CHUCHO JHA MD-GAE Finalized Date/Time: 05/22/21 15:04:21 Pt. Name: DIONE IVAN D.O.B./Sex: 1940 Female Med Rec #: [id number] Physician: CHUCHO JHA MD-GAE Financial #: [id number] Pt. Type: E [place] [facility] [place] Admit/Disch: 05/22/21 12:59:00 - Institution: [facility] PACU Case Times Entry 1 In PACU I 05/22/21 14:41:00 Ready for PACU 05/22/21 15:00:00 Discharge Discharge from PACU 05/22/21 15:04:00 Perla Flores PACU Case Times Audit 05/22/21 15:04:17 Glove Brusher: [id number] Modifier: [id number] <+> 1 Ready for PACU Discharge <+> 1 Discharge from PACU I Finalized By: Sharri Spicer RN-PATIENT CARE BEDSIDE NON-EXEMPT Document Signatures Signed By: Sharri Spicer RN-PATIENT CARE BEDSIDE NON-EXEMPT 05/22/21 15:04 documented in this encounter Plan of Treatment Not on file documented as of this encounter Visit Diagnoses Not on filedocumented in this encounter
--- OUTSIDE RECORDS SUMMARY | 2025-04-02 14:24 | XMS_ITS | Referral Summary ---
Author Organization [employer] ([place], [place], [place], [place], [place]) Address [address] [place] [address] Care Team Providers Care Replenisher Name Role Phone Unavailable Primary Care Provider [...]
--- OUTSIDE RECORDS SUMMARY | 2025-04-02 14:24 | XMS_ITS | Encounter Summary ---
Author Organization [employer] ([place], [place], [place], [place], [place]) Address [address] [place] [address] Care Team Providers Care Data Warehousing Manager Name Role Phone Unavailable Primary Care Provider Unavailabl e Encounter Details Date Type Department Care Team (Late st Contact Info) Description 05/22/2021 Transcribed Document [facility] [place] [facility] [place] [address] ProviderRobert MD [address] [place] [address] Social History Tobacco Use Types [...] - Historical ProviderMD - 05/22/2021 2:42 PM ROLLER SKATE ASSEMBLER Patient Education Materials Follows: Diverticulosis Diverticulosis is [...] getting enough exercise. ??? Smoking. ??? Taking ecap-bqu-wbjiwov pain medicines, like aspirin and ibuprofen. ??? [...] these instructions at home: Medicines ??? Take tffq-sxt-cxolejj and prescription medicines only as told by your health care provider. ??? If told by your health care provider, take a fiber supplement or probiotic. Constipation prevention Your condition may cause constipation. To prevent or treat constipation, you may need to: ??? Drink enough fluid to keep your urine pale yellow. ??? Take rfkg-tff-kieinha or prescription medicines. ??? Eat foods that [...] provider. Document Revised: 12/16/2019 Document Reviewed: 12/16/2019 [employer] Patient Education ? 2020 [place]. Oncology Colon Polyps Polyps are tissue growths [...] provider. Document Revised: 09/03/2018 Document Reviewed: 09/03/2018 [employer] Patient Education ? 2020 [place]. Radiology Colonoscopy, Adult, Care After This sheet [...] that are easy to digest. ??? Take pskn-bwy-rmecftu and prescription medicines only as told by [...] Reviewed: 12/13/2019 [employer] Patient Education ? 2020 [employer] documented in this encounter Plan of Treatment Not on file documented as of this encounter Visit Diagnoses Not on filedocumented in this encounter
--- OUTSIDE RECORDS SUMMARY | 2025-04-02 14:24 | XMS_ITS | Encounter Summary ---
[facility] Address [address] [place] [address] Care Team Providers Care Meat Boner Name Role Phone Goran Hernández MD Primary Care Provider [phone] Encounter Details Date Type Department Care Team (Late st Contact Info) Description 07/22/2013 Conversion Encounter [facility] HISTORICAL CONV [address] [place] [address] Interface, See Report Social History Tobacco Use Types Packs/Day Years Used Date Smoking Tobacco: Never Assessed Comments Unknown Sex and Gender Information Value Date Recorded Sex Assigned at Not on file Legal Sex Female 10:39 AM EDT Gender Identity Not on file Sexual Orientation Not on file documented as of this encounter Discharge Summaries * Interface, See Report - 07/22/2013 6:22 AM EST [place] [address] DISCHARGE SUMMARY PATIENT NAME: DIONE IVAN [address] [facility] NO: [id number] DATE OF : 1940 DATE OF ADMISSION: 07/22/2013 DATE OF DISCHARGE: 07/24/2013 ATTENDING PHYSICIAN: Genna Tristan MD MATTRESS FINISHER: Jeremy Chand MD, Cardiology FINAL DIAGNOSES: 1. [...] Subsequent cardiac enzymes demonstrated no evidence of KS, and a cardiology consult was obtained with the patient's usual waiter and cashier, Dr. Chand, who concurred that this was likely sinus tachycardia reactive to recent operation. A Gastrografin swallow also confirmed no leak and she remained otherwise well. Her heart rate was controlled and she was transferred to the telemetry floor. Her pain was initially controlled on intravenous paced CIVIL SERVICE WORKER and then transitioned to oral pain medication. She was begun on a postfundoplication diet and was instructed on dietary teaching by the manager zone. She continued to improve. CIVIL SERVICE WORKER was weaned off. Her heart rate remained [...] follow up with Dr. Chand in the [place] office in approximately 6 weeks. 6. She is to continue on her Bystolic 5 mg p.o. daily as well. 7. She understands and is willing to proceed. Genna Tristan MD* MDS/rxdrs Voice Rec. ID #[id number] Voice Original ID #[id number] Doc ID #[id number] Genna Tristan MD* Jeremy Chand MD* DO NOT TEXT EDIT THIS LINE :CDS:[id number]: Authenticated by GENNA TRISTAN MD On 07/29/2013 07:52:57 AM documented in this encounter OR Notes * Op Note - Interface, See Report - 07/22/2013 6:22 AM EST [place] [address] OPERATIVE REPORT PATIENT NAME: DIONE IVAN 8 H[facility]PITAL NO: [id number] DATE OF : 1940 DATE OF OPERATION: 07/22/2013 ADMITTING PHYSICIAN: Genna Tristan MD PREOPERATIVE DIAGNOSIS: Paraesophageal hernia. POSTOPERATIVE DIAGNOSIS: Same. PROCEDURE PERFORMED: Upper endoscopy with percutaneous gastrostomy tube placement. SURGEON: Betina Griffith MD PROPERTY OFFICER: Genna Tristan MD. Dr. Tristan also performed [...] Betina Griffith MD* RDB/rxcbp Voice Rec. ID #[id number] Original Voice Rec. ID #[id number] Doc ID #[id number] Revision Count: 0 cc: Betina Griffith MD* <start header> [place] [address] OPERATIVE REPORT PATIENT NAME: DIONE IVAN [address] [place] [address] NO: [id number] DATE OF : 1940 <end header> DO NOT TEXT EDIT THIS LINE :ASSISTANT MECHANIC:[id number]: Authenticated by Marbin GRIFFITH MD On 07/29/2013 12:12:33 PM * Op Note - Interface, See Report - 07/22/2013 6:22 AM EST [place] [address] OPERATIVE REPORT PATIENT NAME: DIONE IVAN [address] [place] [address] NO: [id number] DATE OF : 1940 DATE OF OPERATION: 07/22/2013 ADMITTING PHYSICIAN/SURGEON: Genna Tristan MD PROPERTY OFFICER: Juan Griffith MD PREOPERATIVE DIAGNOSIS: Type III paraesophageal hernia. POSTOPERATIVE DIAGNOSIS: Type III paraesophageal hernia. PROCEDURES PERFORMED: 1. Laparoscopic paraesophageal hernia repair with mesh, Augusto fundoplication. 2. Esophagogastroduodenoscopy with percutaneous endoscopic gastrostomy placement. SPECIMENS: Hernia sac. ANESTHESIA: General. PROPERTY OFFICER SURGEON'S RESPONSIBILITIES: Dr. Griffith assisted in retraction and visualization of structures, as well as performing the EGD/PEG. FINDINGS: 1. Type III paraesophageal hernia completely repaired and reduced. 2. Posterior hiatal cruraplasty was performed using interrupted pledgeted silk sutures and reinforced with [place] BIO-A mesh cut in a U-shaped fashion and placed posteriorly. 3. 360' Augusto fundoplication around a 56 Spanish bougie, performed with silk sutures. 4. A 20 Spanish PEG tube was placed with the skin [...] carried over to the left side. A [place] was placed within it and used to [...] hiatus around the esophagus. A piece of [place] BIO-A mesh was then cut in a U-shaped fashion and placed posteriorly and tacked to the diaphragm using silk sutures. The lapidarist advanced an orogastric tube into the mouth and through the esophagus and into the stomach. The inflatable bougie was inflated with saline to a 56-Spanish size. A 360' Augusto fundoplication was performed [...] point, using the Ponsky pull technique, a 20-Spanish PEG tube was brought through abdominal wall [...] Genna Tristan MD* TYSON/christiano Voice Rec. ID #[id number] Original Voice Rec. ID #[id number] Doc ID #[id number] Revision Count: 0 cc: Genna Tristan MD* <start header> [address] [address] OPERATIVE REPORT PATIENT NAME: DIONE IVAN0 8 [facility] NO: [id number] DATE OF : 1940 <end header> DO NOT TEXT EDIT THIS LINE :ASSISTANT MECHANIC:[id number]: Authenticated by GENNA TRISTAN MD On 07/29/2013 [...] EST) Glucose 89 70 - 100 mg/dL [facility] BUN 9 6 - 20 mg/dL [facility] Creatinine 0.9 0.6 - 1.3 mg/dL [facility] Sodium 145 136 - 145 mmol/L [facility] Potassium 4.0 3.4 - 5.4 mmol/L [facility] Chloride 102 98 - 107 mmol/L [facility] CO2 34(H) 20 - 31 mmol/L [facility] Calcium 8.8 8.7 - 10.4 mg/dL [facility] eGFR Unable to Calculate ml/min/1. 732 [facility] Comment: DF by IF @ 07/24/2013 04:26 National Kidney Foundation Guidelines Stage Description GFR 1 Normal or High 90+ 2 Mild decrease 60-89 3 Moderate decrease 30-59 4 Severe decrease 15-29 5 Kidney failure <15 Anion Gap 9 3 - 11 mmol/L [facility] Blood specimen (specimen) 07/24/2013 3:00 AM EST [facility] - 07/24/2013 4:26 AM EST Specimen Type: Blood us Genna Tristan MD LAB BLOOD ORDERABLES Final Re sult Performing Organization Address [facility] de Phone Number [facility] [address] [place] [address], * CK (07/24/2013 3:00 AM EST) Creatine Kinase 88 26 - 174 Units/L [facility] Blood specimen (specimen) 07/24/2013 3:00 AM EST [facility] - 07/24/2013 4:26 AM EST Specimen Type: Blood us Genna Tristan MD LAB BLOOD ORDERABLES Final Re sult Performing Organization Address [facility] de Phone Number [facility] [address] [place] [address], * Troponin (07/24/2013 3:00 AM EST) Troponin I 0.06 0.00 - 0.60 ng/mL [facility] Blood specimen (specimen) 07/24/2013 3:00 AM EST [facility] - 07/24/2013 4:26 AM EST Specimen Type: Blood us Genna Tristan MD LAB BLOOD ORDERABLES Final Re sult Performing Organization Address City/[facility]/ZIP Co de Phone Number [facility] [address] [place] [address], * CK MB (07/24/2013 3:00 AM EST) CKMB 1.8 0.0 - 4.9 ng/mL [facility] Blood specimen (specimen) 07/24/2013 3:00 AM EST [facility] - 07/24/2013 4:26 AM EST Specimen Type: Blood Genna Tristan MD LAB BLOOD ORDERABLES Final Re sult Performing Organization Address City/[facility]/[place] [address], * (ABNORMAL) CBC (No diff) (07/24/2013 3:00 AM EST) WBC 7.74 3.50 - 10.80 K/[facility] RBC 4.04 3.89 - 5.14 M/[facility] Hemoglobin 11.1(L) 11.5 - 15.5 g/dL [facility] Hematocrit 36.3 34.5 - 44.0 % [facility] MCV 89.9 80.0 - 99.0 fL [facility] MCH 27.5 27.0 - 31.0 pg [facility] MCHC 30.6(L) 32.0 - 36.0 g/dL [facility] RDW-CV 14.7(H) 11.3 - 14.5 % [facility] Platelets 244 150 - 450 K/[facility] Blood specimen (specimen) 07/24/2013 3:00 AM EST [facility] - 07/24/2013 3:51 AM EST Specimen Type: Blood Genna Tristan MD LAB BLOOD ORDERABLES Final Re sult Performing Organization Address [facility]/ZIP Co de Phone Number [facility] [address] [place] [address], * CK (07/23/2013 5:56 PM EST) Creatine Kinase 109 26 - 174 Units/L [facility] Blood specimen (specimen) 07/23/2013 5:56 PM EST [facility] - 07/23/2013 6:29 PM EST Specimen Type: Blood Genna Tristan MD LAB BLOOD ORDERABLES Final Re sult Performing Organization Address [facility] de Phone Number [facility] [address] [place] [address], * Troponin (07/23/2013 5:56 PM EST) Troponin I 0.06 0.00 - 0.60 ng/mL [facility] Blood specimen (specimen) 07/23/2013 5:56 PM EST [facility] - 07/23/2013 6:29 PM EST Specimen Type: Blood Genna Tristan MD LAB BLOOD ORDERABLES Final Re sult Performing Organization Address [facility] de Phone Number [facility] [address] [place] [address], * CK MB (07/23/2013 5:56 PM EST) CKMB 2.6 0.0 - 4.9 ng/mL [facility] Blood specimen (specimen) 07/23/2013 5:56 PM EST [facility] - 07/23/2013 6:29 PM EST Specimen Type: Blood Genna Tristan MD LAB BLOOD ORDERABLES Final Re sult Performing Organization Address [facility] de Phone Number [facility] [address] [place] [address], * CK (07/23/2013 9:40 AM EST) Creatine Kinase 101 26 - 174 Units/L [facility] Blood specimen (specimen) 07/23/2013 9:40 AM EST [facility] - 07/23/2013 10:36 AM EST Specimen Type: Blood Genna Tristan MD LAB BLOOD ORDERABLES Final Re sult Performing Organization Address [facility] de Phone Number [facility] [address] [place] [address], * Troponin (07/23/2013 9:40 AM EST) Troponin I 0.09 0.00 - 0.60 ng/mL [facility] Blood specimen (specimen) 07/23/2013 9:40 AM EST [facility] - 07/23/2013 10:36 AM EST Specimen Type: Blood Genna Tristan MD LAB BLOOD ORDERABLES Final Re sult Performing Organization Address [facility] de Phone Number [facility] [address] [place] [address], * CK MB (07/23/2013 9:40 AM EST) CKMB 3.1 0.0 - 4.9 ng/mL [facility] Blood specimen (specimen) 07/23/2013 9:40 AM EST [facility] - 07/23/2013 10:36 AM EST Specimen Type: Blood Genna Tristan MD LAB BLOOD ORDERABLES Final Re sult Performing Organization Address [facility]/ZIP Co de Phone Number [facility] [address] [place] [address], * (ABNORMAL) T3, uptake (07/23/2013 1:52 AM EST) T3 Uptake 44.1(H) 23.0 - 37.0 % [facility] Free Thyroxine Index 3.0 1.4 - 5.2 [facility] Blood specimen (specimen) 07/23/2013 1:52 AM EST [facility] - 07/23/2013 9:10 AM EST Specimen Type: Blood Historical Provider MD LAB BLOOD ORDERABLES Nancy l Result Performing Organization Address [facility]/[place] [address], * T4 (07/23/2013 1:52 AM EST) Pathologist [facility] T4, Total 6.9 4.7 - 11.4 mcg/dL [facility] Blood specimen (specimen) 07/23/2013 1:52 AM EST [facility] - 07/23/2013 9:10 AM EST Specimen Type: Blood Historical Provider MD LAB BLOOD ORDERABLES Nancy l Result Performing Organization Address City/[facility]/ZIP Co de Phone Number [facility] [address] [place] [address], * (ABNORMAL) TSH (07/23/2013 1:52 AM EST) TSH, High Sensitivity 0.124(L) 0.350 - 5.350 UIU/mL [facility] Blood specimen (specimen) 07/23/2013 1:52 AM EST [facility] - 07/23/2013 9:10 AM EST Specimen Type: Blood us Historical Provider LAB BLOOD ORDERABLES Nancy l Result [facility] [address] [place] [address], * (ABNORMAL) Basic metabolic panel (07/23/2013 1:52 AM EST) Glucose 110(H) 70 - 100 mg/dL [facility] BUN 10 6 - 20 mg/dL [facility] Creatinine 0.8 0.6 - 1.3 mg/dL [facility] Sodium 136 136 - 145 mmol/L [facility] Potassium 3.9 3.4 - 5.4 mmol/L [facility] Chloride 100 98 - 107 mmol/L [facility] CO2 28 20 - 31 mmol/L [facility] Calcium 8.6(L) 8.7 - 10.4 mg/dL [facility] eGFR Unable to Calculate ml/min/1. 732 [facility] Comment: DF by IF @ 07/23/2013 02:45 National Kidney Foundation Guidelines Stage Description GFR 1 Normal or High 90+ 2 Mild decrease 60-89 3 Moderate decrease 30-59 4 Severe decrease 15-29 5 Kidney failure <15 Anion Gap 8 3 - 11 mmol/L [facility] Blood specimen (specimen) 07/23/2013 1:52 AM EST Narrative [facility] - 07/23/2013 2:45 AM EST Specimen Type: Blood us Historical Provider LAB BLOOD ORDERABLES Nancy l Result [facility] [address] [place] [address], * (ABNORMAL) CBC (No diff) (07/23/2013 1:49 AM EST) WBC 9.74 3.50 - 10.80 K/[facility] RBC 3.81(L) 3.89 - 5.14 M/[facility] Hemoglobin 10.8(L) 11.5 - 15.5 g/dL [facility] Hematocrit 32.9(L) 34.5 - 44.0 % [facility] MCV 86.4 80.0 - 99.0 fL [facility] MCH 28.3 27.0 - 31.0 pg [facility] MCHC 32.8 32.0 - 36.0 g/dL [facility] RDW-CV 14.2 11.3 - 14.5 % [facility] Platelets 220 150 - 450 K/[facility] Blood specimen (specimen) 07/23/2013 1:49 AM EST [facility] - 07/23/2013 1:59 AM EST Specimen Type: Blood Collected Changed From 07/23/2013 06:00 To 07/23/2013 01:49 Genna Tristan MD LAB BLOOD ORDERABLES Final Re sult Performing Organization Address [facility] [place] [address], * CK (07/23/2013 1:40 AM EST) Creatine Kinase 106 26 - 174 Units/L [facility] Blood specimen (specimen) 07/23/2013 1:40 AM EST [facility] - 07/23/2013 2:45 AM EST Specimen Type: Blood Genna Tristan MD LAB BLOOD ORDERABLES Final Re sult Performing Organization Address [facility]/[place] [address], * Troponin (07/23/2013 1:40 AM EST) Troponin I 0.07 0.00 - 0.60 ng/mL [facility] Blood specimen (specimen) 07/23/2013 1:40 AM EST [facility] - 07/23/2013 2:45 AM EST Specimen Type: Blood Genna Tristan MD LAB BLOOD ORDERABLES Final Re sult Performing Organization Address [facility]/ZIP Co de Phone Number [facility] [address] [place] [address], * CK MB (07/23/2013 1:40 AM EST) CKMB 3.3 0.0 - 4.9 ng/mL [facility] Blood specimen (specimen) 07/23/2013 1:40 AM EST [facility] - 07/23/2013 2:45 AM EST Specimen Type: Blood Genna Tristan MD LAB BLOOD ORDERABLES Final Re sult Performing Organization Address [facility] de Phone Number [facility] [address] [place] [address], [place] [phone] * CK (07/22/2013 6:23 PM EST) Creatine Kinase 101 26 - 174 Units/L [facility] Blood specimen (specimen) 07/22/2013 6:23 PM EST [facility] - 07/22/2013 7:30 PM EST Specimen Type: Blood Genna Tristan MD LAB BLOOD ORDERABLES Final Re sult Performing Organization Address [facility] de Phone Number [facility] [address] [place] [address], * Troponin (07/22/2013 6:23 PM EST) Troponin I <0.01 0.00 - 0.60 ng/mL [facility] Blood specimen (specimen) 07/22/2013 6:23 PM EST Narrative [facility] - 07/22/2013 7:30 PM EST Specimen Type: Blood us Genna Tristan MD LAB BLOOD ORDERABLES Final Re sult Performing Organization Address [facility] de Phone Number [facility] [address] [place] [address], * (ABNORMAL) CK MB (07/22/2013 6:23 PM EST) CKMB 4.0 0.0 - 4.9 ng/mL [facility] CK-MB Index 4.0(H) 0.0 - 2.5 [facility] Blood specimen (specimen) 07/22/2013 6:23 PM EST Narrative [facility] - 07/22/2013 7:30 PM EST Specimen Type: Blood Genna Tristan MD LAB BLOOD ORDERABLES Final Re sult Performing Organization Address [facility] de Phone Number [facility] [address] [place] [address], [place] [phone] * [place] ESOPHAGRAM COMPLETE (07/22/2013 3:49 PM EST) Anatomical Region Laterality Modality Head and Neck N/A Radiographic Sanjuana ging 07/22/2013 3:49 PM EST Narrative 07/22/2013 7:29 PM EST HISTORY: Para esophageal hernia repair, evaluate for leak. GASTROGRAFIN SWALLOW FINDINGS: Preliminary gmat tutor film shows multiple clips in the upper [...] evaluate for leak. GASTROGRAFIN SWALLOW FINDINGS: Preliminary gmat tutor film shows multiple clips in the upper [...] AM EST) 07/22/2013 6:22 AM EST Narrative [facility] - 07/23/2013 2:56 PM EST [facility] [address] [place] [address] SURGICAL PATHOLOGY REPORT Patient Name: DIONE IVAN MR#: [id number] : 1940 Gender: F Ordering Physician: GENNA TRISTAN Copy To: Location: [address] [place] [address] Collected: 07/22/2013 Received: 07/22/2013 Reported: 07/23/2013 Clinical Diagnosis and History The working history is GERD. Final Diagnosis SOFT TISSUE FROM PARAESOPHAGEAL REGION: Hernia sac. [facility] Amendments: Electronically Signed Out By Monty Del Real M.D. Specimen(s) Received: Hernia sac Gross Description Received in formalin labeled hernia sac consists of a 3.0x3.0x2.8 cm portion of ferreira/pink fibrofatty soft tissue from which a publications sales representative section is submitted in one cassette. [facility] Microscopic Description Sections show focally mesothelium lined fibrovascular connective tissue with a benign lymphoid nodule. There is no evidence of neoplasm. J/mbc Procedures/Addenda us See Report Interface PATHOLOGY/CYTOLOGY ORDERABL ES Final Result [facility] [address] [place] [address], * SCANNED EKG (07/22/2013) [facility] Onbase ECG ORDERABLES Final Result * X-RAY [...] EST) Protime 11.4 9.6 - 11.5 Seconds [facility] INR 1.06 [facility] Comment: US by IF @ 07/21/2013 14:05 Therapeutic Ranges for INR: 2.0-3.0 (PT 20-30) 2.5-3.5 (PT 25-34) Blood specimen (specimen) 07/21/2013 1:44 PM EST Narrative [facility] - 07/21/2013 2:05 PM EST Specimen Type: Blood Genna Tristan MD LAB BLOOD ORDERABLES Final Re sult Performing Organization Address [facility] de Phone Number [facility] [address] [place] [address], * (ABNORMAL) Basic metabolic panel (07/21/2013 1:44 PM EST) Glucose 96 70 - 100 mg/dL [facility] BUN 12 6 - 20 mg/dL [facility] Creatinine 1.2 0.6 - 1.3 mg/dL [facility] Sodium 140 136 - 145 mmol/L [facility] Potassium 4.3 3.4 - 5.4 mmol/L [facility] Chloride 104 98 - 107 mmol/L [facility] CO2 30 20 - 31 mmol/L [facility] Calcium 8.6(L) 8.7 - 10.4 mg/dL [facility] eGFR Unable to Calculate ml/min/1. 732 [facility] Comment: DF by IF @ 07/21/2013 14:09 National Kidney Foundation Guidelines Stage Description GFR 1 Normal or High 90+ 2 Mild decrease 60-89 3 Moderate decrease 30-59 4 Severe decrease 15-29 5 Kidney failure <15 Anion Gap 6 3 - 11 mmol/L [facility] Blood specimen (specimen) 07/21/2013 1:44 PM EST Narrative [facility] - 07/21/2013 2:09 PM EST Specimen Type: Blood Genna Tristan MD LAB BLOOD ORDERABLES Final Re sult Performing Organization Address [facility]/ZIP Co de Phone Number [facility] [address] [place] [address], * (ABNORMAL) CBC (No diff) (07/21/2013 1:44 PM EST) WBC 6.48 3.50 - 10.80 K/[facility] LABORATORY RBC 4.37 3.89 - 5.14 M/[facility] LABORATORY Hemoglobin 12.2 11.5 - 15.5 g/dL [facility] Hematocrit 38.3 34.5 - 44.0 % [facility] MCV 87.6 80.0 - 99.0 fL [facility] MCH 27.9 27.0 - 31.0 pg [facility] MCHC 31.9(L) 32.0 - 36.0 g/dL [facility]OR[facility] RDW-CV 14.3 11.3 - 14.5 % [facility] Platelets 260 150 - 450 K/[facility] LABORATORY Blood specimen (specimen) 07/21/2013 1:44 PM EST Narrative [facility] - 07/21/2013 2:01 PM EST Specimen Type: Blood us Genna Tristan MD LAB BLOOD ORDERABLES Final Re sult Performing Organization Address City/State/[place] [address], documented in this encounter Visit Diagnoses Not on filedocumented in this encounter Additional Health Concerns Infection Onset Date Last Indicated Resolved Time COVID Screen (preop/placement) 03/19/2020 03/19/2020 03/20/2020 11:33 AM EDT documented as of this encounter Care Teams Meat Boner Relationship Specialty Start Date End Date Goran Hernández MD [address] [place] [address] PCP - General 01/12/15 documented as of this encounter
--- OUTSIDE RECORDS SUMMARY | 2025-04-02 14:24 | XMS_ITS | Encounter Summary ---
Author Organization [employer] ([place], [place], [place], [place], [place]) Address [address] [place] [address] Care Team Providers Care Musculoskeletal Physician Name Role Phone Unavailable Primary Care Provider Unavailabl e Encounter Details Date Type Department Care Team (Late st Contact Info) Description 05/22/2021 Transcribed Document [facility] [place] Family Medicine [facility] [place] [address] ProviderRobert MD [address] [place] [address] Social History Tobacco Use Types [...] - Historical ProviderMD - 05/22/2021 1:39 PM IRRIGATION MANAGER Pre Procedure Adult Entered On: 05/22/2021 13:43 EST Performed On: 05/22/2021 13:39 EST by Amber Briscoe Rn Height and Weight, Clinical Dosing Height Source : Stated Height Entry Format : [place] Height, Feet : 5 ft(Converted to: 152 cm, 60 Inch) Height, Inches : 6 Inch(Converted to: 0 ft 6 Inch, 15.24 cm) Clinical Height : 167.64 cm Weight Source : Standing scale Weight Entry Format : [place] Clinical Dosing Weight : 86.82 kg Weight, Pounds : 191 lb Body Surface Area (BSA) : 1.96 m2 Body Mass Index : 30.9 kg/m2 (HI) [place] Body Weight : 59 kg Amber Briscoe [...] Amber Briscoe Rn - 05/22/2021 13:39 EST [place] Suicide Severity Rating Scale (C-SSRS) CSSRS Past Month Wish to be : No CSSRS Past Month Suicidal Thoughts : No CSSRS Lifetime Suicide Behavior : No Suicide Severity Rating Score : 0 Suicide Severity Rating : No Additional Care Required at this time Amber Briscoe Rn - 05/22/2021 13:39 EST Psychosocial [...] #2 Relationship : na Primary Language : Chinese Communication Barrier : None Roll On Man Needed : No Amber Briscoe Rn - [...] Scale Risk Level : 0-24 Low Risk [place] Fall Interventions : Adequate lighting, Bed in [...]
--- OUTSIDE RECORDS SUMMARY | 2025-04-02 14:24 | XMS_ITS | Clinical Summary ---
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 Not on file Not [...] 07/14/2020, 06/14/2020 Medical Devices Implanted Type Area Cut Filer Device Identifier Shelf Expiration Date Model / Serial / Lot Stentgr Confrm Thor Goretag 22f [id number] 20cm - [id number] Implanted:Qty: 1 on 03/21/2020 by Dariel Toro MD at [facility] Implant [employer] [id number] 20 / / [id number] Stentgr Endoprsth Tag Confrm 22f [id number] 20cm - [id number] Implanted:Qty: 1 on 03/21/2020 by Dariel Toro MD at [facility] Implant [employer] 07/01/2022 [id number] / / [id number] Implant Description:bilat cataract, x3 stents, H/o cabg so sternal wire and possible clips Insurance [facility] MEDICARE A & B Advance Directives Documents on File Type Date Recorded Patient Solids Control Technician Expl anation POWER OF PEN MAKER - SCAN 03/19/2020 1:16 PM LIVING WILL [...] Agents on File Name Relationship [facility] J Marbin Zapata Spouse Power of Attorne y for Healthcare Care Teams Solar Manufacturer'S Representative Relationship Specialty Start Date End Date Goran Hernández MD [address] [place] [address] PCP - General 01/12/15
--- OUTSIDE RECORDS SUMMARY | 2025-04-02 14:24 | XMS_ITS | Encounter Summary ---
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 Name Role Phone Unavailable Primary Care Provider Unavailabl e Encounter Details Date Type Department Care Team (Late st Contact Info) Description 05/22/2021 Transcribed Document [facility] [place] [facility] [address] ProviderRobert MD [address] [place] [address] Social History Tobacco Use Types [...] - Robert ProviderMD - 05/22/2021 2:45 PM HIGH VOLTAGE ELECTRICIAN [address] [address] DIONE IVAN :1940 Visit Time:05/22/2021 What to do next Follow-Up Appointments Follow Up with CHUCHO JHA MD-OLEG When Comments Please call the office if you have any questions or concerns. Where: [facility] [address]- Medications What How Much When Instructions Next [...] getting enough exercise. ??? Smoking. ??? Taking djlh-rul-wyusgyf pain medicines, like aspirin and ibuprofen. ??? [...] these instructions at home: Medicines ??? Take djqc-ocv-lknwhop and prescription medicines only as told by your health care provider. ??? If told by your health care provider, take a fiber supplement or probiotic. Constipation prevention Your condition may cause constipation. To prevent or treat constipation, you may need to: ??? Drink enough fluid to keep your urine pale yellow. ??? Take yftg-web-fufwesp or prescription medicines. ??? Eat foods that [...] provider. Document Revised: 12/16/2019 Document Reviewed: 12/16/2019 [employer] Patient Education ?? 2020 [employer] Colon Polyps Polyps are tissue growths [...] provider. Document Revised: 09/03/2018 Document Reviewed: 09/03/2018 [employer] Patient Education ?? 202 [employer]. Colonoscopy, Adult, Care After This sheet gives [...] that are easy to digest. ??? Take xafm-fda-slgqcmj and prescription medicines only as told by [...] provider. Document Revised: 05/12/2020 Document Reviewed: 12/13/2019 [employer] Patient Education ?? 2020 [employer]. Emergency Awareness and Preventative Care STROKE is [...] Assistance with quitting is available by contacting 0-342-PAKSReVeraNOW. This is a free resource providing counseling, [...] was given the opportunity to ask questions. Patient/Customer Management Specialist Name: Patient/Customer Management Specialist Signature: Relationship to Patient: Clinician/Hospital Customer Management Specialist Signature: Date: documented in this encounter Plan of Treatment Not on file documented as of this encounter Visit Diagnoses Not on filedocumented in this encounter
--- OUTSIDE RECORDS SUMMARY | 2025-04-02 14:24 | XMS_ITS | Clinical Summary ---
Author Organization [employer] ([place], [place], [place], [place], [place]) Address [address] [place] [address] Care Team Providers Care Linen Folder Name Role Phone Unavailable Primary Care Provider [...]
--- OUTSIDE RECORDS SUMMARY | 2025-04-02 14:24 | XMS_ITS | Encounter Summary ---
Author Organization [employer] ([place], [place], [place], [place], [place]) Address [address] [place] [address] Care Team Providers Care Chemical Lab Supervisor Name Role Phone Unavailable Primary Care Provider Unavailabl e Encounter Details Date Type Department Care Team (Late st Contact Info) Description 05/22/2021 Transcribed Document [facility] [place] [facility] [place] [address] ProviderRobert MD [address] [place] [address] Social History Tobacco Use Types [...] - Robert ProviderMD - 05/22/2021 2:00 PM BLOWING ENGINEER [facility] PreOp Summary Primary Physician: CHUCHO JHA MD-GAE Finalized Date/Time: 05/22/21 13:50:15 Pt. Name: DIONE IVAN D.O.B./Sex: 1940 Female Med Rec #: [id number] Physician: CHUCHO JHA MD-GAE Financial #: [id number] Pt. Type: E Room/Bed: N/3 Admit/Disch: 05/22/21 12:59:00 - Institution: [facility] PreOp Case Times Entry 1 In Preop 05/22/21 13:15:00 Ready for Holding 05/22/21 13:47:00 Room Patient Ready for 05/22/21 13:47:00 Surgery Patient Out of Preop 05/22/21 13:47:00 Patient Out of n/a Holding Room [facility] PreOp Case Times Audit 05/22/21 13:47:44 Branch Specialist: [id number] Modifier: [id number] <+> 1 Patient Out of Preop <+> 1 Patient Ready for Surgery <+> 1 Ready for Holding Room Finalized By: Amber Briscoe Rn Document Signatures Signed By: Amber Briscoe Rn 05/22/21 13:50 documented in this encounter Plan of Treatment Not on file documented as of this encounter Visit Diagnoses Not on filedocumented in this encounter
--- OUTSIDE RECORDS SUMMARY | 2025-04-02 14:24 | XMS_ITS | Encounter Summary ---
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 Robert Ventura) at [facility]. She reports no rectal bleeding or weight [...] out adenomatous change. The APC argon plasma electrical superintendent was utilized to coagulate the site of removal. The preparation was excellent throughout and the [place] preparation score was Impression: 1. Diminutive descending [...] discuss the findings with patient and family. documented in this encounter Plan of Treatment Not on file documented as of this encounter Visit Diagnoses Not on filedocumented in this encounter
[2025-04-02] MEDS: ATORVASTATIN 20MG TABLET 20 MG PO (20:46)
[2025-04-02] MEDS: MELATONIN 5MG TABLET 10 MG PO (20:47)
[2025-04-03] VITALS: PULSE 80
--- NOTE | 2025-04-03 01:00 | PC.NURSE ---
Upon getting report this Tech was told per patient and Dr. zamudio dosen't want any staff in room between 2200 and 0600.
[2025-04-03] MEDS: CEFEPIME HCL 2 GM in 0.9 % SODIUM CHLORIDE 100 ML IV (05:47)
[2025-04-03 06:24] LABS: Hematocrit 35.3 % (37.0-47.0); Hemoglobin 11.1 g/dL (12.2-16.2); Immature Granulocytes % 0.3 %; Mean Corpuscular HGB Conc 31.4 g/dL (31.8-35.4); Mean Corpuscular Hemoglobin 29.5 pg (27.0-31.2); Mean Corpuscular Volume 93.9 fl (81-99); Nucleated Red Blood Cells % 0 %; Platelet Count 116 K/mm3 (142-424); Red Blood Count 3.76 M/mm3 (4.20-5.40); Red Cell Distribution Width-SD 45.2 fL; White Blood Count 4.0 K/mm3 (4.8-10.8)
[2025-04-03 06:44] LABS: Alanine Aminotransferase 34 U/L (12-78); Albumin Level 2.7 g/dl (3.5-5.0); Albumin/Globulin Ratio 0.8 (1.1-1.8); Alkaline Phosphatase 73 U/L (38-126); Anion Gap 5.8 mEq/L (5-15); Aspartate Amino Transferase 41 U/L (14-36); Bilirubin,Total 0.6 mg/dl (0.2-1.3); Blood Urea Nitrogen 13 mg/dl (7-17); Calcium 7.9 mg/dl (8.4-10.2); Carbon Dioxide 28 mmol/L (22.0-30.0); Chloride 103 mmol/L (98-107); Creatinine Clearance Estimated 42 mL/min (50-200); Creatinine,Serum 1.00 mg/dl (0.52-1.04); Estimated Glomerular Filt Rate 53 ml/min (>60); GFR (African American) 64 ML/MIN (>60); Globulin 3.3 g/dL (1.3-3.2); Glucose 98 mg/dl (74-100); Magnesium 2.3 mg/dl (1.6-2.3); Potassium 3.8 mmoL/L (3.5-5.1); Sodium 133 mmol/L (136-145); Total Protein,Serum 6.0 g/dl (6.3-8.2)
--- NOTE | 2025-04-03 06:50 | INFXCTL.NOTE ---
Pt. is alert and orientated x 4. P.t is on room air. Pt. denies any pain at this time. Pt. states that she is feeling better. Pt. denies any dizziness or lightheadedness overnight. Pt. has been up independently to go to the bathroom. Gait steady. Pt. getting IV antibiotics as per JUL. Pt. slept off and on . she states that she does not sleep well in the hospital. Pt. states that she is feeling depressed. Pt. states there is no specific reason at this time. Personal items and call corbin in reach. Bed in low and locked position. safety measures in place.
[2025-04-03] MEDS: LEVOTHYROXINE 100MCG (0.1MG) TAB 100 MCG PO (07:26)
--- NOTE | 2025-04-03 07:40 | PC.NURSE ---
Pt is alert and orientated x 4. Pt. is on room air. Pt. denies any pain this shift. Pt. also denies any dizziness or light headedness. Pt. states that she feels better.Pt. up independently gait stable. Pt. getting IV antibiotics. Pt. states she has been feeling depressed but has no specific thing that makes her sad and depressed. Personal items and call corbin in reach. Bed in low and locked position. safety measures in place.
[2025-04-03] MEDS: ASPIRIN EC 81MG TABLET 81 MG PO (07:59)
[2025-04-03] MEDS: POLYETHYLENE GLYCOL 3350 17 GM PACKET PO (07:59)
[2025-04-03] MEDS: ESCITALOPRAM 20MG TABLET 20 MG PO (07:59)
[2025-04-03 08:00] VITALS: BP 133/64; PULSE 60; PULSE 71; RESP 16; TEMP 37; O2SAT 95
--- NOTE | 2025-04-03 09:51 | P.DS_ITS ---
<Statement entered by Jeremy Cannon MD - 04/03/25 12:31> Rounded on patient after nurse practitioner. Personally examined and interviewed patient. Agree with exam findings and care plan as documented. General Admission date:: 04/01/25 Discharge date: 04/03/25 HPI HPI HPI: Patient is a 84-year-old female with a past medical history significant for Niesen fundoplication, hypertension, hyperlipidemia, coronary arteriosclerosis, arthrosclerosis of bypass, RBBB, thoracic aortic aneurysm, AAA repair, claudication, GERD, cardiac stent placement. Presents to the emergency department due to lower right suprapubic pain, urinary symptoms, nausea and fever. Evaluated by her PCP yesterday Dr. Valladares and was prescribed Macrobid for UTI. During this appointment she had complained of intermittent chest pain on exertion, pain radiating towards her back with associated shortness of breath. She also reported dizziness/lightheadedness. During her office visit she was found to have orthostatic hypotension. Dr. Valladares made note of discontinuing bisoprolol a few days prior. He also decreased isosorbide mononitrate ER from 15 mg to 10 mg twice a day d/t orthostatic hypotension in office. Noted he would like cardiology to evaluate prior to any further cardiac medication changes. Patient states she is an established patient of Dr. Holt with cardiology. On arrival to our emergency department she noted feeling weak with some pressure in her lower chest region, nonradiating intermittent that began in the morning. Patient was also noted to drop her oxygen saturations to 89% on room air, she was placed on 2 L nasal cannula in the emergency department. Noted when she attempted to ambulate her oxygen dropped to 86-87%. During my evaluation patient was without acute distress, denied chest pain or shortness of breath. Resting in bed comfortably on room air. Patient's daughter who works in the hospital accompanies her at bedside. Patient reports right lower suprapubic pain with urinary symptoms. Noted frequency and dysuria. Currently states pain has improved, 2 out of 10. Reports symptoms have been ongoing for about a week. Described as sharp stabbing pain early this morning (04/01). States taking her prescribed antibiotic (macrobid) per Dr. Valladares along with the new decreased dose of isoborbide, woke up early in the morning with severe right lower pain in her right lower abdominal/suprapubic region. Reported fever of 101 ?F with chills and fatigue. Denied vomiting as she is unable to d/t Niesen fundoplication. Patient states she was worried about recurrent episode of colitis, her abdominal pain was similar in nature. Denies any known alleviating or aggravating factors. Denies shortness of breath, contact with sick individuals, diarrhea. Initial ED workup included laboratory studies and imaging. Significant laboratory findings WBC 14.5, platelet count, D-dimer greater than 8.10, 134, creatinine 1.10, GFR 47, AST 100, BNP 1100, UA with 2+ blood. Imaging studies obtained and I personally reviewed; chest CTA and chest x-ray, without acute findings. CT abdomen and pelvis showing punctate right renal stone and diverticulosis. Hospital Course Hospital Course Hospital Course: Ms. Zapata is an 84-year-old female who presented to the emergency department on 04/01/2025 due to abdominal pain, weakness, nausea. Patient stated she had a fever of 101 and called her PCP who recommended she go to the emergency department. Patient was recently prescribed Macrobid for a suspected kidney infection on 03/31/2025. Patient does have a significant medical history of Niesen fundoplication, CAD, GERD, AAA repair, claudication, hypertension, hyperlipidemia, RBBB, hypothyroid. Workup in the emergency department was significant for mild leukocytosis of 14, D-dimer > 8, slightly elevated creatinine of 1.1, BNP of 1100. Negative troponin, normal lipase. UA without bacteria, no WBC, trace leuk esterase noted. EKG reassuring showing sinus tach with no ST or T wave changes. Chest x-ray showed no acute findings, CT chest shows no evidence of PE, CT abdomen/pelvis no evidence of intra-abdominal pathology. Patient was found to be tachycardic, febrile, and mild leukocytosis she met sepsis criteria. Broad-spectrum antibiotics were initially started vancomycin and cefepime, she was slightly hypoxic with a O2 saturation of 89% on room air. She was placed on 2 L NC and oxygen saturation remained greater than 90%. Blood cultures were obtained prior to starting antibiotics. Hospital medicine at this time was consulted for continued management. #Urinary tract infection #Sepsis, POA ? Patient initially met sepsis criteria and was given vancomycin and cefepime. De-escalated to cefepime every 12 hours daily. Patient white count normalized, 4.0-day of discharge. Patient has been afebrile, nontachycardic since admission. Patient states she feels well, back to baseline. Patient should follow-up with PCP and cardiology within 1 week. ? Patient was admitted to the medical surgical floor and continued on cefepime every 12 hours. Patient does state that she has had suprapubic right lower quadrant tenderness as well as urgency and dysuria for approximately 1 week. Urine culture continue to show no growth. Patient was started on oral antibiotics prior to this ER admission, discharged home on cefdinir 300 mg to complete a total of 5 days of antibiotics. Patient denies urinary symptoms day of discharge. #Hypoxia ? Initially patient had some hypoxia noted in the ED and was placed on 2 L nasal cannula. Once she was brought to the medical surgical floor her oxygen was discontinued and patient remained greater than 90% during admission, 95% on room air day of discharge. #Chest pain patient did report nonradiating chest pain/pressure on admission. EKG reassuring. Troponins negative. Continued cardiac telemetry during admission benign. Patient is an established patient with Dr. Holt, has a follow-up appointment on 04/26. Patient should keep this appointment for further cardiac workup if needed. #FEDERICO ? Patient had very mild increase in creatinine on admission, 1.1. Day of discharge patient creatinine 1.00, BUN 13. Patient tolerated p.o. intake without any issues. Patient should continue home chronic medications, aspirin 81 mg daily, vitamin D3 25 mcg daily, escitalopram 20 mg daily, isosorbide 10 mg twice daily, levothyroxine 100 mcg daily, rosuvastatin 20 mg daily, trazodone and melatonin as needed for sleep. Total time spent on discharge 32 minutes in counseling, documentation, chart review, and direct care with patient. Exam Data for Last 24 hours Vital signs and Labs for Last 24 Hours: Temp Pulse Resp BP Pulse Ox O2 Del Method O2 Flow Rate 98.6 F 71 16 133/64 95 Room Air 2 04/03/25 08:00 04/03/25 08:00 04/03/25 08:00 04/03/25 08:00 04/03/25 08:00 04/03/25 09:00 04/01/25 17:30 Laboratory Results - last 24 hr 04/02/25 06:35: Magnesium 3.3 H D 04/03/25 05:55: WBC 4.0 L D, RBC 3.76 L, Hgb 11.1 L, Hct 35.3 L, MCV 93.9, MCH 29.5, MCHC 31.4 L, RDW 13.2, Plt Count 116 L, MPV 10.8 H, Neut % (Auto) 67.6, Lymph % (Auto) 19.8, Carbon % (Auto) 7.5, Eos % (Auto) 4.5, Baso % (Auto) 0.3, Neut # (Auto) 2.7, Lymph # (Auto) 0.8, Carbon # (Auto) 0.3, Eos # (Auto) 0.2, Baso # (Auto) 0.0, Sodium 133 L, Potassium 3.8, Chloride 103, Carbon Dioxide 28, Anion Gap 5.8, BUN 13 D, Creatinine 1.00, Estimated Creat Clear 42, Estimated GFR 53 L, Est GFR ( Amer) 64, Glucose 98, Calcium 7.9 L, Magnesium 2.3 D , Total Bilirubin 0.6, AST 41 H D, ALT 34, Alkaline Phosphatase 73, Total Protein 6.0 L, Albumin 2.7 L, Globulin 3.3 H, Albumin/Globulin Ratio 0.8 L I & O for Last 24 hours: Intake & Output 03/31/25 04/01/25 04/02/25 04/03/25 23:59 23:59 23:59 22:59 Intake Total 1350 / 1590 2236.25 / 2476.25 700 / 700 Output Total 0 / 0 200 / 200 250 / 250 Balance 1350 / 1590 2036.25 / 2276.25 450 / 450 Weight 64.864 kg 64.864 kg Microbiology Reports for the Last 24 Hours: Microbiology 04/01/25 16:14 Urine,Clean Catch Urine Culture - Final NO GROWTH AFTER 48 HOURS 04/01/25 15:56 Blood Blood Culture - Preliminary NO GROWTH AFTER 24 HOURS 04/01/25 15:53 Blood Blood Culture - Preliminary NO GROWTH AFTER 24 HOURS Constitutional Constitutional: no acute distress, average body habitus and cooperative *Routine HEENT Exam Head: Present normocephalic Eye: Present EOMI and PERRL ENT: Present mucous membranes moist *Routine Neck Exam Neck: Present supple; Absent lymphadenopathy *Routine Respiratory Exam Respiratory: Present CTA bilaterally and normal respiratory effort; Absent wheezes or crackles *Routine Cardiovascular Exam Cardiovascular: Present RRR, Normal S1 and Normal S2; Absent murmur *Routine Abdominal Exam Abdominal: Present soft, normoactive bowel sounds and tenderness Comments: Lower mild abdominal tenderness to palpation. No peritoneal signs. *Routine Rectal Exam Patient deferred: visual exam *Routine Exam Patient deferred: external exam *Routine Extremities Exam Extremities: Present full ROM, pulses intact and normal capillary refill; Absent cyanosis, clubbing or edema *Routine Skin Exam Skin: Present intact, dry and warm; Absent rash *Routine Neurological Exam Neurological: Present alert, oriented X3, hearing grossly intact and normal speech Routine Psychiatric Exam Psychiatric: Present normal affect Results Data Completed and Pending Labs on day of discharge: Labs from last 24 hours 04/03/25 04/02/25 05:55 06:35 WBC 4.0 L D RBC 3.76 L Hgb 11.1 L Hct 35.3 L MCV 93.9 MCH 29.5 MCHC 31.4 L RDW 13.2 Plt Count 116 L MPV 10.8 H Neut % (Auto) 67.6 Lymph % (Auto) 19.8 Carbon % (Auto) 7.5 Eos % (Auto) 4.5 Baso % (Auto) 0.3 Neut # (Auto) 2.7 Lymph # (Auto) 0.8 Carbon # (Auto) 0.3 Eos # (Auto) 0.2 Baso # (Auto) 0.0 Sodium 133 L Potassium 3.8 Chloride 103 Carbon Dioxide 28 Anion Gap 5.8 BUN 13 D Creatinine 1.00 Estimated Creat Clear 42 Estimated GFR 53 L Est GFR ( Amer) 64 Glucose 98 Calcium 7.9 L Magnesium 2.3 D 3.3 H D Total Bilirubin 0.6 AST 41 H D ALT 34 Alkaline Phosphatase 73 Total Protein 6.0 L Albumin 2.7 L Globulin 3.3 H Albumin/Globulin Ratio 0.8 L Preliminary micro results at discharge 04/01/25 15:56 Blood Culture - Preliminary Blood NO GROWTH AFTER 24 HOURS 04/01/25 15:53 Blood Culture - Preliminary Blood NO GROWTH AFTER 24 HOURS DS: Diagnosis Discharge Diagnosis (1) Sepsis: Status: Acute Code(s): A41.9 - Sepsis, unspecified organism Qualifiers: Acute respiratory failure type: with hypoxia Sepsis type: sepsis due to unspecified organism Severe sepsis acute organ dysfunction type: acute respiratory failure Severe sepsis shock status: without septic shock (2) Right lower quadrant abdominal tenderness: Status: Acute Code(s): R10.813 - Right lower quadrant abdominal tenderness (3) Leucocytosis: Status: Acute Code(s): D72.829 - Elevated white blood cell count, unspecified Qualifiers: Leukocytosis type: unspecified Qualified Code(s): D72.829 - Elevated white blood cell count, unspecified (4) Fever and chills: Status: Acute Code(s): R50.9 - Fever, unspecified (5) FEDERICO (acute kidney injury): Status: Acute Code(s): N17.9 - Acute kidney failure, unspecified (6) Orthostatic hypotension: Status: Acute Code(s): I95.1 - Orthostatic hypotension (7) Chest pain: Status: Acute Code(s): R07.9 - Chest pain, unspecified Qualifiers: Chest pain type: unspecified Qualified Code(s): R07.9 - Chest pain, unspecified (8) Hypoxia: Status: Acute Code(s): R09.02 - Hypoxemia (9) GERD (gastroesophageal reflux disease): Status: Acute Code(s): K21.9 - Gastro-esophageal reflux disease without esophagitis Qualifiers: Esophagitis bleeding: without hemorrhage (10) Hypertensive heart disease without heart failure: Status: Chronic Code(s): I11.9 - Hypertensive heart disease without heart failure (11) Hyperlipidemia: Status: Chronic Code(s): E78.5 - Hyperlipidemia, unspecified Qualifiers: Hyperlipidemia type: other hyperlipidemia Qualified Code(s): E78.4 - Other hyperlipidemia (12) Hypothyroid: Status: Resolved Code(s): E03.9 - Hypothyroidism, unspecified Qualifiers: Hypothyroidism type: unspecified Qualified Code(s): E03.9 - Hypothyroidism, unspecified (13) Nausea: Status: Acute Code(s): R11.0 - Nausea Meds Home Medications and Allergies Home Medications ?Medication ?Instructions ?Recorded ?Confirmed ?Type cholecalciferol (vitamin D3) 25 25 mcg PO DAILY 04/02/25 History mcg (1,000 unit) capsule melatonin 5 mg capsule 10 mg PO HS 09/10/24 5 History aspirin 81 mg tablet,delayed 81 mg PO DAILY 09/12/24 1 06/02/24 History release rosuvastatin 20 mg tablet 20 mg PO DAILY #30 tabs 08/2404/02/25 Rx trazodone 100 mg tablet 100 mg PO HS #30 tabs 04/02/25 Rx isosorbide dinitrate 10 mg tablet 10 mg PO BID #20 tab s 03/31/25 04/02/25 Rx escitalopram oxalate 20 mg tablet 20 mg PO DAILY 04/0104/02/25 History levothyroxine 100 mcg tablet 100 mcg PO DAILYDM 04/02/25 History cefdinir 300 mg capsule 300 mg PO BID #7 caps Rx New Prescriptions to Start Prescriptions: Josefina Luna Allergies Allergy/AdvReac Type Severity Reaction Status Date / Time codeine (CODEINE) Allergy Unknown Hives Verified 03/31/25 14:44 guaifenesin (GUAIFENESIN) Allergy Unknown stomach Verified 03/31/25 14:44 ache penicillin G (PENICILLIN G) Allergy Unknown Hives Verified 03/31/25 14:44 ciprofloxacin (From Cipro) Allergy Rash Verified 03/31/25 14:44 Sulfa (Sulfonamide Allergy Rash Verified 03/31/25 14:44 Antibiotics) Discharge Plan Disposition Patient Disposition: Home, Self-Care Condition: Good Discharge Order Discharge Orders: Discharge Order (Routine); Ordered 04/03/25 Ordered By: Josefina Zapata Follow up Plan Follow up with: Robert Milner DO [Primary Care Provider, Family Practice] - 1 week Robert Holt MD [Staff Physician, Cardiology] - 04/05/25 2:15 pm Referral Note: pt. already has follow-up on 04/05 Prescriptions/Medication Reconciliation: New cefdinir 300 mg capsule 300 mg PO BID Qty: 7 0RF Rx Instructions: first dose: 04/03/25 @ 2100, then continue BID for 3 days Continued cholecalciferol (vitamin D3) 25 mcg (1,000 unit) capsule 25 mcg PO DAILY melatonin 5 mg capsule 10 mg PO HS isosorbide dinitrate 10 mg tablet 10 mg PO BID Qty: 20 2RF Rx Instructions: allow nitrate-free interval of 12-14 hrs per 24-hr period rosuvastatin 20 mg tablet 20 mg PO DAILY Qty: 30 2RF trazodone 100 mg tablet 100 mg PO HS Qty: 30 2RF aspirin 81 mg Tablet,Delayed Release (Dr/Ec) 81 mg PO DAILY escitalopram oxalate 20 mg tablet 20 mg PO DAILY levothyroxine 100 mcg tablet 100 mcg PO DAILYDM Discontinued nitrofurantoin monohyd/m-cryst [Macrobid] 100 mg capsule 100 mg PO Q12H 7 Days Qty: 14 0RF Rx Instructions: FOR 7 DAYS, RX FROM DATED 03/31/25. Problem Reconciliation Problems Reviewed?: Yes Patient Discharge Instructions ACTIVITY: Continue current activity and Ambulate as tolerated DIET: continue same diet Patient Instructions: Sepsis, DI for Respiratory Failure, DI for Hypoxia Print Language: Icelandic Providers Primary Care Provider: Robert Milner Admit Provider: Monty Ornelas Attending Provider: Monty Ornelas
--- NOTE | 2025-04-04 10:28 | SW/DCPLANNER ---
Spoke with patient on the phone. Patient stated that she is doing good other than having nightmares and dreams since she is been on the antibiotic. Patient stated that she is aware of her upcoming appointment. Patient stated that she was able to get her new medicine picked up. Patient stated that she has no concerns or questions at this time. Sheryl Everett
== END 2025-04-03 10:41 | disposition home or self-care (01) | DRG 872 ==
LOC: ER 19:18 → 2ND 19:27
PROVIDERS: Internal Medicine Adolescent Medicine; Nurse Practitioner Acute Care; Admitting Provider Student in an Organized Health Care Education/Training Program; Emergency Provider Student in an Organized Health Care Education/Training Program; PCP Internal Medicine; Visit Provider Student in an Organized Health Care Education/Training Program
DX: A41.9 Sepsis, unspecified organism (principal); N39.0 Urinary tract infection, site not specified; R65.20 Severe sepsis without septic shock; I11.9 Hypertensive heart disease without heart failure; E03.9 Hypothyroidism, unspecified; I95.1 Orthostatic hypotension; K21.00 Gastro-esophageal reflux disease with esophagitis, without bleeding; I25.10 Atherosclerotic heart disease of native coronary artery without angina pectoris; E78.49 Other hyperlipidemia; R09.02 Hypoxemia; N20.0 Calculus of kidney; K57.90 Diverticulosis of intestine, part unspecified, without perforation or abscess without bleeding; R07.9 Chest pain, unspecified; R31.9 Hematuria, unspecified; Z66 Do not resuscitate; Z95.5 Presence of coronary angioplasty implant and graft; Z98.890 Other specified postprocedural states; Z88.0 Allergy status to penicillin; Z88.1 Allergy status to other antibiotic agents; Z88.2 Allergy status to sulfonamides; Z88.5 Allergy status to narcotic agent; Z88.8 Allergy status to other drugs, medicaments and biological substances; Z79.82 Long term (current) use of aspirin; Z79.890 Hormone replacement therapy; Z79.899 Other long term (current) drug therapy
CPT/HCPCS: 36415; 71045; 71275; 74177; 80053; 81001; 83605; 83690; 83735; 83880; 84439; 84443; 84484; 85007; 85025; 85378; 87040; 87086; 87631; 93005; 99285; J0692; J1885; J2405; J3375; J3475; J7030; J7120; Q9967

== ENCOUNTER 2025-04-14 16:30 | Outpatient (CLI) | payer MEDICARE, OTHER, SELFPAY ==
[2025-04-14 17:06] LABS: Microscopic, Urine URINE MICROSCOPIC (MICROSCOPIC)
[2025-04-14 17:39] LABS: Bilirubin,Urine Negative (Negative); Color,Urine YELLOW (Yellow); Glucose,Urine (UA) Negative (Negative); Ketones,Urine Negative (Negative); Leukocyte Esterase,Urine 1+ (Negative); PH,Urine 6.0 (5.0-8.5); Protein,Urine Negative (Negative); Specific Gravity, Urine 1.010 (1.005-1.030); Urobilinogen,Urine 0.2 EU/dl (0.2)
[2025-04-14 17:52] LABS: Bacteria,Urine 1+ /lpf
== END 2025-04-14 23:59 ==
LOC: LAB.DROPOF 04-18 09:21
PROVIDERS: PCP Internal Medicine; Visit Provider Internal Medicine
DX: N39.0 Urinary tract infection, site not specified (principal)
CPT/HCPCS: 81001; 87086

== ENCOUNTER 2025-04-19 14:57 | Outpatient (CLI) | payer MEDICARE, OTHER, SELFPAY | END 2025-04-19 23:59 | disposition home or self-care (01) | LOC: RT 14:58 | PROVIDERS: PCP Internal Medicine; Visit Provider Physician Assistant | DX: I49.3 Ventricular premature depolarization (principal); I48.91 Unspecified atrial fibrillation; I48.92 Unspecified atrial flutter; I49.1 Atrial premature depolarization; I47.19 Other supraventricular tachycardia; I47.20 Ventricular tachycardia, unspecified | CPT/HCPCS: 93270 ==